=== PATIENT | female | born 1945 | race Caucasian/White ===

== ENCOUNTER 2017-08-26 09:47 | Observation (INO) ==
[2017-08-26] MEDS: Ringers Solution, Lactated 1,000 ML IVC SCH (10:22)
--- NOTE | 2017-08-26 10:37 | Anesthesia Evaluation PreOp ---
Date of Encounter: 08/26/17 Time of Encounter: 10:35 - Past History Planned Operation: ERCP Cardiac History: HTN Pulmonary History: Denies Any Significant HX Other Medical History: GERD (Mostly heartburn), Other (Hemochromatosis) Anesthesia History: No Prior Anesthetic Complications, Past Anesthesia Alcohol Use: none Drug use: none Medications and Allergies Omeprazole [PriLOSEC] 20 mg PO DAILY 07/20/17 [History] Cyanocobalamin (Vitamin B-12) [Vitamin B12] 1,000 mcg PO DAILY 08/26/17 [History ] Lisinopril [Zestril] 5 mg PO DAILY 08/26/17 [History] 3 Allergy/AdvReac Type Severity Reaction Status Date / Time codeine Allergy Difficulty Verified 08/26/17 10:13 Breathing hydrocodone [From Vicodin] Allergy Difficulty Verified 08/26/17 10:13 Breathing Hydromorphone [From Dilaudid] Allergy Difficulty Verified 08/26/17 10:13 Breathing morphine Allergy Difficulty Verified 08/26/17 10:13 Breathing Oxycodone [From Percocet] Allergy Rash Verified 08/26/17 10:13 tramadol Allergy Difficulty Verified 08/26/17 10:13 Breathing influenza virus vaccine, AdvReac FLU LIKE Verified 08/26/17 10:13 specific SYMPTOMS [Influenza Virus Vacc,Specific] - Meds/Allergy Pre-op Review Medications Reviewed: Yes Allergies Reviewed: Yes Beta Blockers on Current Med List: No Anesthesia Results - Labs Laboratory Tests 05/25/17 08/20/17 08/20/17 12:36 17:20 17:20 Hgb 12.2 D Hct 37.0 Plt Count 146 Sodium 143 Potassium 3.5 BUN 22 Creatinine 0.61 Glucose 114 H Hemoglobin A1c 4.8 Total Bilirubin 0.4 Direct Bilirubin 0.1 AST 16 ALT 7 Alkaline Phosphatase 100 Serum Total Protein 6.7 Albumin 3.6 Globulin 3.1 - Imaging Additional studies: Cardiac workup on 2014 for dizziness - NEGATIVE Anesthesia Exam O2 Sat Height 1.6 m Weight 85.275 kg O2 Sat by Pulse Oximetry 96 Vital Signs Temp Pulse Resp BP Pulse Ox 98.3 F 63 16 139/86 96 08/26/17 10:00 08/26/17 10:00 08/26/17 10:00 08/26/17 10:00 08/26/17 10:00 NPO (# of Hours): >8 - HEENT Mallampati: II Teeth: Normal, Missing (Few) - Cardiac Rhythm: Regular - Pulmonary Breath Sounds: bilateral Clear Anesthesia Assess/Plan ASA Score: 2 Modified Currie Scale for Level of Consciousness: Cooperative, oriented, and tranquil Anesthetic Plan: General Monitoring Plan: Standard Monitors Recovery Plan: PACU Anes Supervising Prov Stmt: Patient informed and consented. Risks, benefits, and alternatives discussed. Patient wishes to proceed.
[2017-08-26] MEDS ORDERED: Indomethacin 50 MG SUPP.RECT RC ONE (11:02)
[2017-08-26] MEDS ORDERED: Ondansetron 4 MG/2 ML VIAL IVP PRN (11:15)
[2017-08-26] MEDS ORDERED: *HR* EPINEPHrine 1 MG/10 ML SYRINGE INTRATRACH PRN (11:36)
[2017-08-26] MEDS ORDERED: *HR* EPINEPHrine 1 MG/10 ML SYRINGE ONE (12:12)
[2017-08-26] MEDS ORDERED: Ondansetron 4 MG/2 ML VIAL ONE (12:40)
[2017-08-26] MEDS ORDERED: Ketorolac 15 MG/ML VIAL IVP ONE (14:12)
[2017-08-26] MEDS ORDERED: *HR* Promethazine 25 MG/ML VIAL ONE (14:57)
[2017-08-26] MEDS ORDERED: *HR* Promethazine 25 MG/ML VIAL IVP PRN (14:59)
[2017-08-26] MEDS ORDERED: *HR* FentaNYL (PF) 100 MCG/2 ML VIAL ONE (15:09)
[2017-08-26] MEDS: *HR* FentaNYL (PF) 100 MCG/2 ML VIAL IVP PRN ×2 (15:10→21:36)
[2017-08-26] MEDS ORDERED: *HR* Succinylcholine 200 MG/10 ML VIAL IVP ONE (16:09)
[2017-08-26] MEDS ORDERED: Lidocaine -MPF 2% 5 ML VIAL INFILT ONE (16:09)
[2017-08-26] MEDS ORDERED: Ondansetron 4 MG/2 ML VIAL IVP ONE (16:09)
[2017-08-26] MEDS ORDERED: *HR* Propofol 200 MG/20 ML VIAL IVP ONE (16:09)
[2017-08-26] MEDS ORDERED: Naloxone 0.4 MG/ML INJ IVP PRN (16:37)
[2017-08-26] MEDS ORDERED: Isovue-370 500 ML INFUS..BTL IV ONE (16:42)
--- NOTE | 2017-08-26 16:48 | Internal Med History&Physical ---
Date of Encounter: 08/26/17 Time of Encounter: 16:47 Internal Medicine - H&P: HPI Chief complaint: abdominal pain Admitted From: Direct Admit Plans for Post Hospital Care: Home History of present illness: Ms. Hudson is a 71 year old female who has a background history of hypertension, hemachromatosis, GERD. Patient was referred by PCP to gastroenterology for ERCP. Patient underwent ERCP this morning but post ERCP patient was having excruciating pain. This was the reason demographic analyst requested a direct admission for pain control. Gastroenterology is on the board. Reason for admission: Pain control her postprocedure ERCP. Past Med Surg Social Fam HX - Past Medical History Medical history: GERD, hypertension Psychiatric history: no psych history - Past Surgical History Surgical History: cholecystectomy, herniorrhaphy, hip replacement, other - Social History Smoking Status: Never smoker Smokeless Tobacco Status: No Alcohol use: none Drug use: none - Family History Father Hx Family Cardiac Disorders: Yes Internal Medicine - H&P: Meds Omeprazole [PriLOSEC] 20 mg PO DAILY 07/20/17 [History] Cyanocobalamin (Vitamin B-12) [Vitamin B12] 1,000 mcg PO DAILY 08/26/17 [History ] Lisinopril [Zestril] 5 mg PO DAILY 08/26/17 [History] 3 Allergy/AdvReac Type Severity Reaction Status Date / Time codeine Allergy Difficulty Verified 08/26/17 10:13 Breathing hydrocodone [From Vicodin] Allergy Difficulty Verified 08/26/17 10:13 Breathing Hydromorphone [From Dilaudid] Allergy Difficulty Verified 08/26/17 10:13 Breathing morphine Allergy Difficulty Verified 08/26/17 10:13 Breathing Oxycodone [From Percocet] Allergy Rash Verified 08/26/17 10:13 tramadol Allergy Difficulty Verified 08/26/17 10:13 Breathing influenza virus vaccine, AdvReac FLU LIKE Verified 08/26/17 10:13 specific SYMPTOMS [Influenza Virus Vacc,Specific] All Systems PM: A 10-system review of systems was performed and is negative for pertinent findings except as documented above in the HPI. - Constitutional Constitutional: no chills, no fever(s), no night sweats - EENT Eyes: no change in vision, no discharge, no pain, no photophobia Ears: no ear discharge, no ear pain, no tinnitus Nose, mouth and throat: no dysphagia, no nasal discharge, no neck pain, no sore throat - Cardiovascular Cardiovascular ROS IM: no chest pain, no diaphoresis, no dyspnea, no lightheadedness, no palpitations, no syncope - Respiratory Respiratory: no cough, no dyspnea, no wheezing, no excessive phlegm production - Gastrointestinal Gastrointestinal: abdominal pain, no diarrhea, no hematemesis, no hematochezia, no melena, no nausea, no vomiting - Genitourinary Genitourinary: no change in urinary stream, no dysuria, no flank pain, no hematuria - Musculoskeletal Musculoskeletal ROS IM: no numbness, no tingling - Integumentary Integumentary IM: no rash, no unusual bruising - Neurological Neurological ROS: no confusion, no convulsions, no focal weakness, no numbness, no tingling, no tremor(s) - Hematologic/Lymphatic Hematologic/Lymphatic: no easy bruising - Constitutional Vitals: Temp Pulse Resp BP Pulse Ox 97.7 F 68 18 150/76 96 08/26/17 12:25 08/26/17 15:07 08/26/17 15:07 08/26/17 15:07 08/26/17 15:07 General appearance: Present: A&O X 3, pleasant, no acute distress, answers questions appropriately - Head Head exam: Present: atraumatic, normocephalic - Eye Eye exam: Present: PERRL, conjuntiva pink, sclera anicteric Pupils: Present: PERRL - Neck Neck exam general surgery: Present: supple, trachea midline. Absent: lymphadenopathy - Respiratory Respiratory exam: Present: CTAB. Absent: accessory muscle use, rales, rhonchi, wheezes - Cardiovascular Cardiovascular exam: Present: RRR, +S1, +S2. Absent: diastolic murmur, gallop, rubs, systolic murmur - GI/Abdominal GI/Abdominal exam: Present: normal bowel sounds, soft, no peritoneal signs. Absent: distended, tenderness - Extremities Exam Extremities exam: Present: warm, radial pulses palpable and symmetrical. Absent : calf tenderness, cyanotic, pedal edema - Neurological Exam Neurological exam: Present: CN II-XII intact, oriented X3, no focal deficits. Absent: pronater drift, facial droop, speech deficit - Skin Skin exam: Present: dry, intact Internal Med - H&P Results - Labs CBC & Chem 7: 08/26/17 17:25 - Impressions ITS Impressions Cath/Invasive Procedure 08/26/17 00:00 IMPRESSION: ERCP images demonstrating sweeping of the common bile duct and placement of a common bile duct stent. Please refer to the procedure report for further details. D/ / Soy Velazquez MD / Soy Velazquez MD Interpreting Provider: Soy Velazquez MD X-Ray 08/26/17 15:00 IMPRESSION: No obvious free air postprocedure. D/ / Bora Schmidt / Bora Schmidt Interpreting Provider: Bora Schmidt - Assessment and plan (1) Abdominal pain Current Visit: Yes Status: Acute Assessment and plan: 71/female Admitted with postprocedural pain control. patient underwent ERCP. Post-ERCP, patient was having excruciating pain. This is the reason patient came to hospital for intravenous pain medication for her pain control. Qualifiers: Abdominal location: unspecified location Qualified Code(s): R10.9 - Unspecified abdominal pain (2) Fatigue Current Visit: No Status: Acute Assessment and plan: Patient has progressive fatigue. This is likely postprocedure. We will continue to monitor. Qualifiers: Fatigue type: unspecified Qualified Code(s): R53.83 - Other fatigue (3) Hereditary hemochromatosis Current Visit: No Status: Chronic Assessment and plan: Patient is known to have a hereditary hemochromatosis. Asymptomatic now. Gastroenterology the board. (4) DVT prophylaxis Current Visit: No Status: Chronic Assessment and plan: SCD Medical decision making: This patient has a moderate to severe risk of worsening in spite of being on appropriate medication due to the underlying complex medical condition. - Time Spent With Patient Total time spent is greater than 50% in coordination of care (as documented) at patient's floor/unit and/or counseling patient:
[2017-08-26 17:58] LABS: Basophils % 0.5 %; Eosinophils % 0.3 %; Hematocrit 36.4 % (35.3-44.9); Hemoglobin 12.2 g/dL (11.5-15.4); Immature Granulocytes % 0.5 % (0-4); Lymphocytes % 15.2 %; Mean Corpuscular HGB Conc 33.5 g/dL (31.6-35.5); Mean Corpuscular Hemoglobin 31.4 pg (28.0-33.3); Mean Corpuscular Volume 93.6 fL (83.0-100.0); Mean Platelet Volume 10.5 fL (9.4-12.4); Monocytes # 0.5 K/mcL (0.0-1.3); Monocytes % 7.7 %; Neutrophils # 4.9 K/mcL (1.6-8.9); Platelet Count 137 K/mcL (140-400); Red Blood Count 3.89 M/mcL (3.82-4.97); Red Cell Distribution Width 13.1 % (11.5-14.5); Segmented Neutrophils % 75.8 %
[2017-08-26 18:20] LABS: Alanine Aminotransferase 10 Units/L (7-52); Albumin 3.4 g/dL (3.5-5.7); Albumin/Globulin Ratio 1.3 (1.1-2.2); Alkaline Phosphatase 99 Units/L (34-104); Aspartate Amino Transferase 23 Units/L (13-39); BUN/Creatinine Ratio 30 (6-26); Bilirubin,Total 0.5 mg/dL (0.3-1.0); Blood Urea Nitrogen 17 mg/dL (8-23); Calcium 8.9 mg/dL (8.6-10.3); Carbon Dioxide 26 mEq/L (23-29); Chloride 110 mEq/L (98-107); Globulin 2.7 g/dL (2.4-3.5); Glucose 108 mg/dL (70-105); Osmolality,Calculated 292 (280-300); Potassium 3.5 mEq/L (3.5-5.1); Sodium 140 mEq/L (136-145); Total Protein 6.1 g/dL (6.4-8.9); eGFR For African Americans > 60 (> 60); eGFR For Non-African Americans > 60 (> 60)
[2017-08-27] MEDS: *HR* FentaNYL (PF) 100 MCG/2 ML VIAL IVP PRN ×4 (00:24→13:42)
[2017-08-27] MEDS: Ringers Solution, Lactated 1,000 ML IVC SCH (02:12)
[2017-08-27 05:29] LABS: Basophils % 0.8 %; Eosinophils # 0.1 K/mcL (0.0-0.6); Eosinophils % 1.5 %; Hematocrit 33.4 % (35.3-44.9); Hemoglobin 11.3 g/dL (11.5-15.4); Immature Granulocytes % 0.4 % (0-4); Lymphocytes # 1.7 K/mcL (0.6-4.6); Lymphocytes % 32.1 %; Mean Corpuscular HGB Conc 33.8 g/dL (31.6-35.5); Mean Corpuscular Hemoglobin 31.7 pg (28.0-33.3); Mean Corpuscular Volume 93.6 fL (83.0-100.0); Mean Platelet Volume 10.4 fL (9.4-12.4); Monocytes # 0.6 K/mcL (0.0-1.3); Monocytes % 11.4 %; Neutrophils # 2.8 K/mcL (1.6-8.9); Platelet Count 129 K/mcL (140-400); Red Blood Count 3.57 M/mcL (3.82-4.97); Segmented Neutrophils % 53.8 %
[2017-08-27 05:49] LABS: Alanine Aminotransferase 10 Units/L (7-52); Albumin 2.9 g/dL (3.5-5.7); Albumin/Globulin Ratio 1.1 (1.1-2.2); Alkaline Phosphatase 76 Units/L (34-104); Aspartate Amino Transferase 19 Units/L (13-39); BUN/Creatinine Ratio 30 (6-26); Bilirubin,Total 0.6 mg/dL (0.3-1.0); Blood Urea Nitrogen 16 mg/dL (8-23); Calcium 8.4 mg/dL (8.6-10.3); Carbon Dioxide 24 mEq/L (23-29); Chloride 109 mEq/L (98-107); Globulin 2.6 g/dL (2.4-3.5); Glucose 82 mg/dL (70-105); Magnesium 1.9 mg/dL (1.6-2.6); Osmolality,Calculated 290 (280-300); Phosphorous 3.3 mg/dL (2.7-4.5); Potassium 3.4 mEq/L (3.5-5.1); Sodium 140 mEq/L (136-145); Total Protein 5.5 g/dL (6.4-8.9); eGFR For African Americans > 60 (> 60); eGFR For Non-African Americans > 60 (> 60)
[2017-08-27] MEDS ORDERED: Ringers Solution, Lactated 1,000 ML IVC SCH (08:26)
--- NOTE | 2017-08-27 08:55 | Internal Med Progress Note ---
<Hanna Bustamante - Last Filed: 08/27/17 08:51> Date of Encounter: 08/27/17 Time of Encounter: 08:45 - Assessment and plan (1) Abdominal pain Current Visit: Yes Status: Acute Assessment and plan: Abdominal pain postprocedural ERCP with biliary sphincterotomy and stent placed in common bile duct. GI admitted the patient for pain control. She reports that her pain has improved since yesterday and is more tolerable. Abdomen is soft, tender to right upper quadrant, bowel sounds present, nondistended -Tolerating the clear liquid diet -ketoralac PRN pain -GI following Qualifiers: Abdominal location: unspecified location Qualified Code(s): R10.9 - Unspecified abdominal pain (2) Hereditary hemochromatosis Current Visit: No Status: Chronic Assessment and plan: History of hereditary hemochromatosis. For which she sees Dr. Ashley at the oncology center controlled (3) Hypertension Current Visit: Yes Status: Acute Assessment and plan: History of hypertension controlled with lisinopril continue home medication Qualifiers: Qualified Code(s): I10 - Essential (primary) hypertension (4) DVT prophylaxis Current Visit: No Status: Chronic Assessment and plan: EPCD (5) GERD (gastroesophageal reflux disease) Current Visit: Yes Status: Acute Assessment and plan: History of Gerd controlled with omeprazole continue home medication Qualifiers: Esophagitis presence: esophagitis presence not specified Qualified Code(s) : K21.9 - Gastro-esophageal reflux disease without esophagitis - Time Spent With Patient Total time spent is greater than 50% in coordination of care (as documented) at patient's floor/unit and/or counseling patient: - Subjective Interval history: Upon examination she is sitting up in bed comfortably. She admits to tolerable abdominal pain. She denies fever, chills, nausea, vomiting. She is passed gas. She has no other complaints. - Constitutional Vitals: Temp Pulse Resp BP Pulse Ox 98.4 F 60 18 100/60 93 08/27/17 06:45 08/27/17 06:45 08/27/17 06:45 08/27/17 06:45 08/27/17 06:45 General appearance: Present: A&O X 3, pleasant, no acute distress, answers questions appropriately Exam: Gen.: Vitals noted. No acute distress. AAOx3 HEENT: oropharynx clear, Normocephalic, atraumatic Cardiac: RRR, no murmur, +S1/S2 Pulmonary: CTA bilaterally, no wheezes, rales or rhonchi, equal chest expansion Abdomen: soft, tender right upper quadrant, Bowel sounds noted, no guarding, nondistended MSK: no joint swelling noted Extremities: no BLE edema, nontender calf, no cyanosis or clubbing Neuro: A&Ox3, moves all extremities, no focal deficits Psych: Appropriate mood and behavior Internal Medicine: Result - Labs CBC & Chem 7: 08/27/17 04:55 08/27/17 04:55 Labs: Short CBC 08/26/17 08/27/17 Range/Units 17:25 04:55 WBC 6.4 5.3 (4.3-11.1) K/mcL Hgb 12.2 11.3 L (11.5-15.4) g/dL Hct 36.4 33.4 L (35.3-44.9) % Plt Count 137 L 129 L (140-400) K/mcL Neutrophils # 4.9 2.8 (1.6-8.9) K/mcL BMP 08/26/17 08/27/17 17:25 04:55 Sodium 140 140 Potassium 3.5 3.4 L Chloride 110 H 109 H Carbon Dioxide 26 24 BUN 17 16 Creatinine 0.56 L 0.54 L Glucose 108 H 82 Calcium 8.9 8.4 L Liver Function 08/26/17 08/27/17 Range/Units 17:25 04:55 Total Bilirubin 0.5 0.6 (0.3-1.0) mg/dL AST 23 19 (13-39) Units/L ALT 10 10 (7-52) Units/L Alkaline Phosphatase 99 76 (34-104) Units/L Albumin 3.4 L 2.9 L (3.5-5.7) g/dL - Impressions Impressions Cath/Invasive Procedure 08/26/17 00:00 IMPRESSION: ERCP images demonstrating sweeping of the common bile duct and placement of a common bile duct stent. Please refer to the procedure report for further details. D/ / Soy Velazquez MD / Soy Velazquez MD Interpreting Provider: Soy Velazquez MD X-Ray 08/26/17 15:00 IMPRESSION: No obvious free air postprocedure. D/ / Bora Schmidt / Bora Schmidt Interpreting Provider: Bora Schmidt Abdomen/Pelvis CT 08/26/17 16:42 IMPRESSION: 1. New stent in the common duct appears to be appropriately positioned in terminating in the duodenum. Decreased caliber of the intrahepatic ducts compared with the previous study. 2. Mild right upper quadrant stranding without pneumoperitoneum or free fluid. The stranding is nonspecific and may represent expected change status post ERCP with the differential including pancreatitis and peptic ulcer disease. D/ / Alvarado Gilman MD / Alvarado Gilman MD Interpreting Provider: Alvarado Gilman MD Consult Discharge Plan - Plan Additional Instructions: Take pain medication as needed follow-up with Dr. Cabrera in 3 to 4 weeks return to the hospital should you develop increase in worsened abdominal pain, fever, chills Referrals: Elen Britton DO [Primary Care Provider] - 09/06/17 10:30 am Ann-Marie Cabrera MD [Partnered Physician] - (Web request entered. Office will call with appointment.) Prescriptions: Ketorolac [Toradol] 10 mg PO Q4HR PRN #20 tablet PRN Reason: Pain <David Burgess - Last Filed: 08/27/17 16:03> Date of Encounter: 08/27/17 - Assessment and plan (1) DVT prophylaxis Current Visit: No Status: Chronic (2) Hereditary hemochromatosis Current Visit: No Status: Chronic (3) Abdominal pain Current Visit: Yes Status: Acute Qualifiers: Abdominal location: right upper quadrant Qualified Code(s): R10.11 - Right upper quadrant pain (4) Hypertension Current Visit: Yes Status: Acute Qualifiers: Qualified Code(s): I10 - Essential (primary) hypertension (5) GERD (gastroesophageal reflux disease) Current Visit: Yes Status: Acute Qualifiers: Esophagitis presence: esophagitis presence not specified Qualified Code(s) : K21.9 - Gastro-esophageal reflux disease without esophagitis - Time Spent With Patient Total time spent is greater than 50% in coordination of care (as documented) at patient's floor/unit and/or counseling patient: - Constitutional Vitals: Temp Pulse Resp BP Pulse Ox 98.5 F 58 18 117/71 93 08/27/17 15:12 08/27/17 15:12 08/27/17 15:12 08/27/17 15:12 08/27/17 15:12 Internal Medicine: Result - Labs CBC & Chem 7: 08/27/17 04:55 08/27/17 04:55 Labs: Short CBC 08/26/17 08/27/17 Range/Units 17:25 04:55 WBC 6.4 5.3 (4.3-11.1) K/mcL Hgb 12.2 11.3 L (11.5-15.4) g/dL Hct 36.4 33.4 L (35.3-44.9) % Plt Count 137 L 129 L (140-400) K/mcL Neutrophils # 4.9 2.8 (1.6-8.9) K/mcL BMP 08/26/17 08/27/17 17:25 04:55 Sodium 140 140 Potassium 3.5 3.4 L Chloride 110 H 109 H Carbon Dioxide 26 24 BUN 17 16 Creatinine 0.56 L 0.54 L Glucose 108 H 82 Calcium 8.9 8.4 L Liver Function 08/26/17 08/27/17 Range/Units 17:25 04:55 Total Bilirubin 0.5 0.6 (0.3-1.0) mg/dL AST 23 19 (13-39) Units/L ALT 10 10 (7-52) Units/L Alkaline Phosphatase 99 76 (34-104) Units/L Albumin 3.4 L 2.9 L (3.5-5.7) g/dL - Impressions Impressions Abdomen X-Ray 08/26/17 15:00 IMPRESSION: No obvious free air postprocedure. D/ / Bora Schmidt / oBra Schmidt Interpreting Provider: Bora Schmidt Abdomen/Pelvis CT 08/26/17 16:42 IMPRESSION: 1. New stent in the common duct appears to be appropriately positioned in terminating in the duodenum. Decreased caliber of the intrahepatic ducts compared with the previous study. 2. Mild right upper quadrant stranding without pneumoperitoneum or free fluid. The stranding is nonspecific and may represent expected change status post ERCP with the differential including pancreatitis and peptic ulcer disease. D/ / Alvarado Gilman MD / Alvarado Gilman MD Interpreting Provider: Alvarado Gilman MD - Attending Attestation Intractable abdominal pain after ERCP with sphincterectomy Improved Stable to be discharged home I examined this patient and my medical decision-making was reviewed with the Resident Physician. I agree with the documented findings, disposition and treatment plan as described except to the extent set forth below.
[2017-08-27] MEDS ORDERED: Cyanocobalamin (B-12) 1,000 MCG TABLET PO SCH (09:00)
--- NOTE | 2017-08-27 11:38 | Gastroenterology Consult Note ---
<Marcus Kirkpatrick - Last Filed: 08/27/17 11:34> Date of Encounter: 08/27/17 Time of Encounter: 10:30 - Assessment and plan (1) Abdominal pain Status: Acute Assessment and plan: S/p ERCP with biliary sphincterotomy, CBD dilated, sludge found in biliary tree , and temporary stent placed in CBD. Pt developed abdominal pain following procedure. Continue pain control. Pt is tolerating clear liquid diet, advance as tolerated. Qualifiers: Abdominal location: right upper quadrant Qualified Code(s): R10.11 - Right upper quadrant pain - Time Spent With Patient Total time spent is greater than 50% in coordination of care (as documented) at patient's floor/unit and/or counseling patient: GI History of Present Illness - Data of Consult Patient: known to practice within the last 3 years Consult date: 08/27/17 Requesting Physician: David Burgess - Consult Narrative Reason for consult: Post ERCP pain control History of present illness: Ms. Hudson is a 71 year old female with PMHx of GERD, hemochromatosis, HTN who had ERCP completed yesterday and began to expeience excruciating pain following the procedure. CT A/P 06/10/17 showed dilated CBD and distal CBD debris/stones. ERCP with biliary sphincterotomy, CBD dilated, sludge found in biliary tree, and temporary stent placed in CBD. Patient was admitted for pain control. Procedures: EGD 09/22/2013 Dr. Cabrera: Large hiatal hernia, stents removed. Esophageal manometry 09/21/2013 Dr. Humphrey: Hypotensive esophageal contractions on 10 wet swallows. ERCP 08/28/2013 Dr. Cabrera: Choledocholithiasis and biliary sludge was found, biliary and pancreatic duct stents were inserted. Large periampullary diverticulum. EUS 08/26/2013 Dr. Cabrera: Large periampullary diverticulum. Possible CBD sludge. Colonoscopy 07/10/2013 Dr. Ludwig: Nonbleeding internal hemorrhoids NSAIDs: None Anticoagulation: None Past Med Surg Social Fam HX - Past Medical History Medical history: GERD, hypertension Psychiatric history: no psych history - Past Surgical History Surgical History: cholecystectomy, herniorrhaphy, hip replacement, other - Social History Smoking Status: Never smoker Smokeless Tobacco Status: No Alcohol use: none Drug use: none - Family History Father Hx Family Cardiac Disorders: Yes - Gastrointestinal Gastrointestinal: Present: as per HPI - Constitutional Constitutional: as per HPI - EENT Eyes: as per HPI Ears: Present: as per HPI Nose, mouth and throat: Present: as per HPI - Cardiovascular Cardiovascular ROS: Present: as per HPI - Respiratory Respiratory IM: Present: as per HPI - Genitourinary Genitourinary: Absent: change in color, Urinary frequency - Neurological ROS Neurological GI: Present: as per HPI - Hematologic/Lymphatic Hematologic/Lymphatic pediatric: Present: as per HPI - Musculoskeletal Musculoskeletal ROS GI: Present: as per HPI - Integumentary Integumentary GI: Present: as per HPI - Psychiatric ROS Psychiatric GI: Present: as per HPI - Endocrine Endocrine IM: Present: as per HPI - Constitutional Vitals: Temp Pulse Resp BP Pulse Ox 98.0 F 56 17 111/68 93 08/27/17 11:00 08/27/17 11:00 08/27/17 11:00 08/27/17 11:00 08/27/17 11:00 General appearance: Present: cooperative, A&O X 3, no acute distress, answers questions appropriately - Head Head exam: Present: atraumatic, normocephalic - Eye Eye exam: Present: normal appearance, sclera anicteric - ENT ENT exam: Present: mucous membranes dry - Neck Neck exam general surgery: Present: normal inspection, trachea midline - Respiratory Respiratory exam: Present: CTAB. Absent: rales, rhonchi, wheezes - Cardiovascular Cardiovascular exam: Present: RRR, +S1, +S2 - GI/Abdominal GI/Abdominal exam: Present: soft, tenderness (mild RUQ and epigastric tenderness ), no peritoneal signs. Absent: distended, firm, guarding - Rectal Rectal exam: Present: deferred - Extremities Exam Extremities exam: Present: warm - Neurological Exam Neurological exam: Present: no focal deficits - Psychiatric Psychiatric exam: Present: normal affect, normal mood - Skin Skin exam: Present: dry, intact, normal color, warm Results - Labs CBC & Chem 7: 08/27/17 04:55 08/27/17 04:55 Labs: Last Result Calcium 8.4 mg/dL (8.6-10.3) L 08/27/17 04:55 Entire Visit Hgb 11.3 g/dL (11.5-15.4) L 08/27/17 04:55 Hct 33.4 % (35.3-44.9) L 08/27/17 04:55 Total Bilirubin 0.6 mg/dL (0.3-1.0) 08/27/17 04:55 AST 19 Units/L (13-39) 08/27/17 04:55 ALT 10 Units/L (7-52) 08/27/17 04:55 Amylase 60 Units/L (29-103) 08/26/17 17:25 Lipase 22 Units/L (11-82) 08/26/17 17:25 - Impressions Impressions Cath/Invasive Procedure 08/26/17 00:00 IMPRESSION: ERCP images demonstrating sweeping of the common bile duct and placement of a common bile duct stent. Please refer to the procedure report for further details. D/ / Soy Velazquez MD / Soy Velazquez MD Interpreting Provider: Soy Velazquez MD X-Ray 08/26/17 15:00 IMPRESSION: No obvious free air postprocedure. D/ / Bora Schmidt / Bora Schmidt Interpreting Provider: Bora Schmidt Abdomen/Pelvis CT 08/26/17 16:42 IMPRESSION: 1. New stent in the common duct appears to be appropriately positioned in terminating in the duodenum. Decreased caliber of the intrahepatic ducts compared with the previous study. 2. Mild right upper quadrant stranding without pneumoperitoneum or free fluid. The stranding is nonspecific and may represent expected change status post ERCP with the differential including pancreatitis and peptic ulcer disease. D/ / Alvarado Gilman MD / Alvarado Gilman MD Interpreting Provider: Alvarado Gilman MD Consult Discharge Plan - Plan Additional Instructions: Take pain medication as needed follow-up with Dr. Gul in 3 to 4 weeks return to the hospital should you develop increase in worsened abdominal pain, fever, chills Referrals: Elen Britton DO [Primary Care Provider] - 09/06/17 10:30 am Ann-Marie Cabrera MD [Partnered Physician] - (Web request entered. Office will call with appointment.) Prescriptions: Ketorolac [Toradol] 10 mg PO Q4HR PRN #20 tablet PRN Reason: Pain <Ann-Marie Cabrera - Last Filed: 08/27/17 23:00> Date of Encounter: 08/26/17 Time of Encounter: 17:00 - Time Spent With Patient Total time spent is greater than 50% in coordination of care (as documented) at patient's floor/unit and/or counseling patient: GI History of Present Illness - Data of Consult Requesting Physician: David Burgess - Consult Narrative History of present illness: Ms. Hudson is a 71 year old female - Constitutional Vitals: Temp Pulse Resp BP Pulse Ox 98.5 F 58 18 117/71 93 08/27/17 15:12 08/27/17 15:12 08/27/17 15:12 08/27/17 15:12 08/27/17 15:12 Results - Labs CBC & Chem 7: 08/27/17 04:55 08/27/17 04:55 Labs: Last Result Calcium 8.4 mg/dL (8.6-10.3) L 08/27/17 04:55 Entire Visit Hgb 11.3 g/dL (11.5-15.4) L 08/27/17 04:55 Hct 33.4 % (35.3-44.9) L 08/27/17 04:55 Total Bilirubin 0.6 mg/dL (0.3-1.0) 08/27/17 04:55 AST 19 Units/L (13-39) 08/27/17 04:55 ALT 10 Units/L (7-52) 08/27/17 04:55 Amylase 60 Units/L (29-103) 08/26/17 17:25 Lipase 22 Units/L (11-82) 08/26/17 17:25 - Impressions Impressions Abdomen X-Ray 08/26/17 15:00 IMPRESSION: No obvious free air postprocedure. D/ / Bora Schmidt / Bora Schmidt Interpreting Provider: Bora Schmidt - Attending Attestation I have personally performed a face to face evaluation on this patient. I have reviewed and agree with the care plan. History and Exam by me shows: Pt s/p ERCP and post ERCP had pain so admitted for observation. Pain better. labs/CT normal. Can be d/c home
--- NOTE | 2017-08-27 15:04 | Discharge Summary ---
<Hanna Bustamante - Last Filed: 08/27/17 15:02> Date of Encounter: 08/27/17 Time of Encounter: 15:02 - Discharge Diagnosis (1) Abdominal pain Priority: Primary Status: Acute Qualifiers: Abdominal location: right upper quadrant Qualified Code(s): R10.11 - Right upper quadrant pain (2) Hereditary hemochromatosis Priority: Secondary Status: Chronic (3) Hypertension Priority: Secondary Status: Acute Qualifiers: Qualified Code(s): I10 - Essential (primary) hypertension (4) DVT prophylaxis Priority: Secondary Status: Chronic (5) GERD (gastroesophageal reflux disease) Priority: Secondary Status: Acute Qualifiers: Esophagitis presence: esophagitis presence not specified Qualified Code(s) : K21.9 - Gastro-esophageal reflux disease without esophagitis Hospital course: Ms. Hudson is a 71 year old female with a past medical history of hypertension , hemochromatosis, Gerd who was admitted for pain control postprocedure ERCP. Gastroenterology continued to follow the patient during admission. She was afebrile, WBC within normal limits. She was given fentanyl, indomethacin for pain control. During her admission her abdominal pain continue to significantly improve since the procedure. She tolerated clear liquid diet well and then was transitioned to a regular diet for which she tolerated well. Abdominal exam was soft, nontender, nondistended, bowel sounds present. She reported occasional sharp pain that would resolve quickly. Families at bedside. Since pain was improved and controlled she was discharged with pain medication to use as needed. She is to follow up with Dr. Cabrera 3 to 4 weeks. She is alert and oriented times 3 full capacity stated clear understanding of the treatment plan. Discharge discussed with: patient, family - Time Spent with Patient Total time spent providing and/or coordinating discharge services: Greater than 30 minutes - Discharge Medications Prescriptions: Ketorolac [Toradol] 10 mg PO Q4HR PRN #20 tablet PRN Reason: Pain Home Medications: Omeprazole [PriLOSEC] 20 mg PO DAILY 07/20/17 [History] Cyanocobalamin (Vitamin B-12) [Vitamin B12] 1,000 mcg PO DAILY 08/26/17 [History ] Lisinopril [Zestril] 5 mg PO DAILY 08/26/17 [History] Ketorolac [Toradol] 10 mg PO Q4HR PRN #20 tablet 08/27/17 [Rx] Allergies/Adverse Reactions: 3 Allergy/AdvReac Type Severity Reaction Status Date / Time codeine Allergy Difficulty Verified 08/26/17 10:13 Breathing hydrocodone [From Vicodin] Allergy Difficulty Verified 08/26/17 10:13 Breathing Hydromorphone [From Dilaudid] Allergy Difficulty Verified 08/26/17 10:13 Breathing morphine Allergy Difficulty Verified 08/26/17 10:13 Breathing Oxycodone [From Percocet] Allergy Rash Verified 08/26/17 10:13 tramadol Allergy Difficulty Verified 08/26/17 10:13 Breathing influenza virus vaccine, AdvReac FLU LIKE Verified 08/26/17 10:13 specific SYMPTOMS [Influenza Virus Vacc,Specific] Date of admission: 08/26/17 16:08 Primary care physician: Elen Britton DO Consults: 08/26/17 16:43 Consult to Gastroenterology [CONS] Routine Consulting Provider: Gastroenterology Joelle Reason for Consult: Post ERCP pain control. Call Completed: Yes Discharging clinician: David Burgess Anticipated date of discharge: 08/27/17 - Constitutional Vitals: Temp Pulse Resp BP Pulse Ox 98.0 F 56 17 111/68 93 08/27/17 11:00 08/27/17 11:00 08/27/17 11:00 08/27/17 11:00 08/27/17 11:00 General appearance: Present: A&O X 3, pleasant, no acute distress, answers questions appropriately Exam: Gen.: Vitals noted. No acute distress. AAOx3 HEENT: oropharynx clear, Normocephalic, atraumatic Cardiac: RRR, no murmur, +S1/S2 Pulmonary: CTA bilaterally, no wheezes, rales or rhonchi, equal chest expansion Abdomen: soft, tender right upper quadrant, Bowel sounds noted, no guarding, nondistended MSK: no joint swelling noted Extremities: no BLE edema, nontender calf, no cyanosis or clubbing Neuro: A&Ox3, moves all extremities, no focal deficits Psych: Appropriate mood and behavior - Patient Status Disposition: Home, Self-Care Condition: Good Functional capacity at discharge: independent ambulation Overall status at discharge: patient is progressing back to baseline - Discharge Instructions Follow Up With: Elen Britton DO [Primary Care Provider] - 09/06/17 10:30 am Ann-Marie Cabrera MD [Partnered Physician] - (Web request entered. Office will call with appointment.) Additional Instructions: Take pain medication as needed follow-up with Dr. Cabrera in 3 to 4 weeks return to the hospital should you develop increase in worsened abdominal pain, fever, chills - Diet and Activity Activity: resume usual activities as tolerated Diet: advance to your usual diet <David Burgess - Last Filed: 08/27/17 16:04> Date of Encounter: 08/27/17 - Discharge Diagnosis (1) DVT prophylaxis Status: Chronic (2) Hereditary hemochromatosis Status: Chronic (3) Abdominal pain Status: Acute Qualifiers: Abdominal location: right upper quadrant Qualified Code(s): R10.11 - Right upper quadrant pain (4) Hypertension Status: Acute Qualifiers: Qualified Code(s): I10 - Essential (primary) hypertension (5) GERD (gastroesophageal reflux disease) Status: Acute Qualifiers: Esophagitis presence: esophagitis presence not specified Qualified Code(s) : K21.9 - Gastro-esophageal reflux disease without esophagitis Hospital course: Ms. Hudson is a 71 year old female - Time Spent with Patient Total time spent providing and/or coordinating discharge services: Date of admission: 08/26/17 16:08 Primary care physician: Elen Britton DO Consults: 08/26/17 16:43 Consult to Gastroenterology [CONS] Routine Consulting Provider: Gastroenterology Joelle Reason for Consult: Post ERCP pain control. Call Completed: Yes - Constitutional Vitals: Temp Pulse Resp BP Pulse Ox 98.5 F 58 18 117/71 93 08/27/17 15:12 08/27/17 15:12 08/27/17 15:12 08/27/17 15:12 08/27/17 15:12 - Attending Attestation Intractable abdominal pain after ERCP with sphincterectomy Improved Stable to be discharged home Time spent 40 minutes I examined this patient and my medical decision-making was reviewed with the Resident Physician. I agree with the documented findings, disposition and treatment plan as described except to the extent set forth below.
[2017-08-27 15:13] VITALS: BP 117/71
== END 2017-08-27 16:58 | disposition home or self-care (01) ==
LOC: 3ANU 09:47 → ENDPAV 09:47
PROVIDERS: ADMIT Internal Medicine; ATTEND Internal Medicine

== ENCOUNTER 2018-06-14 11:14 | Observation (INO) ==
--- NOTE | 2018-06-13 10:19 | History & Physical Report ---
Date of Encounter: 06/13/18 Time of Encounter: 10:20 24 Hour HP Update - Instructions Instructions: If the History and Physical is less than 30 days old and was completed prior to A.M. admission and or procedure and has NOT been updated on calendar day of procedure please complete this update prior to performing procedure. - Update Patient reports changes in Medical Condition: No Changes in examination, assessment, or condition: No Changes in Medication: Yes Preop tests/diagnostics Reviewed: Yes Review of Patient reveals the following changes:: Patient stopped Eliquis and was started on Coumadin for AC ~1 week ago. Follows at [facility], on 5 mg Coumadin daily. Last INR was 1.9. - Pre-Operative Checklist Is VTE Prophylaxis Indicated?: NO - Attending Attestation Please refer to full H&P dated 05/27/[address] Frederick Trevino. Direct admission for Rythmol 150 mg Q8H for symptomatic PAF--symptoms include significant fatigue/activity intolerance. Obtain baseline ECG, BMP, CMP. NSR upon exam. Patient will need inpatient monitoring for at least 5 doses, anticipate discharge to home on 06/15/18. Recently started on Coumadin for AC (Eliquis d/c'ed); ~1 week ago, INR followed by [facility]. Last INR 1.9; on 5 mg Coumadin daily. Will obtain INR now, pharmacy to dose Coumadin as inpt, goal INR 2-3 Recent CV testing: 12/2017: baseline NSR, frequent PVCs, occasional PACs, several short runs of PAT, one short episode of PAF with RVR Tilt table 11/2017: negative tilt table test for syncope. TTE 08/2017: LVEF 55%, mild asymmetric hypertrophy of the basal septum, mild LVDD, normal RV structure and function, mild MR, no PH Nuclear stress 01/2015: negative for ischemic or infarct, gated EF=67% Patient will be discussed and reviewed with Dr. Toribio, changes to be made accordingly.
[2018-06-13 11:13] LABS: Basophils # 0.1 K/mcL (0.0-0.2); Basophils % 1.3 %; Eosinophils # 0.2 K/mcL (0.0-0.6); Eosinophils % 3.1 %; Hematocrit 38.8 % (35.3-44.9); Hemoglobin 12.8 g/dL (11.5-15.4); Immature Granulocytes % 0.2 % (0-4); Lymphocytes # 1.7 K/mcL (0.6-4.6); Lymphocytes % 30.6 %; Mean Corpuscular Hemoglobin 31.6 pg (28.0-33.3); Mean Corpuscular Volume 95.8 fL (83.0-100.0); Mean Platelet Volume 10.9 fL (9.4-12.4); Monocytes # 0.6 K/mcL (0.0-1.3); Monocytes % 10.1 %; Platelet Count 136 K/mcL (140-400); Red Blood Count 4.05 M/mcL (3.82-4.97); Red Cell Distribution Width 12.8 % (11.5-14.5); Segmented Neutrophils % 54.7 %
[2018-06-13 11:32] LABS: Alanine Aminotransferase 7 Units/L (7-52); Albumin 3.7 g/dL (3.5-5.7); Albumin/Globulin Ratio 1.2 (1.1-2.2); Alkaline Phosphatase 82 Units/L (34-104); Aspartate Amino Transferase 15 Units/L (13-39); BUN/Creatinine Ratio 29 (6-26); Bilirubin,Total 0.4 mg/dL (0.3-1.0); Blood Urea Nitrogen 20 mg/dL (8-23); Calcium 9.6 mg/dL (8.6-10.3); Carbon Dioxide 26 mEq/L (23-29); Chloride 107 mEq/L (98-107); Glucose 89 mg/dL (70-105); Osmolality,Calculated 290 (280-300); Potassium 3.9 mEq/L (3.5-5.1); Sodium 139 mEq/L (136-145); Total Protein 6.7 g/dL (6.4-8.9); eGFR For Non-African Americans > 60 (> 60)
[2018-06-13 11:41] LABS: INR 1.8; Prothrombin Time 19.9 Seconds (9.4-12.1)
[2018-06-14 05:15] LABS: INR 2.3; Prothrombin Time 25.4 Seconds (9.4-12.1)
--- NOTE | 2018-06-14 08:04 | Electrophysiology ProgressNote ---
Date of Encounter: 06/14/18 Time of Encounter: 08:00 Assessment and Plan (1) Atrial fibrillation Current Visit: Yes Status: Chronic Per EP: Recent CV testing: 12/2017: baseline NSR, frequent PVCs, occasional PACs, several short runs of PAT, one short episode of PAF with RVR Tilt table 11/2017: negative tilt table test for syncope. TTE 08/2017: LVEF 55%, mild asymmetric hypertrophy of the basal septum, mild LVDD, normal RV structure and function, mild MR, no PH Nuclear stress 01/2015: negative for ischemic or infarct, gated EF=67% Direct admission for Rythmol 150 mg Q8H for symptomatic PAF--symptoms include significant fatigue/activity intolerance. Status post 3 doses with current ECG this morning showing sinus bradycardia in the 50s with QRS 107 ms. Nothing to eat after midnight for possible FIDELINA/DC cardio version if clinically warranted (has been SR); anticipate discharge home tomorrow. Recently started on Coumadin for AC ([facility] d/c'ed); ~1 week ago, INR followed by [facility]. Last INR 1.9; on 5 mg Coumadin daily. INR = 2.3, pharmacy to dose Coumadin as inpt, goal INR 2-3. Qualifiers: Atrial fibrillation type: paroxysmal Qualified Code(s): I48.0 - Paroxysmal atrial fibrillation Discussion w patient/family: The assessment and plan as outlined above was discussed with the patient and/or family members who expressed understanding and agreement. All questions were answered. Thank you for involving us in the care of your patient. Please call with any questions. Subjective Principal diagnosis: Afib Interval history: Denies any concerns or complaints overnight. Denies any chest pain, shortness of breath, palpitations. Objective Vital Signs, Last 4 Hours Temp Pulse Resp BP Pulse Ox 06/14/18 07:15 98.2 F 58 16 129/75 92 General: Conversant, No Apparent Distress HEENT: Atraumatic, Normocephaly, Mucus Membranes Moist Neck: No JVD, Normal carotid pulses Cardiac: Reg Rate and Rhythm, Normal S1 and S2, No Murmur Lungs: Normal Breath Sounds, No Wheeze, Rales, Rhonchi Neuro: Alert and responsive, No focal deficits noted Abdomen: Soft, Non-Tender Skin: No rashes noted on visualized skin Musculoskeletal: No Chest Wall Tenderness Extremities: No Clubbing, No Cyanosis, No Edema, Normal Pulses Results 06/13/18 10:36 06/13/18 10:36 Lab Results Laboratory Tests 06/14/18 04:50 INR 2.3 Active Medications Acetaminophen (Tylenol) 650 mg PO Q6HR PRN PRN Reason: Mild Pain/Fever Stop: 12/13/18 10:35 Cyanocobalamin (Vitamin B12) 1,000 mcg PO DAILY [facility] Stop: 12/14/18 09:01 Diltiazem HCl (Cardizem Cd) 120 mg PO DAILY [facility] Stop: 12/14/18 09:01 Naloxone HCl (Narcan) 0.4 mg IVP Q2MIN PRN PRN Reason: SEE COMMENTS Stop: 12/13/18 10:35 Omeprazole (Prilosec) 20 mg PO 0630 [facility]; Protocol Stop: 12/14/18 06:31 Last Admin: 06/14/18 06:27 Dose: 20 mg Propafenone HCl (Rhythmol) 150 mg PO Q8H [facility] Stop: 12/13/18 14:01 Last Admin: 06/14/18 06:27 Dose: 150 mg Warfarin Sodium (Coumadin Perpt) 1 each PO DAILY@1800 PRN PRN Reason: SEE COMMENTS Stop: 12/13/18 18:01 - EKG Interpretation EKG results cardiology: other (Average heart rate 57 the past 12 hours, sinus rhythm with no significant events) - VTE Reasons for not Prescribing Prophylaxis: Not indicated-Anticoagulated or INR therapeutic Consult Discharge Plan - Plan Referrals: Elen Britton DO [Primary Care Provider] -
[2018-06-14] MEDS: Cyanocobalamin (B-12) 1,000 MCG TABLET PO SCH (09:49)
[2018-06-14] MEDS: Diltiazem CD (24hr) 120 MG CAPSULE PO SCH (09:49)
[~2018-06-14 11:14] MED LIST: Acetaminophen 325 MG TABLET PO PRN; Naloxone 0.4 MG/ML INJ IVP PRN; Warfarin perPT PO PRN
[2018-06-14] MEDS ORDERED: *HR* Warfarin 3 MG TABLET PO ONE (18:00)
--- NOTE | 2018-06-14 18:26 | Electrocardiograph Report ---
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
--- NOTE | 2018-06-14 19:00 | Electrocardiograph Report ---
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
[2018-06-15 05:46] LABS: INR 1.7; Prothrombin Time 19.7 Seconds (9.4-12.1)
[2018-06-15 07:28] VITALS: BP 140/82
[2018-06-15] MEDS: Cyanocobalamin (B-12) 1,000 MCG TABLET PO SCH (09:20)
[2018-06-15] MEDS: Diltiazem CD (24hr) 120 MG CAPSULE PO SCH (09:20)
--- NOTE | 2018-06-15 09:47 | Discharge Summary ---
Orders not resulted at time of discharge: Pending orders 06/16/18 04:00 PT/INR [Prothrombin Time INR] [COAG] AM 0400 06/16/18 06:00 ECG 12 lead ECG [ECG] AM 0600 06/17/18 04:00 PT/INR [Prothrombin Time INR] [COAG] AM 0400 06/18/18 04:00 PT/INR [Prothrombin Time INR] [COAG] AM 0400 Date of Encounter: 06/15/18 Time of Encounter: 09:45 - Discharge Diagnosis (1) PAF (paroxysmal atrial fibrillation) Priority: Primary Status: Acute (2) Encounter for monitoring anti-arrhythmic therapy Priority: Primary Status: Acute - Hospital Course Hospital course: Ms. Hudson is a 72 year old female that presented as a direct admission 06/13/18 for Rythmol 150 mg Q8H for symptomatic PAF--symptoms include significant fatigue/activity intolerance. Status post 6 doses with current ECG this morning showing sinus bradycardia in the 50s with QRS 115 ms, stable. No PAF noted during stay. Recently started on Coumadin for AC ([facility] d/c'ed); ~1 week ago, INR followed by [facility]. INR 1.7; on 5 mg Coumadin daily. Goal INR 2-3. No bridging warranted since pt is maintaining SR. D/C home in stable condition. Will coordinate outpt follow-up in 2-3 weeks. - Time Spent with Patient Total time spent providing and/or coordinating discharge services: Less than 30 minutes - Discharge Medications Prescriptions: Propafenone [Rhythmol] 150 mg PO Q8H #90 tablet Home Medications: Omeprazole [PriLOSEC] 20 mg PO DAILY 07/20/17 [History] Cyanocobalamin (Vitamin B-12) [Vitamin B12] 1,000 mcg PO DAILY 08/26/17 [History] Acetaminophen [Tylenol] 500 mg PO BID PRN 12/14/17 [History] Diltiazem HCl [Cardizem LA] 120 mg PO DAILY 06/13/18 [History] Warfarin [Coumadin] 5 mg PO 1800 06/13/18 [History] Propafenone [Rhythmol] 150 mg PO Q8H #90 tablet 06/15/18 [Rx] Allergies/Adverse Reactions: Allergy/AdvReac Type Severity Reaction Status Date / Time codeine Allergy Difficulty Verified 06/13/18 21:27 Breathing hydrocodone [From Vicodin] Allergy Difficulty Verified 06/13/18 21:27 Breathing hydromorphone [From Dilaudid] Allergy Difficulty Verified 06/13/18 21:27 Breathing morphine Allergy Difficulty Verified 06/13/18 21:27 Breathing oxycodone [From Percocet] Allergy Rash Verified 06/13/18 21:27 tramadol Allergy Difficulty Verified 06/13/18 21:27 Breathing influenza virus vaccine, AdvReac FLU LIKE Verified 06/13/18 21:27 specific SYMPTOMS [Influenza Virus Vacc,Specific] Date of admission: 06/14/18 11:56 Primary care physician: Elen Britton DO Discharging clinician: Maxim Welch Anticipated date of discharge: 06/15/18 Physical Examination Vital Signs, Last 4 Hours Temp Pulse Resp BP Pulse Ox 06/15/18 07:23 98.6 F 55 16 140/82 90 Vital Signs Temp Pulse Resp BP Pulse Ox 06/15/18 07:23 98.6 F 55 16 140/82 90 06/15/18 04:00 98.4 F 54 13 147/83 91 06/15/18 00:00 98.4 F 64 13 139/76 90 06/14/18 20:00 98.4 F 72 13 150/75 95 06/14/18 16:14 98.6 F 63 16 145/80 93 Intake and Output 06/14/18 06/15/18 06/15/18 23:59 07:59 15:59 Intake Total 480 / 480 120 / 120 Output Total 1120 / 1120 900 / 900 Balance -640 / -640 -780 / -780 Intake: Oral 480 / 480 120 / 120 Output: Urine 900 / 900 Catheter 1120 / 1120 Other: Meal Dinner npo Percent of Meal Consumed 75% 0% Weight 84.5 kg Patient Weight 06/15/18 23:59 Weight 84.5 kg General: Conversant, No Apparent Distress HEENT: Atraumatic, Normocephaly, Mucus Membranes Moist Neck: No JVD, Normal carotid pulses Cardiac: Reg Rate and Rhythm, Normal S1 and S2, No Murmur Lungs: Normal Breath Sounds, No Wheeze, Rales, Rhonchi Neuro: Alert and responsive, No focal deficits noted Abdomen: Soft, Non-Tender Skin: No rashes noted on visualized skin Musculoskeletal: No Chest Wall Tenderness Extremities: No Clubbing, No Cyanosis, No Edema, Normal Pulses - Patient Status Disposition: Home, Self-Care Condition: Good Functional capacity at discharge: independent ambulation Overall status at discharge: patient is back to baseline - Discharge Instructions Follow Up With: Elen Britton DO [Primary Care Provider] - 06/22/18 11:00 am - Diet and Activity Activity: increase activity as tolerated Diet: advance to your usual diet - VTE Reasons for not Prescribing Prophylaxis: Not indicated-Anticoagulated or INR therapeutic
--- NOTE | 2018-06-15 15:48 | Electrocardiograph Report ---
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
== END 2018-06-15 11:59 | disposition home or self-care (01) ==
LOC: 2NENU → SAMDAY 11:14 → 2NENU 11:14
PROVIDERS: ADMIT Internal Medicine Clinical Cardiac Electrophysiology; ATTEND Internal Medicine Clinical Cardiac Electrophysiology

== ENCOUNTER 2018-08-20 18:57 | Observation (INO) ==
[2018-08-20] MEDS ORDERED: Isovue-370 500 ML BOTTLE IVP ONE ×2 (19:14→19:16)
--- NOTE | 2018-08-20 19:18 | Emergency Department Note ---
Disposition Clinical Impression: Cerebrovascular accident Qualifiers: CVA mechanism: unspecified Qualified Code(s): I63.9 - Cerebral infarction, unspecified Disposition: Admitted As Inpatient Condition: Undetermined Referrals: Elen Britton DO [Primary Care Provider] - Forms: ED Satisfaction Letter Time of Disposition: 20:17 Neuro HPI - General Chief Complaint: ED Neuro Symptoms/Deficit Stated Complaint: LUE/LLE pain Time Seen by Provider: 08/20/18 19:09 Source: patient Mode of arrival: wheelchair Limitations: no limitations Nursing Notes Reviewed: Yes Vital Signs Reviewed: Yes - History of Present Illness HPI Narrative: 72-year-old female with history of atrial fibrillation on warfarin, retention, arrives to the emergency department with left sided facial weakness, left-sided facial droop, left-sided facial numbness, left lower extremity numbness. The patient states that she lay down for a nap at 1730 and woke up with symptoms. Patient's last known well was 1730 today. Patient denies any other acute complaints. She has been taking her warfarin as prescribed. No recent traumatic injury. She is complaining of left-sided neck pain, pain in her left arm swells pain in her left lower extremity which is not unusual for her. The patient states she decided come to the emergency department secondary to the pain and the new paresthesias of the left lower extremity. Patient has an NIH of 3 upon arrival to the emergency department. She denies any other acute complaints. She is lucid and answering questions appropriately and is a very good historian. - Related Data Home Medications: Home Medications Medication Instructions Recorded Confirmed Omeprazole [PriLOSEC] 20 mg PO DAILY 07/20/17 08/20/18 Cyanocobalamin (Vitamin B-12) 1,000 mcg PO DAILY 08/26/17 08/20/18 [Vitamin B12] Acetaminophen [Tylenol] 500 mg PO BID PRN 12/14/17 08/20/18 Warfarin [Coumadin] 7.5 mg PO MOWEFR 06/13/18 08/20/18 Warfarin [Coumadin] 5 mg PO SUTUTHSA 08/20/18 08/20/18 Previous Rx's Medication Instructions Recorded Propafenone [Rhythmol] 150 mg PO Q8H #90 tablet 06/15/18 Allergies/Adverse Reactions: Allergies Allergy/AdvReac Type Severity Reaction Status Date / Time codeine Allergy Difficulty Verified 06/13/18 21:27 Breathing hydrocodone [From Vicodin] Allergy Difficulty Verified 06/13/18 21:27 Breathing hydromorphone [From Dilaudid] Allergy Difficulty Verified 06/13/18 21:27 Breathing morphine Allergy Difficulty Verified 06/13/18 21:27 Breathing oxycodone [From Percocet] Allergy Rash Verified 06/13/18 21:27 tramadol Allergy Difficulty Verified 06/13/18 21:27 Breathing influenza virus vaccine, AdvReac FLU LIKE Verified 06/13/18 21:27 specific SYMPTOMS [Influenza Virus Vacc,Specific] All systems ED: reviewed and negative except as stated. Constitutional: Denies: fever, chills, weakness ENT ED: Denies: dysphagia Cardiovascular: Denies: chest pain Respiratory: Denies: dyspnea Gastrointestinal: Denies: abdominal pain Genitourinary: Denies: urgency, dysuria Musculoskeletal: Denies: back pain Integumentary: Denies: rash Neurological: Reports: weakness, numbness, paresthesias. Denies: headache, confusion Past Medical History - Past Medical History Attestation: Yes The following information was validated with the patient. Source: patient, old records reviewed Medical history: Reports: atrial fibrillation, other Surgical history: Reports: cholecystectomy, herniorrhaphy, hip replacement, orthopedic, other, other Psychiatric history: Reports: no psych history CONTRACT ATTORNEY history: Reports: non-contributory - Social History Smoking Status: Never smoker Smokeless Tobacco Status: No Alcohol use: Reports: none Drug use: Reports: none Physical Exam - General Limitations: no limitations General appearance: alert, in no apparent distress - Head Head exam: atraumatic, normocephalic, normal inspection - Eye Eye exam: Present: normal appearance, PERRL, EOMI - ENT ENT exam: normal exam, normal oropharynx, mucous membranes moist - Neck Neck exam: Present: normal inspection, full ROM, trachea midline - Chest Chest inspection: Present: normal inspection, symmetric chest wall rise - Respiratory Respiratory exam: Present: normal lung sounds bilaterally - Cardiovascular Cardiovascular exam: Present: regular rate, normal rhythm, normal heart sounds - Abdominal Exam Abdominal exam: Present: soft, Non-Tender. Absent: tenderness, distention, guarding, rebound, rigidity - Extremities Exam Extremities exam: Present: normal inspection, full ROM, normal capillary refill. Absent: tenderness, pedal edema - Neurological Exam Neurological exam: Present: alert, oriented X3 - Skin Skin exam: Present: warm, dry, intact, normal color Course - Consultations Consultation #1: I spoke with on-call stroke neurologist, Dr. Argueta, at [facility]. Given the patient's INR greater than 1.7, the patient is not a TPA candidate. We had conversation and given the low NIH combined with the INR greater than 1.7, I will return the phone call back if the patient is a large vessel occlusion otherwise the patient will remain here at [facility] as she is not a TPA candidate at this time. Time: 19:43 Vital Signs Temperature 98.7 F 08/20/18 19:01 Pulse Rate 72 08/20/18 19:01 Respiratory Rate 18 08/20/18 19:01 Blood Pressure 169/91 08/20/18 19:01 O2 Sat by Pulse Oximetry 98 08/20/18 19:01 Temperature 98.7 F 08/20/18 19:01 Pulse Rate 62 08/20/18 19:55 Respiratory Rate 19 08/20/18 19:55 Blood Pressure 140/87 08/20/18 19:55 O2 Sat by Pulse Oximetry 97 08/20/18 19:55 Oxygen Delivery Oxygen Delivery Room Air Neuro Symptoms/Deficit - MDM Narrative Medical decision making narrative: Patient's workup in the emergency department demonstrates clinical findings of a CVA. CT of the head and neck and noncontrast was read no acute process. Stroke alert was canceled after the patient was found have an INR of 2. However the case was discussed with on-call stroke neurologist. They obviously recommended no TPA given the patient's warfarin and INR level. The patient will be admitted here at [facility]. She will be given a 325 mg aspirin. Patient aware and agrees to plan. No further questions or concerns noted. Accepted by Dr. Goldberg. - Lab Data Lab results reviewed: Yes I reviewed the patient's lab results. Result diagrams: 08/20/18 19:15 08/20/18 19:15 Lab Results 08/20/18 08/20/18 08/20/18 Range/Units 19:15 19:15 19:15 WBC 4.8 (4.3-11.1) K/mcL RBC 4.00 (3.82-4.97) M/mcL Hgb 12.5 (11.5-15.4) g/dL Hct 38.5 (35.3-44.9) % MCV 96.3 (83.0-100.0) fL MCH 31.3 (28.0-33.3) pg MCHC 32.5 (31.6-35.5) g/dL RDW 13.3 (11.5-14.5) % Plt Count 134 L (140-400) K/mcL MPV 10.8 (9.4-12.4) fL PT 22.5 H (9.4-12.1) Seconds INR 2.0 APTT 44.9 H (26.0-36.0) Seconds Sodium 138 (136-145) mEq/L Potassium 3.9 (3.5-5.1) mEq/L Chloride 108 H (98-107) mEq/L Carbon Dioxide 23 (23-29) mEq/L BUN 17 (8-23) mg/dL Creatinine 0.73 (0.60-1.20) mg/dL Est GFR ( Amer) > 60 (> 60) Est GFR (Non-Af Amer) > 60 (> 60) BUN/Creatinine Ratio 23 (6-26) Glucose 90 (70-105) mg/dL Calculated Osmolality 287 (280-300) Calcium 9.1 (8.6-10.3) mg/dL Troponin I < 0.03 (< 0.04) ng/mL Urine Color (Yellow) Urine Clarity (Clear) Urine pH (5.0-8.0) pH Units Ur Specific [employer] (1.010-1.025) Urine Protein (Neg-Trace) mg/dL Urine Glucose (UA) (Normal) mg/dL Urine Ketones (Negative) mg/dL Urine Blood (Negative) Urine Nitrite (Negative) Urine Bilirubin (Negative) Urine Urobilinogen (Normal) mg/dL Ur Leukocyte Esterase (Negative) Ur Culture Indicated? (NO) 08/20/18 Range/Units 19:51 WBC (4.3-11.1) K/mcL RBC (3.82-4.97) M/mcL Hgb (11.5-15.4) g/dL Hct (35.3-44.9) % MCV (83.0-100.0) fL MCH (28.0-33.3) pg MCHC (31.6-35.5) g/dL RDW (11.5-14.5) % Plt Count (140-400) K/mcL MPV (9.4-12.4) fL PT (9.4-12.1) Seconds INR APTT (26.0-36.0) Seconds Sodium (136-145) mEq/L Potassium (3.5-5.1) mEq/L Chloride (98-107) mEq/L Carbon Dioxide (23-29) mEq/L BUN (8-23) mg/dL Creatinine (0.60-1.20) mg/dL Est GFR ( Amer) (> 60) Est GFR (Non-Af Amer) (> 60) BUN/Creatinine Ratio (6-26) Glucose (70-105) mg/dL Calculated Osmolality (280-300) Calcium (8.6-10.3) mg/dL Troponin I (< 0.04) ng/mL Urine Color Yellow (Yellow) Urine Clarity Clear (Clear) Urine pH 7.0 (5.0-8.0) pH Units Ur Specific [employer] 1.009 L (1.010-1.025) Urine Protein Negative (Neg-Trace) mg/dL Urine Glucose (UA) Normal (Normal) mg/dL Urine Ketones Negative (Negative) mg/dL Urine Blood Negative (Negative) Urine Nitrite Negative (Negative) Urine Bilirubin Negative (Negative) Urine Urobilinogen Normal (Normal) mg/dL Ur Leukocyte Esterase Negative (Negative) Ur Culture Indicated? NO (NO) - Radiology Data Radiology results reviewed: Yes I reviewed the patient's radiology results. Head CTA 08/20/18 19:14 IMPRESSION: No flow limiting stenosis or branch occlusion detected within the head or neck. D/ / Ike Valentine MD / Ike Valentine MD Interpreting Provider: Ike Valentine MD Head CT 08/20/18 19:15 IMPRESSION: No acute intracranial abnormality. Critical results were called by Dr. Soy Velazquez MD to Segundo Arroyo on 08/20/2018 at 19:44. D/ / Soy Velazquez MD / Soy Velazquez MD Interpreting Provider: Soy Velazquez MD Neck CTA 08/20/18 19:16 IMPRESSION: No flow limiting stenosis or branch occlusion detected within the head or neck. D/ / Ike Valentine MD / Ike Valentine MD Interpreting Provider: Ike Valentine MD - EKG Data EKG attestation: Yes I reviewed and interpreted this EKG. EKG results narrative: Heart rate 69 beats for minute. Normal sinus rhythm. No ST elevation or ST depression noted. No acute changes noted. NIH Stroke Scale - Level of Consciousness LOC: Alert - LOC Questions LOC Questions: Answers both correctly - LOC Commands LOC Commands: Performs both correctly - Best Gaze Best Gaze: Normal - Visual Visual: No visual loss - Facial Palsy Facial Palsy: Minor asymmetry on smiling, flattened nasolabial fold - Motor Arms Motor Arm-Left: No drift for 10 seconds Motor Arm-Right: No drift for 10 seconds - Motor Legs Motor Leg-Left: No drift for 5 seconds Motor Leg-Right: No drift for 5 seconds - Limb Ataxia Limb Ataxia: Normal, No Ataxia - Sensory Sensory: Mild to moderate loss, "not as sharp" - Best Language Best Language: No aphasia - Dysarthria Dysarthria: Mild, slurs some words - Extinction and Inattention Extinction and Inattention: Normal - NIHSS Total Score NIHSS Total Score: 3 TPA Checklist - Source Information Source: Patient - Eligibilty for IV tPA 1. LKW equal to or less than 4.5 hours be before treatment: Yes 2. Clinical diagnosis of ischemic stroke causing deficit: Yes 3. Age 18 years or older: Yes - Contraindications 4. Evidence of intracranial hemorrhage on pretreatment CT: No 5. Presentation suggests subarachnoid hem, even if CT normal: No 6. CT shows multilobar infarction: No 7. Known neoplasm, arteriovenous malformation, or aneurysm: No 8. Significant head trauma (w/ LOC) or CVA in last 3 months: No 9. BP elevated (systolic > 185 or diastolic > 110): No 10. Abnormal Blood Glucose (<50 or >400mg/dl): No 11. Active internal bleeding [PM.TPA15]: No 12. Known bleeding risk (including; not limited to 13-15): No 13. Heparin/argatroban/bivalirudin w/in 48hrs & PTT > normal: No 14. Platelet count less than 100,000/MM3: No 15. Current or recent use of anticoagualants (see protocol): Yes - Warnings/Precautions Considerations 16. Prior ischemic stroke within last 3 months: No 17. Recent history of intracranial hemorrhage: No 18. : No 19. Current/recent use Effient (7 days) or Brilinta (5 days): No 20. Arterial puncture at non compressible site or LP >7days: No 21. Major surgery or serious trauma in last 14 days: No 22. GI or urinary tract hemorrhage in last 21 days: No 23. [place] involving left anterior myocardium in last 3 months: No 24. Suspected or known infective endocarditis/pericarditis: No - LKW: 3-4.5 hrs Add. Warnings/Precautions 21. oral anticoag other than warfarin regardles of last dose: No Patient/family understanding: The patient/family members have been counseled and understood the risk, benefit, and alternatives of treatment.
[2018-08-20 19:21] LABS: Hematocrit 38.5 % (35.3-44.9); Hemoglobin 12.5 g/dL (11.5-15.4); Mean Corpuscular HGB Conc 32.5 g/dL (31.6-35.5); Mean Corpuscular Hemoglobin 31.3 pg (28.0-33.3); Mean Corpuscular Volume 96.3 fL (83.0-100.0); Mean Platelet Volume 10.8 fL (9.4-12.4); Platelet Count 134 K/mcL (140-400); Red Cell Distribution Width 13.3 % (11.5-14.5)
[2018-08-20 19:28] LABS: Prothrombin Time 22.5 Seconds (9.4-12.1)
[2018-08-20 19:31] LABS: Activated Partial Thrombo Time 44.9 Seconds (26.0-36.0)
[2018-08-20 19:39] LABS: BUN/Creatinine Ratio 23 (6-26); Blood Urea Nitrogen 17 mg/dL (8-23); Calcium 9.1 mg/dL (8.6-10.3); Carbon Dioxide 23 mEq/L (23-29); Chloride 108 mEq/L (98-107); Glucose 90 mg/dL (70-105); Osmolality,Calculated 287 (280-300); Potassium 3.9 mEq/L (3.5-5.1); Sodium 138 mEq/L (136-145); eGFR For Non-African Americans > 60 (> 60)
[2018-08-20 19:41] LABS: Troponin I < 0.03 ng/mL (< 0.04)
[2018-08-20] MEDS ORDERED: Aspirin 325 MG TABLET PO ONE (19:58)
[2018-08-20 20:14] LABS: Bilirubin,Urine Negative (Negative); Blood,Urine Negative (Negative); Clarity,Urine Clear (Clear); Color,Urine Yellow (Yellow); Glucose,Urine (UA) Normal (Normal); Ketones,Urine Negative (Negative); Leukocyte Esterase,Urine Negative (Negative); Nitrite,Urine Negative (Negative); Protein,Urine Negative (Neg-Trace); Specific Gravity,Urine 1.009 (1.010-1.025); Urobilinogen,Urine Normal (Normal)
--- NOTE | 2018-08-20 20:42 | Emergency Department Note ---
Disposition Clinical Impression: Cerebrovascular accident Qualifiers: CVA mechanism: unspecified Qualified Code(s): I63.9 - Cerebral infarction, unspecified Disposition: Admitted As Inpatient Condition: Fair General Adult HPI - General Chief complaint: ED Neuro Symptoms/Deficit Stated complaint: LUE/LLE pain Time Seen by Provider: 08/20/18 19:09 Source: patient Mode of arrival: wheelchair Limitations: no limitations Nursing Notes Reviewed: Yes Vital Signs Reviewed: Yes - History of Present Illness Pain Scale: 5 - Related Data Home Medications Medication Instructions Recorded Confirmed Omeprazole [PriLOSEC] 20 mg PO DAILY 07/20/17 08/20/18 Cyanocobalamin (Vitamin B-12) 1,000 mcg PO DAILY 08/26/17 08/20/18 [Vitamin B12] Acetaminophen [Tylenol] 500 mg PO BID PRN 12/14/17 08/20/18 Warfarin [Coumadin] 7.5 mg PO MOWEFR 06/13/18 08/20/18 Warfarin [Coumadin] 5 mg PO SUTUTHSA 08/20/18 08/20/18 Previous Rx's Medication Instructions Recorded Propafenone [Rhythmol] 150 mg PO Q8H #90 tablet 06/15/18 Allergies Allergy/AdvReac Type Severity Reaction Status Date / Time codeine Allergy Difficulty Verified 06/13/18 21:27 Breathing hydrocodone [From Vicodin] Allergy Difficulty Verified 06/13/18 21:27 Breathing hydromorphone [From Dilaudid] Allergy Difficulty Verified 06/13/18 21:27 Breathing morphine Allergy Difficulty Verified 06/13/18 21:27 Breathing oxycodone [From Percocet] Allergy Rash Verified 06/13/18 21:27 tramadol Allergy Difficulty Verified 06/13/18 21:27 Breathing influenza virus vaccine, AdvReac FLU LIKE Verified 06/13/18 21:27 specific SYMPTOMS [Influenza Virus Vacc,Specific] Constitutional: Denies: fever, chills, weakness ENT ED: Denies: dysphagia Cardiovascular: Denies: chest pain Respiratory: Denies: dyspnea Gastrointestinal: Denies: abdominal pain Genitourinary: Denies: urgency, dysuria Musculoskeletal: Denies: back pain Integumentary: Denies: rash Neurological: Reports: weakness, numbness, paresthesias. Denies: headache, confusion Past Medical History - Past Medical History Medical history: Reports: atrial fibrillation, other Surgical history: Reports: cholecystectomy, herniorrhaphy, hip replacement, orthopedic, other, other Psychiatric history: Reports: no psych history REHAB/PRE VOCATIONAL COUNSELOR history: Reports: non-contributory - Social History Smoking Status: Never smoker Smokeless Tobacco Status: No Alcohol use: Reports: none Drug use: Reports: none Physical Exam - General Limitations: no limitations General appearance: alert, in no apparent distress Course Vital Signs Temperature 98.7 F 08/20/18 19:01 Pulse Rate 72 08/20/18 19:01 Respiratory Rate 18 08/20/18 19:01 Blood Pressure 169/91 08/20/18 19:01 O2 Sat by Pulse Oximetry 98 08/20/18 19:01 Temperature 98.7 F 08/20/18 19:01 Pulse Rate 62 08/20/18 19:55 Respiratory Rate 19 08/20/18 19:55 Blood Pressure 140/87 08/20/18 19:55 O2 Sat by Pulse Oximetry 97 08/20/18 19:55 Oxygen Delivery Oxygen Delivery Room Air Medical Decision Making - Medical Records Medical records reviewed: Yes I reviewed the patient's medical records. - Lab Data Lab results reviewed: Yes I reviewed the patient's lab results. Result diagrams: 08/20/18 19:15 08/20/18 19:15 Lab Results 08/20/18 08/20/18 08/20/18 Range/Units 19:15 19:15 19:15 WBC 4.8 (4.3-11.1) K/mcL RBC 4.00 (3.82-4.97) M/mcL Hgb 12.5 (11.5-15.4) g/dL Hct 38.5 (35.3-44.9) % MCV 96.3 (83.0-100.0) fL MCH 31.3 (28.0-33.3) pg MCHC 32.5 (31.6-35.5) g/dL RDW 13.3 (11.5-14.5) % Plt Count 134 L (140-400) K/mcL MPV 10.8 (9.4-12.4) fL PT 22.5 H (9.4-12.1) Seconds INR 2.0 APTT 44.9 H (26.0-36.0) Seconds Sodium 138 (136-145) mEq/L Potassium 3.9 (3.5-5.1) mEq/L Chloride 108 H (98-107) mEq/L Carbon Dioxide 23 (23-29) mEq/L BUN 17 (8-23) mg/dL Creatinine 0.73 (0.60-1.20) mg/dL Est GFR ( Amer) > 60 (> 60) Est GFR (Non-Af Amer) > 60 (> 60) BUN/Creatinine Ratio 23 (6-26) Glucose 90 (70-105) mg/dL Calculated Osmolality 287 (280-300) Calcium 9.1 (8.6-10.3) mg/dL Troponin I < 0.03 (< 0.04) ng/mL Urine Color (Yellow) Urine Clarity (Clear) Urine pH (5.0-8.0) pH Units Ur Specific [employer] (1.010-1.025) Urine Protein (Neg-Trace) mg/dL Urine Glucose (UA) (Normal) mg/dL Urine Ketones (Negative) mg/dL Urine Blood (Negative) Urine Nitrite (Negative) Urine Bilirubin (Negative) Urine Urobilinogen (Normal) mg/dL Ur Leukocyte Esterase (Negative) Ur Culture Indicated? (NO) 08/20/18 Range/Units 19:51 WBC (4.3-11.1) K/mcL RBC (3.82-4.97) M/mcL Hgb (11.5-15.4) g/dL Hct (35.3-44.9) % MCV (83.0-100.0) fL MCH (28.0-33.3) pg MCHC (31.6-35.5) g/dL RDW (11.5-14.5) % Plt Count (140-400) K/mcL MPV (9.4-12.4) fL PT (9.4-12.1) Seconds INR APTT (26.0-36.0) Seconds Sodium (136-145) mEq/L Potassium (3.5-5.1) mEq/L Chloride (98-107) mEq/L Carbon Dioxide (23-29) mEq/L BUN (8-23) mg/dL Creatinine (0.60-1.20) mg/dL Est GFR ( Amer) (> 60) Est GFR (Non-Af Amer) (> 60) BUN/Creatinine Ratio (6-26) Glucose (70-105) mg/dL Calculated Osmolality (280-300) Calcium (8.6-10.3) mg/dL Troponin I (< 0.04) ng/mL Urine Color Yellow (Yellow) Urine Clarity Clear (Clear) Urine pH 7.0 (5.0-8.0) pH Units Ur Specific [place] 1.009 L (1.010-1.025) Urine Protein Negative (Neg-Trace) mg/dL Urine Glucose (UA) Normal (Normal) mg/dL Urine Ketones Negative (Negative) mg/dL Urine Blood Negative (Negative) Urine Nitrite Negative (Negative) Urine Bilirubin Negative (Negative) Urine Urobilinogen Normal (Normal) mg/dL Ur Leukocyte Esterase Negative (Negative) Ur Culture Indicated? NO (NO) - Radiology Data Radiology results reviewed: Yes I reviewed the patient's radiology results. Head CTA 08/20/18 19:14 IMPRESSION: No flow limiting stenosis or branch occlusion detected within the head or neck. D/ / Ike Valentine MD / Ike Valentine MD Interpreting Provider: Ike Valentine MD Head CT 08/20/18 19:15 IMPRESSION: No acute intracranial abnormality. Critical results were called by Dr. Soy Velazquez MD to Segundo Arroyo on 08/20/2018 at 19:44. D/ / Soy Velazquez MD / Soy Velazquez MD Interpreting Provider: Soy Velazquez MD Neck CTA 08/20/18 19:16 IMPRESSION: No flow limiting stenosis or branch occlusion detected within the head or neck. D/ / Ike Valentine MD / Ike Valentine MD Interpreting Provider: Ike Valentine MD - EKG Data EKG #1 EKG attestation: Yes I reviewed and interpreted this EKG. EKG results narrative: EKG shows normal sinus rhythm with ventricular rate of 69. Minimal ST depression in V5 and V6. No arrhythmia or ectopy. No significant change from prior EKG dated 06/14/2018. Critical Care Time Critical Care Time: Yes Total Critical Care Time: 35 Attestation: Critical care performed: Time is exclusive of separately billable procedures. Time includes: direct patient care, patient reassessment, coordination of patient care, interpretation of data (laboratory data, radiology data, and respiratory data), review of patient's medical records, medical consultation and documentation of patient care. Procedures included in critical care time: Procedures excluded from critical care time: Attestation Statement - Attestation Attestation: I, Adan Russo MD, personally evaluated this patient and discussed their management with the resident physician. I reviewed the resident's note and agree with the documented findings, medical decision making, and plan of care. 72-year-old female presents to the emergency department with a complaint of some neuro symptoms which started earlier this afternoon. Patient initially said it started around 5:30 but then later she told me it was about 4:30. She then states about 2 PM she just suddenly felt Adan weak all over and sleepy and trouble staying awake. She took a nap and then woke up later. She has chronic weakness in her left leg. Around 4:30 she noticed pain in her left arm from the shoulder down to the wrist. No numbness or weakness in the arm. She also noticed increased numbness and tingling in the left leg. Some numbness in the left side of the face with mild slurred speech. Left facial droop. On examination patient is a well-developed well-nourished well-appearing elderly female in no acute distress. She is alert and oriented 3. There is no cyanosis or diaphoresis. At time of my exam I do not appreciate any obvious facial droop or slurred speech. Lead Pressman strength is equal bilaterally. There is slight weakness in the left leg which patient states is chronic. She complains of decreased sensation in the left leg. Breath sounds are clear and equal bilaterally. Heart regular rate and rhythm. Abdomen soft and nontender with normal bowel sounds. Labs reviewed. EKG shows a normal sinus rhythm with no ectopy or arrhythmia. CT of the head without contrast was negative. CTA of the head and neck negative. A stroke alert was called initially. Patient is on Coumadin and her INR is 2.0. Dr. Arroyo discussed the case with the stroke neurologist from [facility] and patient is not a candidate for TPA due to her INR. Stroke alert was canceled. Patient will be kept here for further evaluation and management. The hospitalist, Dr. Goldberg, was consulted and accepted admission of the patient.
[2018-08-20] MEDS ORDERED: Naloxone 0.4 MG/ML INJ IVP PRN (23:05)
[2018-08-20] MEDS ORDERED: 0.9 % Sodium Chloride w KCl 20 MEQ/1,000 ML MLS IVC SCH (23:15)
--- NOTE | 2018-08-21 00:22 | Internal Med History&Physical ---
Date of Encounter: 08/20/18 Time of Encounter: 20:50 Internal Medicine - H&P: HPI Chief complaint: left sided weakness Admitted From: Emergency Dept Plans for Post Hospital Care: Home History of present illness: Ms. Hudson is a 72 year old female [facility] of possible [facility]. She woke up from a nap this evening and noted that she had left-sided weakness and paresthesias. She came to the ER where she underwent a stroke alert with [facility] neurology. Patient was not a candidate for T PA and subsequently admitted to [facility] for ongoing workup and care. Upon my assessment of the patient, she and her confirmed the above history. Along with left-sided weakness and paresthesias, she complains of significant pain in her cervical spine and lumbar spine. She has had prior surgery in her spine for bulging disc and this appears to be similar nature. However, she did report she had some facial droop and tingling in her left side of her face earlier. This has since resolved. She has no focal deficits now other than some weakness in her left arm and leg. She has no prior stroke. She has history of paroxysmal atrial fibrillation and remains on Rythmol and Warfarin for her rhythm control. Presently, patient still has some weakness in her left arm and leg but it is mu ch improved. She also has some paresthesias on that side. Her biggest complaint, however, is the pain in her neck and her left hip. She had prior left hip replacement. She denies any fall or injury. Past Med Surg Social Fam HX - Past Medical History Attestation: Yes The following information was validated with the patient. Source: patient, old records reviewed, obtained from family Medical history: atrial fibrillation, GERD, other Additional medical history: Coumadin, Pancreatitis Psychiatric history: no psych history - Past Surgical History Surgical History: cholecystectomy, herniorrhaphy, hip replacement, orthopedic, other, other Additional surgical history: egd, eus, ercp - Social History Smoking Status: Never smoker Smokeless Tobacco Status: No Alcohol use: none Drug use: none Current living situation: Home, With Family Activity Level: Independent ambulation Recent Out of Country Travel Within the Last 8 Weeks: No - Family History Father Hx Family Cardiac Disorders: Yes Mother Living Status: Hx Family Cardiac Disorders: No Hx Family Cancer: Yes Internal Medicine - H&P: Meds Omeprazole [PriLOSEC] 20 mg PO DAILY 07/20/17 [History] Cyanocobalamin (Vitamin B-12) [Vitamin B12] 1,000 mcg PO DAILY 08/26/17 [History] Acetaminophen [Tylenol] 500 mg PO BID PRN 12/14/17 [History] Warfarin [Coumadin] 7.5 mg PO MOWEFR 06/13/18 [History] Propafenone [Rhythmol] 150 mg PO Q8H #90 tablet 06/15/18 [Rx] Warfarin [Coumadin] 5 mg PO SUTUTHSA 08/20/18 [History] Allergy/AdvReac Type Severity Reaction Status Date / Time codeine Allergy Difficulty Verified 06/13/18 21:27 Breathing hydrocodone [From Vicodin] Allergy Difficulty Verified 06/13/18 21:27 Breathing hydromorphone [From Dilaudid] Allergy Difficulty Verified 06/13/18 21:27 Breathing morphine Allergy Difficulty Verified 06/13/18 21:27 Breathing oxycodone [From Percocet] Allergy Rash Verified 06/13/18 21:27 tramadol Allergy Difficulty Verified 06/13/18 21:27 Breathing influenza virus vaccine, AdvReac FLU LIKE Verified 06/13/18 21:27 specific SYMPTOMS [Influenza Virus Vacc,Specific] - Constitutional Constitutional: no chills, no fever(s), no night sweats - EENT Eyes: no blurry vision, no change in vision Ears: no ear pain, no tinnitus Nose, mouth and throat: no nasal congestion, no nasal discharge, no sore throat - Cardiovascular Cardiovascular ROS IM: no chest pain, no dyspnea, no dyspnea on exertion, no lightheadedness, no orthopnea, no palpitations, no paroxysmal nocturnal dyspnea, no syncope - Respiratory Respiratory: no cough, no hemoptysis, no chest congestion, no change in phlegm color, no pain with cough - Gastrointestinal Gastrointestinal: no abdominal pain, no diarrhea, no hematemesis, no hematochezia, no melena, no vomiting - Genitourinary Genitourinary: no dysuria, no flank pain, no hematuria - Musculoskeletal Musculoskeletal ROS IM: arthralgias, back pain, neck pain, tingling - Integumentary Integumentary IM: no rash, no jaundice - Neurological Neurological ROS: focal weakness (left arm and leg), paresthesias, no disequilibrium, no dizziness, no frequent falls, no headache(s), no vertigo - Psychiatric Psychiatric: no anxiety, no depression - Endocrine Endocrine IM: no cold intolerance, no heat intolerance, no polydipsia, no polyuria - Hematologic/Lymphatic Hematologic/Lymphatic: easy bruising - Allergic/Immunologic Allergic/Immunologic: no GI upset with certain foods - Constitutional Vitals: Temp Pulse Resp BP Pulse Ox 97.8 F 67 15 133/73 94 08/21/18 00:08/21/18 00:08/21/18 00:09 08/21/18 00:08/21/18 00:09 General appearance: Present: cooperative, A&O X 3, no acute distress, answers questions appropriately Exam: see below - Head Head exam: Present: atraumatic, normal inspection - Eye Eye exam: Present: EOMI, PERRL. Absent: scleral icterus Pupils: Present: normal accommodation - ENT ENT exam: Present: mucous membranes dry, normal exam, normal oropharynx - Neck Neck exam general surgery: Present: full ROM, supple, trachea midline. Absent: tenderness, nuchal rigidity, thyromegaly - Respiratory Respiratory exam: Present: CTAB. Absent: chest wall tenderness, rales, rhonchi, wheezes - Cardiovascular Cardiovascular exam: Present: RRR, +S1, +S2. Absent: diastolic murmur, tachycardia - GI/Abdominal GI/Abdominal exam: Present: normal bowel sounds, soft. Absent: guarding, hepatomegaly, mass, rebound, splenomegaly, tenderness - Extremities Exam Extremities exam: Present: full ROM, normal capillary refill, warm, radial pulses palpable and symmetrical. Absent: calf tenderness, joint swelling, pedal edema, tenderness - Back Exam Back exam: Present: tenderness (along cervical and lumbar spine). Absent: CVA tenderness (L), CVA tenderness (R) - Neurological Exam Neurological exam: Present: alert, CN II-XII intact, motor sensory deficit (3- 4/5 motor strnegth in LUE and LLE; parasthesias in LLE), oriented X3. Absent: facial droop, speech deficit - Psychiatric Psychiatric exam: Present: normal affect, normal mood - Skin Skin exam: Present: dry, intact, warm Internal Med - H&P Results - Labs CBC & Chem 7: 08/20/18 19:15 08/20/18 19:15 Labs: Short CBC 08/20/18 Range/Units 19:15 WBC 4.8 (4.3-11.1) K/mcL Hgb 12.5 (11.5-15.4) g/dL Hct 38.5 (35.3-44.9) % Plt Count 134 L (140-400) K/mcL BMP 08/20/18 19:15 Sodium 138 Potassium 3.9 Chloride 108 H Carbon Dioxide 23 BUN 17 Creatinine 0.73 Glucose 90 Calcium 9.1 Cardiac Enzymes 08/20/18 Range/Units 19:15 Troponin I < 0.03 (< 0.04) ng/mL Urine 08/20/18 Range/Units 19:51 Urine Color Yellow (Yellow) Urine Clarity Clear (Clear) Urine pH 7.0 (5.0-8.0) pH Units Ur Specific [place] 1.009 L (1.010-1.025) Urine Protein Negative (Neg-Trace) mg/dL Urine Glucose (UA) Normal (Normal) mg/dL - EKG Data -: EKG Interpreted by Myself EKG shows normal: sinus rhythm - EKG Data Prior EKG available for review: yes When compared to previous EKG: there is no significant change EKG comments: 08/21/18 00:46 NSR; no acute ST-T changes - Impressions ITS Impressions Head CTA 08/20/18 19:14 IMPRESSION: No flow limiting stenosis or branch occlusion detected within the head or neck. D/ / Ike Valentine MD / Ike Valentine MD Interpreting Provider: Ike Valentine MD Head CT 08/20/18 19:15 IMPRESSION: No acute intracranial abnormality. Critical results were called by Dr. Soy Velazquez MD to Segundo Arroyo on 08/20/2018 at 19:44. D/ / Soy Velazquez MD / Soy Velazquez MD Interpreting Provider: Soy Velazquez MD Neck CTA 08/20/18 19:16 IMPRESSION: No flow limiting stenosis or branch occlusion detected within the head or neck. D/ / Ike Valentine MD / Ike Valentine MD Interpreting Provider: Ike Valentine MD - Diagnostic Studies CT scan - head Status: image reviewed by me (negative) - Assessment and Plan (1) Cerebrovascular accident Current Visit: Yes Status: Acute Assessment and plan: 1. Will proceed with stroke work-up. 2. CTA head and neck negative -- done in ER. 3. Will order MRI brain, ECH), and spine MRI to rule out bulging discs. 4. Will monitor on telemetry and assess neurologic status per protocol. Qualifiers: CVA mechanism: unspecified Qualified Code(s): I63.9 - Cerebral infarction, unspecified (2) Neck pain Current Visit: Yes Status: Acute Assessment and plan: 1. Concern by history and exam that symptoms may be at least partially related to bulging discs. 2. MRI spine as above. (3) PAF (paroxysmal atrial fibrillation) Current Visit: Yes Status: Chronic Assessment and plan: 1. Monitor on telemetry. 2. Continue Rhythmol. 3. Coumadin dosing per pharmacy. (4) DVT prophylaxis Current Visit: Yes Status: Acute Assessment and plan: 1. On Coumadin. 2. INR therapeutic.
[2018-08-21] MEDS: Acetaminophen 325 MG TABLET PO PRN ×2 (05:55→19:33)
[2018-08-21 09:34] LABS: Basophils # 0.1 K/mcL (0.0-0.2); Basophils % 1.2 %; Eosinophils # 0.1 K/mcL (0.0-0.6); Eosinophils % 3.2 %; Hematocrit 37.7 % (35.3-44.9); Immature Granulocytes % 0.2 % (0-4); Lymphocytes # 1.6 K/mcL (0.6-4.6); Lymphocytes % 35.9 %; Mean Corpuscular HGB Conc 34.5 g/dL (31.6-35.5); Mean Corpuscular Volume 92.9 fL (83.0-100.0); Mean Platelet Volume 11.4 fL (9.4-12.4); Monocytes # 0.5 K/mcL (0.0-1.3); Monocytes % 12.5 %; Platelet Count 138 K/mcL (140-400); Red Blood Count 4.06 M/mcL (3.82-4.97); Red Cell Distribution Width 13.4 % (11.5-14.5)
[2018-08-21 09:40] LABS: Prothrombin Time 22.8 Seconds (9.4-12.1)
[2018-08-21] MEDS: Cyanocobalamin (B-12) 1,000 MCG TABLET PO SCH (09:40)
[2018-08-21] MEDS: Aspirin Enteric Coated 81 MG Tablet PO SCH (09:40)
[2018-08-21 09:58] LABS: Alanine Aminotransferase 8 Units/L (7-52); Albumin 3.6 g/dL (3.5-5.7); Albumin/Globulin Ratio 1.2 (1.1-2.2); Alkaline Phosphatase 77 Units/L (34-104); Aspartate Amino Transferase 16 Units/L (13-39); BUN/Creatinine Ratio 23 (6-26); Bilirubin,Total 0.6 mg/dL (0.3-1.0); Blood Urea Nitrogen 16 mg/dL (8-23); Carbon Dioxide 24 mEq/L (23-29); Chloride 107 mEq/L (98-107); Globulin 2.9 g/dL (2.4-3.5); Glucose 97 mg/dL (70-105); Magnesium 2.2 mg/dL (1.6-2.6); Osmolality,Calculated 291 (280-300); Potassium 3.9 mEq/L (3.5-5.1); Sodium 140 mEq/L (136-145); Total Protein 6.5 g/dL (6.4-8.9); eGFR For Non-African Americans > 60 (> 60)
--- NOTE | 2018-08-21 10:44 | Internal Med Progress Note ---
Hospitalist Progress Note - Encounter Date of Encounter: 08/21/18 Time of Encounter: 09:45 - Subjective Interval History: H&P noted. Patient with history of atrial fibrillation on Coumadin was admitted for L sided weakness and slurring of speech. Slurring of speech resolved but mild left-sided weakness persist this morning. Also reports intermittent left sided neck and thigh pain. No fever/chills or bowel/bladder dysfunction. - Exam Vitals: Temp Pulse Resp BP Pulse Ox 97.4 F L 66 16 145/85 95 08/21/18 08:07 08/21/18 03:58 08/21/18 03:58 08/21/18 08:19 08/21/18 08:19 Exam: General: Alert and oriented, not in acute distress. HEENT:EOMI, pupils equal, round and reactive. Cardiovascular:Normal S1 & S2, No JVD. Pulse regular. Lungs: clear to auscultation, no wheezes/rales Abdomen:Soft, non-tender, no rigidity. Neurological: CN II-XII intact, L UE and LE power 4-/5, R UE/LE power 5/5. No cerebellar signs, pronator drift -ve, Babinski downgoing bilaterally - Assessment and Plan (1) Cerebrovascular accident Current Visit: Yes Status: Acute Assessment and Plan: CT head, CTA head and neck negative MRI brain echocardiogram continue coumadin for afib, INR therapeutic (2) Neck pain Current Visit: Yes Status: Acute Assessment and Plan: Concern by history and exam that symptoms may be at least partially related to bulging discs. for MRI spine as above. (3) PAF (paroxysmal atrial fibrillation) Current Visit: Yes Status: Chronic Assessment and Plan: currently in NSR, Continue Rhythmol and coumadin. Dosing per pharmacy. (4) DVT prophylaxis Current Visit: Yes Status: Acute Assessment and Plan: On Coumadin. INR therapeutic. - Time Spent with Patient Total time spent is greater than 50% in coordination of care (as documented) at patient's floor/unit and/or counseling patient: 25 - 35 minutes Plan of Care Discussed with: patient Internal Medicine: Result - Labs CBC & Chem 7: 08/21/18 08:40 08/21/18 08:40 Labs: Short CBC 08/20/18 08/21/18 Range/Units 19:15 08:40 WBC 4.8 4.3 (4.3-11.1) K/mcL Hgb 12.5 13.0 (11.5-15.4) g/dL Hct 38.5 37.7 (35.3-44.9) % Plt Count 134 L 138 L (140-400) K/mcL Neutrophils # 2.0 (1.6-8.9) K/mcL BMP 08/20/18 08/21/18 19:15 08:40 Sodium 138 140 Potassium 3.9 3.9 Chloride 108 H 107 Carbon Dioxide 23 24 BUN 17 16 Creatinine 0.73 0.71 Glucose 90 97 Calcium 9.1 9.0 Cardiac Enzymes 08/20/18 Range/Units 19:15 Troponin I < 0.03 (< 0.04) ng/mL Liver Function 08/21/18 Range/Units 08:40 Total Bilirubin 0.6 (0.3-1.0) mg/dL AST 16 (13-39) Units/L ALT 8 (7-52) Units/L Alkaline Phosphatase 77 (34-104) Units/L Albumin 3.6 (3.5-5.7) g/dL Urine 08/20/18 Range/Units 19:51 Urine Color Yellow (Yellow) Urine Clarity Clear (Clear) Urine pH 7.0 (5.0-8.0) pH Units Ur Specific [place] 1.009 L (1.010-1.025) Urine Protein Negative (Neg-Trace) mg/dL Urine Glucose (UA) Normal (Normal) mg/dL - ABG Interpretation ABG results: PT/INR, D-dimer PT 22.8 Seconds (9.4-12.1) H 08/21/18 08:40 - Impressions Impressions Head CTA 08/20/18 19:14 IMPRESSION: No flow limiting stenosis or branch occlusion detected within the head or neck. D/ / Ike Valentine MD / Ike Valentine MD Interpreting Provider: Ike Valentine MD Head CT 08/20/18 19:15 IMPRESSION: No acute intracranial abnormality. Critical results were called by Dr. Soy Velazquez MD to Segundo Arroyo on 08/20/2018 at 19:44. D/ / Soy Velazquez MD / Soy Velazquez MD Interpreting Provider: Soy Velazquez MD Neck CTA 08/20/18 19:16 IMPRESSION: No flow limiting stenosis or branch occlusion detected within the head or neck. D/ / Ike Valentine MD / Ike Valentine MD Interpreting Provider: Ike Valentine MD Consult Discharge Plan - Plan Referrals: Elen Britton DO [Primary Care Provider] - (1) Cerebrovascular accident Qualifiers: CVA mechanism: unspecified Qualified Code(s): I63.9 - Cerebral infarction, unspecified
[2018-08-21] MEDS ORDERED: Warfarin perPT PO PRN (18:00)
[2018-08-21] MEDS ORDERED: *HR* Warfarin 5 MG TABLET PO SCH (18:00)
[2018-08-22 06:36] LABS: Hematocrit 38.5 % (35.3-44.9); Hemoglobin 12.7 g/dL (11.5-15.4); Mean Corpuscular Hemoglobin 31.5 pg (28.0-33.3); Mean Corpuscular Volume 95.5 fL (83.0-100.0); Mean Platelet Volume 11.1 fL (9.4-12.4); Platelet Count 135 K/mcL (140-400); Red Blood Count 4.03 M/mcL (3.82-4.97); Red Cell Distribution Width 13.1 % (11.5-14.5)
[2018-08-22 06:44] LABS: INR 2.2; Prothrombin Time 24.3 Seconds (9.4-12.1)
[2018-08-22 06:59] LABS: BUN/Creatinine Ratio 32 (6-26); Blood Urea Nitrogen 24 mg/dL (8-23); Calcium 9.2 mg/dL (8.6-10.3); Carbon Dioxide 25 mEq/L (23-29); Chloride 106 mEq/L (98-107); Glucose 92 mg/dL (70-105); Osmolality,Calculated 292 (280-300); Potassium 3.8 mEq/L (3.5-5.1); Sodium 139 mEq/L (136-145); eGFR For Non-African Americans > 60 (> 60)
[2018-08-22] MEDS: Cyanocobalamin (B-12) 1,000 MCG TABLET PO SCH (08:00)
[2018-08-22] MEDS: Aspirin Enteric Coated 81 MG Tablet PO SCH (08:01)
--- NOTE | 2018-08-22 09:51 | Discharge Summary ---
- NOTES TO OUTPATIENT PROVIDER Notes to Outpatient Provider: Outpatient follow-up with Neurology to determine Coumadin vs. NOAC. Orders not resulted at time of discharge: Pending orders 08/20/18 23:05 MR lumbar spine wo con [MR] Routine MR thoracic spine wo con [MR] Routine 08/21/18 06:00 ECG 12 lead ECG [ECG] AM 0600 08/21/18 08:40 Hgb A1C AM 0400 08/23/18 04:00 Prothrombin Time INR [COAG] DAILY 08/24/18 04:00 Prothrombin Time INR [COAG] DAILY 08/25/18 04:00 Prothrombin Time INR [COAG] DAILY 08/26/18 04:00 Prothrombin Time INR [COAG] DAILY 08/27/18 04:00 Prothrombin Time INR [COAG] DAILY Date of Encounter: 08/22/18 Time of Encounter: 07:45 - Discharge Diagnosis (1) Neck pain Priority: Secondary Status: Acute (2) PAF (paroxysmal atrial fibrillation) Priority: Secondary Status: Chronic (3) DVT prophylaxis Priority: Secondary Status: Acute (4) TIA (transient ischemic attack) Priority: Primary Status: Acute Hospital course: Ms. Hudson is a 72 year old female history of atrial fibrillation on Coumadin was admitted for L sided weakness and slurring of speech. Deemed not a TPA candidate per stroke alert and admitted for further management. Workup was largely unrevealing and MRI was -ve for acute infarct. ?CVA; ASA, statin added and to follow up with Neurology to determine whether Coumadin will need to be switched to NOAC given the episode of TIA. Discharge discussed with: patient, nurse - Time Spent with Patient Total time spent providing and/or coordinating discharge services: 28 mins - Discharge Medications Prescriptions: New RX: Aspirin Enteric Coated [Aspirin EC] 81 mg PO DAILY #30 tablet. Atorvastatin [Lipitor] 40 mg PO HS #30 tablet Continue RX: Omeprazole [PriLOSEC] 20 mg PO DAILY RX: Cyanocobalamin (Vitamin B-12) [Vitamin B12] 1,000 mcg PO DAILY RX: Acetaminophen [Tylenol] 500 mg PO BID PRN PRN Reason: Pain RX: Propafenone [Rhythmol] 150 mg PO Q8H #90 tablet RX: Warfarin [Coumadin] 5 mg PO SUTUTHSA No Action RX: Warfarin [Coumadin] 7.5 mg PO MOWEFR Home Medications: RX: Omeprazole [PriLOSEC] 20 mg PO DAILY 07/20/17 [History] RX: Cyanocobalamin (Vitamin B-12) [Vitamin B12] 1,000 mcg PO DAILY 08/26/17 [History] RX: Acetaminophen [Tylenol] 500 mg PO BID PRN 12/14/17 [History] RX: Warfarin [Coumadin] 7.5 mg PO MOWEFR 06/13/18 [History] RX: Propafenone [Rhythmol] 150 mg PO Q8H #90 tablet 06/15/18 [Rx] RX: Warfarin [Coumadin] 5 mg PO SUTUTHSA 08/20/18 [History] Atorvastatin [Lipitor] 40 mg PO HS #30 tablet 08/22/18 [Rx] RX: Aspirin Enteric Coated [Aspirin EC] 81 mg PO DAILY #30 tablet. 08/22/18 [Rx] Allergies/Adverse Reactions: Allergy/AdvReac Type Severity Reaction Status Date / Time codeine Allergy Difficulty Verified 06/13/18 21:27 Breathing hydrocodone [From Vicodin] Allergy Difficulty Verified 06/13/18 21:27 Breathing hydromorphone [From Dilaudid] Allergy Difficulty Verified 06/13/18 21:27 Breathing morphine Allergy Difficulty Verified 06/13/18 21:27 Breathing oxycodone [From Percocet] Allergy Rash Verified 06/13/18 21:27 tramadol Allergy Difficulty Verified 06/13/18 21:27 Breathing influenza virus vaccine, AdvReac FLU LIKE Verified 06/13/18 21:27 specific SYMPTOMS [Influenza Virus Vacc,Specific] Date of admission: 08/20/18 20:26 Primary care physician: Elen Britton DO Consults: 08/20/18 22:48 Consult to Nutrition [CONS] Routine Comment: Consulting Provider: NUTRITION Reason for Dietary Consult: MST Score 08/21/18 07:56 Consult to Occupational Therapy [CONS] Routine Comment: Evaluate, develop and implement POC Reason for Consult: CVA vs. TIA Does patient have active BEDREST order?: No Is patient medically & hemodynamically stable?: Yes Consult to Physical Therapy [CONS] Routine Comment: Evaluate, develop and implement POC Reason for Consult: CVA vs. TIA Does patient have active BEDREST order?: No Is patient medically & hemodynamically stable?: Yes - Constitutional Vitals: Temp Pulse Resp BP Pulse Ox 97.5 F L 68 16 147/98 91 08/22/18 08:14 08/22/18 08:14 08/22/18 08:14 08/22/18 08:14 08/22/18 08:12 General appearance: Present: cooperative, A&O X 3, no acute distress, answers questions appropriately Exam: General: Alert and oriented, not in acute distress. HEENT:EOMI, pupils equal, round and reactive. Cardiovascular:Normal S1 & S2, No JVD. Pulse regular. Lungs: clear to auscultation, no wheezes/rales Abdomen:Soft, non-tender, no rigidity. Neurological: CN II-XII intact, L UE and LE power 4-/5, R UE/LE power 5/5. No cerebellar signs, pronator drift -ve, Babinski downgoing bilaterally - Patient Status Disposition: Home, Self-Care Condition: Fair Functional capacity at discharge: independent ambulation Overall status at discharge: patient is progressing back to baseline - Discharge Instructions Instructions: Atrial Fibrillation (DC), Transient Ischemic Attack (DC) Follow Up With: Elen Britton DO [Primary Care Provider] - Donavon Yanez MD [Partnered Physician] - Additional Instructions: ASA, statin added COntinue COumadin, follow up in anticoagulation clinic Follow up with Neurology as outpatient - Diet and Activity Activity: resume usual activities as tolerated Diet: regular diet
[2018-08-22 10:14] LABS: Estimated Average Glucose 111 mg/dl; Hemoglobin A1C 5.5 %
[2018-08-22 11:32] VITALS: BP 134/79
--- NOTE | 2018-08-22 16:18 | Electrocardiograph Report ---
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
[2018-08-22] MEDS ORDERED: *HR* Warfarin 7.5 MG TABLET PO SCH (18:00)
--- NOTE | 2018-08-23 16:14 | Electrocardiograph Report ---
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
== END 2018-08-22 15:18 | disposition home or self-care (01) ==
LOC: EMEROOARM 18:57 → 2NENU 18:57 → SUATTDRO 20:26 → 2NENU 21:24
PROVIDERS: ADMIT Pediatrics; ATTEND Internal Medicine

== ENCOUNTER 2018-11-03 03:27 | Inpatient (IN) ==
[2018-11-03] MEDS ORDERED: 0.9 % Sodium Chloride 1,000 ML IVC ONE ×2 (03:44→04:56)
[2018-11-03 04:27] LABS: Basophils % 0.4 %; Eosinophils # 0.1 K/mcL (0.0-0.6); Eosinophils % 0.6 %; Hematocrit 28.4 % (35.3-44.9); Hemoglobin 9.3 g/dL (11.5-15.4); Immature Granulocytes % 0.4 % (0-4); Lymphocytes # 1.4 K/mcL (0.6-4.6); Lymphocytes % 15.1 %; Mean Corpuscular HGB Conc 32.7 g/dL (31.6-35.5); Mean Corpuscular Hemoglobin 33.2 pg (28.0-33.3); Mean Corpuscular Volume 101.4 fL (83.0-100.0); Mean Platelet Volume 10.7 fL (9.4-12.4); Monocytes # 0.8 K/mcL (0.0-1.3); Monocytes % 8.9 %; Neutrophils # 7.1 K/mcL (1.6-8.9); Platelet Count 145 K/mcL (140-400); Red Cell Distribution Width 13.9 % (11.5-14.5); Segmented Neutrophils % 74.6 %; White Blood Count 9.5 K/mcL (4.3-11.1)
[2018-11-03 04:40] LABS: INR 1.2; Prothrombin Time 13.8 Seconds (9.4-12.1)
[2018-11-03 04:43] LABS: Activated Partial Thrombo Time 39.4 Seconds (26.0-36.0)
[2018-11-03 04:46] LABS: BUN/Creatinine Ratio 33 (6-26); Blood Urea Nitrogen 28 mg/dL (8-23); Calcium 9.1 mg/dL (8.6-10.3); Carbon Dioxide 26 mEq/L (23-29); Chloride 107 mEq/L (98-107); Glucose 122 mg/dL (70-105); Osmolality,Calculated 301 (280-300); Potassium 3.9 mEq/L (3.5-5.1); Sodium 142 mEq/L (136-145); eGFR For African Americans > 60 (> 60); eGFR For Non-African Americans > 60 (> 60)
[2018-11-03] MEDS ORDERED: Isovue-370 500 ML BOTTLE IVP ONE (05:10)
[2018-11-03] MEDS ORDERED: Ondansetron 4 MG/2 ML VIAL IVP ONE (05:10)
--- NOTE | 2018-11-03 05:39 | Emergency Department Note ---
Disposition Clinical Impression: Postoperative abdominal pain, Acute blood loss anemia Intra-abdominal hematoma Qualifiers: Encounter type: initial encounter Qualified Code(s): S36.92XA - Contusion of unspecified intra-abdominal organ, initial encounter Hypotension Qualifiers: Hypotension type: unspecified hypotension type Qualified Code(s): I95.9 - Hypotension, unspecified Syncope Qualifiers: Syncope type: unspecified Qualified Code(s): R55 - Syncope and collapse Disposition: Admitted As Inpatient Condition: Serious Referrals: Elen Britton DO [Primary Care Provider] - Forms: ED Satisfaction Letter Time of Disposition: 06:42 Weakness HPI - General Chief complaint: ED Weakness Stated complaint: weakness Time Seen by Provider: 11/03/18 03:34 Source: patient, family (), EMS Mode of arrival: EMS Limitations: no limitations Nursing Notes Reviewed: Yes Vital Signs Reviewed: Yes - History of Present Illness HPI Narrative: 73-year-old female history of atrial fibrillation on Coumadin presents to the emergency department via EMS with reports of weakness and syncope. Less than 48 hours ago patient had outpatient hernia surgery performed here at [facility] by Dr. Palumbo and was discharged Wednesday. States earlier tonight she has been having increased pain. Due to her allergies she has only been taking Tylenol ibuprofen. States late tonight around 0 100 felt like she needed to go to the bathroom but due to the pain was unable to. Her attempted to help her up when she stood up she reportedly passed out. States she felt very lightheaded due to the pain is unable to stand and slumped down to the ground. No report head injury. Her states she was quite confusing was out of it for a few seconds to minutes. No seizure like activity was noted. Due to the recent surgery she is currently being bridged with Lovenox injections. She denies any G.I. bleed symptoms. Denies any urinary symptoms. Denies any recent illness. She reports increase in gas and denies any recent bowel movement since the surgery. Pt Subjective Complaint: generalized weakness/fatigue Pain Scale: 4 - Related Data Home Medications Medication Instructions Recorded Confirmed Omeprazole [PriLOSEC] 20 mg PO DAILY 07/20/17 11/03/18 Cyanocobalamin (Vitamin B-12) 1,000 mcg PO DAILY 08/26/17 11/03/18 [Vitamin B12] Acetaminophen [Tylenol] 500 mg PO BID PRN 12/14/17 11/03/18 Warfarin [Coumadin] 7.5 mg PO TH 06/13/18 11/03/18 Warfarin [Coumadin] 5 mg PO SUMOTUWEFRSA 08/20/18 11/03/18 Enoxaparin [Lovenox] 80 mg SQ AD 11/01/18 11/03/18 Ergocalciferol (VITAMIN D2) 2,000 unit PO DAILY 11/01/18 11/03/18 [Vitamin D2] Aspirin [Lo-Dose Aspirin EC] 81 mg PO DAILY 11/03/18 11/03/18 Previous Rx's Medication Instructions Recorded Propafenone [Rhythmol] 150 mg PO Q8H #90 tablet 06/15/18 Atorvastatin [Lipitor] 40 mg PO HS #30 tablet 08/22/18 Allergies Allergy/AdvReac Type Severity Reaction Status Date / Time codeine Allergy Difficulty Verified 11/01/18 06:59 Breathing hydrocodone [From Vicodin] Allergy Difficulty Verified 11/01/18 06:59 Breathing hydromorphone [From Dilaudid] Allergy Difficulty Verified 11/01/18 06:59 Breathing morphine Allergy Difficulty Verified 11/01/18 06:59 Breathing oxycodone [From Percocet] Allergy Rash Verified 11/01/18 06:59 tramadol Allergy Difficulty Verified 11/01/18 06:59 Breathing influenza virus vaccine, AdvReac FLU LIKE Verified 11/01/18 06:59 specific SYMPTOMS [Influenza Virus Vacc,Specific] All systems ED: reviewed and negative except as stated. Review of Systems: As Per HPI Constitutional: Reports: weakness. Denies: fever, chills Cardiovascular: Denies: chest pain, palpitations, dyspnea on exertion Respiratory: Denies: dyspnea Gastrointestinal: Reports: abdominal pain. Denies: nausea, vomiting, diarrhea, hematemesis, melena, hematochezia Genitourinary: Denies: dysuria, hematuria Musculoskeletal: Denies: back pain Integumentary: Denies: rash, abrasion Neurological: Reports: weakness. Denies: headache, confusion Psychiatric: Denies: anxiety Past Medical History - Past Medical History Attestation: Yes The following information was validated with the patient. 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 Absent: nystagmus - ENT ENT exam: normal exam, normal oropharynx, mucous membranes moist - Neck Neck exam: Present: normal inspection, full ROM, trachea midline - Chest Chest inspection: Present: normal inspection, symmetric chest wall rise - Respiratory Respiratory exam: Present: normal lung sounds bilaterally. Absent: respiratory distress, wheezes - Cardiovascular Cardiovascular exam: Present: regular rate, normal rhythm, normal heart sounds - Expanded Cardiovascular Exam Peripheral pulses: 2+: radial (R), radial (L) - Abdominal Exam Abdominal exam: Present: soft, tenderness, guarding (Voluntary), normal bowel sounds, scar (Multiple surgical incisional wounds otherwise clean dry without any surrounding erythema or drainage). Absent: distention, rebound, rigidity, hernia Abdominal tenderness: Present: diffuse - Extremities Exam Extremities exam: Present: normal inspection, full ROM. Absent: tenderness, pedal edema - Back Exam Back exam: Present: full ROM, CVA tenderness (L), other (no bruising). Absent: tenderness - Neurological Exam Neurological exam: Present: alert, oriented X3, CN II-XII intact - Expanded Neurological Exam Patient oriented to: Present: person, place, time Cranial nerves: EOM function (II, III, IV, ): Normal, facial sensation (V): Normal, facial palsy (VII): Normal, gag reflex (IX): Normal, spinal accessory function (XI): Normal, tongue deviation (XII): Normal Motor strength - LUE: 5/5 Motor strength - RUE: 5/5 Motor strength - LLE: 5/5 Motor strength - RLE: 5/5 Upper motor neuron exam: naeem neglect: Absent bilaterally, pronator drift: Absent bilaterally Sensory exam upper extremity: light touch: Normal Sensory exam lower extremity: light touch: Normal Coma Scale Eye Opening: Spontaneous Coma Scale Motor Response: Obeys Commands Coma Scale Verbal Response: Oriented Coma Scale Total: 15 - Psychiatric Psychiatric exam: Present: normal affect - Skin Skin exam: Present: warm, dry, intact, normal color. Absent: rash, cyanosis, diaphoresis Course Course Narrative: Patient presents with possible syncopal episode secondary to pain. Recent ambulatory surgery. It is noted that her blood pressure is and systolic 80s and 90s. She has no history of hypertension and does not take any antihypertensive medications. Since her surgery she has had decrease in appetite and has a drinking will. Will check some labs including the EKG chest x-ray to evaluate for any G.I. bleed complications or any source for her syncopal episode. Disposition pending workup. - Reevaluation(s) Reevaluation #1: Review for lab shows a drop in her hemoglobin from 11.9 to 9.3. Her blood pressures continue to be soft systolic 80s. The rest her labs are unremarkable. Her INR is 1.2 and she is currently on Lovenox to bridge. CT scan of her abdomen was performed with IV contrast given her diffuse discomfort which does show a large hematoma with possible communicating hematoma. We will talk to her surgeon for further recommendations and likely admission. Impression is sync ope, postoperative pain and intra-abdominal hematoma - Consultations Consultation #1: Spoke to the on-call surgeon Dr. Palumbo was also the surgeon who performed her and will hernia. We discussed her presentation and current symptoms as well CT's finding. Will meet the patient to his service without any additional orders. Will obtain a type and screen at this time she does have a significant drop in her hemoglobin. She is also on Warfarin and Lovenox. Time: 06:38 Vital Signs Temperature 98.6 F 11/03/18 03:31 Pulse Rate 73 11/03/18 03:31 Respiratory Rate 18 11/03/18 03:31 Blood Pressure 0/0 11/03/18 03:31 O2 Sat by Pulse Oximetry 90 11/03/18 03:31 Temperature 98.6 F 11/03/18 03:38 Pulse Rate 70 11/03/18 06:12 Respiratory Rate 18 11/03/18 06:12 Blood Pressure 86/72 11/03/18 06:12 O2 Sat by Pulse Oximetry 100 11/03/18 06:12 Oxygen Delivery Oxygen Delivery Nasal Cannula Weakness - MDM Narrative Medical decision making narrative: Patient was discussed with my attending physician who agrees with ED management and final disposition. They independently evaluated the patient. Please refer to their attestation to this encounter for additional information. This note was generated by [employer] voice recognition software and as a result grammatical or spelling errors may occur using this program. - Medical Records Medical records reviewed: Yes I reviewed the patient's medical records. - Lab Data Lab results reviewed: Yes I reviewed the patient's lab results. Result diagrams: 11/03/18 00:41 11/03/18 00:41 Lab Results 11/03/18 11/03/18 11/03/18 Range/Units 00:41 00:41 00:41 WBC 9.5 (4.3-11.1) K/mcL RBC 2.80 L (3.82-4.97) M/mcL Hgb 9.3 L (11.5-15.4) g/dL Hct 28.4 L (35.3-44.9) % MCV 101.4 H (83.0-100.0) fL MCH 33.2 (28.0-33.3) pg MCHC 32.7 (31.6-35.5) g/dL RDW 13.9 (11.5-14.5) % Plt Count 145 (140-400) K/mcL MPV 10.7 (9.4-12.4) fL Immature Gran % 0.4 (0-4) % Seg Neutrophils % 74.6 % Lymphocytes % 15.1 % Monocytes % 8.9 % Eosinophils % 0.6 % Basophils % 0.4 % Neutrophils # 7.1 (1.6-8.9) K/mcL Lymphocytes # 1.4 (0.6-4.6) K/mcL Monocytes # 0.8 (0.0-1.3) K/mcL Eosinophils # 0.1 (0.0-0.6) K/mcL Basophils # 0.0 (0.0-0.2) K/mcL PT 13.8 H (9.4-12.1) Seconds INR 1.2 APTT 39.4 H (26.0-36.0) Seconds Sodium 142 (136-145) mEq/L Potassium 3.9 (3.5-5.1) mEq/L Chloride 107 (98-107) mEq/L Carbon Dioxide 26 (23-29) mEq/L BUN 28 H (8-23) mg/dL Creatinine 0.84 (0.60-1.20) mg/dL Est GFR ( Amer) > 60 (> 60) Est GFR (Non-Af Amer) > 60 (> 60) BUN/Creatinine Ratio 33 H (6-26) Glucose 122 H (70-105) mg/dL POC Glucose (70-99) mg/dL Calculated Osmolality 301 H (280-300) Calcium 9.1 (8.6-10.3) mg/dL 11/03/18 Range/Units 03:40 WBC (4.3-11.1) K/mcL RBC (3.82-4.97) M/mcL Hgb (11.5-15.4) g/dL Hct (35.3-44.9) % MCV (83.0-100.0) fL MCH (28.0-33.3) pg MCHC (31.6-35.5) g/dL RDW (11.5-14.5) % Plt Count (140-400) K/mcL MPV (9.4-12.4) fL Immature Gran % (0-4) % Seg Neutrophils % % Lymphocytes % % Monocytes % % Eosinophils % % Basophils % % Neutrophils # (1.6-8.9) K/mcL Lymphocytes # (0.6-4.6) K/mcL Monocytes # (0.0-1.3) K/mcL Eosinophils # (0.0-0.6) K/mcL Basophils # (0.0-0.2) K/mcL PT (9.4-12.1) Seconds INR APTT (26.0-36.0) Seconds Sodium (136-145) mEq/L Potassium (3.5-5.1) mEq/L Chloride (98-107) mEq/L Carbon Dioxide (23-29) mEq/L BUN (8-23) mg/dL Creatinine (0.60-1.20) mg/dL Est GFR ( Amer) (> 60) Est GFR (Non-Af Amer) (> 60) BUN/Creatinine Ratio (6-26) Glucose (70-105) mg/dL POC Glucose 129 H (70-99) mg/dL Calculated Osmolality (280-300) Calcium (8.6-10.3) mg/dL - Radiology Data Radiology results reviewed: Yes I reviewed the patient's radiology results. Chest X-Ray 11/03/18 03:44 IMPRESSION: No acute cardiopulmonary process. D/ / Ambreen Edouard MD / Ambreen Edouard MD Interpreting Provider: Ambreen Edouard MD Abdomen/Pelvis CT 11/03/18 05:10 IMPRESSION: 1. Postoperative changes in the anterior abdominal. No abscess formation but 2 subcutaneous hematomas are noted in the upper abdomen in the fat. There is still some herniated fat in the super umbilical area. 2. Large intra-abdominal hematoma involving predominantly the left flank but extending into the pelvis in the midline. There is surrounding fluid and pelvic fluid with hemorrhagic content. 3. Mass in the left groin, Hounsfield numbers suggesting a seroma rather than a hematoma. 4. Ventral subcutaneous upper abdominal hematomas. 5. Other findings as above. D/ / Ambreen Edouard MD / Ambreen Edouard MD Interpreting Provider: Ambreen Edouard MD - EKG Data EKG attestation: Yes I reviewed and interpreted this EKG. EKG results narrative: EKG performed 0340 normal sinus rhythm 64 beats per minute, normal axis, good R wave progression, no ST elevation or depression, no doubt with, no Brugada pattern, LVH. Intervals appear within normal limits. No old EKG available for comparison at this time. No acute ischemic changes.
[2018-11-03] MEDS ORDERED: Ibuprofen 600 MG TABLET PO PRN (06:39)
--- NOTE | 2018-11-03 06:42 | Emergency Department Note ---
Disposition Clinical Impression: Postoperative abdominal pain, Acute blood loss anemia Intra-abdominal hematoma Qualifiers: Encounter type: initial encounter Qualified Code(s): S36.92XA - Contusion of unspecified intra-abdominal organ, initial encounter Hypotension Qualifiers: Hypotension type: unspecified hypotension type Qualified Code(s): I95.9 - Hypotension, unspecified Syncope Qualifiers: Syncope type: unspecified Qualified Code(s): R55 - Syncope and collapse Disposition: Admitted As Inpatient Condition: Serious Referrals: Elen Britton DO [Primary Care Provider] - Forms: ED Satisfaction Letter Time of Disposition: 06:42 General Adult HPI - General Chief complaint: ED Weakness Stated complaint: weakness Time Seen by Provider: 11/03/18 03:34 Source: patient, family (), EMS Mode of arrival: EMS Limitations: no limitations Nursing Notes Reviewed: Yes Vital Signs Reviewed: Yes - History of Present Illness Pain Scale: 4 - Related Data Home Medications Medication Instructions Recorded Confirmed Omeprazole [PriLOSEC] 20 mg PO DAILY 07/20/17 11/03/18 Cyanocobalamin (Vitamin B-12) 1,000 mcg PO DAILY 08/26/17 11/03/18 [Vitamin B12] Acetaminophen [Tylenol] 500 mg PO BID PRN 12/14/17 11/03/18 Warfarin [Coumadin] 7.5 mg PO TH 06/13/18 11/03/18 Warfarin [Coumadin] 5 mg PO SUMOTUWEFRSA 08/20/18 11/03/18 Enoxaparin [Lovenox] 80 mg SQ AD 11/01/18 11/03/18 Ergocalciferol (VITAMIN D2) 2,000 unit PO DAILY 11/01/18 11/03/18 [Vitamin D2] Aspirin [Lo-Dose Aspirin EC] 81 mg PO DAILY 11/03/18 11/03/18 Previous Rx's Medication Instructions Recorded Propafenone [Rhythmol] 150 mg PO Q8H #90 tablet 06/15/18 Atorvastatin [Lipitor] 40 mg PO HS #30 tablet 08/22/18 Allergies Allergy/AdvReac Type Severity Reaction Status Date / Time codeine Allergy Difficulty Verified 11/01/18 06:59 Breathing hydrocodone [From Vicodin] Allergy Difficulty Verified 11/01/18 06:59 Breathing hydromorphone [From Dilaudid] Allergy Difficulty Verified 11/01/18 06:59 Breathing morphine Allergy Difficulty Verified 11/01/18 06:59 Breathing oxycodone [From Percocet] Allergy Rash Verified 11/01/18 06:59 tramadol Allergy Difficulty Verified 11/01/18 06:59 Breathing influenza virus vaccine, AdvReac FLU LIKE Verified 11/01/18 06:59 specific SYMPTOMS [Influenza Virus Vacc,Specific] Constitutional: Reports: weakness. Denies: fever, chills Cardiovascular: Denies: chest pain, palpitations, dyspnea on exertion Respiratory: Denies: dyspnea Gastrointestinal: Reports: abdominal pain. Denies: nausea, vomiting, diarrhea, hematemesis, melena, hematochezia Genitourinary: Denies: dysuria, hematuria Musculoskeletal: Denies: back pain Integumentary: Denies: rash, abrasion Neurological: Reports: weakness. 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 PRACTICAL history: Reports: non-contributory - Social History Smoking Status: Never smoker Smokeless Tobacco Status: No Alcohol use: Reports: none Drug use: Reports: none Physical Exam - General Limitations: no limitations General appearance: alert, in no apparent distress Course Vital Signs Temperature 98.6 F 11/03/18 03:31 Pulse Rate 73 11/03/18 03:31 Respiratory Rate 18 11/03/18 03:31 Blood Pressure 0/0 11/03/18 03:31 O2 Sat by Pulse Oximetry 90 11/03/18 03:31 Temperature 98.6 F 11/03/18 03:38 Pulse Rate 70 11/03/18 06:12 Respiratory Rate 18 11/03/18 06:12 Blood Pressure 86/72 11/03/18 06:12 O2 Sat by Pulse Oximetry 100 11/03/18 06:12 Oxygen Delivery Oxygen Delivery Nasal Cannula Medical Decision Making - Medical Records Medical records reviewed: Yes I reviewed the patient's medical records. - Lab Data Lab results reviewed: Yes I reviewed the patient's lab results. Result diagrams: 11/03/18 00:41 11/03/18 00:41 Lab Results 11/03/18 11/03/18 11/03/18 Range/Units 00:41 00:41 00:41 WBC 9.5 (4.3-11.1) K/mcL RBC 2.80 L (3.82-4.97) M/mcL Hgb 9.3 L (11.5-15.4) g/dL Hct 28.4 L (35.3-44.9) % MCV 101.4 H (83.0-100.0) fL MCH 33.2 (28.0-33.3) pg MCHC 32.7 (31.6-35.5) g/dL RDW 13.9 (11.5-14.5) % Plt Count 145 (140-400) K/mcL MPV 10.7 (9.4-12.4) fL Immature Gran % 0.4 (0-4) % Seg Neutrophils % 74.6 % Lymphocytes % 15.1 % Monocytes % 8.9 % Eosinophils % 0.6 % Basophils % 0.4 % Neutrophils # 7.1 (1.6-8.9) K/mcL Lymphocytes # 1.4 (0.6-4.6) K/mcL Monocytes # 0.8 (0.0-1.3) K/mcL Eosinophils # 0.1 (0.0-0.6) K/mcL Basophils # 0.0 (0.0-0.2) K/mcL PT 13.8 H (9.4-12.1) Seconds INR 1.2 APTT 39.4 H (26.0-36.0) Seconds Sodium 142 (136-145) mEq/L Potassium 3.9 (3.5-5.1) mEq/L Chloride 107 (98-107) mEq/L Carbon Dioxide 26 (23-29) mEq/L BUN 28 H (8-23) mg/dL Creatinine 0.84 (0.60-1.20) mg/dL Est GFR ( Amer) > 60 (> 60) Est GFR (Non-Af Amer) > 60 (> 60) BUN/Creatinine Ratio 33 H (6-26) Glucose 122 H (70-105) mg/dL POC Glucose (70-99) mg/dL Calculated Osmolality 301 H (280-300) Calcium 9.1 (8.6-10.3) mg/dL 06/20/19 Range/Units 03:40 WBC (4.3-11.1) K/mcL RBC (3.82-4.97) M/mcL Hgb (11.5-15.4) g/dL Hct (35.3-44.9) % MCV (83.0-100.0) fL MCH (28.0-33.3) pg MCHC (31.6-35.5) g/dL RDW (11.5-14.5) % Plt Count (140-400) K/mcL MPV (9.4-12.4) fL Immature Gran % (0-4) % Seg Neutrophils % % Lymphocytes % % Monocytes % % Eosinophils % % Basophils % % Neutrophils # (1.6-8.9) K/mcL Lymphocytes # (0.6-4.6) K/mcL Monocytes # (0.0-1.3) K/mcL Eosinophils # (0.0-0.6) K/mcL Basophils # (0.0-0.2) K/mcL PT (9.4-12.1) Seconds INR APTT (26.0-36.0) Seconds Sodium (136-145) mEq/L Potassium (3.5-5.1) mEq/L Chloride (98-107) mEq/L Carbon Dioxide (23-29) mEq/L BUN (8-23) mg/dL Creatinine (0.60-1.20) mg/dL Est GFR ( Amer) (> 60) Est GFR (Non-Af Amer) (> 60) BUN/Creatinine Ratio (6-26) Glucose (70-105) mg/dL POC Glucose 129 H (70-99) mg/dL Calculated Osmolality (280-300) Calcium (8.6-10.3) mg/dL - Radiology Data Radiology results reviewed: Yes I reviewed the patient's radiology results. Chest X-Ray 11/03/18 03:44 IMPRESSION: No acute cardiopulmonary process. D/ / Ambreen Edouard MD / Ambreen Edouard MD Interpreting Provider: Ambreen Edouard MD Abdomen/Pelvis CT 11/03/18 05:10 IMPRESSION: 1. Postoperative changes in the anterior abdominal. No abscess formation but 2 subcutaneous hematomas are noted in the upper abdomen in the fat. There is still some herniated fat in the super umbilical area. 2. Large intra-abdominal hematoma involving predominantly the left flank but extending into the pelvis in the midline. There is surrounding fluid and pelvic fluid with hemorrhagic content. 3. Mass in the left groin, Hounsfield numbers suggesting a seroma rather than a hematoma. 4. Ventral subcutaneous upper abdominal hematomas. 5. Other findings as above. D/ / Ambreen Edouard MD / Ambreen Edouard MD Interpreting Provider: Amberen Edouard MD - EKG Data EKG #1 EKG attestation: Yes I reviewed and interpreted this EKG. EKG results narrative: EKG shows a normal sinus rhythm with ventricular rate of 64. No significant ST segment elevation or depression. No arrhythmia or ectopy. Critical Care Time Critical Care Time: Yes Total Critical Care Time: 35 Attestation: Critical care performed: Time is exclusive of separately billable procedures. Time includes: direct patient care, patient reassessment, coordination of patient care, interpretation of data (laboratory data, radiology data, and respiratory data), review of patient's medical records, medical consultation and documentation of patient care. Procedures included in critical care time: Procedures excluded from critical care time: Attestation Statement - Attestation Attestation: IAdan MD, personally evaluated this patient and discussed their management with the resident physician. I reviewed the resident's note and agree with the documented findings, medical decision making, and plan of care. I reviewed the residents documentation and agree with the residents assessment and plan of care. I have personally had face to face time with the patient. I personally supervised and was present for the storey/critical portions of the following procedures completed by the resident: EKG interpretation. 73-year-old female who is about 36 hours postop from a left inguinal hernia repair presents to the emergency department with a complaint of increased pain in the left lower abdomen since about 6 PM last evening. She got up during the night tonight and they headed and dizzy and had a brief syncopal episode. She denies any chest pain. She just complains of feeling weak and dizzy with pain and nausea. On examination patient is a well-developed well-nourished well-appearing elderly female in no acute distress. She is alert and oriented 3. There is no cyanosis or diaphoresis. Breath sounds are clear and equal bilaterally. Heart regular rate and rhythm. Abdomen is soft with present bowel sounds. There is marked left lower quadrant tenderness with moderate diffuse abdominal tenderness. Labs reviewed. 2.6 drop in her hemoglobin from 11.[address] shows multiple large intra-abdominal hematomas as well as subcutaneous hematomas. A seroma in the left groin. Free fluid in the pelvis. The surgeon system administration manager, Dr. Palumbo, was consulted and accepted admission of the patient to his service.
[2018-11-03] MEDS ORDERED: traMADol 50 MG TABLET PO STA (07:42)
[2018-11-03] MEDS ORDERED: *HR* FentaNYL (PF) 100 MCG/2 ML VIAL IVP ONE (09:27)
[2018-11-03] MEDS ORDERED: Ondansetron 4 MG/2 ML VIAL IVP PRN (09:27)
[2018-11-03] MEDS ORDERED: *HR* Promethazine 25 MG/ML VIAL IVP PRN (09:27)
[2018-11-03] MEDS ORDERED: Pantoprazole 40 MG VIAL IVP SCH (09:30)
--- NOTE | 2018-11-03 09:33 | General Surg History&Physical ---
<Leticia Davalos - Last Filed: 11/03/18 11:11> Date of Encounter: 11/03/18 Time of Encounter: 09:33 Assessment and Plan (1) Postoperative hematoma Current Visit: Yes Status: Acute The assessment and plan as outlined above was discussed with the patient and/or family members who expressed understanding and agreement. All questions were answered. CT is with abdominal postoperative hematoma. We will transfuse the patient and plan for hematoma evacuation in the next 24 to 48 hours. NPO supportive care and discomfort management incentive spirometry IV fluids EP CDs bed rest repeat am labs ellis cath and ua at time of insertion Qualifiers: Surgical complication system/body Area: digestive system Procedure type: non-digestive system Qualified Code(s): K91.871 - Postprocedural hematoma of a digestive system organ or structure following other procedure (2) Abdominal pain Current Visit: No Status: Acute The assessment and plan as outlined above was discussed with the patient and/or family members who expressed understanding and agreement. All questions were answered. see above Qualifiers: Abdominal location: right upper quadrant Qualified Code(s): R10.11 - Right upper quadrant pain (3) Syncope Current Visit: Yes Status: Acute The assessment and plan as outlined above was discussed with the patient and/or family members who expressed understanding and agreement. All questions were answered. continue to closely monitor bed rest telemetry Qualifiers: Syncope type: unspecified Qualified Code(s): R55 - Syncope and collapse (4) Acute blood loss anemia Current Visit: Yes Status: Acute The assessment and plan as outlined above was discussed with the patient and/or family members who expressed understanding and agreement. All questions were answered. transfuse 2 units PRBCs see above (5) Atrial fibrillation Current Visit: No Status: Chronic The assessment and plan as outlined above was discussed with the patient and/or family members who expressed understanding and agreement. All questions were answered. telemetry prn IV metorprolol for rate control cannot initiate hep gtt given current findings of blood loss anemia and hematoma continue to closely monitor Qualifiers: Atrial fibrillation type: paroxysmal Qualified Code(s): I48.0 - Paroxysmal atrial fibrillation (6) Coagulopathy Current Visit: Yes Status: Acute The assessment and plan as outlined above was discussed with the patient and/or family members who expressed understanding and agreement. All questions were answered. hold anticoagulation see above History of Present Illness Chief complaint: abdominal pain HPI: Ms. Hudson is a 73 year old female who is status post robotic left inguinal hernia repair with 10 x 15 cm mesh on 11/01/[address] Palumbo. She presented to the emergency department on 11/03/2018 via EMS for complaints of weakness and syncope. She states that she began having increased pain and weakness earlier that night. She felt like the discomfort was a 10 out of 10, she felt as though she needed to use the bathroom but was unable to do so secondary to pain. Her attempted to help her up when she stood she passed out. She states she feels very lightheaded but she and her reports that she did not hit her head. She is taking Coumadin added baseline but secondary to her recent surgery she was also getting Lovenox bridging injections. She denies any black, bloody, or tarry stool. She denies hematemesis. She denies any burning with urination or bloody urination. She denies fevers, chills, or drainage from her surgery site. Clinical course thus far as included a CT of the abdomen and pelvis with IV contrast which noted no abscess formation but to subcutaneous hematomas were noted in the upper abdomen. There was a large intra-abdominal hematoma involving predominantly the left flank but also extended into the pelvis and midline. There was surrounding fluid in pelvic fluid with hemorrhagic content. Mass in the left groin suggesting a seroma. Her hemoglobin was 9.3 for which she is being transfused 2 units of packed red blood cells. Anticoagulation is held at this time. She will be admitted to the surgical service for appropriate resuscitation and plans for hematoma evacuation. Past Med Surg Social Fam HX - Past Medical History Source: patient Medical history: atrial fibrillation, GERD, hypertension, other Additional medical history: anemia, Pancreatitis Psychiatric history: no psych history - Past Surgical History Surgical History: cholecystectomy, herniorrhaphy, hip replacement, orthopedic, other, other Additional surgical history: egd, eus, ercp, back sx - Social History Smoking Status: Never smoker Smokeless Tobacco Status: No Alcohol use: none Drug use: none Occupational status: retired Current living situation: Home - Independent Activity Level: Independent ambulation Recent Out of Country Travel Within the Last 8 Weeks: No Exposure or Possible Exposure to Illness During Travel: No - Family History Father Hx Family Cardiac Disorders: Yes Mother Living Status: Hx Family Cardiac Disorders: No Hx Family Cancer: Yes Medications and Allergies Omeprazole [PriLOSEC] 20 mg PO DAILY 07/20/17 [History] Cyanocobalamin (Vitamin B-12) [Vitamin B12] 1,000 mcg PO DAILY 08/26/17 [History] Acetaminophen [Tylenol] 500 mg PO BID PRN 12/14/17 [History] Warfarin [Coumadin] 7.5 mg PO TH 06/13/18 [History] Propafenone [Rhythmol] 150 mg PO Q8H #90 tablet 06/15/18 [Rx] Warfarin [Coumadin] 5 mg PO SUMOTUWEFRSA 08/20/18 [History] Atorvastatin [Lipitor] 40 mg PO HS #30 tablet 08/22/18 [Rx] Enoxaparin [Lovenox] 80 mg SQ AD 11/01/18 [History] Ergocalciferol (VITAMIN D2) [Vitamin D2] 2,000 unit PO DAILY 11/01/18 [History] Aspirin [Lo-Dose Aspirin EC] 81 mg PO DAILY 11/03/18 [History] Allergy/AdvReac Type Severity Reaction Status Date / Time codeine Allergy Difficulty Verified 11/01/18 06:59 Breathing hydrocodone [From Vicodin] Allergy Difficulty Verified 11/01/18 06:59 Breathing hydromorphone [From Dilaudid] Allergy Difficulty Verified 11/01/18 06:59 Breathing morphine Allergy Difficulty Verified 11/01/18 06:59 Breathing oxycodone [From Percocet] Allergy Rash Verified 11/01/18 06:59 tramadol Allergy Difficulty Verified 11/01/18 06:59 Breathing influenza virus vaccine, AdvReac FLU LIKE Verified 11/01/18 06:59 specific SYMPTOMS [Influenza Virus Vacc,Specific] Review of Systems All systems PM: reviewed and no additional remarkable complaints except as stated All systems PM: The remainder of the systems were reviewed and are negative General Surgery Exam Initial Vital Signs Temp Pulse Resp BP Pulse Ox 98.6 F 73 18 0/0 90 11/03/18 03:31 11/03/18 03:31 11/03/18 03:31 11/03/18 03:31 11/03/18 03:31 - General physical appearance moderate distress, severe pain - ENT atraumatic, normocephalic - Respiratory other (Decreased respiratory effort) - Cardiovascular Cardiovascular exam: Present: irregular rhythm - Abdomen Abdomen general surgery: Present: distended, tender, guarding. Absent: bowel sounds present - Incision Incision: Present: clean and dry, intact - Integumentary Integumentary general surgery: Present: warm and dry - Neurologic Present: normal coordination, normal sensation - Musculoskeletal Present: normal posture - Psychiatric Psychiatric general surgery: Present: A&Ox3 Results - Labs 11/03/18 00:41 11/03/18 00:41 Abnormal lab results RBC 2.80 M/mcL (3.82-4.97) L 11/03/18 00:41 Hgb 9.3 g/dL (11.5-15.4) L 11/03/18 00:41 Hct 28.4 % (35.3-44.9) L 11/03/18 00:41 MCV 101.4 fL (83.0-100.0) H 11/03/18 00:41 PT 13.8 Seconds (9.4-12.1) H 11/03/18 00:41 APTT 39.4 Seconds (26.0-36.0) H 11/03/18 00:41 BUN 28 mg/dL (8-23) H 11/03/18 00:41 33 (6-26) H 11/03/18 00:41 Glucose 122 mg/dL (70-105) H 11/03/18 00:41 POC Glucose 129 mg/dL (70-99) H 11/03/18 03:40 301 (280-300) H 11/03/18 00:41 Crossmatch See Detail 11/03/18 08:18 Diabetes panel 11/03/18 Range/Units 00:41 Sodium 142 (136-145) mEq/L Potassium 3.9 (3.5-5.1) mEq/L Chloride 107 (98-107) mEq/L Carbon Dioxide 26 (23-29) mEq/L BUN 28 H (8-23) mg/dL Creatinine 0.84 (0.60-1.20) mg/dL Glucose 122 H (70-105) mg/dL Calcium 9.1 (8.6-10.3) mg/dL Calcium panel 11/03/18 Range/Units 00:41 Calcium 9.1 (8.6-10.3) mg/dL Pituitary panel 11/03/18 Range/Units 00:41 Sodium 142 (136-145) mEq/L Potassium 3.9 (3.5-5.1) mEq/L Chloride 107 (98-107) mEq/L Carbon Dioxide 26 (23-29) mEq/L BUN 28 H (8-23) mg/dL Creatinine 0.84 (0.60-1.20) mg/dL Glucose 122 H (70-105) mg/dL Calcium 9.1 (8.6-10.3) mg/dL Adrenal panel 11/03/18 Range/Units 00:41 Sodium 142 (136-145) mEq/L Potassium 3.9 (3.5-5.1) mEq/L Chloride 107 (98-107) mEq/L Carbon Dioxide 26 (23-29) mEq/L BUN 28 H (8-23) mg/dL Creatinine 0.84 (0.60-1.20) mg/dL Glucose 122 H (70-105) mg/dL Calcium 9.1 (8.6-10.3) mg/dL All other labs normal. - Imaging CT scan - abdomen: report reviewed, image reviewed CT scan - pelvis: report reviewed, image reviewed <Dany Palumbo - Last Filed: 11/03/18 17:14> Date of Encounter: 11/03/18 Assessment and Plan (1) Abdominal pain Current Visit: No Status: Acute The assessment and plan as outlined above was discussed with the patient and/or family members who expressed understanding and agreement. All questions were answered. Qualifiers: Abdominal location: right upper quadrant Qualified Code(s): R10.11 - Right upper quadrant pain (2) Atrial fibrillation Current Visit: No Status: Chronic The assessment and plan as outlined above was discussed with the patient and/or family members who expressed understanding and agreement. All questions were answered. Qualifiers: Atrial fibrillation type: paroxysmal Qualified Code(s): I48.0 - Paroxysmal atrial fibrillation (3) Syncope Current Visit: Yes Status: Acute The assessment and plan as outlined above was discussed with the patient and/or family members who expressed understanding and agreement. All questions were answered. Qualifiers: Syncope type: unspecified Qualified Code(s): R55 - Syncope and collapse (4) Postoperative hematoma Current Visit: Yes Status: Acute The assessment and plan as outlined above was discussed with the patient and/or family members who expressed understanding and agreement. All questions were answered. Qualifiers: Surgical complication system/body Area: digestive system Procedure type: non-digestive system Qualified Code(s): K91.871 - Postprocedural hematoma of a digestive system organ or structure following other procedure (5) Acute blood loss anemia Current Visit: Yes Status: Acute The assessment and plan as outlined above was discussed with the patient and/or family members who expressed understanding and agreement. All questions were answered. (6) Coagulopathy Current Visit: Yes Status: Acute The assessment and plan as outlined above was discussed with the patient and/or family members who expressed understanding and agreement. All questions were an swered. History of Present Illness HPI: Ms. Hudson is a 73 year old female Review of Systems All systems PM: The remainder of the systems were reviewed and are negative General Surgery Exam Initial Vital Signs Temp Pulse Resp BP Pulse Ox 98.6 F 73 18 0/0 90 11/03/18 03:31 11/03/18 03:31 11/03/18 03:31 11/03/18 03:31 11/03/18 03:31 Results - Labs 11/03/18 00:41 11/03/18 00:41 Abnormal lab results RBC 2.80 M/mcL (3.82-4.97) L 11/03/18 00:41 Hgb 9.3 g/dL (11.5-15.4) L 11/03/18 00:41 Hct 28.4 % (35.3-44.9) L 11/03/18 00:41 MCV 101.4 fL (83.0-100.0) H 11/03/18 00:41 PT 13.8 Seconds (9.4-12.1) H 11/03/18 00:41 APTT 39.4 Seconds (26.0-36.0) H 11/03/18 00:41 BUN 28 mg/dL (8-23) H 11/03/18 00:41 33 (6-26) H 11/03/18 00:41 Glucose 122 mg/dL (70-105) H 11/03/18 00:41 POC Glucose 129 mg/dL (70-99) H 11/03/18 03:40 301 (280-300) H 11/03/18 00:41 Ur Specific Ferguson > 1.030 (1.010-1.025) H 11/03/18 10:59 Trace mg/dL (Negative) H 11/03/18 10:59 Small (Negative) H 11/03/18 10:59 Crossmatch See Detail 11/03/18 08:18 Diabetes panel 11/03/18 Range/Units 00:41 Sodium 142 (136-145) mEq/L Potassium 3.9 (3.5-5.1) mEq/L Chloride 107 (98-107) mEq/L Carbon Dioxide 26 (23-29) mEq/L BUN 28 H (8-23) mg/dL Creatinine 0.84 (0.60-1.20) mg/dL Glucose 122 H (70-105) mg/dL Calcium 9.1 (8.6-10.3) mg/dL Calcium panel 11/03/18 Range/Units 00:41 Calcium 9.1 (8.6-10.3) mg/dL Pituitary panel 11/03/18 Range/Units 00:41 Sodium 142 (136-145) mEq/L Potassium 3.9 (3.5-5.1) mEq/L Chloride 107 (98-107) mEq/L Carbon Dioxide 26 (23-29) mEq/L BUN 28 H (8-23) mg/dL Creatinine 0.84 (0.60-1.20) mg/dL Glucose 122 H (70-105) mg/dL Calcium 9.1 (8.6-10.3) mg/dL Adrenal panel 11/03/18 Range/Units 00:41 Sodium 142 (136-145) mEq/L Potassium 3.9 (3.5-5.1) mEq/L Chloride 107 (98-107) mEq/L Carbon Dioxide 26 (23-29) mEq/L BUN 28 H (8-23) mg/dL Creatinine 0.84 (0.60-1.20) mg/dL Glucose 122 H (70-105) mg/dL Calcium 9.1 (8.6-10.3) mg/dL All other labs normal. - Attending Attestation I have personally performed a face to face evaluation on this patient. I have reviewed and agree with the care plan. History and Exam by me shows: I personally reviewed the above assessment and evaluation and agree with the above plan. Patient has postoperative hematoma in the left abdominal region into the groin. Her INR level is normal but I am concerned that she had some delayed oozing effect related to her previous history of anticoagulation in addition to her recent surgery. Because of her abdominal pain and her multiple allergies to narcotic pain medication she is in significant discomfort. We will plan on performing a laparoscopic evaluation and evacuation of hematoma to help relieve the pressure and discomfort caused by the hematoma. Discussed with the patient and and they agree with the above plan.
[2018-11-03] MEDS ORDERED: 0.9 % Sodium Chloride 500 ML ONE (09:47)
[2018-11-03] MEDS: Acetaminophen IV 1,000 MG/100 ML INFUS..BTL IVPB SCH ×2 (09:55→18:12)
[2018-11-03 11:13] LABS: Bilirubin,Urine Small (Negative); Blood,Urine Negative (Negative); Clarity,Urine Clear (Clear); Color,Urine Yellow (Yellow); Glucose,Urine (UA) Normal (Normal); Ketones,Urine Trace mg/dL (Negative); Leukocyte Esterase,Urine Negative (Negative); Nitrite,Urine Negative (Negative); PH,Urine 5.5 pH Units (5.0-8.0); Protein,Urine Trace mg/dL (Neg-Trace); Specific Gravity,Urine > 1.030 (1.010-1.025); Urobilinogen,Urine Normal (Normal)
[2018-11-03] MEDS ORDERED: *HR* FentaNYL (PF) 100 MCG/2 ML VIAL IVP PRN ×2 (11:22→15:57)
[2018-11-03] MEDS ORDERED: Acetaminophen IV 1,000 MG/100 ML INFUS..BTL IVPB SCH (12:00)
[2018-11-03] MEDS ORDERED: Furosemide 20 MG/2 ML VIAL IVP ONE (13:26)
[2018-11-03] MEDS ORDERED: CeFAZolin Syr 2,000MG/20 ML 2,000 MG/20 ML SYRINGE IVPB ONE (15:57)
[2018-11-03] MEDS ORDERED: 0.9 % Sodium Chloride 1,000 ML IVC SCH (16:00)
--- NOTE | 2018-11-03 16:01 | Electrocardiograph Report ---
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
--- NOTE | 2018-11-03 16:35 | Anesthesia Evaluation PreOp ---
Date of Encounter: 11/03/18 Time of Encounter: 16:45 - Past History Planned Operation: Laparoscopic Evacuation of Hematoma Cardiac History: HTN, Arrhythmia (H/O A-Fib--on coumadin) Pulmonary History: Denies Any Significant HX REGISTERED RADIOLOGIC TECHNOLOGIST History: TIA Other Medical History: Diabetes Type II, GERD Anesthesia History: No Prior Anesthetic Complications, Past Anesthesia Alcohol Use: none Drug use: none Medications and Allergies Omeprazole [PriLOSEC] 20 mg PO DAILY 07/20/17 [History] Cyanocobalamin (Vitamin B-12) [Vitamin B12] 1,000 mcg PO DAILY 08/26/17 [History] Acetaminophen [Tylenol] 500 mg PO BID PRN 12/14/17 [History] Warfarin [Coumadin] 7.5 mg PO TH 06/13/18 [History] Propafenone [Rhythmol] 150 mg PO Q8H #90 tablet 06/15/18 [Rx] Warfarin [Coumadin] 5 mg PO SUMOTUWEFRSA 08/20/18 [History] Atorvastatin [Lipitor] 40 mg PO HS #30 tablet 08/22/18 [Rx] Enoxaparin [Lovenox] 80 mg SQ AD 11/01/18 [History] Ergocalciferol (VITAMIN D2) [Vitamin D2] 2,000 unit PO DAILY 11/01/18 [History] Aspirin [Lo-Dose Aspirin EC] 81 mg PO DAILY 11/03/18 [History] Allergy/AdvReac Type Severity Reaction Status Date / Time codeine Allergy Difficulty Verified 11/01/18 06:59 Breathing hydrocodone [From Vicodin] Allergy Difficulty Verified 11/01/18 06:59 Breathing hydromorphone [From Dilaudid] Allergy Difficulty Verified 11/01/18 06:59 Breathing morphine Allergy Difficulty Verified 11/01/18 06:59 Breathing oxycodone [From Percocet] Allergy Rash Verified 11/01/18 06:59 tramadol Allergy Difficulty Verified 11/01/18 06:59 Breathing influenza virus vaccine, AdvReac FLU LIKE Verified 11/01/18 06:59 specific SYMPTOMS [Influenza Virus Vacc,Specific] - Meds/Allergy Pre-op Review Medications Reviewed: Yes Allergies Reviewed: Yes Beta Blockers on Current Med List: No Anesthesia Results - Labs 11/03/18 00:41 11/03/18 00:41 - Imaging EKG: report reviewed (11/03/2018 Sinus rhythm) Additional studies: 08/21/2018 Echo Impressions: No evidence of PFO with agitated saline contrast. Left Ventricular Wall Motion: Rest Echo Findings All wall segments showed normal motion. Findings: Study Quality * Technically adequate exam. ECG Findings * Normal sinus rhythm. Left Ventricle * LVEF 60%. * Asymmetric basal septal hypertrophy. Right Ventricle * Normal right ventricular structure and function. Aorta * Normally sized aortic root. Pericardium * There is no pericardial effusion present. Interatrial Septum * No evidence of PFO with agitated saline contrast. 02/03/2015 Stress Impression: Pharmacologic stress ECG is negative for ischemia at level of heart rate achieved. Occasional PVCs noted during recovery. Gated EF = 67%. This study was negative for ischemia or infarct. Anesthesia Exam Vital Signs/O2 Sat/Glucose, Most Recent Temp Pulse Resp BP Pulse Ox 98.6 F 96 18 107/74 97 11/03/18 15:29 11/03/18 15:29 11/03/18 15:29 11/03/18 15:29 11/03/18 15:29 Blood Glucose* 129 Height: 5'8''/1.73m Weight: 206 lbs/93.8 kg NPO (# of Hours): 8 Pain Scale: 0 Pain Scale Used: Numeric (1 - 10) - HEENT Pupil (Motor): EOMI Mallampati: II Teeth: Normal Oral Opening: Greater than 3 - REGISTERED RADIOLOGIC TECHNOLOGIST LOC: Oriented REGISTERED RADIOLOGIC TECHNOLOGIST Motor: Normal RUE, Normal LUE, Normal RLE, Normal LLE, Normal Face REGISTERED RADIOLOGIC TECHNOLOGIST Sensory: Normal: RUE, LUE, RLE, LLE, Face - Cardiac Rhythm: Regular Murmur: None - Pulmonary Breath Sounds: bilateral Clear Respiratory Effort: Symmetrical Anesthesia Assess/Plan ASA Score: 3 Level of consciousness: Cooperative, Oriented, Tranquil Anesthetic Plan: General Monitoring Plan: Standard Monitors Recovery Plan: PACU
[2018-11-03] MEDS ORDERED: Neostigmine Methylsulfate 3 MG/3 ML SYRINGE ONE (16:58)
[2018-11-03] MEDS ORDERED: Lidocaine -MPF 4% 5 ML AMPUL ONE (16:58)
[2018-11-03] MEDS ORDERED: *HR* Rocuronium Bromide 50 MG/5 ML VIAL ONE (16:58)
[2018-11-03] MEDS ORDERED: *HR* FentaNYL (PF) 100 MCG/2 ML VIAL ONE (16:58)
[2018-11-03] MEDS ORDERED: Ondansetron 4 MG/2 ML VIAL ONE (16:58)
[2018-11-03] MEDS ORDERED: *HR* Propofol 200 MG/20 ML VIAL IVP ONE (16:58)
[2018-11-03] MEDS ORDERED: Dexamethasone 4 MG/ML VIAL ONE (16:58)
[2018-11-03] MEDS ORDERED: Lidocaine -MPF 2% 2 ML VIAL ONE (16:58)
[2018-11-03] MEDS ORDERED: Bupivacaine/EPI 1:200k 0.5%PF 30 ML VIAL ONE (17:00)
[2018-11-03] MEDS ORDERED: *HR* Succinylcholine 200 MG/10 ML VIAL IVP ONE (17:27)
[2018-11-03] MEDS ORDERED: Water for inj. (sterile) 10 ML ONE (17:41)
[2018-11-03] MEDS ORDERED: EPHEDrine 50 MG/ML VIAL ONE (17:50)
--- NOTE | 2018-11-03 18:44 | Operative Note ---
Date of procedure: 11/03/18 Pre-op diagnosis: Intra-abdominal hematoma, s/p Robot LIH repair with mesh Post-op diagnosis: same Procedure: 1. Diagnostic laparoscopy. 2. Laparoscopic evacuation of intra-abdominal hematoma. Anesthesia: MARYCARMEN Surgeon: Dany Palumbo Was there an special education teaching assistant present: Yes Lining Feller Blindstitch: Odilia Barry Estimated blood loss (cc): 20 Specimen: None: Evacutated hematoma 1600ml Condition: stable Disposition: PACU Procedure in Detail: Date of surgery: 11/03/18 After properly identifying the patient, the patient was brought to the operating room and placed in the supine position. After proper IV sedation was achieved followed by general endotracheal intubation, the patient's abdomen was prepped and draped in normal sterile fashion. A timeout was performed noting the patient's name and type of procedure to be performed. A 15 blade scalpel was used to make an incision in the patient's supraumbilical and right lateral previous port sites. Karyna clamps were then used to dissect through the subcutaneous tissue down to the rectus fascia along the supraumbilical incision. An 11 blade scalpel was used to make an incision in the previous suture which allow for entry into the abdomen. A 12 mm port was placed to this incision and the abdomen was insufflated. An 8 mm port was placed through the right lateral ports under direct camera visualization. This was later upsized to a 12 mm port. A laparoscopic camera was placed to the right lateral port which demonstrated some mild omental adhesions the abdominal wall which were taken down with non-traumatic grasper. This allowed for visualization inferiorly and along the left side of what appeared to be a hematoma beneath the layer of the peritoneum. The suture approximating the peritoneum on the left side was visualized and cut with left scopic scissors. A 12 mm cannula was attached to the ConMed which allow for suctioning of the fluid/hematoma beneath the level of the peritoneum. During the suctioning it was noted that essentially the majority of the fluid was actually liquid blood or old blood and not clot. I would approximate that over approximately 80% of the material suctioned was liquid and not clot-like material, she was never able to form a clot due to her previous warfarin administration even though she still held her warfarin 3 days prior to the procedure. The right lateral sidewall was also depressed during suctioning to allow for complete evacuation of this material. A total of approximately 1600 mL of blood was evacuated from the space. This region was also irrigated with normal saline solution and then again with normal saline solution containing Ancef. The pelvic region down towards the inguinal region with the mesh was visualized and observed to be in correct position was inspected. There is no obvious source of active bleeding. The entire area was stained dark secondary to the hematoma/blood placement. The decision was made to place a 19-Danish Lorne drain within the pelvic region. This was introduced by first placing a 5 mm port in the right lower quadrant and an extruding a 19-Danish Lorne drain through the 8 mm port site which was grasped with a [place] grasper through the 5 mm port which was then pulled through the skin. This was sutured in place with a 2-0 nylon suture. The tip of the catheter was placed into the pelvis and the peritoneum was almost completely reapproximated using absorbable tack rotary rig engine operator and a 5 mm Protek. All ports were then removed from the abdomen after the abdomen was desufflated. The rectus fascia for the umbilical incision was reapproximated with a [id number] 0 Vicryl suture. The subcutaneous tissue was reapproximated with 3-0 Vicryl suture and the epidermal and dermal layers for the remaining incisions were closed with 4-0 Monocryl sutures. Needle, sponge, and instrument counts were correct 2 and the incisions were covered with Dermabond. The patient was aroused from IV sedation, extubated in the operating room without complication, and transported to the recovery room stable condition.
[2018-11-03] MEDS: Ondansetron 4 MG/2 ML VIAL IVP PRN (20:27)
[2018-11-03] MEDS ORDERED: 0.9 % Sodium Chloride 250 ML ONE (21:13)
[2018-11-04] MEDS: 0.9 % Sodium Chloride 1,000 ML IVC SCH ×3 (00:07→22:11)
[2018-11-04] MEDS: Acetaminophen IV 1,000 MG/100 ML INFUS..BTL IVPB SCH ×5 (00:12→23:49)
[2018-11-04] MEDS: ceFAZolin 1,000 MG in Water for inj. (sterile) 10 ML IVP SCH ×3 (00:12→16:19)
--- NOTE | 2018-11-04 02:16 | Anesthesia Evaluation Post Op ---
Date of Encounter: 11/04/18 Time of Encounter: 19:27 - Discharge PostOp Status: Transfer Patient to floor (Patient's vital signs have been reviewed. Patient is stable postoperatively and has adequately recovered from anesthesia. Patient is determined to have stable airway patency and respiratory function including respiratory rate and oxygen saturation. Patient has a stable heart rate, blood pressure and adequate hydration. Patients mental status is acceptable. Patients temperature is appropriate. Pain and nausea are adequately controlled.)
[2018-11-04] MEDS: *HR* FentaNYL (PF) 100 MCG/2 ML VIAL IVP PRN ×4 (03:30→21:04)
[2018-11-04] MEDS: Ondansetron 4 MG/2 ML VIAL IVP PRN ×2 (03:30→13:18)
[2018-11-04 05:53] LABS: Basophils % 0.1 %; Hematocrit 27.5 % (35.3-44.9); Hemoglobin 9.1 g/dL (11.5-15.4); INR 1.4; Immature Granulocytes % 0.5 % (0-4); Lymphocytes # 1.7 K/mcL (0.6-4.6); Mean Corpuscular HGB Conc 33.1 g/dL (31.6-35.5); Mean Corpuscular Hemoglobin 30.2 pg (28.0-33.3); Mean Platelet Volume 11.2 fL (9.4-12.4); Monocytes # 1.1 K/mcL (0.0-1.3); Monocytes % 5.9 %; Neutrophils # 16.1 K/mcL (1.6-8.9); Nucleated Red Blood Cells 0.2 /100 WBC (0); Platelet Count 140 K/mcL (140-400); Prothrombin Time 16.1 Seconds (9.4-12.1); Red Blood Count 3.01 M/mcL (3.82-4.97); Red Cell Distribution Width 19.5 % (11.5-14.5); Segmented Neutrophils % 84.5 %
[2018-11-04 05:55] LABS: Mean Corpuscular Volume 91.4 fL (83.0-100.0)
[2018-11-04 05:56] LABS: Calcium 7.9 mg/dL (8.6-10.3); Potassium 4.1 mEq/L (3.5-5.1)
[2018-11-04] MEDS ORDERED: 0.9 % Sodium Chloride 500 ML ONE (08:07)
[2018-11-04] MEDS: Pantoprazole 40 MG VIAL IVP SCH (08:23)
--- NOTE | 2018-11-04 14:49 | General Surgery Progress Note ---
<Leticia Davalos - Last Filed: 11/04/18 14:50> Date of Encounter: 11/04/18 Time of Encounter: 14:49 - Assessment and Plan (1) Postoperative hematoma Current Visit: Yes Status: Acute Date of procedure: 11/03/18 Pre-op diagnosis: Intra-abdominal hematoma, s/p Robot LIH repair with mesh Post-op diagnosis: same Procedure: 1. Diagnostic laparoscopy. 2. Laparoscopic evacuation of intra-abdominal hematoma. Anesthesia: GETA Surgeon: Dany Palumbo PDO #1 as above. Pt is recovering as expected. Noted approximately 1.6 L evacuated hematoma. Creatinine is slightly elevated at 1.55. She is receiving IV fluids and has a Gaitan catheter for accurate intake and output. Will continue to monitor. Plan: Continue supportive care and discomfort management while awaiting full return of bowel function Continue G.I. and DVT prophylaxis Incentive spirometry 10 times every hour while awake Out of bed to chair TID, do not offer meal trays while in the bed Activity as tolerated Apply ice 20 minutes on 20 minutes off as needed repeat a.m. labs strict intake and output Qualifiers: Surgical complication system/body Area: digestive system Procedure type: non-digestive system Qualified Code(s): K91.871 - Postprocedural hematoma of a digestive system organ or structure following other procedure (2) Abdominal pain Current Visit: Yes Status: Acute see above Qualifiers: Abdominal location: right upper quadrant Qualified Code(s): R10.11 - Right upper quadrant pain (3) Syncope Current Visit: Yes Status: Acute see above. OOB to chair with assist only Qualifiers: Syncope type: unspecified Qualified Code(s): R55 - Syncope and collapse (4) Acute blood loss anemia Current Visit: Yes Status: Acute (5) Coagulopathy Current Visit: Yes Status: Acute (6) Atrial fibrillation Current Visit: No Status: Chronic AC on hold 2/2 acute bleed. Resume AC when safe to do so. Consideration for hep gtt when stable (possibly 11/05/18) Qualifiers: Atrial fibrillation type: paroxysmal Qualified Code(s): I48.0 - Paroxysmal atrial fibrillation Subjective Patient reports: still having pain, pain is less, tolerating liquids well, voiding w/o difficulty, no flatus, no bowel movement, afebrile Objective Vital Signs - Last 8 Hours Temp Pulse Resp BP Pulse Ox 11/04/18 11:03 97.9 F 103 18 115/74 96 11/04/18 11:02 98.8 F 101 15 111/73 95 11/04/18 08:28 98.2 F 82 18 110/64 93 11/04/18 08:13 98.8 F 93 18 116/76 94 11/04/18 06:52 98.8 F 111 16 106/69 97 Intake and Output 11/03/18 11/04/18 11/04/18 23:59 07:59 15:59 Intake Total 740 / 3975 210 / 1046 836 / 1046 Output Total 400 / 400 310 / 310 Balance 340 / 3575 -100 / 736 836 / 736 Intake: IV Fluids 210 / 320 110 / 320 Ancef 1,000 MG In Water for inj . (sterile) 10 ML @ 200 mls/hr IVP Q8HR [facility] Rx#:[id number] Ofirmev 1,000 mg/100 ml 1,000 200 / 300 100 / 300 mg In 100 ml @ 400 mls/hr IVPB Q6HR [facility] Rx#:[id number] Oral 0 / 0 100 / 100 Blood Product 740 / 1875 626 / 626 Plasma Unit [id number] 626 / 626 Rbcs Leuko Poor As-1 Unit 390 / 780 [id number] Rbcs Leuko Poor As-1 Unit 350 / 350 [id number] Output: Estimated Blood Loss Catheter 150 / 150 200 / 200 Wound Drainage 230 / 230 110 / 110 Right Medial Abdomen 200 / 200 110 / 110 Other: Meal Breakfast Percent of Meal Consumed 10% Stool Size Moderate Moderate Stool Consistency liquid liquid soft soft formed Stool Color Brown # Bowel Movements 1 Weight 89.2 kg Blood Glucose* 161 Patient Weight 11/04/18 23:59 Weight 89.2 kg - General physical appearance no distress - ENT atraumatic, normocephalic - Neck Neck exam: trachea midline - Respiratory normal expansion, normal respiratory effort, clear to auscultation - Cardiovascular Cardiovascular exam: Present: RRR - Abdomen Abdomen: Present: bowel sounds present, soft, tender (expected) - Incision Incision: Present: clean and dry, intact - Integumentary no rash - Musculoskeletal normal posture - Psychiatric oriented to time, oriented to person, oriented to place - Labs 11/04/18 04:44 11/04/18 04:44 Diabetes panel 11/04/18 Range/Units 04:44 Sodium 136 (136-145) mEq/L Potassium 4.1 (3.5-5.1) mEq/L Chloride 110 H (98-107) mEq/L Carbon Dioxide 20 L (23-29) mEq/L BUN 39 H (8-23) mg/dL Creatinine 1.55 H (0.60-1.20) mg/dL Glucose 184 H (70-105) mg/dL Calcium 7.9 L (8.6-10.3) mg/dL Calcium panel 11/04/18 Range/Units 04:44 Calcium 7.9 L (8.6-10.3) mg/dL Pituitary panel 11/04/18 Range/Units 04:44 Sodium 136 (136-145) mEq/L Potassium 4.1 (3.5-5.1) mEq/L Chloride 110 H (98-107) mEq/L Carbon Dioxide 20 L (23-29) mEq/L BUN 39 H (8-23) mg/dL Creatinine 1.55 H (0.60-1.20) mg/dL Glucose 184 H (70-105) mg/dL Calcium 7.9 L (8.6-10.3) mg/dL Adrenal panel 11/04/18 Range/Units 04:44 Sodium 136 (136-145) mEq/L Potassium 4.1 (3.5-5.1) mEq/L Chloride 110 H (98-107) mEq/L Carbon Dioxide 20 L (23-29) mEq/L BUN 39 H (8-23) mg/dL Creatinine 1.55 H (0.60-1.20) mg/dL Glucose 184 H (70-105) mg/dL Calcium 7.9 L (8.6-10.3) mg/dL Consult Discharge Plan - Plan Instructions: Laparoscopic Herniorrhaphy (DC) Additional Instructions: Continue your previously recommended discharge instructions. May take the medications as previously prescribed. Follow-up in the office as directed. Referrals: Leticia Davalos CNP [Advanced Practice Nurse] - 11/18/18 11:00 am Elen Britton DO [Primary Care Provider] - 11/14/18 10:30 am (Appointment will be with Madisyn Ashley due to physician not having openings. ) <Dany Palumbo M - Last Filed: 11/07/18 08:38> Date of Encounter: 11/04/18 - Assessment and Plan (1) Abdominal pain Current Visit: Yes Status: Acute Qualifiers: Abdominal location: right upper quadrant Qualified Code(s): R10.11 - Right upper quadrant pain (2) Atrial fibrillation Current Visit: No Status: Chronic Qualifiers: Atrial fibrillation type: paroxysmal Qualified Code(s): I48.0 - Paroxysmal atrial fibrillation (3) Syncope Current Visit: Yes Status: Acute Qualifiers: Syncope type: unspecified Qualified Code(s): R55 - Syncope and collapse (4) Postoperative hematoma Current Visit: Yes Status: Acute Qualifiers: Surgical complication system/body Area: digestive system Procedure type: non-digestive system Qualified Code(s): K91.871 - Postprocedural hematoma of a digestive system organ or structure following other procedure (5) Acute blood loss anemia Current Visit: Yes Status: Acute (6) Coagulopathy Current Visit: Yes Status: Acute Objective Vital Signs - Last 8 Hours Temp Pulse Resp BP Pulse Ox 11/07/18 06:36 99.8 F H 77 14 105/69 90 11/07/18 04:20 99.3 F 64 16 112/66 90 Intake and Output 11/06/18 11/07/18 11/07/18 23:59 07:59 15:59 Output Total 1979 40 / 40 Balance -1979 -40 / -40 Output: Catheter 1949 2450 Wound Drainage 30 / 145 40 / 40 Right Medial Abdomen 30 / 145 40 / 40 Other: Weight 93 kg Patient Weight 11/07/18 23:59 Weight 93 kg - Labs 11/07/18 04:04 11/07/18 04:04 Diabetes panel 11/07/18 Range/Units 04:04 Sodium 139 (136-145) mEq/L Potassium 3.6 (3.5-5.1) mEq/L Chloride 107 (98-107) mEq/L Carbon Dioxide 26 (23-29) mEq/L BUN 18 (8-23) mg/dL Creatinine 0.58 L (0.60-1.20) mg/dL Glucose 118 H (70-105) mg/dL Calcium 8.2 L (8.6-10.3) mg/dL Calcium panel 11/07/18 Range/Units 04:04 Calcium 8.2 L (8.6-10.3) mg/dL Phosphorus 1.8 L (2.7-4.5) mg/dL Pituitary panel 11/07/18 Range/Units 04:04 Sodium 139 (136-145) mEq/L Potassium 3.6 (3.5-5.1) mEq/L Chloride 107 (98-107) mEq/L Carbon Dioxide 26 (23-29) mEq/L BUN 18 (8-23) mg/dL Creatinine 0.58 L (0.60-1.20) mg/dL Glucose 118 H (70-105) mg/dL Calcium 8.2 L (8.6-10.3) mg/dL Adrenal panel 11/07/18 Range/Units 04:04 Sodium 139 (136-145) mEq/L Potassium 3.6 (3.5-5.1) mEq/L Chloride 107 (98-107) mEq/L Carbon Dioxide 26 (23-29) mEq/L BUN 18 (8-23) mg/dL Creatinine 0.58 L (0.60-1.20) mg/dL Glucose 118 H (70-105) mg/dL Calcium 8.2 L (8.6-10.3) mg/dL - Attending Attestation I have personally performed a face to face evaluation on this patient. I have reviewed and agree with the care plan. History and Exam by me shows: I reviewed the above assessment and evaluation with an is practitioner and agree with the above plan.
[2018-11-05 02:20] LABS: Basophils % 0.1 %; Eosinophils % 0.1 %; Hematocrit 18.9 % (35.3-44.9); Immature Granulocytes % 1.2 % (0-4); Lymphocytes # 2.2 K/mcL (0.6-4.6); Lymphocytes % 14.6 %; Mean Corpuscular HGB Conc 33.3 g/dL (31.6-35.5); Mean Corpuscular Hemoglobin 30.3 pg (28.0-33.3); Mean Corpuscular Volume 90.9 fL (83.0-100.0); Mean Platelet Volume 10.8 fL (9.4-12.4); Monocytes # 1.2 K/mcL (0.0-1.3); Monocytes % 7.9 %; Neutrophils # 11.4 K/mcL (1.6-8.9); Nucleated Red Blood Cells 0.4 /100 WBC (0); Platelet Count 115 K/mcL (140-400); Red Blood Count 2.08 M/mcL (3.82-4.97); Red Cell Distribution Width 18.9 % (11.5-14.5); Segmented Neutrophils % 76.1 %; White Blood Count 14.9 K/mcL (4.3-11.1)
[2018-11-05 02:22] LABS: Hemoglobin 6.3 g/dL (11.5-15.4)
[2018-11-05 02:36] LABS: INR 1.5; Prothrombin Time 17.2 Seconds (9.4-12.1)
[2018-11-05 02:39] LABS: Calcium 7.6 mg/dL (8.6-10.3); Potassium 3.8 mEq/L (3.5-5.1)
[2018-11-05] MEDS ORDERED: Ringers Solution, Lactated 500 ML IVC ONE (04:41)
[2018-11-05] MEDS: Acetaminophen IV 1,000 MG/100 ML INFUS..BTL IVPB SCH ×4 (05:42→23:31)
[2018-11-05] MEDS: Pantoprazole 40 MG VIAL IVP SCH (08:31)
[2018-11-05] MEDS: *HR* FentaNYL (PF) 100 MCG/2 ML VIAL IVP PRN ×3 (08:34→20:55)
--- NOTE | 2018-11-05 09:41 | General Surgery Progress Note ---
Date of Encounter: 11/05/18 Time of Encounter: 07:55 - Assessment and Plan (1) S/P hernia repair Current Visit: Yes Status: Acute patient with abdominal pain, better than prior to second surgery prn pain control gi/ dvt prophylaxis OOB to chair (2) Acute blood loss anemia Current Visit: Yes Status: Acute transfuse 2 units prbc today monitor Hb (3) Hypertension Current Visit: No Status: Chronic holding home medications d/t BP, low end normal monitor expect to increase after blood transfusion Qualifiers: Hypertension type: essential hypertension Qualified Code(s): I10 - Essential (primary) hypertension (4) GERD (gastroesophageal reflux disease) Current Visit: No Status: Chronic Qualifiers: Esophagitis presence: esophagitis presence not specified Qualified Code(s): K21.9 - Gastro-esophageal reflux disease without esophagitis (5) Atrial fibrillation Current Visit: No Status: Chronic holding coumadin Qualifiers: Atrial fibrillation type: paroxysmal Qualified Code(s): I48.0 - Paroxysmal atrial fibrillation (6) Intra-abdominal hematoma Current Visit: Yes Status: Acute bloody drainage, thin, not clotting will give vitamin K and FFP Qualifiers: Encounter type: initial encounter Qualified Code(s): S36.92XA - Contusion of unspecified intra-abdominal organ, initial encounter (7) Coagulopathy Current Visit: Yes Status: Acute patient Hb dropped again overnight, her MARTHA drain is putting out thin blood, not clotting will give vitamin K and FFP, inr 1.5 Subjective Patient reports: no new complaints, still having pain (c/o epigastric pain), tolerating liquids well, voiding w/o difficulty (ellis), flatus, no bowel movement, afebrile Objective Vital Signs - Last 8 Hours Temp Pulse Resp BP Pulse Ox 11/05/18 07:08 98.4 F 83 14 108/62 92 11/05/18 03:42 98.6 F 88 16 102/57 91 Intake and Output 11/04/18 11/05/18 11/05/18 23:59 07:59 15:59 Intake Total 110 / 2156 100 / 100 Output Total 500 / 810 50 / 50 Balance -390 / 1346 50 / 50 Intake: IV Fluids 110 / 1430 100 / 100 Ancef 1,000 MG In Water for inj . (sterile) 10 ML @ 200 mls/hr IVP Q8HR [facility] Rx#:[id number] Ofirmev 1,000 mg/100 ml 1,000 100 / 400 100 / 100 mg In 100 ml @ 400 mls/hr IVPB Q6HR [facility] Rx#:[id number] Output: Catheter 300 / 500 25 / 25 Gastric Drainage 100 / 100 Wound Drainage 100 / 210 25 / 25 Right Medial Abdomen 100 / 210 25 / 25 Other: Stool Size Large Stool Color Brown Weight 89.5 kg Patient Weight 11/05/18 23:59 Weight 89.5 kg - General physical appearance well developed, well nourished, no distress, moderate pain - Eyes normal ocular movement - ENT normal mucosa - Neck Neck exam: trachea midline - Respiratory normal expansion, normal respiratory effort - Cardiovascular Cardiovascular exam: Present: RRR - Abdomen Abdomen: Present: soft, tender. Absent: rebound, rigid Additional Comments: elie drain - bloody - Incision Incision: Present: clean and dry, intact - Integumentary no rash - Neurologic CN 2-12 grossly intact - Musculoskeletal normal posture - Psychiatric oriented to time, oriented to person, oriented to place, speech is normal, mem ory intact - Labs 11/05/18 01:46 11/05/18 01:46 Diabetes panel 11/05/18 Range/Units 01:46 Sodium 138 (136-145) mEq/L Potassium 3.8 (3.5-5.1) mEq/L Chloride 109 H (98-107) mEq/L Carbon Dioxide 23 (23-29) mEq/L BUN 41 H (8-23) mg/dL Creatinine 1.17 (0.60-1.20) mg/dL Glucose 126 H (70-105) mg/dL Calcium 7.6 L (8.6-10.3) mg/dL Calcium panel 11/05/18 Range/Units 01:46 Calcium 7.6 L (8.6-10.3) mg/dL Pituitary panel 11/05/18 Range/Units 01:46 Sodium 138 (136-145) mEq/L Potassium 3.8 (3.5-5.1) mEq/L Chloride 109 H (98-107) mEq/L Carbon Dioxide 23 (23-29) mEq/L BUN 41 H (8-23) mg/dL Creatinine 1.17 (0.60-1.20) mg/dL Glucose 126 H (70-105) mg/dL Calcium 7.6 L (8.6-10.3) mg/dL Adrenal panel 11/05/18 Range/Units 01:46 Sodium 138 (136-145) mEq/L Potassium 3.8 (3.5-5.1) mEq/L Chloride 109 H (98-107) mEq/L Carbon Dioxide 23 (23-29) mEq/L BUN 41 H (8-23) mg/dL Creatinine 1.17 (0.60-1.20) mg/dL Glucose 126 H (70-105) mg/dL Calcium 7.6 L (8.6-10.3) mg/dL Consult Discharge Plan - Plan Instructions: Laparoscopic Herniorrhaphy (DC) Additional Instructions: Continue your previously recommended discharge instructions. May take the medications as previously prescribed. Follow-up in the office as directed. Referrals: Leticia Davalos CNP [Advanced Practice Nurse] - 11/18/18 11:00 am Elen Britton DO [Primary Care Provider] - 11/14/18 10:30 am (Appointment will be with Madisyn Ramirez due to physician not having openings. )
[2018-11-05] MEDS ORDERED: 0.9 % Sodium Chloride 500 ML ONE (10:29)
[2018-11-05] MEDS ORDERED: 0.9 % Sodium Chloride 250 ML ONE ×2 (13:54→16:05)
[2018-11-05] MEDS ORDERED: *HR* FentaNYL PATCH 25 MCG PATCH TD SCH (14:45)
[2018-11-05 18:38] LABS: Hematocrit 23.4 % (35.3-44.9); Hemoglobin 7.7 g/dL (11.5-15.4)
[2018-11-05] MEDS: 0.9 % Sodium Chloride 1,000 ML IVC SCH (19:28)
[2018-11-06 00:57] LABS: Basophils % 0.4 %; Eosinophils # 0.2 K/mcL (0.0-0.6); Eosinophils % 1.5 %; Hematocrit 21.7 % (35.3-44.9); Hemoglobin 7.1 g/dL (11.5-15.4); Lymphocytes # 2.3 K/mcL (0.6-4.6); Lymphocytes % 21.9 %; Mean Corpuscular HGB Conc 32.7 g/dL (31.6-35.5); Mean Corpuscular Hemoglobin 30.2 pg (28.0-33.3); Mean Corpuscular Volume 92.3 fL (83.0-100.0); Mean Platelet Volume 10.2 fL (9.4-12.4); Monocytes # 0.9 K/mcL (0.0-1.3); Monocytes % 8.4 %; Nucleated Red Blood Cells 1.3 /100 WBC (0); Platelet Count 101 K/mcL (140-400); Red Blood Count 2.35 M/mcL (3.82-4.97); Red Cell Distribution Width 17.9 % (11.5-14.5); Segmented Neutrophils % 66.8 %; White Blood Count 10.5 K/mcL (4.3-11.1)
[2018-11-06 01:13] LABS: BUN/Creatinine Ratio 38 (6-26); Blood Urea Nitrogen 27 mg/dL (8-23); Calcium 7.8 mg/dL (8.6-10.3); Carbon Dioxide 24 mEq/L (23-29); Chloride 112 mEq/L (98-107); Glucose 106 mg/dL (70-105); Osmolality,Calculated 292 (280-300); Potassium 3.9 mEq/L (3.5-5.1); Sodium 138 mEq/L (136-145); eGFR For African Americans > 60 (> 60); eGFR For Non-African Americans > 60 (> 60)
[2018-11-06 01:22] LABS: INR 1.1; Prothrombin Time 12.2 Seconds (9.4-12.1)
[2018-11-06] MEDS: *HR* FentaNYL (PF) 100 MCG/2 ML VIAL IVP PRN ×3 (05:30→20:10)
[2018-11-06] MEDS: 0.9 % Sodium Chloride 1,000 ML IVC SCH ×3 (05:31→14:24)
[2018-11-06] MEDS: Acetaminophen IV 1,000 MG/100 ML INFUS..BTL IVPB SCH ×2 (05:31→11:57)
[2018-11-06] MEDS: Ondansetron 4 MG/2 ML VIAL IVP PRN ×2 (07:59→14:15)
[2018-11-06] MEDS: Pantoprazole 40 MG VIAL IVP SCH (08:01)
--- NOTE | 2018-11-06 10:00 | General Surgery Progress Note ---
Date of Encounter: 11/06/18 Time of Encounter: 09:57 - Assessment and Plan (1) S/P hernia repair Current Visit: Yes Status: Acute patient with abdominal pain, better controlled with fentanyl patch prn pain control gi/ dvt prophylaxis OOB to chair for all meals is cumalitive 9 L positive, will give lasix 20 mg iv bid today, continue ellis for lasix saline lock iv Cr wnl (2) Acute blood loss anemia Current Visit: Yes Status: Acute no signs bleeding, decreased Hb likely dilutional as well monitor Hb (3) Hypertension Current Visit: No Status: Chronic holding home medications d/t BP, low end normal monitor expect to increase after blood transfusion Qualifiers: Hypertension type: essential hypertension Qualified Code(s): I10 - Essential (primary) hypertension (4) GERD (gastroesophageal reflux disease) Current Visit: No Status: Chronic PPI Qualifiers: Esophagitis presence: esophagitis presence not specified Qualified Code(s): K21.9 - Gastro-esophageal reflux disease without esophagitis (5) Atrial fibrillation Current Visit: No Status: Chronic holding coumadin Qualifiers: Atrial fibrillation type: paroxysmal Qualified Code(s): I48.0 - Paroxysmal atrial fibrillation (6) Intra-abdominal hematoma Current Visit: Yes Status: Acute bloody drainage, inr decreased to 1.1 decreased elie drain output Qualifiers: Encounter type: initial encounter Qualified Code(s): S36.92XA - Contusion of unspecified intra-abdominal organ, initial encounter (7) Hypotension Current Visit: Yes Status: Acute patient is volume overloaded lasix today check echo Qualifiers: Hypotension type: unspecified hypotension type Qualified Code(s): I95.9 - Hypotension, unspecified Subjective Patient reports: feels better, still having pain, pain is less, tolerating a regular diet, voiding w/o difficulty (ellis), flatus, no bowel movement, afebrile Objective Vital Signs - Last 8 Hours Temp Pulse Resp BP Pulse Ox 11/06/18 06:38 98.2 F 70 14 98/60 92 11/06/18 02:27 98.8 F 83 15 96/59 91 Intake and Output 11/05/18 11/06/18 11/06/18 23:59 07:59 15:59 Intake Total 1350 / 3959 1100 / 1340 240 / 1340 Output Total 540 / 540 Balance 1350 / 3909 560 / 800 240 / 800 Intake: IV Fluids 300 / 1451 1100 / 1100 0.9 % Sodium Chloride 1,000 ML 1000 / 1000 @ 100 mls/hr IVC .Q10H [facility] Rx#: [id number] Ofirmev 1,000 mg/100 ml 1,000 300 / 400 100 / 100 mg In 100 ml @ 400 mls/hr IVPB Q6HR [facility] Rx#:[id number] Oral 240 / 480 240 / 240 Blood Product 810 / 8 Plasma Unit [id number] 500 / 500 Rbcs Leuko Poor As-1 Unit 310 / 620 [id number] Output: Catheter 500 / 500 Wound Drainage 40 / 40 Right Medial Abdomen 40 / 40 Other: Meal Lunch Breakfast Percent of Meal Consumed 50% 25% Weight 92.3 kg Patient Weight 11/06/18 23:59 Weight 92.3 kg - General physical appearance well developed, well nourished, no distress, moderate pain, other (overall looks like she feels better today) - Eyes PERRL, normal ocular movement - ENT normal mucosa, normocephalic - Neck Neck exam: trachea midline - Respiratory normal expansion, clear to auscultation - Cardiovascular Cardiovascular exam: Present: RRR - Abdomen Abdomen: Present: bowel sounds present, soft, tender (appropriate post op tenderness) - Integumentary no rash, no growths, other (ecchymosis of anterior abdominal wall) - Neurologic CN 2-12 grossly intact - Musculoskeletal normal posture - Psychiatric oriented to time, oriented to person, oriented to place, speech is normal, memory intact - Labs 11/06/18 00:19 11/06/18 00:19 Diabetes panel 11/06/18 Range/Units 00:19 Sodium 138 (136-145) mEq/L Potassium 3.9 (3.5-5.1) mEq/L Chloride 112 H (98-107) mEq/L Carbon Dioxide 24 (23-29) mEq/L BUN 27 H (8-23) mg/dL Creatinine 0.72 (0.60-1.20) mg/dL Glucose 106 H (70-105) mg/dL Calcium 7.8 L (8.6-10.3) mg/dL Calcium panel 11/06/18 Range/Units 00:19 Calcium 7.8 L (8.6-10.3) mg/dL Pituitary panel 11/06/18 Range/Units 00:19 Sodium 138 (136-145) mEq/L Potassium 3.9 (3.5-5.1) mEq/L Chloride 112 H (98-107) mEq/L Carbon Dioxide 24 (23-29) mEq/L BUN 27 H (8-23) mg/dL Creatinine 0.72 (0.60-1.20) mg/dL Glucose 106 H (70-105) mg/dL Calcium 7.8 L (8.6-10.3) mg/dL Adrenal panel 11/06/18 Range/Units 00:19 Sodium 138 (136-145) mEq/L Potassium 3.9 (3.5-5.1) mEq/L Chloride 112 H (98-107) mEq/L Carbon Dioxide 24 (23-29) mEq/L BUN 27 H (8-23) mg/dL Creatinine 0.72 (0.60-1.20) mg/dL Glucose 106 H (70-105) mg/dL Calcium 7.8 L (8.6-10.3) mg/dL Consult Discharge Plan - Plan Instructions: Laparoscopic Herniorrhaphy (DC) Additional Instructions: Continue your previously recommended discharge instructions. May take the medications as previously prescribed. Follow-up in the office as directed. Referrals: Leticia Davalos CNP [Advanced Practice Nurse] - 11/18/18 11:00 am Elen Britton DO [Primary Care Provider] - 11/14/18 10:30 am (Appointment will be with Madisyn Ramirez due to physician not having openings. )
[2018-11-06 17:48] LABS: Hematocrit 24.1 % (35.3-44.9); Hemoglobin 7.8 g/dL (11.5-15.4)
[2018-11-06] MEDS ORDERED: Furosemide 20 MG/2 ML VIAL IVP SCH (21:00)
[2018-11-07] MEDS: *HR* FentaNYL (PF) 100 MCG/2 ML VIAL IVP PRN ×3 (00:35→08:11)
[2018-11-07 05:09] LABS: Basophils % 0.1 %; Eosinophils # 0.2 K/mcL (0.0-0.6); Eosinophils % 1.8 %; Hematocrit 24.5 % (35.3-44.9); Hemoglobin 7.8 g/dL (11.5-15.4); Immature Granulocytes % 0.6 % (0-4); Lymphocytes # 1.4 K/mcL (0.6-4.6); Lymphocytes % 14.8 %; Mean Corpuscular HGB Conc 31.8 g/dL (31.6-35.5); Mean Corpuscular Hemoglobin 30.2 pg (28.0-33.3); Mean Platelet Volume 10.4 fL (9.4-12.4); Monocytes # 0.9 K/mcL (0.0-1.3); Neutrophils # 6.7 K/mcL (1.6-8.9); Nucleated Red Blood Cells 0.8 /100 WBC (0); Platelet Count 115 K/mcL (140-400); Red Blood Count 2.58 M/mcL (3.82-4.97); Red Cell Distribution Width 18.5 % (11.5-14.5); Segmented Neutrophils % 72.7 %; White Blood Count 9.2 K/mcL (4.3-11.1)
[2018-11-07 05:29] LABS: BUN/Creatinine Ratio 31 (6-26); Blood Urea Nitrogen 18 mg/dL (8-23); Calcium 8.2 mg/dL (8.6-10.3); Carbon Dioxide 26 mEq/L (23-29); Chloride 107 mEq/L (98-107); Glucose 118 mg/dL (70-105); Magnesium 1.9 mg/dL (1.6-2.6); Osmolality,Calculated 291 (280-300); Phosphorous 1.8 mg/dL (2.7-4.5); Potassium 3.6 mEq/L (3.5-5.1); Sodium 139 mEq/L (136-145); eGFR For African Americans > 60 (> 60); eGFR For Non-African Americans > 60 (> 60)
[2018-11-07] MEDS ORDERED: Furosemide 20 MG/2 ML VIAL IVP SCH (06:00)
[2018-11-07] MEDS: Ondansetron 4 MG/2 ML VIAL IVP PRN (10:27)
[2018-11-07] MEDS ORDERED: Acetaminophen IV 1,000 MG/100 ML INFUS..BTL IVPB ONE (11:34)
--- NOTE | 2018-11-07 12:41 | General Surgery Progress Note ---
<Leticia Davalos - Last Filed: 11/07/18 12:39> Date of Encounter: 11/07/18 Time of Encounter: 10:00 - Assessment and Plan (1) Postoperative hematoma Current Visit: Yes Status: Acute Date of procedure: 11/03/18 Pre-op diagnosis: Intra-abdominal hematoma, s/p Robot LIH repair with mesh Post-op diagnosis: same Procedure: 1. Diagnostic laparoscopy. 2. Laparoscopic evacuation of intra-abdominal hematoma. Anesthesia: GETA Surgeon: Dany Palumbo PDO #4 as above. Noted approximately 1.6 L evacuated hematoma. Creatinine has normalized. She is s/p transfusion 5 u PRBCs and 2 units FFP. Noted 7L+ fluid balance. Ellis remains for diuresis. She is slightly hypotensive. Will d/c fentanyl patch accordingly. Plan: Continue supportive care and discomfort management Continue G.I. and DVT prophylaxis Incentive spirometry 10 times every hour while awake Out of bed to chair TID, do not offer meal trays while in the bed Activity as tolerated w/ assistance Apply ice 20 minutes on 20 minutes off as needed repeat a.m. labs strict intake and output PT/OT/SW for mobilization and d/c planning. Pt reports HHC at baseline. She will at minimum need nursing adding for MARTHA care. Qualifiers: Surgical complication system/body Area: digestive system Procedure type: non-digestive system Qualified Code(s): K91.871 - Postprocedural hematoma of a digestive system organ or structure following other procedure (2) Abdominal pain Current Visit: Yes Status: Acute see above; in addition added one scheduled dose of Ofirmev. Difficulty in pain control given her allergy history and current hypotension with Fentanyl patch. Will continue to closely monitor. Consideration for IV fentanyl for sever pain only. Qualifiers: Abdominal location: right upper quadrant Qualified Code(s): R10.11 - Right upper quadrant pain (3) Acute blood loss anemia Current Visit: Yes Status: Acute Hgb is stabilized. See above for transfusion history. Will continue to closely monitor. (4) Coagulopathy Current Visit: Yes Status: Acute At this time risk of bleeding outweighs the benefit of Anticoagulation. Will resume only 81 mg ASA at this time (5) Atrial fibrillation Current Visit: No Status: Chronic AC on hold 2/2 acute bleed. Resume AC when safe to do so. At this time risk of bleeding outweighs the benefit of Anticoagulation. Will resume only 81 mg ASA at this time Qualifiers: Atrial fibrillation type: paroxysmal Qualified Code(s): I48.0 - Paroxysmal atrial fibrillation (8) Syncope Current Visit: Yes Status: Acute see above. OOB to chair with assist only Qualifiers: Syncope type: unspecified Qualified Code(s): R55 - Syncope and collapse Subjective Patient reports: feels better, still having pain, pain is less, voiding w/o di fficulty (per ellis), flatus, bowel movement, afebrile Narrative: Reports feeling dizzy when she sits up and feeling nauseate at this time. She has breakfast in front of her but reports decreased appetite. Objective Vital Signs - Last 8 Hours Temp Pulse Resp BP Pulse Ox 11/07/18 10:34 99 F 76 14 94/57 94 11/07/18 06:36 99.8 F H 77 14 105/69 90 Intake and Output 11/06/18 11/07/18 11/07/18 23:59 07:59 15:59 Output Total 1979 40 / 1050 1010 / 1050 Balance -1979 -40 / -1050 -1010 / -1050 Output: Catheter 1950 / 2450 950 / 950 Wound Drainage 30 / 145 40 / 100 60 / 100 Right Medial Abdomen 30 / 145 40 / 100 60 / 100 Other: Weight 93 kg Patient Weight 11/07/18 23:59 Weight 93 kg - General physical appearance no distress - ENT atraumatic, normocephalic - Neck Neck exam: trachea midline - Respiratory other (decreased, clear breath sounds) - Cardiovascular Cardiovascular exam: Present: RRR, murmurs - Abdomen Abdomen: Present: bowel sounds present, soft, tender (expected), wound (MARTHA site is unremarkable. There is SS drainage in the bulb) Hernia: none - Incision Incision: Present: clean and dry, intact - Integumentary no rash - Neurologic normal sensation - Musculoskeletal normal posture - Psychiatric oriented to time, oriented to person, oriented to place, speech is normal - Labs 11/07/18 04:04 11/07/18 04:04 Diabetes panel 11/07/18 Range/Units 04:04 Sodium 139 (136-145) mEq/L Potassium 3.6 (3.5-5.1) mEq/L Chloride 107 (98-107) mEq/L Carbon Dioxide 26 (23-29) mEq/L BUN 18 (8-23) mg/dL Creatinine 0.58 L (0.60-1.20) mg/dL Glucose 118 H (70-105) mg/dL Calcium 8.2 L (8.6-10.3) mg/dL Calcium panel 11/07/18 Range/Units 04:04 Calcium 8.2 L (8.6-10.3) mg/dL Phosphorus 1.8 L (2.7-4.5) mg/dL Pituitary panel 11/07/18 Range/Units 04:04 Sodium 139 (136-145) mEq/L Potassium 3.6 (3.5-5.1) mEq/L Chloride 107 (98-107) mEq/L Carbon Dioxide 26 (23-29) mEq/L BUN 18 (8-23) mg/dL Creatinine 0.58 L (0.60-1.20) mg/dL Glucose 118 H (70-105) mg/dL Calcium 8.2 L (8.6-10.3) mg/dL Adrenal panel 11/07/18 Range/Units 04:04 Sodium 139 (136-145) mEq/L Potassium 3.6 (3.5-5.1) mEq/L Chloride 107 (98-107) mEq/L Carbon Dioxide 26 (23-29) mEq/L BUN 18 (8-23) mg/dL Creatinine 0.58 L (0.60-1.20) mg/dL Glucose 118 H (70-105) mg/dL Calcium 8.2 L (8.6-10.3) mg/dL Consult Discharge Plan - Plan Instructions: Laparoscopic Herniorrhaphy (DC) Additional Instructions: Continue your previously recommended discharge instructions. May take the medications as previously prescribed. Follow-up in the office as directed. Home Health has been set up through [place]. They will contact you with a date and time to complete admission. If you need to contact them please call #[phone] or #[phone]. Referrals: Leticia Davalos CNP [Advanced Practice Nurse] - 11/18/18 11:00 am Elen Britton DO [Primary Care Provider] - 11/14/18 10:30 am (Appointment will be with Madisyn Ashley due to physician not having openings. ) <LinwoodKenyDany M - Last Filed: 11/08/18 10:46> Date of Encounter: 11/07/18 - Assessment and Plan (1) Abdominal pain Current Visit: Yes Status: Acute Qualifiers: Abdominal location: right upper quadrant Qualified Code(s): R10.11 - Right upper quadrant pain (2) Atrial fibrillation Current Visit: No Status: Chronic Qualifiers: Atrial fibrillation type: paroxysmal Qualified Code(s): I48.0 - Paroxysmal atrial fibrillation (3) Syncope Current Visit: Yes Status: Resolved Qualifiers: Syncope type: unspecified Qualified Code(s): R55 - Syncope and collapse (4) Postoperative hematoma Current Visit: Yes Status: Acute Qualifiers: Surgical complication system/body Area: digestive system Procedure type: non-digestive system Qualified Code(s): K91.871 - Postprocedural hematoma of a digestive system organ or structure following other procedure (5) Acute blood loss anemia Current Visit: Yes Status: Acute (6) Coagulopathy Current Visit: Yes Status: Acute Objective Vital Signs - Last 8 Hours Temp Pulse Resp BP Pulse Ox 11/08/18 07:47 99.1 F 65 17 96/57 92 11/08/18 04:04 98.7 F 74 16 95/58 93 Intake and Output 11/07/18 11/08/18 11/08/18 23:59 07:59 15:59 Intake Total 350 / 710 Output Total 45 / 1130 500 / 540 40 / 540 Balance 305 / -420 -500 / -540 -40 / -540 Intake: Oral 350 / 350 Output: Urine 450 / 450 Stool 50 / 50 Wound Drainage 45 / 180 40 / 40 Right Medial Abdomen 45 / 180 40 / 40 Other: Weight 93.6 kg Patient Weight 11/08/18 23:59 Weight 93.6 kg - Labs 11/08/18 03:09 11/08/18 03:09 Diabetes panel 11/08/18 Range/Units 03:09 Sodium 139 (136-145) mEq/L Potassium 3.8 (3.5-5.1) mEq/L Chloride 106 (98-107) mEq/L Carbon Dioxide 29 (23-29) mEq/L BUN 19 (8-23) mg/dL Creatinine 0.61 (0.60-1.20) mg/dL Glucose 106 H (70-105) mg/dL Calcium 8.2 L (8.6-10.3) mg/dL Calcium panel 11/08/18 Range/Units 03:09 Calcium 8.2 L (8.6-10.3) mg/dL Pituitary panel 11/08/18 Range/Units 03:09 Sodium 139 (136-145) mEq/L Potassium 3.8 (3.5-5.1) mEq/L Chloride 106 (98-107) mEq/L Carbon Dioxide 29 (23-29) mEq/L BUN 19 (8-23) mg/dL Creatinine 0.61 (0.60-1.20) mg/dL Glucose 106 H (70-105) mg/dL Calcium 8.2 L (8.6-10.3) mg/dL Adrenal panel 11/08/18 Range/Units 03:09 Sodium 139 (136-145) mEq/L Potassium 3.8 (3.5-5.1) mEq/L Chloride 106 (98-107) mEq/L Carbon Dioxide 29 (23-29) mEq/L BUN 19 (8-23) mg/dL Creatinine 0.61 (0.60-1.20) mg/dL Glucose 106 H (70-105) mg/dL Calcium 8.2 L (8.6-10.3) mg/dL - Attending Attestation I have personally performed a face to face evaluation on this patient. I have reviewed and agree with the care plan. History and Exam by me shows: I reviewed the above assessment and evaluation and agree with the above plan.
[2018-11-07] MEDS ORDERED: *HR* FentaNYL (PF) 100 MCG/2 ML VIAL IVP PRN (16:10)
[2018-11-07] MEDS: Aspirin Enteric Coated 81 MG Tablet PO SCH (20:51)
[2018-11-07] MEDS: Ibuprofen 600 MG TABLET PO PRN (20:51)
[2018-11-08 03:52] LABS: Basophils % 0.1 %; Eosinophils # 0.2 K/mcL (0.0-0.6); Eosinophils % 2.9 %; Hematocrit 23.2 % (35.3-44.9); Hemoglobin 7.5 g/dL (11.5-15.4); Lymphocytes # 1.4 K/mcL (0.6-4.6); Lymphocytes % 18.5 %; Mean Corpuscular HGB Conc 32.3 g/dL (31.6-35.5); Mean Corpuscular Volume 95.9 fL (83.0-100.0); Mean Platelet Volume 10.3 fL (9.4-12.4); Monocytes # 0.9 K/mcL (0.0-1.3); Monocytes % 12.1 %; Neutrophils # 4.8 K/mcL (1.6-8.9); Nucleated Red Blood Cells 0.5 /100 WBC (0); Platelet Count 117 K/mcL (140-400); Red Blood Count 2.42 M/mcL (3.82-4.97); Red Cell Distribution Width 18.2 % (11.5-14.5); Segmented Neutrophils % 65.4 %; White Blood Count 7.3 K/mcL (4.3-11.1)
[2018-11-08 04:01] LABS: BUN/Creatinine Ratio 31 (6-26); Blood Urea Nitrogen 19 mg/dL (8-23); Calcium 8.2 mg/dL (8.6-10.3); Carbon Dioxide 29 mEq/L (23-29); Chloride 106 mEq/L (98-107); Glucose 106 mg/dL (70-105); Osmolality,Calculated 291 (280-300); Potassium 3.8 mEq/L (3.5-5.1); Sodium 139 mEq/L (136-145); eGFR For African Americans > 60 (> 60); eGFR For Non-African Americans > 60 (> 60)
[2018-11-08] MEDS ORDERED: Docusate Oral Soln 100 MG/10 ML UDC PO SCH (09:00)
[2018-11-08] MEDS ORDERED: Ondansetron 4 MG/2 ML VIAL IVP STA (09:18)
[2018-11-08] MEDS ORDERED: Furosemide 40 MG/4 ML VIAL IVP ONE (09:19)
--- NOTE | 2018-11-08 09:41 | General Surgery Progress Note ---
<Leticia Davalos - Last Filed: 11/08/18 09:39> Date of Encounter: 11/08/18 Time of Encounter: 09:15 - Assessment and Plan (1) Postoperative hematoma Current Visit: Yes Status: Acute Date of procedure: 11/03/18 Pre-op diagnosis: Intra-abdominal hematoma, s/p Robot LIH repair with mesh Post-op diagnosis: same Procedure: 1. Diagnostic laparoscopy. 2. Laparoscopic evacuation of intra-abdominal hematoma. Anesthesia: GETA Surgeon: Dany Palumbo PDO #5 as above. Noted approximately 1.6 L evacuated hematoma. Creatinine has normalized. She is s/p transfusion 5 u PRBCs and 2 units FFP. 11/07/2018: Noted 7L+ fluid balance. Ellis remains for diuresis. She is slightly hypotensive. Will d/c fentanyl patch accordingly. 11/08/2018: Remains 7L+ fluid balance per EMR, yet weight per EMR is baseline (noted significant variable weights in EMR per bed scale). We have asked the bedside RN to obtain a standing scale weight, now, prior to furosemide administration. PT/OT has evaluated the patient and recommend ECF/rehab. Pt is advised and agreeable. Plan: Continue supportive care and discomfort management Continue G.I. and DVT prophylaxis Incentive spirometry 10 times every hour while awake Out of bed to chair TID, do not offer meal trays while in the bed Activity as tolerated w/ assistance Apply ice 20 minutes on 20 minutes off as needed repeat a.m. labs strict intake and output; will d/c ellis this afternoon D/c planning in the next 24-48 hours pending clinical course and placement Qualifiers: Surgical complication system/body Area: digestive system Procedure type: non-digestive system Qualified Code(s): K91.871 - Postprocedural hematoma of a digestive system organ or structure following other procedure (2) Abdominal pain Current Visit: Yes Status: Acute Difficulty in pain control given her allergy history and current hypotension with Fentanyl patch. She has po acetaminophen and ibuprofen available. Lidocaine patch is placed. she states pain is tolerable at this time. Will continue to closely monitor. Qualifiers: Abdominal location: right upper quadrant Qualified Code(s): R10.11 - Right upper quadrant pain (3) Acute blood loss anemia Current Visit: Yes Status: Acute Hgb is stabilized. See above for transfusion history. Will continue to closely monitor. (4) Coagulopathy Current Visit: Yes Status: Acute At this time risk of bleeding outweighs the benefit of Anticoagulation. Co ntinue only 81 mg ASA at this time (5) Atrial fibrillation Current Visit: No Status: Chronic AC on hold 2/2 acute bleed. Resume AC when safe to do so. At this time risk of bleeding outweighs the benefit of Anticoagulation. 81 mg ASA at this time. Continue tele. Continue home meds. Echo stable Will check ionized calcium, replete as indicated to prevent arrhythmias Qualifiers: Atrial fibrillation type: paroxysmal Qualified Code(s): I48.0 - Paroxysmal atrial fibrillation (6) Dizziness Current Visit: Yes Status: Acute Add meclizine 25 mg po x1. If this is effective, will add Q8H prn (7) Hypotension Current Visit: Yes Status: Acute appears orthostatic symptomatic with dizziness/lightheadedness with activity. Will trial one dose of midodrine. If effective, can add prn parameters Qualifiers: Hypotension type: unspecified hypotension type Qualified Code(s): I95.9 - H ypotension, unspecified (8) Syncope Current Visit: Yes Status: Resolved see above. OOB to chair with assist only. Qualifiers: Syncope type: unspecified Qualified Code(s): R55 - Syncope and collapse Subjective Patient reports: pain is less, tolerating liquids well, voiding w/o difficulty (per ellis), flatus, no bowel movement, nausea, fever (low grade) Narrative: Reports nausea, dizziness with sitting and standing (reports vertigo at baseline, but feels worse). States pain is controlled. PT/OT has worked with pt today. Objective Vital Signs - Last 8 Hours Temp Pulse Resp BP Pulse Ox 11/08/18 07:47 99.1 F 65 17 96/57 92 11/08/18 04:04 98.7 F 74 16 95/58 93 Intake and Output 11/07/18 11/08/18 11/08/18 23:59 07:59 15:59 Intake Total 350 / 710 Output Total 45 / 1130 500 / 540 40 / 540 Balance 305 / -420 -500 / -540 -40 / -540 Intake: Oral 350 / 350 Output: Urine 450 / 450 Stool 50 / 50 Wound Drainage 45 / 180 40 / 40 Right Medial Abdomen 45 / 180 40 / 40 Other: Weight 93.6 kg Patient Weight 11/08/18 23:59 Weight 93.6 kg - General physical appearance no distress, other (sitting upright in the chair) - ENT normal mucosa, normocephalic - Neck Neck exam: trachea midline - Respiratory other (course crackles in RLL) - Cardiovascular Cardiovascular exam: Present: RRR, murmurs - Abdomen Abdomen: Present: bowel sounds present, soft, tender (expected postoperative), wound (MARTHA is w/SS drainage. ) Hernia: none - Incision Incision: Present: clean and dry, intact - Integumentary no rash - Neurologic normal sensation, other (dizziness with activity) - Musculoskeletal normal posture - Psychiatric oriented to time, oriented to person, oriented to place, speech is normal, memory intact - Labs 11/08/18 03:09 11/08/18 03:09 Diabetes panel 11/08/18 Range/Units 03:09 Sodium 139 (136-145) mEq/L Potassium 3.8 (3.5-5.1) mEq/L Chloride 106 (98-107) mEq/L Carbon Dioxide 29 (23-29) mEq/L BUN 19 (8-23) mg/dL Creatinine 0.61 (0.60-1.20) mg/dL Glucose 106 H (70-105) mg/dL Calcium 8.2 L (8.6-10.3) mg/dL Calcium panel 11/08/18 Range/Units 03:09 Calcium 8.2 L (8.6-10.3) mg/dL Pituitary panel 11/08/18 Range/Units 03:09 Sodium 139 (136-145) mEq/L Potassium 3.8 (3.5-5.1) mEq/L Chloride 106 (98-107) mEq/L Carbon Dioxide 29 (23-29) mEq/L BUN 19 (8-23) mg/dL Creatinine 0.61 (0.60-1.20) mg/dL Glucose 106 H (70-105) mg/dL Calcium 8.2 L (8.6-10.3) mg/dL Adrenal panel 11/08/18 Range/Units 03:09 Sodium 139 (136-145) mEq/L Potassium 3.8 (3.5-5.1) mEq/L Chloride 106 (98-107) mEq/L Carbon Dioxide 29 (23-29) mEq/L BUN 19 (8-23) mg/dL Creatinine 0.61 (0.60-1.20) mg/dL Glucose 106 H (70-105) mg/dL Calcium 8.2 L (8.6-10.3) mg/dL Consult Discharge Plan - Plan Instructions: Laparoscopic Herniorrhaphy (DC) Additional Instructions: Continue your previously recommended discharge instructions. May take the medications as previously prescribed. No lifting, pulling, or pushing, greater than 15 pounds [facility] according to your lab values and will also adjust the midodrine if needed. Return to the office as directed. Daily MARTHA Drain Care: 1. Remove dressings. Shower with antibacterial soap. 2. Do not let the MARTHA drain dangle from your body. Use the safety pin to secure to your clothing. Secure the MARTHA to a lanyard or other type of long necklace when you shower. 3. Replace drain gauze and taped to secure. 4. Record the output from your MARTHA bulb (at least once daily) on the form provided and bring this with you to your follow-up appointment. 5. Keep the MARTHA drain to suction (squeeze the bulb and replace the cap while sque ezing). 6. Strip the lines twice daily (hold onto the line as close to the body as you can, then with the other hand push the contents of the line into the MARTHA bulb). Referrals: Leticia Davalos CNP [Advanced Practice Nurse] - 11/18/18 11:00 am Elen Britton DO [Primary Care Provider] - 11/14/18 10:30 am (Appointment will be with Madisyn Ramirez due to physician not having openings. ) <Dany Palumbo - Last Filed: 11/09/18 06:36> Date of Encounter: 11/08/18 - Assessment and Plan (1) Abdominal pain Current Visit: Yes Status: Acute Qualifiers: Abdominal location: right upper quadrant Qualified Code(s): R10.11 - Right upper quadrant pain (2) Atrial fibrillation Current Visit: No Status: Chronic Qualifiers: Atrial fibrillation type: paroxysmal Qualified Code(s): I48.0 - Paroxysmal atrial fibrillation (3) Syncope Current Visit: Yes Status: Resolved Qualifiers: Syncope type: unspecified Qualified Code(s): R55 - Syncope and collapse (4) Postoperative hematoma Current Visit: Yes Status: Acute Qualifiers: Surgical complication system/body Area: digestive system Procedure type: non-digestive system Qualified Code(s): K91.871 - Postprocedural hematoma of a digestive system organ or structure following other procedure (5) Acute blood loss anemia Current Visit: Yes Status: Acute (6) Coagulopathy Current Visit: Yes Status: Acute Objective Vital Signs - Last 8 Hours Temp Pulse Resp BP Pulse Ox 11/09/18 02:44 98.2 F 71 16 97/60 92 11/08/18 23:30 98.9 F 72 16 94/57 92 Intake and Output 11/08/18 11/08/18 11/09/18 15:59 23:59 07:59 Output Total 1979 340 / 2820 180 / 180 Balance -1979 -340 / -2820 -180 / -180 Output: Urine 300 / 750 150 / 150 Catheter 1900 / 1900 Wound Drainage 80 / 120 40 / 120 30 / 30 Right Medial Abdomen 80 / 120 40 / 120 30 / 30 Other: Weight 89.925 kg - Labs 11/09/18 01:39 11/09/18 01:39 Diabetes panel 11/09/18 Range/Units 01:39 Sodium 137 (136-145) mEq/L Potassium 3.1 L (3.5-5.1) mEq/L Chloride 103 (98-107) mEq/L Carbon Dioxide 29 (23-29) mEq/L BUN 21 (8-23) mg/dL Creatinine 0.61 (0.60-1.20) mg/dL Glucose 100 (70-105) mg/dL Calcium 8.4 L (8.6-10.3) mg/dL Calcium panel 11/09/18 Range/Units 01:39 Calcium 8.4 L (8.6-10.3) mg/dL Pituitary panel 11/09/18 Range/Units 01:39 Sodium 137 (136-145) mEq/L Potassium 3.1 L (3.5-5.1) mEq/L Chloride 103 (98-107) mEq/L Carbon Dioxide 29 (23-29) mEq/L BUN 21 (8-23) mg/dL Creatinine 0.61 (0.60-1.20) mg/dL Glucose 100 (70-105) mg/dL Calcium 8.4 L (8.6-10.3) mg/dL Adrenal panel 11/09/18 Range/Units 01:39 Sodium 137 (136-145) mEq/L Potassium 3.1 L (3.5-5.1) mEq/L Chloride 103 (98-107) mEq/L Carbon Dioxide 29 (23-29) mEq/L BUN 21 (8-23) mg/dL Creatinine 0.61 (0.60-1.20) mg/dL Glucose 100 (70-105) mg/dL Calcium 8.4 L (8.6-10.3) mg/dL - Attending Attestation I have personally performed a face to face evaluation on this patient. I have reviewed and agree with the care plan. History and Exam by me shows: I reviewed the above assessment and evaluation with an is practitioner and agree with the above plan.
[2018-11-08 10:25] LABS: VBG Ionized Calcium 1.29 mmol/L (1.15-1.35)
[2018-11-08] MEDS: Ibuprofen 600 MG TABLET PO PRN (13:18)
[2018-11-08] MEDS: Ondansetron 4 MG/2 ML VIAL IVP PRN (13:23)
--- NOTE | 2018-11-08 14:06 | Physician Discharge Referral ---
ExtendedCare Referral Info Transfer To: [facility] Provider in Charge: Dr. Dany Palumbo Provider in Charge after Transfer: Other (director of accreditation) Institutional Level of Care: Skilled - Diagnosis (1) Postoperative hematoma Priority: Primary Status: Acute (2) Abdominal pain Priority: Primary Status: Acute (3) Acute blood loss anemia Priority: Primary Status: Acute (4) Coagulopathy Priority: Secondary Status: Acute (5) Atrial fibrillation Priority: Secondary Status: Chronic (6) Dizziness Priority: Secondary Status: Acute (7) Hypotension Priority: Secondary Status: Acute (8) Syncope Priority: Secondary Status: Resolved Prognosis: Fair Aware of Diagnosis: Patient Aware of Prognosis: Patient - Transfer Medications Home Medications: Omeprazole [PriLOSEC] 20 mg PO DAILY 07/20/17 [History] Cyanocobalamin (Vitamin B-12) [Vitamin B12] 1,000 mcg PO DAILY 08/26/17 [History] Acetaminophen [Tylenol] 1,000 mg PO Q6H PRN 12/14/17 [History] Propafenone [Rhythmol] 150 mg PO Q8H #90 tablet 06/15/18 [Rx] Atorvastatin [Lipitor] 40 mg PO HS #30 tablet 08/22/18 [Rx] Ergocalciferol (VITAMIN D2) [Vitamin D2] 2,000 unit PO HS 11/01/18 [History] Aspirin [Lo-Dose Aspirin EC] 81 mg PO HS 11/03/18 [History] Docusate [Colace] 100 mg PO BID udc 11/08/18 [Rx] Ferrous Sulfate 325 mg PO BIDWM tablet 11/08/18 [Rx] Ibuprofen [Motrin] 600 mg PO Q8HR PRN tablet 11/08/18 [Rx] Lidocaine Patch [Lidoderm 5% patch] 1 each TP DAILY adh..patch 11/08/18 [Rx] Meclizine [Antivert] 25 mg PO TID PRN tablet 11/08/18 [Rx] Midodrine [ProAmatine] 5 mg PO 0800,1200,1700 tablet 11/08/18 [Rx] Warfarin [Coumadin] 5 mg PO SUMOTUWEFRSA #0 11/08/18 [Rx] Allergies/Adverse Reactions: Allergy/AdvReac Type Severity Reaction Status Date / Time codeine Allergy Difficulty Verified 11/01/18 06:59 Breathing hydrocodone [From Vicodin] Allergy Difficulty Verified 11/01/18 06:59 Breathing hydromorphone [From Dilaudid] Allergy Difficulty Verified 11/01/18 06:59 Breathing morphine Allergy Difficulty Verified 18 06:59 Breathing oxycodone [From Percocet] Allergy Rash Verified 11/01/18 06:59 tramadol Allergy Difficulty Verified 18 06:59 Breathing influenza virus vaccine, AdvReac FLU LIKE Verified 11/01/18 06:59 specific SYMPTOMS [Influenza Virus Vacc,Specific] - Respiratory Orders Smoking Cessation: Smoking cessation has been advised. For more information, call the [place] SeeToo Quit Line at 3-807-SOFW-NOW. - Ancillary Orders May use pressure relief devices daily prn, May consult with Dentist, Fund Development Manager, Reliability Specialist PRN - Advance Directives Living Will: No Power of Fabrication And Assembly Supervisor for Health Care: No Code Status: Full Code - Mobility Orders Ambulate - Rehabiliation Orders Rehab Potential: Good Rehab Orders: Evaluation for Physical Therapy, Evaluation for Occupational Therapy Other: Continue your previously recommended discharge instructions. May take the medications as previously prescribed. No lifting, pulling, or pushing, greater than 15 pounds for [address] [facility] according to your lab values and will also adjust the midodrine if needed. Return to the office as directed. Daily MARTHA Drain Care: 1. Remove dressings. Shower with antibacterial soap. 2. Do not let the MARTHA drain dangle from your body. Use the safety pin to secure to your clothing. Secure the MARTHA to a lanyard or other type of long necklace when you shower. 3. Replace drain gauze and taped to secure. 4. Record the output from your MARTHA bulb (at least once daily) on the form provided and bring this with you to your follow-up appointment. 5. Keep the MARTHA drain to suction (squeeze the bulb and replace the cap while squeezing). 6. Strip the lines twice daily (hold onto the line as close to the body as you can, then with the other hand push the contents of the line into the MARTHA bulb). - Treatments Skin tear care topically daily PRN per policy, Fleet enema rectally every other day PRN cleansing purposes - Diet Orders Cardiac CERTIFICATION: I certify that the transfer of the above named patient to an Extended Care Facility is necessary for the continuing treatment of the diagnosis listed. The above information is true and accurate reflection of patient's current condition. Confidential - Redisclosure prohibited without a patient's written consent.
--- NOTE | 2018-11-08 14:08 | Discharge Summary ---
<Leticia Davalos - Last Filed: 11/10/18 16:01> Orders not resulted at time of discharge: Pending orders 11/08/18 13:59 INR/PT [Prothrombin Time INR] [COAG] Stat Date of Encounter: 11/10/18 - Discharge Diagnosis (1) Postoperative hematoma Priority: Primary Status: Acute Qualifiers: Surgical complication system/body Area: digestive system Procedure type: non-digestive system Qualified Code(s): K91.871 - Postprocedural hematoma of a digestive system organ or structure following other procedure (2) Abdominal pain Priority: Primary Status: Acute Qualifiers: Abdominal location: right upper quadrant Qualified Code(s): R10.11 - Right upper quadrant pain (3) Acute blood loss anemia Priority: Primary Status: Acute (4) Coagulopathy Priority: Primary Status: Acute (5) Atrial fibrillation Priority: Secondary Status: Chronic Qualifiers: Atrial fibrillation type: paroxysmal Qualified Code(s): I48.0 - Paroxysmal atrial fibrillation (6) Dizziness Priority: Secondary Status: Acute (7) Hypotension Priority: Secondary Status: Acute Qualifiers: Hypotension type: unspecified hypotension type Qualified Code(s): I95.9 - Hypotension, unspecified General Surgery Exam Initial Vital Signs Temp Pulse Resp BP Pulse Ox 98.6 F 73 18 0/0 90 11/03/18 03:31 11/03/18 03:31 11/03/18 03:31 11/03/18 03:31 11/03/18 03:31 - Hospital Course Hospital course: Ms. Hudson is a 73 year old female who was admitted on 11/03/2018 for complaints of abdominal pain. She was found to have a hematoma (per CT) and anemia. She was transfused 2U PRBCs and taken to the OR the same day where she underwent laproscopic evacuation of hematoma (1.6L liquid). She was supported throughout her admission and received 5u PRBCs total and FFP. Her warfarin was restarted on the day before dc (w/o bridging d/t bleeding risk). PT/OT evaluated her while inpatient and recommended swing bed. [facility] agree[facility] - Time Spent with Patient Total time spent providing and/or coordinating discharge services: Less than 30 minutes - Discharge Medications Prescriptions: New Ferrous Sulfate 325 mg PO BIDWM tablet Midodrine [ProAmatine] 5 mg PO 0800,1200,1700 tablet Ibuprofen [Motrin] 600 mg PO Q8HR PRN tablet PRN Reason: Moderate Pain Docusate [Colace] 100 mg PO BID udc Meclizine [Antivert] 25 mg PO TID PRN tablet PRN Reason: Dizziness Lidocaine Patch [Lidoderm 5% patch] 1 each TP DAILY adh..patch Continued Omeprazole [PriLOSEC] 20 mg PO DAILY Cyanocobalamin (Vitamin B-12) [Vitamin B12] 1,000 mcg PO DAILY Acetaminophen [Tylenol] 1,000 mg PO Q6H PRN PRN Reason: Pain Propafenone [Rhythmol] 150 mg PO Q8H #90 tablet Atorvastatin [Lipitor] 40 mg PO HS #30 tablet Ergocalciferol (VITAMIN D2) [Vitamin D2] 2,000 unit PO HS Aspirin [Lo-Dose Aspirin EC] 81 mg PO HS Warfarin [Coumadin] 5 mg PO SUMOTUWEFRSA #0 Discontinued Warfarin [Coumadin] 7.5 mg PO TH Enoxaparin [Lovenox] 80 mg SQ BID Home Medications: Omeprazole [PriLOSEC] 20 mg PO DAILY 07/20/17 [History] Cyanocobalamin (Vitamin B-12) [Vitamin B12] 1,000 mcg PO DAILY 08/26/17 [His tory] Acetaminophen [Tylenol] 1,000 mg PO Q6H PRN 12/14/17 [History] Propafenone [Rhythmol] 150 mg PO Q8H #90 tablet 06/15/18 [Rx] Atorvastatin [Lipitor] 40 mg PO HS #30 tablet 08/22/18 [Rx] Ergocalciferol (VITAMIN D2) [Vitamin D2] 2,000 unit PO HS 11/01/18 [History] Aspirin [Lo-Dose Aspirin EC] 81 mg PO HS 11/03/18 [History] Docusate [Colace] 100 mg PO BID udc 11/08/18 [Rx] Ferrous Sulfate 325 mg PO BIDWM tablet 11/08/18 [Rx] Ibuprofen [Motrin] 600 mg PO Q8HR PRN tablet 11/08/18 [Rx] Lidocaine Patch [Lidoderm 5% patch] 1 each TP DAILY adh..patch 11/08/18 [Rx] Meclizine [Antivert] 25 mg PO TID PRN tablet 11/08/18 [Rx] Midodrine [ProAmatine] 5 mg PO 0800,1200,1700 tablet 11/08/18 [Rx] Warfarin [Coumadin] 5 mg PO SUMOTUWEFRSA #0 11/08/18 [Rx] Allergies/Adverse Reactions: Allergy/AdvReac Type Severity Reaction Status Date / Time codeine Allergy Difficulty Verified 11/01/18 06:59 Breathing hydrocodone [From Vicodin] Allergy Difficulty Verified 11/01/18 06:59 Breathing hydromorphone [From Dilaudid] Allergy Difficulty Verified 11/01/18 06:59 Breathing morphine Allergy Difficulty Verified 11/01/18 06:59 Breathing oxycodone [From Percocet] Allergy Rash Verified 11/01/18 06:59 tramadol Allergy Difficulty Verified 11/01/18 06:59 Breathing influenza virus vaccine, AdvReac FLU LIKE Verified 11/01/18 06:59 specific SYMPTOMS [Influenza Virus Vacc,Specific] Date of admission: 11/03/18 07:59 Primary care physician: Elen Britton DO Consults: 11/07/18 10:24 Consult to Occupational Therapy [CONS] Stat Comment: Evaluate, develop and implement POC Reason for Consult: Mobilization and d/c planning Does patient have active BEDREST order?: No Is patient medically & hemodynamically stable?: Yes Patient assessed for mobility or mobilized this visit?: No Consult to Physical Therapy [CONS] Stat Comment: Evaluate, develop and implement POC Reason for Consult: Mobilization and discharge planning. Patient reports feeling dizzy when sitting upright Does patient have active BEDREST order?: No Is patient medically & hemodynamically stable?: Yes Patient assessed for mobility or mobilized this visit?: No Consult to Production Crew Supervisor [CONS] Stat Reason for SW Consult: d/c planning. At minimum [facility] nursing for MARTHA drain. Discharging clinician: Dany Palumbo Labs on day of discharge: Labs from last 24 hours 11/08/18 11/08/18 11/08/18 10:08 03:09 03:09 WBC 7.3 RBC 2.42 L Hgb 7.5 L Hct 23.2 L MCV 95.9 MCH 31.0 MCHC 32.3 RDW 18.2 H Plt Count 117 L MPV 10.3 Immature Gran % 1.0 Seg Neutrophils % 65.4 Lymphocytes % 18.5 Monocytes % 12.1 Eosinophils % 2.9 Basophils % 0.1 Neutrophils # 4.8 Lymphocytes # 1.4 Monocytes # 0.9 Eosinophils # 0.2 Basophils # 0.0 Nucleated RBCs/100 WBC 0.5 H Sodium 139 Potassium 3.8 Chloride 106 Carbon Dioxide 29 BUN 19 Creatinine 0.61 Est GFR ( Amer) > 60 Est GFR (Non-Af Amer) > 60 BUN/Creatinine Ratio 31 H Glucose 106 H Calculated Osmolality 291 Calcium 8.2 L Venous Ioniz Calcium 1.29 - Impressions ITS Impressions Chest X-Ray 11/03/18 03:44 IMPRESSION: No acute cardiopulmonary process. D/ / Ambreen Edouard MD / Ambreen Edouard MD Interpreting Provider: Ambreen Edouard MD Abdomen/Pelvis CT 11/03/18 05:10 IMPRESSION: 1. Postoperative changes in the anterior abdominal. No abscess formation but 2 subcutaneous hematomas are noted in the upper abdomen in the fat. There is still some herniated fat in the super umbilical area. 2. Large intra-abdominal hematoma involving predominantly the left flank but extending into the pelvis in the midline. There is surrounding fluid and pelvic fluid with hemorrhagic content. 3. Mass in the left groin, Hounsfield numbers suggesting a seroma rather than a hematoma. 4. Ventral subcutaneous upper abdominal hematomas. 5. Other findings as above. D/ / Ambreen Edouard MD / Ambreen Edouard MD Interpreting Provider: Ambreen Edouard MD Echocardiogram 11/07/18 10:01 Impressions: Sinus rhythm with PVCs. LVEF 60%. Asymmetric basal septal hypertrophy. Normal right ventricular structure and function. Moderate mitral regurgitation. Mild-moderate tricuspid regurgitation. Mild pulmonary hypertension. Left Ventricular Wall Motion: Rest Echo Findings All wall segments showed normal motion. Findings: Study Quality * Technically adequate exam. ECG Findings * Sinus rhythm with PVCs. Left Ventricle * LVEF 60%. * Asymmetric basal septal hypertrophy. No LVOTO. * Indeterminate diastolic function. Right Ventricle * Normal right ventricular structure and function. Left Atrium * Moderately dilated left atrium. Right Atrium * Normal right atrial size. Aortic Valve * No aortic regurgitation. * Aortic valve not well visualized. * No aortic stenosis. Mitral Valve * Moderate mitral regurgitation. * Normal mitral valve structure. * No mitral stenosis. Tricuspid Valve * Normal tricuspid valve structure. * Mild-moderate tricuspid regurgitation. Pulmonic Valve * Pulmonic valve is not well visualized. * No pulmonic stenosis. * No pulmonic regurgitation. Pulmonary Artery * Pulmonary artery not well visualized. Aorta * Normally sized aortic root. Pericardium * There is no pericardial effusion present. Interatrial Septum * Interatrial septum not well evaluated. IVC * The IVC is not well evaluated. - Patient Status Disposition: Transfer Inpatient Rehab Fac Condition: Good Functional capacity at discharge: uses cane/walker Overall status at discharge: patient is not back to baseline - Discharge Instructions Instructions: Laparoscopic Herniorrhaphy (DC) Follow Up With: Leticia Davalos CNP [Advanced Practice Nurse] - 11/18/18 11:00 am Elen Britton DO [Primary Care Provider] - 11/14/18 10:30 am (Appointment will be with Madisyn Ramirez due to physician not having openings. ) Additional Instructions: Continue your previously recommended discharge instructions. May take the medications as previously prescribed. No lifting, pulling, or pushing, greater than 15 pounds for 4 weeks [facility] will increase your coumadin therapy according to your lab values and will also adjust the midodrine if needed. Return to the office as directed. Daily MARTHA Drain Care: 1. Remove dressings. Shower with antibacterial soap. 2. Do not let the MARTHA drain dangle from your body. Use the safety pin to secure to your clothing. Secure the MARTHA to a lanyard or other type of long necklace when you shower. 3. Replace drain gauze and taped to secure. 4. Record the output from your MARTHA bulb (at least once daily) on the form provided and bring this with you to your follow-up appointment. 5. Keep the MARTHA drain to suction (squeeze the bulb and replace the cap while squeezing). 6. Strip the lines twice daily (hold onto the line as close to the body as you can, then with the other hand push the contents of the line into the MARTHA bulb). - Diet and Activity Activity: as per physical therapy, increase activity as tolerated Diet: other (cardiac) <Dany Palumbo - Last Filed: 11/10/18 17:51> Date of Encounter: 11/09/18 Time of Encounter: 15:58 - Discharge Diagnosis (1) Abdominal pain Status: Acute Qualifiers: Abdominal location: right upper quadrant Qualified Code(s): R10.11 - Right upper quadrant pain (2) Atrial fibrillation Status: Chronic Qualifiers: Atrial fibrillation type: paroxysmal Qualified Code(s): I48.0 - Paroxysmal atrial fibrillation (3) Postoperative hematoma Status: Acute Qualifiers: Surgical complication system/body Area: digestive system Procedure type: non-digestive system Qualified Code(s): K91.871 - Postprocedural hematoma of a digestive system organ or structure following other procedure (4) Coagulopathy Status: Acute General Surgery Exam Initial Vital Signs Temp Pulse Resp BP Pulse Ox 98.6 F 73 18 0/0 90 11/03/18 03:31 11/03/18 03:31 11/03/18 03:31 11/03/18 03:31 11/03/18 03:31 - Hospital Course Hospital course: Ms. Hudson is a 73 year old female Time spent discussing smoking cessation with patient: 3 to 10 minutes - Time Spent with Patient Total time spent providing and/or coordinating discharge services: Less than 30 minutes Date of admission: 11/03/18 07:59 Primary care physician: Elen Britton DO Consults: 11/07/18 10:24 Consult to Occupational Therapy [CONS] Stat Comment: Evaluate, develop and implement POC Reason for Consult: Mobilization and d/c planning Does patient have active BEDREST order?: No Is patient medically & hemodynamically stable?: Yes Patient assessed for mobility or mobilized this visit?: No Consult to Physical Therapy [CONS] Stat Comment: Evaluate, develop and implement POC Reason for Consult: Mobilization and discharge planning. Patient reports feeling dizzy when sitting upright Does patient have active BEDREST order?: No Is patient medically & hemodynamically stable?: Yes Patient assessed for mobility or mobilized this visit?: No Consult to Production Crew Supervisor [CONS] Stat Reason for SW Consult: d/c planning. At minimum [facility] nursing for MARTHA drain. Anticipated date of discharge: 11/09/18 - Impressions ITS Impressions Chest X-Ray 11/03/18 03:44 IMPRESSION: No acute cardiopulmonary process. D/ / Ambreen Edouard MD / Ambreen Edouard MD Interpreting Provider: Ambreen Edouard MD Abdomen/Pelvis CT 11/03/18 05:10 IMPRESSION: 1. Postoperative changes in the anterior abdominal. No abscess formation but 2 subcutaneous hematomas are noted in the upper abdomen in the fat. There is still some herniated fat in the super umbilical area. 2. Large intra-abdominal hematoma involving predominantly the left flank but extending into the pelvis in the midline. There is surrounding fluid and pelvic fluid with hemorrhagic content. 3. Mass in the left groin, Hounsfield numbers suggesting a seroma rather than a hematoma. 4. Ventral subcutaneous upper abdominal hematomas. 5. Other findings as above. D/ / Ambreen Edouard MD / Ambreen Edouard MD Interpreting Provider: Ambreen Edouard MD Echocardiogram 11/07/18 10:01 Impressions: Sinus rhythm with PVCs. LVEF 60%. Asymmetric basal septal hypertrophy. Normal right ventricular structure and function. Moderate mitral regurgitation. Mild-moderate tricuspid regurgitation. Mild pulmonary hypertension. Left Ventricular Wall Motion: Rest Echo Findings All wall segments showed normal motion. Findings: Study Quality * Technically adequate exam. ECG Findings * Sinus rhythm with PVCs. Left Ventricle * LVEF 60%. * Asymmetric basal septal hypertrophy. No LVOTO. * Indeterminate diastolic function. Right Ventricle * Normal right ventricular structure and function. Left Atrium * Moderately dilated left atrium. Right Atrium * Normal right atrial size. Aortic Valve * No aortic regurgitation. * Aortic valve not well visualized. * No aortic stenosis. Mitral Valve * Moderate mitral regurgitation. * Normal mitral valve structure. * No mitral stenosis. Tricuspid Valve * Normal tricuspid valve structure. * Mild-moderate tricuspid regurgitation. Pulmonic Valve * Pulmonic valve is not well visualized. * No pulmonic stenosis. * No pulmonic regurgitation. Pulmonary Artery * Pulmonary artery not well visualized. Aorta * Normally sized aortic root. Pericardium * There is no pericardial effusion present. Interatrial Septum * Interatrial septum not well evaluated. IVC * The IVC is not well evaluated. - Patient Status Functional capacity at discharge: uses cane/walker Overall status at discharge: patient is not back to baseline - Diet and Activity Activity: as per physical therapy, increase activity as tolerated Diet: other - Attending Attestation I have personally performed a face to face evaluation on this patient. I have reviewed and agree with the care plan. History and Exam by me shows: I reviewed the above assessment and evaluation and agree with the above plan.
[2018-11-08 14:44] LABS: INR 1.1; Prothrombin Time 12.1 Seconds (9.4-12.1)
[2018-11-08] MEDS: Acetaminophen 325 MG TABLET PO PRN (16:58)
[2018-11-08] MEDS ORDERED: *HR* Warfarin 5 MG TABLET PO ONE (18:00)
[2018-11-08] MEDS: Aspirin Enteric Coated 81 MG Tablet PO SCH (20:27)
[2018-11-08] MEDS: Docusate Oral Soln 100 MG/10 ML UDC PO SCH (20:28)
[2018-11-09 02:50] LABS: Basophils % 0.3 %; Eosinophils # 0.3 K/mcL (0.0-0.6); Eosinophils % 3.2 %; Hematocrit 24.6 % (35.3-44.9); Hemoglobin 7.7 g/dL (11.5-15.4); Immature Granulocytes % 1.1 % (0-4); Lymphocytes # 1.2 K/mcL (0.6-4.6); Lymphocytes % 15.3 %; Mean Corpuscular HGB Conc 31.3 g/dL (31.6-35.5); Mean Corpuscular Hemoglobin 30.4 pg (28.0-33.3); Mean Corpuscular Volume 97.2 fL (83.0-100.0); Mean Platelet Volume 10.7 fL (9.4-12.4); Monocytes % 12.3 %; Neutrophils # 5.3 K/mcL (1.6-8.9); Nucleated Red Blood Cells 0.3 /100 WBC (0); Platelet Count 134 K/mcL (140-400); Red Blood Count 2.53 M/mcL (3.82-4.97); Red Cell Distribution Width 18.6 % (11.5-14.5); Segmented Neutrophils % 67.8 %; White Blood Count 7.9 K/mcL (4.3-11.1)
[2018-11-09 02:54] LABS: INR 1.1; Prothrombin Time 12.5 Seconds (9.4-12.1)
[2018-11-09 03:06] LABS: BUN/Creatinine Ratio 34 (6-26); Blood Urea Nitrogen 21 mg/dL (8-23); Calcium 8.4 mg/dL (8.6-10.3); Carbon Dioxide 29 mEq/L (23-29); Chloride 103 mEq/L (98-107); Glucose 100 mg/dL (70-105); Osmolality,Calculated 287 (280-300); Potassium 3.1 mEq/L (3.5-5.1); Sodium 137 mEq/L (136-145); eGFR For African Americans > 60 (> 60); eGFR For Non-African Americans > 60 (> 60)
[2018-11-09] MEDS: Acetaminophen 325 MG TABLET PO PRN (06:49)
--- NOTE | 2018-11-09 07:33 | General Surgery Progress Note ---
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 This is still the old fluid that was within the abdominal space the never clotted. Continue to monitor. Qualifiers: Surgical complication system/body Area: digestive system Procedure type: non-digestive system Qualified Code(s): K91.871 - Postprocedural hematoma of a digestive system organ or structure following other procedure (4) Coagulopathy Status: Acute Patient was restarted on her Coumadin yesterday. Patient is concerned about taking Coumadin and due to her episode of bleeding requiring cessation of the Coumadin for the past several days. The patient the option of holding her Coumadin and following up with her salesperson men[employer] furnishings prior to resumption. She leaned towards going ahead and stopping her Coumadin so we have instructed her to hold on taking any additional Coumadin. She will be on heparin subcutaneous while at her swing bed facility. Subjective Patient reports: other (She states that she feels better today. Still has some abdominal discomfort. No nausea or vomiting but still with low appetite.) Objective Vital Signs - Last 8 Hours Temp Pulse Resp BP Pulse Ox 11/09/18 06:43 98.6 F 85 18 97/57 91 11/09/18 02:44 98.2 F 71 16 97/60 92 Intake and Output 11/08/18 11/08/18 11/09/18 15:59 23:59 07:59 Output Total 19790 340 / 2820 180 / 180 Balance -1979 / 0 -340 / -2820 -180 / -180 Output: Urine 300 / 750 150 / 150 Catheter 1900 / 1900 Wound Drainage 80 / 120 40 / 120 30 / 30 Right Medial Abdomen 80 / 120 40 / 120 30 / 30 Other: Weight 89.925 kg - General physical appearance well nourished, no distress - Abdomen Abdomen: Present: soft, tender (Mild lower abdominal tenderness to palpation. MARTHA drain with serosanguineous fluid within the bulb) - Labs 11/09/18 01:39 11/09/18 01:39 Diabetes panel 11/09/18 Range/Units 01:39 Sodium 137 (136-145) mEq/L Potassium 3.1 L (3.5-5.1) mEq/L Chloride 103 (98-107) mEq/L Carbon Dioxide 29 (23-29) mEq/L BUN 21 (8-23) mg/dL Creatinine 0.61 (0.60-1.20) mg/dL Glucose 100 (70-105) mg/dL Calcium 8.4 L (8.6-10.3) mg/dL Calcium panel 11/09/18 Range/Units 01:39 Calcium 8.4 L (8.6-10.3) mg/dL Pituitary panel 11/09/18 Range/Units 01:39 Sodium 137 (136-145) mEq/L Potassium 3.1 L (3.5-5.1) mEq/L Chloride 103 (98-107) mEq/L Carbon Dioxide 29 (23-29) mEq/L BUN 21 (8-23) mg/dL Creatinine 0.61 (0.60-1.20) mg/dL Glucose 100 (70-105) mg/dL Calcium 8.4 L (8.6-10.3) mg/dL Adrenal panel 11/09/18 Range/Units 01:39 Sodium 137 (136-145) mEq/L Potassium 3.1 L (3.5-5.1) mEq/L Chloride 103 (98-107) mEq/L Carbon Dioxide 29 (23-29) mEq/L BUN 21 (8-23) mg/dL Creatinine 0.61 (0.60-1.20) mg/dL Glucose 100 (70-105) mg/dL Calcium 8.4 L (8.6-10.3) mg/dL Consult Discharge Plan - Plan Instructions: Laparoscopic Herniorrhaphy (DC) Additional Instructions: Continue your previously recommended discharge instructions. May take the medications as previously prescribed. No lifting, pulling, or pushing, greater than 15 pounds for 4 weeks [facility] will increase your coumadin therapy according to your lab values and will also adjust the midodrine if needed. Return to the office as directed. Daily MARTHA Drain Care: 1. Remove dressings. Shower with antibacterial soap. 2. Do not let the MARTHA drain dangle from your body. Use the safety pin to secure to your clothing. Secure the MARTHA to a lanyard or other type of long necklace when you shower. 3. Replace drain gauze and taped to secure. 4. Record the output from your MARTHA bulb (at least once daily) on the form provided and bring this with you to your follow-up appointment. 5. Keep the MARTHA drain to suction (squeeze the bulb and replace the cap while squeezing). 6. Strip the lines twice daily (hold onto the line as close to the body as you can, then with the other hand push the contents of the line into the MARTHA bulb). Referrals: Leticia Davalos CNP [Advanced Practice Nurse] - 11/18/18 11:00 am Elen Britton DO [Primary Care Provider] - 11/14/18 10:30 am (Appointment will be with Madisyn Ramirez due to physician not having openings. )
[2018-11-09] MEDS: Docusate Oral Soln 100 MG/10 ML UDC PO SCH ×2 (08:24→08:25)
[2018-11-09] MEDS: Ondansetron 4 MG/2 ML VIAL IVP PRN (08:24)
[2018-11-09 10:59] VITALS: BP 100/63
[2018-11-09] MEDS: Ibuprofen 600 MG TABLET PO PRN (11:03)
== END 2018-11-09 11:02 | DRG 908 ==
LOC: 3BNU 03:27 → EMEROOARM 03:27 → 3BNU 07:49
PROVIDERS: ADMIT Surgery; ATTEND Surgery

== ENCOUNTER 2018-12-21 12:13 | Inpatient (IN) ==
[2018-12-21] MEDS ORDERED: Ondansetron 4 MG/2 ML VIAL IVP ONE (12:56)
--- NOTE | 2018-12-21 13:16 | Emergency Department Note ---
Disposition Clinical Impression: Small bowel obstruction, Kidney stone UTI (urinary tract infection) Qualifiers: Urinary tract infection type: site unspecified Hematuria presence: with hematuria Qualified Code(s): N39.0 - Urinary tract infection, site not specified; R31.9 - Hematuria, unspecified Disposition: Home Health Service Condition: Fair Referrals: Elen Britton DO [Primary Care Provider] - Forms: ED Satisfaction Letter, Work/School Release Time of Disposition: 15:29 General Adult HPI - General Chief complaint: ED Abdominal Pain Stated complaint: abdominal pain Time Seen by Provider: 12/21/18 12:26 Source: patient, EMS Mode of arrival: EMS Limitations: no limitations Nursing Notes Reviewed: Yes Vital Signs Reviewed: Yes - History of Present Illness HPI Narrative: Patient is a 73-year-old female that presents emergency Department with epigastric abdominal pain. Patient states this began at approximately 10:30 this morning. Patient states that she had gotten up and had made herself some breakfast and was unable to finish and developed epigastric abdominal pain. Patient states that the pain has been significantly bothering her since it started. Patient states that she has not been vomiting or having diarrhea. Patient has any fevers. Patient has any chest pain or shortness of breath. Patient states that she has had a previous episode of pancreatitis. Patient states that her gallbladder has been removed. Patient states that she has a previous history of gastritis secondary to ibuprofen use. Pain Scale: 10 - Related Data Home Medications Medication Instructions Recorded Confirmed Omeprazole [PriLOSEC] 20 mg PO DAILY 07/20/17 11/09/18 Cyanocobalamin (Vitamin B-12) 1,000 mcg PO DAILY 08/26/17 11/09/18 [Vitamin B12] Acetaminophen [Tylenol] 1,000 mg PO Q6H PRN 12/14/17 11/09/18 Ergocalciferol (VITAMIN D2) 2,000 unit PO HS 11/01/18 11/09/18 [Vitamin D2] Aspirin [Lo-Dose Aspirin EC] 81 mg PO HS 11/03/18 11/09/18 Previous Rx's Medication Instructions Recorded Propafenone [Rhythmol] 150 mg PO Q8H #90 tablet 06/15/18 Atorvastatin [Lipitor] 40 mg PO HS #30 tablet 08/22/18 Docusate [Colace] 100 mg PO BID udc 11/08/18 Ferrous Sulfate 325 mg PO BIDWM tablet 11/08/18 Ibuprofen [Motrin] 600 mg PO Q8HR PRN tablet 11/08/18 Lidocaine Patch [Lidoderm 5% patch] 1 each TP DAILY adh..patch 11/08/18 Meclizine [Antivert] 25 mg PO TID PRN tablet 11/08/18 Midodrine [ProAmatine] 5 mg PO 0800,1200,1700 tablet 11/08/18 Calcium Carbonate [Tums] 1,000 mg PO Q4HR PRN tab.chew 11/21/18 Lactobacillus [Culturelle] 1 each PO BID cap.sprink 11/21/18 Lipase/Protease/Amylase [Creflaco Dr 2 each PO TID 14 Days #84 11/21/18 6,000 Units Capsule] capsule. Metoclopramide [Reglan] 10 mg PO Q6HR PRN #20 tablet 11/21/18 Midodrine [ProAmatine] 5 mg PO 0800,1200,1700 7 Days #21 11/21/18 tablet Potassium Chloride 20 meq PO DAILY 5 Days #5 11/21/18 tab.er.prt Simethicone [Gas-X] 80 mg PO TID tab.chew 11/21/18 Allergies Allergy/AdvReac Type Severity Reaction Status Date / Time codeine Allergy Difficulty Verified 11/01/18 06:59 Breathing hydrocodone [From Vicodin] Allergy Difficulty Verified 11/01/18 06:59 Breathing hydromorphone [From Dilaudid] Allergy Difficulty Verified 11/01/18 06:59 Breathing morphine Allergy Difficulty Verified 11/01/18 06:59 Breathing oxycodone [From Percocet] Allergy Rash Verified 11/01/18 06:59 tramadol Allergy Difficulty Verified 11/01/18 06:59 Breathing influenza virus vaccine, AdvReac FLU LIKE Verified 11/01/18 06:59 specific SYMPTOMS [Influenza Virus Vacc,Specific] [id number]-Lyb Reductase AdvReac Loss of Verified 11/20/18 18:27 Inhibitor Appetite All systems ED: reviewed and negative except as stated. Constitutional: Denies: fever Cardiovascular: Denies: chest pain Respiratory: Denies: dyspnea Gastrointestinal: Reports: abdominal pain. Denies: nausea, vomiting, diarrhea Neurological: Denies: weakness, numbness, paresthesias Past Medical History - Past Medical History Medical history: Reports: atrial fibrillation, GERD, hyperlipidemia, hypertension, TIA, other Surgical history: Reports: cholecystectomy, herniorrhaphy, hip replacement, orthopedic, other, other Psychiatric history: Reports: no psych history MANAGER DEVELOPMENT history: Reports: non-contributory - Social History Smoking Status: Never smoker Smokeless Tobacco Status: No Alcohol use: Reports: none Drug use: Reports: none Physical Exam - General Limitations: no limitations General appearance: alert, in no apparent distress - Head Head exam: atraumatic, normocephalic - Eye Eye exam: Present: normal appearance, EOMI - Neck Neck exam: Present: normal inspection, full ROM, trachea midline - Respiratory Respiratory exam: Present: normal lung sounds bilaterally. Absent: respiratory distress, wheezes - Cardiovascular Cardiovascular exam: Present: regular rate, normal rhythm, normal heart sounds, +S1, +S2 - Abdominal Exam Abdominal exam: Present: soft, tenderness, normal bowel sounds Abdominal tenderness: Present: epigastrium, moderate - Neurological Exam Neurological exam: Present: alert, oriented X3 - Psychiatric Psychiatric exam: Present: normal affect, normal mood - Skin Skin exam: Present: warm, dry, intact Course Vital Signs Temperature 99.1 F 12/21/18 12:25 Pulse Rate 69 12/21/18 12:25 Respiratory Rate 16 12/21/18 12:25 Blood Pressure 147/83 12/21/18 12:25 O2 Sat by Pulse Oximetry 95 12/21/18 12:25 Temperature 99.1 F 12/21/18 12:25 Pulse Rate 69 12/21/18 12:25 Respiratory Rate 16 12/21/18 12:25 Blood Pressure 147/83 12/21/18 12:25 O2 Sat by Pulse Oximetry 95 12/21/18 12:25 Oxygen Delivery Oxygen Delivery Room Air Medical Decision Making - [facility] Narrative Medical decision making narrative: Due to the patient since emergency Department with reports of abdominal pain we will obtain basic laboratory testing and CT scan of the abdomen and pelvis. The CT scan of the abdomen and pelvis shows a possible low-grade small bowel obstruction. Surgery has been notified in consult. CT scan also shows a 3 mm obstructing ureteral stone and evidence of a urinary tract infection. Patient given a gram of Rocephin. Urology has been contacted and consult and. Patient be admitted to the medical service. Patient has been given multiple doses of analgesics here in the emergency department. She declined any desire for antibiotics. Patient be admitted to the hospital this time for further evaluation and management. NG tube was not placed to the patient not having any symptoms of vomiting. - Medical Records Medical records reviewed: Yes I reviewed the patient's medical records. - Lab Data Lab results reviewed: Yes I reviewed the patient's lab results. Result diagrams: 12/21/18 13:12 12/21/18 13:12 Lab Results 12/21/18 12/21/18 12/21/18 Range/Units 13:12 13:12 13:12 WBC 8.1 (4.3-11.1) K/mcL RBC 3.77 L (3.82-4.97) M/mcL Hgb 11.5 (11.5-15.4) g/dL Hct 36.2 (35.3-44.9) % MCV 96.0 (83.0-100.0) fL MCH 30.5 (28.0-33.3) pg MCHC 31.8 (31.6-35.5) g/dL RDW 16.4 H (11.5-14.5) % Plt Count 242 (140-400) K/mcL MPV 9.7 (9.4-12.4) fL Immature Gran % 0.4 (0-4) % Seg Neutrophils % 77.8 % Lymphocytes % 11.6 % Monocytes % 8.4 % Eosinophils % 1.4 % Basophils % 0.4 % Neutrophils # 6.3 (1.6-8.9) K/mcL Lymphocytes # 0.9 (0.6-4.6) K/mcL Monocytes # 0.7 (0.0-1.3) K/mcL Eosinophils # 0.1 (0.0-0.6) K/mcL Basophils # 0.0 (0.0-0.2) K/mcL Sodium 141 (136-145) mEq/L Potassium 3.5 (3.5-5.1) mEq/L Chloride 105 (98-107) mEq/L Carbon Dioxide 30 H (23-29) mEq/L BUN 13 (8-23) mg/dL Creatinine 0.62 (0.60-1.20) mg/dL Est GFR ( Amer) > 60 (> 60) Est GFR (Non-Af Amer) > 60 (> 60) BUN/Creatinine Ratio 21 (6-26) Glucose 126 H (70-105) mg/dL Calculated Osmolality 294 (280-300) Calcium 9.7 (8.6-10.3) mg/dL Total Bilirubin 0.3 (0.3-1.0) mg/dL Direct Bilirubin 0.1 (0.0-0.2) mg/dL Indirect Bilirubin 0.2 (0.0-1.2) mg/dL AST 9 L (13-39) Units/L ALT 5 L (7-52) Units/L Alkaline Phosphatase 89 (34-104) Units/L Troponin I < 0.03 (< 0.04) ng/mL Serum Total Protein 6.0 L (6.4-8.9) g/dL Albumin 3.1 L (3.5-5.7) g/dL Globulin 2.9 (2.4-3.5) g/dL Albumin/Globulin Ratio 1.1 (1.1-2.2) Lipase 47 (11-82) Units/L Urine Color (Yellow) Urine Clarity (Clear) Urine pH (5.0-8.0) pH Units Ur Specific [place] (1.010-1.025) Urine Protein (Neg-Trace) mg/dL Urine Glucose (UA) (Normal) mg/dL Urine Ketones (Negative) mg/dL Urine Blood (Negative) Urine Nitrite (Negative) Urine Bilirubin (Negative) Urine Urobilinogen (Normal) mg/dL Ur Leukocyte Esterase (Negative) Urine Microscopic RBC (0-3) per hpf Urine Microscopic WBC (0-3) per hpf Ur Squamous Epith Cells (None-Few) per lpf Urine Bacteria (None-Few) per hpf Hyaline Casts (None-Few) per lpf Ur Culture Indicated? (NO) 12/21/18 Range/Units 13:25 WBC (4.3-11.1) K/mcL RBC (3.82-4.97) M/mcL Hgb (11.5-15.4) g/dL Hct (35.3-44.9) % MCV (83.0-100.0) fL MCH (28.0-33.3) pg MCHC (31.6-35.5) g/dL RDW (11.5-14.5) % Plt Count (140-400) K/mcL MPV (9.4-12.4) fL Immature Gran % (0-4) % Seg Neutrophils % % Lymphocytes % % Monocytes % % Eosinophils % % Basophils % % Neutrophils # (1.6-8.9) K/mcL Lymphocytes # (0.6-4.6) K/mcL Monocytes # (0.0-1.3) K/mcL Eosinophils # (0.0-0.6) K/mcL Basophils # (0.0-0.2) K/mcL Sodium (136-145) mEq/L Potassium (3.5-5.1) mEq/L Chloride (98-107) mEq/L Carbon Dioxide (23-29) mEq/L BUN (8-23) mg/dL Creatinine (0.60-1.20) mg/dL Est GFR ( Amer) (> 60) Est GFR (Non-Af Amer) (> 60) BUN/Creatinine Ratio (6-26) Glucose (70-105) mg/dL Calculated Osmolality (280-300) Calcium (8.6-10.3) mg/dL Total Bilirubin (0.3-1.0) mg/dL Direct Bilirubin (0.0-0.2) mg/dL Indirect Bilirubin (0.0-1.2) mg/dL AST (13-39) Units/L ALT (7-52) Units/L Alkaline Phosphatase (34-104) Units/L Troponin I (< 0.04) ng/mL Serum Total Protein (6.4-8.9) g/dL Albumin (3.5-5.7) g/dL Globulin (2.4-3.5) g/dL Albumin/Globulin Ratio (1.1-2.2) Lipase (11-82) Units/L Urine Color Yellow (Yellow) Urine Clarity Turbid A (Clear) Urine pH 7.5 (5.0-8.0) pH Units Ur Specific [place] 1.015 (1.010-1.025) Urine Protein 30 H (Neg-Trace) mg/dL Urine Glucose (UA) Normal (Normal) mg/dL Urine Ketones Negative (Negative) mg/dL Urine Blood Small H (Negative) Urine Nitrite Positive A (Negative) Urine Bilirubin Negative (Negative) Urine Urobilinogen Normal (Normal) mg/dL Ur Leukocyte Esterase Large H (Negative) Urine Microscopic RBC 30-50 H (0-3) per hpf Urine Microscopic WBC TNTC H (0-3) per hpf Ur Squamous Epith Cells Many H (None-Few) per lpf Urine Bacteria Many H (None-Few) per hpf Hyaline Casts None Seen (None-Few) per lpf Ur Culture Indicated? YES A (NO) - Radiology Data Radiology results reviewed: Yes I reviewed the patient's radiology results. - EKG Data EKG #1 EKG attestation: Yes I reviewed and interpreted this EKG. EKG results narrative: EKG showed a sinus rhythm at a rate of 68 bpm, DE interval 194, QRS duration 106, QTc of 398. There is no evidence of STEMI on EKG. This is compared to previous EKG on 11/03/18. Attestation Statement - Attestation Attestation: I, Linwood Bella DO, examined this patient [id number] and my medical decision-making was reviewed with (Dr. Kevin Rodrigez Resident Physician. I agree with the documented findings, disposition and treatment plan as described except to the extent set forth below. I personally supervised and was present for the storey/critical portions of the procedures completed by the resident documented below. Please see my progress notes for details.
[2018-12-21 13:31] LABS: Basophils % 0.4 %; Eosinophils # 0.1 K/mcL (0.0-0.6); Eosinophils % 1.4 %; Hematocrit 36.2 % (35.3-44.9); Hemoglobin 11.5 g/dL (11.5-15.4); Immature Granulocytes % 0.4 % (0-4); Lymphocytes # 0.9 K/mcL (0.6-4.6); Lymphocytes % 11.6 %; Mean Corpuscular HGB Conc 31.8 g/dL (31.6-35.5); Mean Corpuscular Hemoglobin 30.5 pg (28.0-33.3); Mean Platelet Volume 9.7 fL (9.4-12.4); Monocytes # 0.7 K/mcL (0.0-1.3); Monocytes % 8.4 %; Neutrophils # 6.3 K/mcL (1.6-8.9); Platelet Count 242 K/mcL (140-400); Red Blood Count 3.77 M/mcL (3.82-4.97); Red Cell Distribution Width 16.4 % (11.5-14.5); Segmented Neutrophils % 77.8 %; White Blood Count 8.1 K/mcL (4.3-11.1)
[2018-12-21 13:44] LABS: Bilirubin,Urine Negative (Negative); Blood,Urine Small (Negative); Clarity,Urine Turbid (Clear); Color,Urine Yellow (Yellow); Glucose,Urine (UA) Normal (Normal); Ketones,Urine Negative (Negative); Leukocyte Esterase,Urine Large (Negative); Nitrite,Urine Positive (Negative); PH,Urine 7.5 pH Units (5.0-8.0); Protein,Urine 30 mg/dL (Neg-Trace); Specific Gravity,Urine 1.015 (1.010-1.025); Urobilinogen,Urine Normal (Normal)
[2018-12-21 13:46] LABS: Alanine Aminotransferase 5 Units/L (7-52); Albumin 3.1 g/dL (3.5-5.7); Albumin/Globulin Ratio 1.1 (1.1-2.2); Alkaline Phosphatase 89 Units/L (34-104); Aspartate Amino Transferase 9 Units/L (13-39); BUN/Creatinine Ratio 21 (6-26); Bilirubin,Direct 0.1 mg/dL (0.0-0.2); Bilirubin,Indirect 0.2 mg/dL (0.0-1.2); Bilirubin,Total 0.3 mg/dL (0.3-1.0); Blood Urea Nitrogen 13 mg/dL (8-23); Calcium 9.7 mg/dL (8.6-10.3); Carbon Dioxide 30 mEq/L (23-29); Chloride 105 mEq/L (98-107); Globulin 2.9 g/dL (2.4-3.5); Glucose 126 mg/dL (70-105); Lipase 47 Units/L (11-82); Osmolality,Calculated 294 (280-300); Potassium 3.5 mEq/L (3.5-5.1); Sodium 141 mEq/L (136-145); eGFR For African Americans > 60 (> 60); eGFR For Non-African Americans > 60 (> 60)
[2018-12-21 13:46] LABS: Bacteria,Urine Many per hpf (None-Few); Hyaline Casts,Urine None Seen per lpf (None-Few); RBC,Urine 30-50 per hpf (0-3); Squamous Epithelial Cell,Urine Many per lpf (None-Few); WBC,Urine TNTC per hpf (0-3)
[2018-12-21] MEDS ORDERED: Acetaminophen 325 MG TABLET PO ONE (13:48)
[2018-12-21] MEDS ORDERED: cefTRIAXone 1,000 MG in Water for inj. (sterile) 10 ML IVP ONE (14:17)
[2018-12-21] MEDS: *HR* FentaNYL (PF) 100 MCG/2 ML VIAL IVP ONE (14:25)
--- NOTE | 2018-12-21 14:55 | Emergency Department Note ---
Disposition Clinical Impression: Small bowel obstruction, Kidney stone, UTI (urinary tract infection) Disposition: Admitted As Inpatient Condition: Fair Referrals: Elen Britton DO [Primary Care Provider] - Forms: ED Satisfaction Letter, Work/School Release Time of Disposition: 15:40 General Adult HPI - General Chief complaint: ED Abdominal Pain Stated complaint: abdominal pain Time Seen by Provider: 12/21/18 12:26 Source: patient, EMS Mode of arrival: EMS Limitations: no limitations - History of Present Illness Pain Scale: 10 - Related Data Home Medications Medication Instructions Recorded Confirmed Omeprazole [PriLOSEC] 20 mg PO DAILY 07/20/17 11/09/18 Cyanocobalamin (Vitamin B-12) 1,000 mcg PO DAILY 08/26/17 11/09/18 [Vitamin B12] Acetaminophen [Tylenol] 1,000 mg PO Q6H PRN 12/14/17 11/09/18 Ergocalciferol (VITAMIN D2) 2,000 unit PO HS 11/01/18 11/09/18 [Vitamin D2] Aspirin [Lo-Dose Aspirin EC] 81 mg PO HS 11/03/18 11/09/18 Simethicone [Gas-X] 80 mg PO TID PRN 12/21/18 12/21/18 Previous Rx's Medication Instructions Recorded Propafenone [Rhythmol] 150 mg PO Q8H #90 tablet 06/15/18 Atorvastatin [Lipitor] 40 mg PO HS #30 tablet 08/22/18 Docusate [Colace] 100 mg PO BID udc 11/08/18 Ferrous Sulfate 325 mg PO BIDWM tablet 11/08/18 Ibuprofen [Motrin] 600 mg PO Q8HR PRN tablet 11/08/18 Lidocaine Patch [Lidoderm 5% patch] 1 each TP DAILY adh..patch 11/08/18 Meclizine [Antivert] 25 mg PO TID PRN tablet 11/08/18 Midodrine [ProAmatine] 5 mg PO 0800,1200,1700 tablet 11/08/18 Calcium Carbonate [Tums] 1,000 mg PO Q4HR PRN tab.chew 11/21/18 Lactobacillus [Culturelle] 1 each PO BID cap.sprink 11/21/18 Lipase/Protease/Amylase [Creon Dr 2 each PO TID 14 Days #84 11/21/18 6,000 Units Capsule] capsule. Metoclopramide [Reglan] 10 mg PO Q6HR PRN #20 tablet 11/21/18 Midodrine [ProAmatine] 5 mg PO 0800,1200,1700 7 Days #21 11/21/18 tablet Potassium Chloride 20 meq PO DAILY 5 Days #5 11/21/18 tab.er.prt Allergies Allergy/AdvReac Type Severity Reaction Status Date / Time codeine Allergy Difficulty Verified 11/01/18 06:59 Breathing hydrocodone [From Vicodin] Allergy Difficulty Verified 11/01/18 06:59 Breathing hydromorphone [From Dilaudid] Allergy Difficulty Verified 11/01/18 06:59 Breathing morphine Allergy Difficulty Verified 11/01/18 06:59 Breathing oxycodone [From Percocet] Allergy Rash Verified 11/01/18 06:59 tramadol Allergy Difficulty Verified 11/01/18 06:59 Breathing influenza virus vaccine, AdvReac FLU LIKE Verified 11/01/18 06:59 specific SYMPTOMS [Influenza Virus Vacc,Specific] [id number] Reductase AdvReac Loss of Verified 11/20/18 18:27 Inhibitor Appetite Constitutional: Denies: fever Cardiovascular: Denies: chest pain Respiratory: Denies: dyspnea Gastrointestinal: Reports: abdominal pain. Denies: nausea, vomiting, diarrhea Neurological: Denies: weakness, numbness, paresthesias Past Medical History - Past Medical History Medical history: Reports: atrial fibrillation, GERD, hyperlipidemia, hypertensi on, TIA, other Surgical history: Reports: cholecystectomy, herniorrhaphy, hip replacement, orthopedic, other, other Psychiatric history: Reports: no psych history HOSPITAL MONITOR history: Reports: non-contributory - Social History Smoking Status: Never smoker Smokeless Tobacco Status: No Alcohol use: Reports: none Drug use: Reports: none Physical Exam - General Limitations: no limitations General appearance: alert, in no apparent distress Course Vital Signs Temperature 99.1 F 12/21/18 12:25 Pulse Rate 69 12/21/18 12:25 Respiratory Rate 16 12/21/18 12:25 Blood Pressure 147/83 12/21/18 12:25 O2 Sat by Pulse Oximetry 95 12/21/18 12:25 Temperature 99.1 F 12/21/18 12:25 Pulse Rate 64 12/21/18 15:33 Respiratory Rate 16 12/21/18 15:33 Blood Pressure 168/93 12/21/18 15:33 O2 Sat by Pulse Oximetry 99 12/21/18 15:33 Oxygen Delivery Oxygen Delivery Room Air Medical Decision Making - Lab Data Result diagrams: 12/21/18 13:12 12/21/18 13:12 Lab Results 12/21/18 12/21/18 12/21/18 Range/Units 13:12 13:12 13:12 WBC 8.1 (4.3-11.1) K/mcL RBC 3.77 L (3.82-4.97) M/mcL Hgb 11.5 (11.5-15.4) g/dL Hct 36.2 (35.3-44.9) % MCV 96.0 (83.0-100.0) fL MCH 30.5 (28.0-33.3) pg MCHC 31.8 (31.6-35.5) g/dL RDW 16.4 H (11.5-14.5) % Plt Count 242 (140-400) K/mcL MPV 9.7 (9.4-12.4) fL Immature Gran % 0.4 (0-4) % Seg Neutrophils % 77.8 % Lymphocytes % 11.6 % Monocytes % 8.4 % Eosinophils % 1.4 % Basophils % 0.4 % Neutrophils # 6.3 (1.6-8.9) K/mcL Lymphocytes # 0.9 (0.6-4.6) K/mcL Monocytes # 0.7 (0.0-1.3) K/mcL Eosinophils # 0.1 (0.0-0.6) K/mcL Basophils # 0.0 (0.0-0.2) K/mcL Sodium 141 (136-145) mEq/L Potassium 3.5 (3.5-5.1) mEq/L Chloride 105 (98-107) mEq/L Carbon Dioxide 30 H (23-29) mEq/L BUN 13 (8-23) mg/dL Creatinine 0.62 (0.60-1.20) mg/dL Est GFR ( Amer) > 60 (> 60) Est GFR (Non-Af Amer) > 60 (> 60) BUN/Creatinine Ratio 21 (6-26) Glucose 126 H (70-105) mg/dL Calculated Osmolality 294 (280-300) Calcium 9.7 (8.6-10.3) mg/dL Total Bilirubin 0.3 (0.3-1.0) mg/dL Direct Bilirubin 0.1 (0.0-0.2) mg/dL Indirect Bilirubin 0.2 (0.0-1.2) mg/dL AST 9 L (13-39) Units/L ALT 5 L (7-52) Units/L Alkaline Phosphatase 89 (34-104) Units/L Troponin I < 0.03 (< 0.04) ng/mL Serum Total Protein 6.0 L (6.4-8.9) g/dL Albumin 3.1 L (3.5-5.7) g/dL Globulin 2.9 (2.4-3.5) g/dL Albumin/Globulin Ratio 1.1 (1.1-2.2) Lipase 47 (11-82) Units/L Urine Color (Yellow) Urine Clarity (Clear) Urine pH (5.0-8.0) pH Units Ur Specific [place] (1.010-1.025) Urine Protein (Neg-Trace) mg/dL Urine Glucose (UA) (Normal) mg/dL Urine Ketones (Negative) mg/dL Urine Blood (Negative) Urine Nitrite (Negative) Urine Bilirubin (Negative) Urine Urobilinogen (Normal) mg/dL Ur Leukocyte Esterase (Negative) Urine Microscopic RBC (0-3) per hpf Urine Microscopic WBC (0-3) per hpf Ur Squamous Epith Cells (None-Few) per lpf Urine Bacteria (None-Few) per hpf Hyaline Casts (None-Few) per lpf Ur Culture Indicated? (NO) 12/21/18 Range/Units 13:25 WBC (4.3-11.1) K/mcL RBC (3.82-4.97) M/mcL Hgb (11.5-15.4) g/dL Hct (35.3-44.9) % MCV (83.0-100.0) fL MCH (28.0-33.3) pg MCHC (31.6-35.5) g/dL RDW (11.5-14.5) % Plt Count (140-400) K/mcL MPV (9.4-12.4) fL Immature Gran % (0-4) % Seg Neutrophils % % Lymphocytes % % Monocytes % % Eosinophils % % Basophils % % Neutrophils # (1.6-8.9) K/mcL Lymphocytes # (0.6-4.6) K/mcL Monocytes # (0.0-1.3) K/mcL Eosinophils # (0.0-0.6) K/mcL Basophils # (0.0-0.2) K/mcL Sodium (136-145) mEq/L Potassium (3.5-5.1) mEq/L Chloride (98-107) mEq/L Carbon Dioxide (23-29) mEq/L BUN (8-23) mg/dL Creatinine (0.60-1.20) mg/dL Est GFR ( Amer) (> 60) Est GFR (Non-Af Amer) (> 60) BUN/Creatinine Ratio (6-26) Glucose (70-105) mg/dL Calculated Osmolality (280-300) Calcium (8.6-10.3) mg/dL Total Bilirubin (0.3-1.0) mg/dL Direct Bilirubin (0.0-0.2) mg/dL Indirect Bilirubin (0.0-1.2) mg/dL AST (13-39) Units/L ALT (7-52) Units/L Alkaline Phosphatase (34-104) Units/L Troponin I (< 0.04) ng/mL Serum Total Protein (6.4-8.9) g/dL Albumin (3.5-5.7) g/dL Globulin (2.4-3.5) g/dL Albumin/Globulin Ratio (1.1-2.2) Lipase (11-82) Units/L Urine Color Yellow (Yellow) Urine Clarity Turbid A (Clear) Urine pH 7.5 (5.0-8.0) pH Units Ur Specific [place] 1.015 (1.010-1.025) Urine Protein 30 H (Neg-Trace) mg/dL Urine Glucose (UA) Normal (Normal) mg/dL Urine Ketones Negative (Negative) mg/dL Urine Blood Small H (Negative) Urine Nitrite Positive A (Negative) Urine Bilirubin Negative (Negative) Urine Urobilinogen Normal (Normal) mg/dL Ur Leukocyte Esterase Large H (Negative) Urine Microscopic RBC 30-50 H (0-3) per hpf Urine Microscopic WBC TNTC H (0-3) per hpf Ur Squamous Epith Cells Many H (None-Few) per lpf Urine Bacteria Many H (None-Few) per hpf Hyaline Casts None Seen (None-Few) per lpf Ur Culture Indicated? YES A (NO) Attestation Statement - Attestation Attestation: I, Linwood Bella DO, examined this patient [id number] and my medical decision-making was reviewed with (Dr. Kevin Rodrigez, Resident Physician. I agree with the documented findings, disposition and treatment plan as described except to the extent set forth below. I personally supervised and was present for the storey/critical portions of the procedures completed by the resident documented below. Please see my progress notes for details. 73-year-old female presents emergency room by EMS for complaint of abdominal pain and discomfort. Patient denies any recent fevers or chills. She has not had any nausea vomiting or diarrhea. She is been able to eat and drink without any issues at home. Patient is otherwise stable. Patient denies any falls trauma or injury. Patient did have a surgery earlier 2 months ago secondary to a hernia. Since a hernia repair she is a multiple issues including an intra- abdominal hemorrhage that required repeat surgery at that time. Patient is otherwise stable this point. She denies any falls trauma or injury. She was advised by her primary care provider to follow-up with her surgeon after a repeat CT scan was completed several weeks ago. The surgical evaluation was unremarkable that time they sent the patient home. Vital signs reviewed and are stable. Patient is sitting upright in the bed. She is otherwise resting comfortably. She is in no specific distress. Lungs are clear. Heart is regular. Abdomen is soft. She does have tenderness noted in the epigastrium and left lower quadrant. She has no pulsatile masses or lesions. Extremities are normal. Bowel sounds are diminished. Patient denies any neurologic deficits or symptoms at this point. No other acute symptoms. Patient was able to eat yesterday and did have a bowel movement. Vital signs are reviewed. EKG will be collected and reviewed by myself and the documented in the resident physician's note. No other acute issues noted this time. See detailed documentation the physical exam, medical intervention, medical decision-making disposition the resident physician's note. No critical care applied the patient's treatment course at this time. 1415 Patient is found to have a right distal ureteral stone with urinary tract infection. 1 g Rocephin has been ordered this time along with blood cultures and lactic acid which were both negative. Patient also has what appears to be an incarcerated hernia in the posterior retro-peritoneal area at the kidney in the left side. This appears to cause a small bowel obstruction. With this was a known issue from previous CT scan is undifferentiated this time. The on-call urologist as well as the surgical provider have been contacted and both of them recommended admission to the hospitals will see the patient in consult. Pain is better controlled this point. Otherwise the patient has 2 issues that appear to be confounding the presentation this time. Patient has no acute signs of pancreatitis or other cardiac or pulmonary related issues causing the symptoms here today. Patient will be monitored here in the emergency department until the admission process is completed. Patient is otherwise stable. Hospitalist has been paged at this time. 1532 Patient was discussed with the hospitalist Dr. Brice. Detailed review the presentation symptoms surgical evaluation as well as urology consultation were discussed. No other recommendations or concerns are noted this time. Patient is being admitted at this time for what appears to be urinary tract infection was obstructed renal stone along with small bowel obstruction secondary to a retroperitoneal hematoma the left kidney margin. Patient otherwise clinical stable and her vital signs labs otherwise been unremarkable. No other immediate intervention has been required. Patient will be monitored here in the emergency department until the admission process is completed.
[2018-12-21] MEDS ORDERED: *HR* FentaNYL (PF) 100 MCG/2 ML VIAL IVP ONE (15:26)
[2018-12-21] MEDS ORDERED: Ketorolac 15 MG/ML VIAL IVP PRN (17:45)
[2018-12-21] MEDS ORDERED: Naloxone 0.4 MG/ML INJ IVP PRN (17:50)
[2018-12-21] MEDS: *HR* FentaNYL (PF) 100 MCG/2 ML VIAL IVP PRN ×2 (17:52→23:39)
[2018-12-21 18:21] LABS: INR 3.2; Prothrombin Time 36.5 Seconds (9.4-12.1)
--- NOTE | 2018-12-21 18:21 | Internal Med History&Physical ---
Date of Encounter: 12/21/18 Time of Encounter: 18:14 Internal Medicine - H&P: HPI Chief complaint: abdominal pain Admitted From: Home Plans for Post Hospital Care: Home History of present illness: Ms. Hudson is a 73 year old female with a past medical history of atrial fibrillation on warfarin, GERD, HLD, HTN, pancreatitis, left inguinal hernia repair on 11/01 status post hematoma formation requiring laparoscopic evacuation and blood transfusion who presented with epigastric abdominal pain starting at around 10:30 this morning. Pain has been constant, sharp with no particular inciting event. Patient denies any nausea or vomiting. It does not radiate. She tried some Tums to help with the pain, but there was no improvement. Denies any constipation, diarrhea, bloody or tarry stools. Last bowel movement was yesterday, and is still passing gas. Denies any dysuria or polyuria. She endorses subjective chills, no fevers. In October, patient had a left inguinal hernia repair. However it was complicated with the formation of a large hematoma that required laparoscopic evacuation. She also needed 5 units of blood transfusion at that time. Patient was then transferred to a rehabilitation facility and was recently discharged home. In the emergency department, patient's vitals were: Temp 99.1, HR 69, RR 16, BP 167/90, 99% RA. Patient had an unremarkable CBC and BMP. CT abdomen and pelvis showed a low-grade small bowel obstruction in the posterior perirenal space on the left, 3 mm distal right ureteral stone with moderate obstruction, left nephrolithiasis. Patient was given 1 g ceftriaxone and fentanyl for pain control. Patient also had a UTI. Troponins and lipase were negative. Patient was then admitted to the floor with surgical and neurology consults placed. Past Med Surg Social Fam HX - Past Medical History Attestation: Yes The following information was validated with the patient. Source: patient Medical history: atrial fibrillation, GERD, hyperlipidemia, hypertension, TIA, other Additional medical history: anemia, Pancreatitis Psychiatric history: no psych history - Past Surgical History Surgical History: cholecystectomy, herniorrhaphy, hip replacement, orthopedic, other, other Additional surgical history: egd, eus, ercp, back sx - Social History Smoking Status: Never smoker Smokeless Tobacco Status: No Alcohol use: none Drug use: none - Family History Father Hx Family Cardiac Disorders: Yes Mother Living Status: Hx Family Cardiac Disorders: No Hx Family Cancer: Yes Internal Medicine - H&P: Meds Omeprazole [PriLOSEC] 20 mg PO BID 07/20/17 [History] Cyanocobalamin (Vitamin B-12) [Vitamin B12] 1,000 mcg PO QMWF 08/26/17 [History] Acetaminophen [Tylenol] 1,000 mg PO Q6H PRN 12/14/17 [History] Propafenone [Rhythmol] 150 mg PO Q8H #90 tablet 06/15/18 [Rx] Atorvastatin [Lipitor] 40 mg PO HS #30 tablet 08/22/18 [Rx] Ergocalciferol (VITAMIN D2) [Vitamin D2] 2,000 unit PO HS 11/01/18 [History] Aspirin [Lo-Dose Aspirin EC] 81 mg PO HS 11/03/18 [History] Ferrous Sulfate 325 mg PO BIDWM tablet 11/08/18 [Rx] Calcium Carbonate [Tums] 1,000 mg PO Q4HR PRN tab.chew 11/21/18 [Rx] Simethicone [Gas-X] 80 mg PO TID PRN 12/21/18 [History] Warfarin [Coumadin] 5 mg PO DAILY 12/21/18 [History] Allergy/AdvReac Type Severity Reaction Status Date / Time codeine Allergy Difficulty Verified 11/01/18 06:59 Breathing hydrocodone [From Vicodin] Allergy Difficulty Verified 11/01/18 06:59 Breathing hydromorphone [From Dilaudid] Allergy Difficulty Verified 11/01/18 06:59 Breathing morphine Allergy Difficulty Verified 11/01/18 06:59 Breathing oxycodone [From Percocet] Allergy Rash Verified 11/01/18 06:59 tramadol Allergy Difficulty Verified 11/01/18 06:59 Breathing influenza virus vaccine, AdvReac FLU LIKE Verified 11/01/18 06:59 specific SYMPTOMS [Influenza Virus Vacc,Specific] Gwmvlkh-Ybu-Lhy Reductase AdvReac Loss of Verified 11/20/18 18:27 Inhibitor Appetite All Systems PM: A 10-system review of systems was performed and is negative for pertinent findings except as documented above in the HPI. - Constitutional Constitutional: chills, no fatigue, no fever(s), no lethargy - EENT Eyes: no blurry vision, no change in vision, no dry eye, no loss of vision Ears: no decreased hearing, no ear discharge, no ear pain Nose, mouth and throat: no dysphagia, no nasal discharge, no neck pain, no sore throat - Cardiovascular Cardiovascular ROS IM: no chest pain, no diaphoresis, no dyspnea, no lightheadedness, no palpitations, no syncope - Respiratory Respiratory: no cough, no dyspnea, no wheezing, no excessive phlegm production - Gastrointestinal Gastrointestinal: abdominal pain, no change in bowel habits, no change in stool character, no coffee ground emesis, no constipation, no cramping, no diarrhea, no excessive flatus, no hematemesis, no hematochezia, no loose stools, no melena, no nausea, no vomiting - Genitourinary Genitourinary: no change in urinary stream, no dysuria, no flank pain, no hematuria - Musculoskeletal Musculoskeletal ROS IM: no numbness, no tingling - Integumentary Integumentary IM: no rash, no unusual bruising - Neurological Neurological ROS: no confusion, no convulsions, no focal weakness, no numbness, no tingling, no tremor(s) - Psychiatric Psychiatric: no anhedonia, no anxiety, no behavioral changes, no depression, no irritability - Endocrine Endocrine IM: no cold intolerance, no excessive sweating, no fatigue - Hematologic/Lymphatic Hematologic/Lymphatic: no easy bleeding, no easy bruising, no lymphadenopathy - Constitutional Vitals: Temp Pulse Resp BP Pulse Ox 99.1 F 64 16 168/93 99 12/21/18 12:25 12/21/18 15:33 12/21/18 15:33 12/21/18 15:33 12/21/18 15:33 Exam: GEN: Uncomfortable-appearing, NAD, conversant. HEAD: Normocephalic, atraumatic. EYES: PERRL, EOMI, anicteric. ENT: MMM. oropharynx without erythema or drainage. NECK: Supple. No LAD. No stiffness or restricted ROM. No tracheal deviation. HEART: Regular rate and regular rhythm, normal S1/S2, no m/r/g. LUNGS: CTAB, good air exchange bilaterally. No wheezing, rubs, or rhonchi. ABDO: Soft, tender epigastric area, nondistended with active bowel sounds. No rebound, guarding, rigidity. : No suprapubic tenderness or CVA tenderness. BACK: No obvious stepoffs or deformities. EXT: Without cyanosis, clubbing or edema. SKIN: Warm and dry without any rash. NEURO: Grossly nonfocal. Alert and oriented, moving all 4 extremities. CN not formally tested but appear grossly intact. PSYCH: Normal affect, no depressed or anxious mood. Internal Med - H&P Results - Labs CBC & Chem 7: 12/21/18 13:12 12/21/18 13:12 Labs: Short CBC 12/21/18 Range/Units 13:12 WBC 8.1 (4.3-11.1) K/mcL Hgb 11.5 (11.5-15.4) g/dL Hct 36.2 (35.3-44.9) % Plt Count 242 (140-400) K/mcL Neutrophils # 6.3 (1.6-8.9) K/mcL BMP 12/21/18 13:12 Sodium 141 Potassium 3.5 Chloride 105 Carbon Dioxide 30 H BUN 13 Creatinine 0.62 Glucose 126 H Calcium 9.7 Cardiac Enzymes 12/21/18 Range/Units 13:12 Troponin I < 0.03 (< 0.04) ng/mL Liver Function 12/21/18 Range/Units 13:12 Total Bilirubin 0.3 (0.3-1.0) mg/dL Direct Bilirubin 0.1 (0.0-0.2) mg/dL AST 9 L (13-39) Units/L ALT 5 L (7-52) Units/L Alkaline Phosphatase 89 (34-104) Units/L Albumin 3.1 L (3.5-5.7) g/dL Urine 12/21/18 Range/Units 13:25 Urine Color Yellow (Yellow) Urine Clarity Turbid A (Clear) Urine pH 7.5 (5.0-8.0) pH Units Ur Specific [place] 1.015 (1.010-1.025) Urine Protein 30 H (Neg-Trace) mg/dL Urine Glucose (UA) Normal (Normal) mg/dL - Impressions ITS Impressions Abdomen/Pelvis CT 12/21/18 12:57 IMPRESSION: 1. There is a persistent fluid collection in the posterior pararenal retroperitoneal space on the left. Since the prior study, there has been herniation of a loop of small bowel into the posterior pararenal space, resulting in what appears to be low grade small bowel obstruction 2. 3 mm distal right ureteral stone with moderate obstructive uropathy 3. Left nephrolithiasis D/ / Max Frost MD / Max Frost MD Interpreting Provider: Max Frost MD - Assessment and Plan (1) Small bowel obstruction Current Visit: Yes Status: Acute Assessment and plan: Patient presented with epigastric abdominal pain with recent history of left inguinal hernia repair on 11/01. Patient was found to have a low-grade small bowel obstruction on CT AP, potentially due to adhesions. Currently denies any nausea or vomiting, is passing flatus. - Follow up surgery consult - Follow up urology consult - Fentanyl 50 mcg IV [id number], toradol 15 mg IV [id number] - Holding warfarin if need for surgical intervention - Ceftriaxone 1g given in ED, will continue - Currently NPO - Maintenance fluids normal saline at 125ml/hr (2) UTI (urinary tract infection) Current Visit: Yes Status: Acute Assessment and plan: Patient was noted to have a UTI with positive nitrites, leukocyte esterase, bacteria on UA. Currently asymptomatic, however we will treat in the setting of nephrolithiasis. - Continue ceftriaxone 1g IV daily starting 12/21 - Urine cultures pending, hx of E. coli/Klebsiella UTI Qualifiers: Urinary tract infection type: site unspecified Hematuria presence: with hematuria Qualified Code(s): N39.0 - Urinary tract infection, site not specified; R31.9 - Hematuria, unspecified (3) Kidney stone Current Visit: Yes Status: Acute Assessment and plan: CT abdomen and pelvis on 12/21 showed left sided nephrolithiasis and small obstructing stone in right ureter. - Surgery consulted - Urology consulted - Toradol, fentanyl for pain control - Maintenance fluids of normal saline at rate of 125ml/hr (4) GERD (gastroesophageal reflux disease) Current Visit: No Status: Chronic Assessment and plan: Chronic issue. Will continue home omeprazole 20 mg PO BID Qualifiers: Esophagitis presence: esophagitis presence not specified Qualified Code(s): K21.9 - Gastro-esophageal reflux disease without esophagitis (5) Hypertension Current Visit: No Status: Chronic Assessment and plan: Chronic issue. Will continue home medications. Qualifiers: Hypertension type: essential hypertension Qualified Code(s): I10 - Essential (primary) hypertension (6) Atrial fibrillation Current Visit: No Status: Chronic Assessment and plan: Asymptomatic with normal HR. Not currently on any rate-controlling meds. Currently on warfarin for atrial fibrillation. - Continue home propafenone 150 mg PO q8H - Hold warfarin for possible surgery - Trend PT/INR daily Qualifiers: Atrial fibrillation type: paroxysmal Qualified Code(s): I48.0 - Paroxysmal atrial fibrillation (7) DVT prophylaxis Current Visit: Yes Status: Acute Assessment and plan: Currently on warfarin for atrial fibrillation. - Hold warfarin for possible surgery - Trend PT/INR daily - Time Spent With Patient Total time spent is greater than 50% in coordination of care (as documented) at patient's floor/unit and/or counseling patient: less than 15 minutes
[2018-12-21] MEDS: 0.9 % Sodium Chloride 1,000 ML IVC SCH (18:23)
--- NOTE | 2018-12-21 18:32 | Electrocardiograph Report ---
[facility] Test Date: 2018-12-21 Pat Name: Rebekah Hudson Department: [id number] Room: 3A24 Gender: F [employer] Supervisor: : [id number] Requested By: Kevin Rodrigez Order Number: [id number] Reading MD: Gagandeep Wooten Measurements Intervals [place] Rate: 68 P: 75 MT: 194 QRS: 41 QRSD: 106 T: 45 QT: 374 QTc: 398 Interpretive Statements Sinus rhythm Electronically Signed On 12-21-2018 18:30:12 EDT by Gagandeep Wooten
[2018-12-21] MEDS ORDERED: Simethicone 80 MG TAB.CHEW PO PRN (18:37)
--- NOTE | 2018-12-21 19:17 | AcuteCare Surgery Consult Note ---
Date of Encounter: 12/21/18 Time of Encounter: 19:15 Assessment and Plan (1) Abdominal pain Current Visit: Yes Status: Acute 73F admitted with abdominal pain with findings of nephrolithiasis and concern for sbo; patient clinically is not obstructed as she is having stool and flatus; sips of clears is okay if able to tolerate IVF call urology concerning nephrolithiasis pain control per primary serial exams; likely small bowel follow through on 12/22 to confirm presence of SBO no acute surgery at present Qualifiers: Abdominal location: generalized Qualified Code(s): R10.84 - Generalized abdominal pain History of Present Illness Consult date: 12/21/18 Reason for consult: abdominal pain History of present illness: 73F PMH significant for a-fib (on coumadin), GERD, HLD, HTN, pancreatitis s/p open cholecystectomy and s/p left inguinal hernia repair on 11/01 status post hematoma formation requiring laparoscopic evacuation and blood transfusion. She presents today with sudden onset of epigastric and left sided abdominal pain at about 1030a. The pain is sharp, constant, with no identifiable precipitating event nor alleviating factors. No associated nausea, vomiting, fevers, chills. Her last bowel movement was one day prior to admission, last episode of flatus was the day of admission. A CT scan was obtained in the ER, which was reviewed and interpreted by me, which demonstrated left sided nephrolithiasis as well as a concern for small bowel obstruction. Acute care surgery was consulted for management recommendations. Past Med Surg Social Fam HX - Past Medical History Medical history: atrial fibrillation, GERD, hyperlipidemia, hypertension, TIA, other Additional medical history: anemia, Pancreatitis Psychiatric history: no psych history - Past Surgical History Surgical History: cholecystectomy, herniorrhaphy, hip replacement, orthopedic, other, other Additional surgical history: egd, eus, ercp, back sx - Social History Smoking Status: Never smoker Smokeless Tobacco Status: No Alcohol use: none Drug use: none - Family History Father Hx Family Cardiac Disorders: Yes Mother Living Status: Hx Family Cardiac Disorders: No Hx Family Cancer: Yes Medications and Allergies Omeprazole [PriLOSEC] 20 mg PO BID 07/20/17 [History] Cyanocobalamin (Vitamin B-12) [Vitamin B12] 1,000 mcg PO QMWF 08/26/17 [History] Acetaminophen [Tylenol] 1,000 mg PO Q6H PRN 12/14/17 [History] Propafenone [Rhythmol] 150 mg PO Q8H #90 tablet 06/15/18 [Rx] Atorvastatin [Lipitor] 40 mg PO HS #30 tablet 08/22/18 [Rx] Ergocalciferol (VITAMIN D2) [Vitamin D2] 2,000 unit PO HS 11/01/18 [History] Aspirin [Lo-Dose Aspirin EC] 81 mg PO HS 11/03/18 [History] Ferrous Sulfate 325 mg PO BIDWM tablet 11/08/18 [Rx] Calcium Carbonate [Tums] 1,000 mg PO Q4HR PRN tab.chew 11/21/18 [Rx] Simethicone [Gas-X] 80 mg PO TID PRN 12/21/18 [History] Warfarin [Coumadin] 5 mg PO DAILY 12/21/18 [History] Allergy/AdvReac Type Severity Reaction Status Date / Time codeine Allergy Difficulty Verified 11/01/18 06:59 Breathing hydrocodone [From Vicodin] Allergy Difficulty Verified 11/01/18 06:59 Breathing hydromorphone [From Dilaudid] Allergy Difficulty Verified 11/01/18 06:59 Breathing morphine Allergy Difficulty Verified 11/01/18 06:59 Breathing oxycodone [From Percocet] Allergy Rash Verified 11/01/18 06:59 tramadol Allergy Difficulty Verified 11/01/18 06:59 Breathing influenza virus vaccine, AdvReac FLU LIKE Verified 11/01/18 06:59 specific SYMPTOMS [Influenza Virus Vacc,Specific] Ibinnjd-Ncr-Ieo Reductase AdvReac Loss of Verified 11/20/18 18:27 Inhibitor Appetite Review of Systems All systems PM: 12 point ROS negative besides HPI findings General Surgery Exam Initial Vital Signs Temp Pulse Resp BP Pulse Ox 99.1 F 69 16 147/83 95 12/21/18 12:25 12/21/18 12:25 12/21/18 12:25 12/21/18 12:25 12/21/18 12:25 - General physical appearance no distress - Eyes PERRL, normal ocular movement - Respiratory normal expansion, normal respiratory effort - Cardiovascular Cardiovascular exam: Present: RRR - Abdomen Abdomen general surgery: Present: soft, tender (non peritoneal) Abdominal Tenderness: Present: epigastic, RLQ, LLQ, suprapubic, diffusely - Integumentary Integumentary general surgery: Present: warm and dry, no abnormal pigmentation - Neurologic Present: CN 2-12 grossly intact - Musculoskeletal Present: normal posture - Psychiatric Psychiatric general surgery: Present: A&Ox3 Exam Initial Vital Signs Temp Pulse Resp BP Pulse Ox 99.1 F 69 16 147/83 95 12/21/18 12:25 12/21/18 12:25 12/21/18 12:25 12/21/18 12:25 12/21/18 12:25 Results - Labs 12/21/18 13:12 12/21/18 13:12 Abnormal lab results RBC 3.77 M/mcL (3.82-4.97) L 12/21/18 13:12 RDW 16.4 % (11.5-14.5) H 12/21/18 13:12 PT 36.5 Seconds (9.4-12.1) H 12/21/18 13:12 Carbon Dioxide 30 mEq/L (23-29) H 12/21/18 13:12 Glucose 126 mg/dL (70-105) H 12/21/18 13:12 AST 9 Units/L (13-39) L 12/21/18 13:12 ALT 5 Units/L (7-52) L 12/21/18 13:12 Serum Total Protein 6.0 g/dL (6.4-8.9) L 12/21/18 13:12 Albumin 3.1 g/dL (3.5-5.7) L 12/21/18 13:12 Urine Clarity Turbid (Clear) A 12/21/18 13:25 Urine Protein 30 mg/dL (Neg-Trace) H 12/21/18 13:25 Urine Blood Small (Negative) H 12/21/18 13:25 Urine Nitrite Positive (Negative) A 12/21/18 13:25 Ur Leukocyte Esterase Large (Negative) H 12/21/18 13:25 Urine Microscopic RBC 30-50 per hpf (0-3) H 12/21/18 13:25 Urine Microscopic WBC TNTC per hpf (0-3) H 12/21/18 13:25 Ur Squamous Epith Cells Many per lpf (None-Few) H 12/21/18 13:25 Urine Bacteria Many per hpf (None-Few) H 12/21/18 13:25 Ur Culture Indicated? YES (NO) A 12/21/18 13:25 Diabetes panel 12/21/18 Range/Units 13:12 Sodium 141 (136-145) mEq/L Potassium 3.5 (3.5-5.1) mEq/L Chloride 105 (98-107) mEq/L Carbon Dioxide 30 H (23-29) mEq/L BUN 13 (8-23) mg/dL Creatinine 0.62 (0.60-1.20) mg/dL Glucose 126 H (70-105) mg/dL Calcium 9.7 (8.6-10.3) mg/dL AST 9 L (13-39) Units/L ALT 5 L (7-52) Units/L Alkaline Phosphatase 89 (34-104) Units/L Albumin 3.1 L (3.5-5.7) g/dL Calcium panel 12/21/18 Range/Units 13:12 Calcium 9.7 (8.6-10.3) mg/dL Albumin 3.1 L (3.5-5.7) g/dL Pituitary panel 12/21/18 Range/Units 13:12 Sodium 141 (136-145) mEq/L Potassium 3.5 (3.5-5.1) mEq/L Chloride 105 (98-107) mEq/L Carbon Dioxide 30 H (23-29) mEq/L BUN 13 (8-23) mg/dL Creatinine 0.62 (0.60-1.20) mg/dL Glucose 126 H (70-105) mg/dL Calcium 9.7 (8.6-10.3) mg/dL Adrenal panel 12/21/18 Range/Units 13:12 Sodium 141 (136-145) mEq/L Potassium 3.5 (3.5-5.1) mEq/L Chloride 105 (98-107) mEq/L Carbon Dioxide 30 H (23-29) mEq/L BUN 13 (8-23) mg/dL Creatinine 0.62 (0.60-1.20) mg/dL Glucose 126 H (70-105) mg/dL Calcium 9.7 (8.6-10.3) mg/dL Total Bilirubin 0.3 (0.3-1.0) mg/dL AST 9 L (13-39) Units/L ALT 5 L (7-52) Units/L Alkaline Phosphatase 89 (34-104) Units/L Albumin 3.1 L (3.5-5.7) g/dL All other labs normal. - Imaging CT scan - abdomen: report reviewed, image reviewed CT scan - pelvis: report reviewed, image reviewed Consult Discharge Plan - Plan Referrals: Elen Britton DO [Primary Care Provider] -
[2018-12-21] MEDS ORDERED: Aspirin Enteric Coated 81 MG Tablet PO SCH (21:00)
[2018-12-21] MEDS ORDERED: Ketorolac 15 MG/ML VIAL IM ONE (21:11)
[2018-12-21] MEDS ORDERED: Ketorolac 30 MG/ML VIAL IM PRN (21:11)
[2018-12-21] MEDS: Cholecalciferol (D-3) 1,000 UNIT (25MCG) TABLET PO SCH (21:30)
[2018-12-21] MEDS ORDERED: Ketorolac 15 MG/ML VIAL IVP ONE (21:42)
[2018-12-21] MEDS: Ondansetron 4 MG/2 ML VIAL IVP PRN (23:40)
[2018-12-22] MEDS: Ketorolac 30 MG/ML VIAL IVP PRN ×2 (02:17→11:35)
[2018-12-22] MEDS ORDERED: *HR* Promethazine 25 MG/ML VIAL IVP PRN (03:09)
[2018-12-22 04:10] LABS: Basophils % 0.2 %; Eosinophils % 0.4 %; Hematocrit 37.4 % (35.3-44.9); Hemoglobin 12.1 g/dL (11.5-15.4); Immature Granulocytes % 0.4 % (0-4); Lymphocytes # 1.5 K/mcL (0.6-4.6); Lymphocytes % 12.7 %; Mean Corpuscular HGB Conc 32.4 g/dL (31.6-35.5); Mean Corpuscular Hemoglobin 30.6 pg (28.0-33.3); Mean Corpuscular Volume 94.7 fL (83.0-100.0); Mean Platelet Volume 9.7 fL (9.4-12.4); Monocytes # 0.8 K/mcL (0.0-1.3); Monocytes % 6.6 %; Neutrophils # 9.1 K/mcL (1.6-8.9); Platelet Count 269 K/mcL (140-400); Red Blood Count 3.95 M/mcL (3.82-4.97); Red Cell Distribution Width 16.2 % (11.5-14.5); Segmented Neutrophils % 79.7 %; White Blood Count 11.4 K/mcL (4.3-11.1)
[2018-12-22] MEDS: 0.9 % Sodium Chloride 1,000 ML IVC SCH (04:11)
[2018-12-22] MEDS: Chloraseptic Spray 177 ML BOTTLE MM PRN ×3 (04:11→15:07)
[2018-12-22 04:17] LABS: INR 2.2; Prothrombin Time 24.7 Seconds (9.4-12.1)
[2018-12-22] MEDS: *HR* FentaNYL (PF) 100 MCG/2 ML VIAL IVP PRN ×2 (04:22→07:56)
[2018-12-22 04:27] LABS: BUN/Creatinine Ratio 19 (6-26); Blood Urea Nitrogen 13 mg/dL (8-23); Carbon Dioxide 24 mEq/L (23-29); Chloride 108 mEq/L (98-107); Glucose 123 mg/dL (70-105); Potassium 3.8 mEq/L (3.5-5.1); Sodium 140 mEq/L (136-145); eGFR For African Americans > 60 (> 60); eGFR For Non-African Americans > 60 (> 60)
[2018-12-22 04:28] LABS: Alanine Aminotransferase 5 Units/L (7-52); Albumin 3.2 g/dL (3.5-5.7); Alkaline Phosphatase 100 Units/L (34-104); Aspartate Amino Transferase 10 Units/L (13-39); Bilirubin,Total 0.5 mg/dL (0.3-1.0); Calcium 9.6 mg/dL (8.6-10.3); Globulin 3.3 g/dL (2.4-3.5); Osmolality,Calculated 291 (280-300); Total Protein 6.5 g/dL (6.4-8.9)
[2018-12-22] MEDS ORDERED: cefTRIAXone 1,000 MG in Water for inj. (sterile) 10 ML IVP SCH (09:00)
[2018-12-22] MEDS: Ondansetron 4 MG/2 ML VIAL IVP PRN (10:29)
[2018-12-22] MEDS ORDERED: *HR* Promethazine 25 MG/ML VIAL IVP STA (11:12)
[2018-12-22] MEDS ORDERED: Ondansetron 4 MG/2 ML VIAL IVP STA (11:15)
--- NOTE | 2018-12-22 11:57 | Internal Med Progress Note ---
Hospitalist Progress Note - Encounter Date of Encounter: 12/22/18 Time of Encounter: 13:10 - Subjective Interval History: Patient seen and examined today while lying in bed. Overnight there were no acute events. Patient states she is currently having intermittent abdominal pain 5/10 when it is the least and states it is 10 out of 10 pain at the worst. He states it is a cramping pain located in left lower quadrant. In left upper quadrant. Patient denies hematuria, dysuria, any bowel movements since last night. Patient admits to nausea and vomiting, and states she has seen some dark blood in it. Patient states current pain medication does help with her intermittent abdominal pain. - Exam Vitals: Temp Pulse Resp BP Pulse Ox 98.3 F 93 16 169/91 93 12/22/18 10:42 12/22/18 10:42 12/22/18 10:42 12/22/18 10:42 12/22/18 10:42 Exam: GEN: mildly sleepy, NAD, conversant. HEAD: Normocephalic, atraumatic. NECK: Supple. mild anterior cervical tenderness, no thyromegaly, No tracheal deviation. HEART: Regular rate and regular rhythm, normal S1/S2, no m/r/g. LUNGS: CTAB, good air exchange bilaterally. No wheezing, rubs, or rhonchi. ABDO: Soft, tender epigastric area, nondistended with active bowel sounds. No rebound, guarding, rigidity. : No suprapubic tenderness or CVA tenderness. EXT: Without cyanosis, clubbing or edema. SKIN: Warm and dry without any rash. NEURO: Grossly nonfocal. Alert and oriented, moving all 4 extremities. CN not formally tested but appear grossly intact. PSYCH: Normal affect, no depressed or anxious mood. - Assessment and Plan (1) Small bowel obstruction Current Visit: Yes Status: Acute Assessment and Plan: Patient presented to the ED with abdominal pain and recent history of left inguinal hernia repair on October 2017. On CT was found to have low-grade small bowel obstruction. Currently endorses nausea and intermittent emesis, but she remains afebrile. Follow-up surgery recommendations: - Keep nothing by mouth - Continue IV fluids - Continue NG with low intermittent wall suction. - per surgery notes will undergo surgery for SBO. - We will change PPI to IV. (2) Kidney stone Current Visit: Yes Status: Acute Assessment and Plan: Patient presented to the ED with abdominal pain and back pain. On CT she was found to have a 3 mm ureteral stone with hydronephrosis. Urology was consulted: - Dr. Brar will reevaluate patient later today to further discus lithotripsy. - Toradol 30 mg IM every 6 when necessary for pain Fentanyl 50 MCG IV every 3 when necessary for pain - Acetaminophen 1 g by mouth every 6 when necessary for pain (3) UTI (urinary tract infection) Current Visit: Yes Status: Acute Assessment and Plan: Patient was noted to have a UTI with positive nitrites, leukocyte esterase, bacteria on UA. Currently asymptomatic, however we will treat in the setting of nephrolithiasis. - Continue ceftriaxone 1g IV daily starting 12/21 - Urine cultures pending, hx of E. coli/Klebsiella UTI (4) GERD (gastroesophageal reflux disease) Current Visit: Yes Status: Chronic Assessment and Plan: We will continue omeprazole 20 mg IV twice a day (5) Hypertension Current Visit: No Status: Chronic Assessment and Plan: We will continue home antihypertensive medications (6) Atrial fibrillation Current Visit: Yes Status: Acute Assessment and Plan: Asymptomatic with normal HR. Not currently on any rate-controlling meds. Currently on warfarin for atrial fibrillation. - Hold warfarin will have surgery today. - Trend PT/INR daily DVT Prophylaxis: SCD on calves. b/l - Time Spent with Patient Total time spent is greater than 50% in coordination of care (as documented) at patient's floor/unit and/or counseling patient: Internal Medicine: Result - Labs CBC & Chem 7: 12/22/18 03:45 12/22/18 03:45 Labs: Short CBC 12/21/18 12/22/18 Range/Units 13:12 03:45 WBC 8.1 11.4 H (4.3-11.1) K/mcL Hgb 11.5 12.1 (11.5-15.4) g/dL Hct 36.2 37.4 (35.3-44.9) % Plt Count 242 269 (140-400) K/mcL Neutrophils # 6.3 9.1 H (1.6-8.9) K/mcL BMP 12/21/18 12/22/18 13:12 03:45 Sodium 141 140 Potassium 3.5 3.8 Chloride 105 108 H Carbon Dioxide 30 H 24 BUN 13 13 Creatinine 0.62 0.67 Glucose 126 H 123 H Calcium 9.7 9.6 Cardiac Enzymes 12/21/18 Range/Units 13:12 Troponin I < 0.03 (< 0.04) ng/mL Liver Function 12/21/18 12/22/18 Range/Units 13:12 03:45 Total Bilirubin 0.3 0.5 (0.3-1.0) mg/dL Direct Bilirubin 0.1 (0.0-0.2) mg/dL AST 9 L 10 L (13-39) Units/L ALT 5 L 5 L (7-52) Units/L Alkaline Phosphatase 89 100 (34-104) Units/L Albumin 3.1 L 3.2 L (3.5-5.7) g/dL Urine 12/21/18 Range/Units 13:25 Urine Color Yellow (Yellow) Urine Clarity Turbid A (Clear) Urine pH 7.5 (5.0-8.0) pH Units Ur Specific [place] 1.015 (1.010-1.025) Urine Protein 30 H (Neg-Trace) mg/dL Urine Glucose (UA) Normal (Normal) mg/dL - ABG Interpretation ABG results: PT/INR, D-dimer PT 24.7 Seconds (9.4-12.1) H 12/22/18 03:45 - Impressions Impressions Abdomen/Pelvis CT 12/21/18 12:57 IMPRESSION: 1. There is a persistent fluid collection in the posterior pararenal retroperitoneal space on the left. Since the prior study, there has been herniation of a loop of small bowel into the posterior pararenal space, resulting in what appears to be low grade small bowel obstruction 2. 3 mm distal right ureteral stone with moderate obstructive uropathy 3. Left nephrolithiasis D/ / Max Frost MD / Max Frost MD Interpreting Provider: Max Frost MD X-Ray 12/22/18 03:39 IMPRESSION: Slight proximal positioning of the NG tube. Consider advancing 5-8 cm. D/ / Aftab Christy / Aftab Christy Interpreting Provider: Aftab Christy X-Ray 12/22/18 07:30 IMPRESSION: The nasogastric tube has been advanced and is now within the distal stomach. D/ / Stephane Brown MD / Stephane Brown MD Interpreting Provider: Stephane Brown MD Consult Discharge Plan - Plan Referrals: Elen Britton, DO [Primary Care Provider] - __ (3) UTI (urinary tract infection) Qualifiers: Urinary tract infection type: site unspecified Hematuria presence: with hematuria Qualified Code(s): N39.0 - Urinary tract infection, site not specified; R31.9 - Hematuria, unspecified (4) GERD (gastroesophageal reflux disease) Qualifiers: Esophagitis presence: esophagitis presence not specified Qualified Code(s): K21.9 - Gastro-esophageal reflux disease without esophagitis (5) Hypertension Qualifiers: Hypertension type: essential hypertension Qualified Code(s): I10 - Essential (primary) hypertension
--- NOTE | 2018-12-22 13:53 | Urology - Consult Note ---
<Akiko Miller N - Last Filed: 12/22/18 13:54> Date of Encounter: 12/22/18 Time of Encounter: 13:50 - Assessment and Plan (1) Ureteral stone with hydronephrosis Current Visit: Yes Status: Acute Assessment and plan: Patient is a 79-year-old female who presents with a 3 mm right ureteral stone with hydronephrosis. We discussed surgical risks and benefits, and patient verbalized understanding. Patient signed consent, and she is prepared to undergo a right ureteroscopic stone extraction with holmium laser lithotripsy, basket retrieval and right ureteral stent placement. If patient should need a general surgery procedure, it would be preferable to coordinate stone extraction with general surgery. Dr. Brar will be in to reevaluate patient later this evening. (2) UTI (urinary tract infection) Current Visit: Yes Status: Acute Assessment and plan: Patient is a 73-year-old female who presents with a urinary tract infection. Pulmonary culture is positive for gram-negative rods, and urine culture from November 2018 is positive for Escherichia coli. Vital signs are stable and afebrile. Patient is receiving IV Rocephin. Qualifiers: Urinary tract infection type: site unspecified Hematuria presence: with hematuria Qualified Code(s): N39.0 - Urinary tract infection, site not specified; R31.9 - Hematuria, unspecified Urology CN:HPI Consult date: 12/22/18 Reason for consult Urology: Hydronephrosis (right UVJ stone) Requesting physician: Kevin Rodrigez History of present illness: Patient is a 73-year-old female who presents with a 3 mm right distal ureteral stone and hydronephrosis. Patient presented to the emergency department with a three-day history of left upper quadrant abdominal pain and mid back pain. Patient underwent a CT of the abdomen and pelvis revealing a 3-4 mm right UVJ stone with moderate hydronephrosis and possible small bowel obstruction. Patient has previously undergone ureteroscopy for ureteral stones, and she is established with Dr. Rodrigez. Patient denies any known family history of renal stones. Currently, patient is lying in bed in no apparent distress. NG tube is in place and is draining a large amount of gastric contents. Patient reports continued nausea and vomiting, but she denies any fever, chills, flank pain, dysuria or gross hematuria. Past Med Surg Social Fam HX - Past Medical History Medical history: atrial fibrillation, GERD, hyperlipidemia, hypertension, TIA, other Additional medical history: anemia, Pancreatitis Psychiatric history: no psych history - Past Surgical History Surgical History: cholecystectomy, herniorrhaphy, hip replacement, orthopedic, other, other Additional surgical history: egd, eus, ercp, back sx - Social History Smoking Status: Never smoker Smokeless Tobacco Status: No Alcohol use: none Drug use: none - Family History Father Hx Family Cardiac Disorders: Yes Mother Living Status: Hx Family Cardiac Disorders: No Hx Family Cancer: Yes Medications and Allergies Omeprazole [PriLOSEC] 20 mg PO BID 07/20/17 [History] Cyanocobalamin (Vitamin B-12) [Vitamin B12] 1,000 mcg PO QMWF 08/26/17 [History] Acetaminophen [Tylenol] 1,000 mg PO Q6H PRN 12/14/17 [History] Propafenone [Rhythmol] 150 mg PO Q8H #90 tablet 06/15/18 [Rx] Atorvastatin [Lipitor] 40 mg PO HS #30 tablet 08/22/18 [Rx] Ergocalciferol (VITAMIN D2) [Vitamin D2] 2,000 unit PO HS 11/01/18 [History] Aspirin [Lo-Dose Aspirin EC] 81 mg PO HS 11/03/18 [History] Ferrous Sulfate 325 mg PO BIDWM tablet 11/08/18 [Rx] Calcium Carbonate [Tums] 1,000 mg PO Q4HR PRN tab.chew 11/21/18 [Rx] Simethicone [Gas-X] 80 mg PO TID PRN 12/21/18 [History] Warfarin [Coumadin] 5 mg PO SUMOWETHSA 12/21/18 [History] Warfarin [Coumadin] 2.5 mg PO TUFR 12/22/18 [History] 3 Allergy/AdvReac Type Severity Reaction Status Date / Time codeine Allergy Difficulty Verified 11/01/18 06:59 Breathing hydrocodone [From Vicodin] Allergy Difficulty Verified 11/01/18 06:59 Breathing hydromorphone [From Dilaudid] Allergy Difficulty Verified 11/01/18 06:59 Breathing morphine Allergy Difficulty Verified 11/01/18 06:59 Breathing oxycodone [From Percocet] Allergy Rash Verified 11/01/18 06:59 tramadol Allergy Difficulty Verified 11/01/18 06:59 Breathing influenza virus vaccine, AdvReac FLU LIKE Verified 11/01/18 06:59 specific SYMPTOMS [Influenza Virus Vacc,Specific] Mktyevy-Ccu-Usv Reductase AdvReac Loss of Verified 11/20/18 18:27 Inhibitor Appetite Review of Systems - Constitutional fatigue, no chills, no fever(s) - EENT Nose, mouth and throat: no dizziness, no headache(s) - Cardiovascular no chest pain, no diaphoresis, no dyspnea - Respiratory no cough, no dyspnea - Gastrointestinal abdominal pain, nausea, vomiting - Genitourinary Genitourinary: no dysuria, no flank pain, no hematuria, no urinary frequency, no urinary hesitancy, no urinary incontinence, no urinary urgency - Musculoskeletal back pain, no muscle weakness - Integumentary no erythema, no rash - Neurological no confusion, no syncope - Psychiatric no anxiety, no confusion - Hematologic/Lymphatic no easy bleeding, no easy bruising - Allergic/Immunologic no throat swelling, no wheezing Exam Initial Vital Signs Temp Pulse Resp BP Pulse Ox 99.1 F 69 16 147/83 95 12/21/18 12:25 12/21/18 12:25 12/21/18 12:25 12/21/18 12:25 12/21/18 12:25 - General physical appearance Present: no distress, moderate pain - Eyes Present: PERRL, normal ocular movement - ENT Present: normal nares, no hearing loss, no congestion - Neck Present: no masses, trachea midline, no lymphadenopathy - Respiratory Present: normal respiratory effort - Cardiovascular Cardiovascular exam IM: RRR - Abdomen Abdomen: Present: soft, tender (LUQ; epigastric ). Absent: distended - Genitourinary Present: other (no cvat) - Integumentary Present: no rash, no abnormal pigmentation - Neurologic Present: normal coordination - Musculoskeletal Present: other (normal posture ) Urology Results - Labs 12/22/18 03:45 12/22/18 03:45 Abnormal lab results WBC 11.4 K/mcL (4.3-11.1) H 12/22/18 03:45 RBC 3.77 M/mcL (3.82-4.97) L 12/21/18 13:12 RDW 16.2 % (11.5-14.5) H 12/22/18 03:45 Neutrophils # 9.1 K/mcL (1.6-8.9) H 12/22/18 03:45 PT 24.7 Seconds (9.4-12.1) H 12/22/18 03:45 Chloride 108 mEq/L (98-107) H 12/22/18 03:45 Carbon Dioxide 30 mEq/L (23-29) H 12/21/18 13:12 Glucose 123 mg/dL (70-105) H 12/22/18 03:45 POC Glucose 109 mg/dL (70-99) H 12/22/18 12:10 AST 10 Units/L (13-39) L 12/22/18 03:45 ALT 5 Units/L (7-52) L 12/22/18 03:45 Serum Total Protein 6.0 g/dL (6.4-8.9) L 12/21/18 13:12 Albumin 3.2 g/dL (3.5-5.7) L 12/22/18 03:45 Albumin/Globulin Ratio 1.0 (1.1-2.2) L 12/22/18 03:45 Urine Clarity Turbid (Clear) A 12/21/18 13:25 Urine Protein 30 mg/dL (Neg-Trace) H 12/21/18 13:25 Urine Blood Small (Negative) H 12/21/18 13:25 Urine Nitrite Positive (Negative) A 12/21/18 13:25 Ur Leukocyte Esterase Large (Negative) H 12/21/18 13:25 Urine Microscopic RBC 30-50 per hpf (0-3) H 12/21/18 13:25 Urine Microscopic WBC TNTC per hpf (0-3) H 12/21/18 13:25 Ur Squamous Epith Cells Many per lpf (None-Few) H 12/21/18 13:25 Urine Bacteria Many per hpf (None-Few) H 12/21/18 13:25 Ur Culture Indicated? YES (NO) A 12/21/18 13:25 Diabetes panel 12/22/18 Range/Units 03:45 Sodium 140 (136-145) mEq/L Potassium 3.8 (3.5-5.1) mEq/L Chloride 108 H (98-107) mEq/L Carbon Dioxide 24 (23-29) mEq/L BUN 13 (8-23) mg/dL Creatinine 0.67 (0.60-1.20) mg/dL Glucose 123 H (70-105) mg/dL Calcium 9.6 (8.6-10.3) mg/dL AST 10 L (13-39) Units/L ALT 5 L (7-52) Units/L Alkaline Phosphatase 100 (34-104) Units/L Albumin 3.2 L (3.5-5.7) g/dL Calcium panel 12/22/18 Range/Units 03:45 Calcium 9.6 (8.6-10.3) mg/dL Albumin 3.2 L (3.5-5.7) g/dL Pituitary panel 12/22/18 Range/Units 03:45 Sodium 140 (136-145) mEq/L Potassium 3.8 (3.5-5.1) mEq/L Chloride 108 H (98-107) mEq/L Carbon Dioxide 24 (23-29) mEq/L BUN 13 (8-23) mg/dL Creatinine 0.67 (0.60-1.20) mg/dL Glucose 123 H (70-105) mg/dL Calcium 9.6 (8.6-10.3) mg/dL Adrenal panel 12/22/18 Range/Units 03:45 Sodium 140 (136-145) mEq/L Potassium 3.8 (3.5-5.1) mEq/L Chloride 108 H (98-107) mEq/L Carbon Dioxide 24 (23-29) mEq/L BUN 13 (8-23) mg/dL Creatinine 0.67 (0.60-1.20) mg/dL Glucose 123 H (70-105) mg/dL Calcium 9.6 (8.6-10.3) mg/dL Total Bilirubin 0.5 (0.3-1.0) mg/dL AST 10 L (13-39) Units/L ALT 5 L (7-52) Units/L Alkaline Phosphatase 100 (34-104) Units/L Albumin 3.2 L (3.5-5.7) g/dL All other labs normal. - Imaging CT scan - abdomen: report reviewed, image reviewed CT scan - pelvis: report reviewed, image reviewed Consult Discharge Plan - Plan Referrals: Elen Britton DO [Primary Care Provider] - <Timbo Brar - Last Filed: 12/22/18 15:40> Date of Encounter: 12/22/18 Urology CN:DEDE History of present illness: Patient was seen and examined and apparently. I agree with the plan as written by Akiko Miller. At this time the patient has a right distal ureteral stone and nitrite positive urinalysis. Patient was initially scheduled for stone extraction tomorrow but because of change in small bowel follow-through patient will be taken to the operating room urgently for exploration. Due to this I will place a right ureteral stent. Exam Initial Vital Signs Temp Pulse Resp BP Pulse Ox 99.1 F 69 16 147/83 95 12/21/18 12:25 12/21/18 12:25 12/21/18 12:25 12/21/18 12:25 12/21/18 12:25 Urology Results - Labs 12/22/18 03:45 12/22/18 03:45 Abnormal lab results WBC 11.4 K/mcL (4.3-11.1) H 12/22/18 03:45 RBC 3.77 M/mcL (3.82-4.97) L 12/21/18 13:12 RDW 16.2 % (11.5-14.5) H 12/22/18 03:45 Neutrophils # 9.1 K/mcL (1.6-8.9) H 12/22/18 03:45 PT 24.1 Seconds (9.4-12.1) H 12/22/18 14:42 Chloride 108 mEq/L (98-107) H 12/22/18 03:45 Carbon Dioxide 30 mEq/L (23-29) H 12/21/18 13:12 Glucose 123 mg/dL (70-105) H 12/22/18 03:45 POC Glucose 109 mg/dL (70-99) H 12/22/18 12:10 AST 10 Units/L (13-39) L 12/22/18 03:45 ALT 5 Units/L (7-52) L 12/22/18 03:45 Serum Total Protein 6.0 g/dL (6.4-8.9) L 12/21/18 13:12 Albumin 3.2 g/dL (3.5-5.7) L 12/22/18 03:45 Albumin/Globulin Ratio 1.0 (1.1-2.2) L 12/22/18 03:45 Urine Clarity Turbid (Clear) A 12/21/18 13:25 Urine Protein 30 mg/dL (Neg-Trace) H 12/21/18 13:25 Urine Blood Small (Negative) H 12/21/18 13:25 Urine Nitrite Positive (Negative) A 12/21/18 13:25 Ur Leukocyte Esterase Large (Negative) H 12/21/18 13:25 Urine Microscopic RBC 30-50 per hpf (0-3) H 12/21/18 13:25 Urine Microscopic WBC TNTC per hpf (0-3) H 12/21/18 13:25 Ur Squamous Epith Cells Many per lpf (None-Few) H 12/21/18 13:25 Urine Bacteria Many per hpf (None-Few) H 12/21/18 13:25 Ur Culture Indicated? YES (NO) A 12/21/18 13:25 Diabetes panel 12/22/18 Range/Units 03:45 Sodium 140 (136-145) mEq/L Potassium 3.8 (3.5-5.1) mEq/L Chloride 108 H (98-107) mEq/L Carbon Dioxide 24 (23-29) mEq/L BUN 13 (8-23) mg/dL Creatinine 0.67 (0.60-1.20) mg/dL Glucose 123 H (70-105) mg/dL Calcium 9.6 (8.6-10.3) mg/dL AST 10 L (13-39) Units/L ALT 5 L (7-52) Units/L Alkaline Phosphatase 100 (34-104) Units/L Albumin 3.2 L (3.5-5.7) g/dL Calcium panel 12/22/18 Range/Units 03:45 Calcium 9.6 (8.6-10.3) mg/dL Albumin 3.2 L (3.5-5.7) g/dL Pituitary panel 12/22/18 Range/Units 03:45 Sodium 140 (136-145) mEq/L Potassium 3.8 (3.5-5.1) mEq/L Chloride 108 H (98-107) mEq/L Carbon Dioxide 24 (23-29) mEq/L BUN 13 (8-23) mg/dL Creatinine 0.67 (0.60-1.20) mg/dL Glucose 123 H (70-105) mg/dL Calcium 9.6 (8.6-10.3) mg/dL Adrenal panel 12/22/18 Range/Units 03:45 Sodium 140 (136-145) mEq/L Potassium 3.8 (3.5-5.1) mEq/L Chloride 108 H (98-107) mEq/L Carbon Dioxide 24 (23-29) mEq/L BUN 13 (8-23) mg/dL Creatinine 0.67 (0.60-1.20) mg/dL Glucose 123 H (70-105) mg/dL Calcium 9.6 (8.6-10.3) mg/dL Total Bilirubin 0.5 (0.3-1.0) mg/dL AST 10 L (13-39) Units/L ALT 5 L (7-52) Units/L Alkaline Phosphatase 100 (34-104) Units/L Albumin 3.2 L (3.5-5.7) g/dL All other labs normal.
[2018-12-22] MEDS ORDERED: Pantoprazole 40 MG VIAL IVP SCH (14:55)
[2018-12-22 15:05] LABS: INR 2.1; Prothrombin Time 24.1 Seconds (9.4-12.1)
--- NOTE | 2018-12-22 15:12 | AcuteCareSurgery Progress Note ---
<Leticia Davalos - Last Filed: 12/22/18 15:09> Date of Encounter: 12/22/18 Time of Encounter: 15:09 (Evaluated multiple times throughout day) - Assessment and Plan (1) Small bowel obstruction Current Visit: Yes Status: Acute SBFT is noted with obstruction. Pt is recommended to undergo surgical intervention. Patients, risks, and benefits are expressly reviewed at the bedside by Dr. Humphrey, and the patient is agreeable to proceed. A signed consent is placed on the hard chart. If her INR remains elevated we will give her FFP. Urology has also been notified in an effort to coordinate surgical procedures. NPO IV fluids continue to closely monitor continue NG to low intermittent wall suction Subjective Patient reports: still having pain, no flatus, no bowel movement, nausea, vomiting, afebrile Objective Vital Signs - Last 8 Hours Temp Pulse Resp BP Pulse Ox 12/22/18 10:42 98.3 F 93 16 169/91 93 Intake and Output 12/21/18 12/22/18 12/22/18 23:59 07:59 15:59 Intake Total 0 / 10 1000 / 1010 10 / 1010 Output Total 100 / 2200 2100 / 2200 Balance 0 / 10 900 / -1190 -2090 / -1190 Intake: IV Fluids 1000 / 1010 10 / 1010 0.9 % Sodium Chloride 1,000 ML 1000 / 1000 @ 125 mls/hr IVC .Q8H [facility] Rx#: [id number] Rocephin 1,000 MG In Water for 10 / 10 inj. (sterile) 10 ML @ 600 mls/ hr IVP DAILY [facility] Rx#:[id number] Oral 0 / 0 0 / 0 0 / 0 Output: Urine 100 / 200 100 / 200 Emesis 400 / 400 Gastric Tube Lavage Amount 0 / 0 Right Nare 0 / 0 Gastric Drainage 1600 / 1600 Other: Meal NPO Percent of Meal Consumed 0% # Voids 1 Blood Glucose* 108 104 109 - General physical appearance moderate distress (vomiting after SBFT, pain to abdomen, tearful) - ENT atraumatic, normocephalic - Neck Neck exam: trachea midline - Respiratory other (dcreased respiratory effort) - Cardiovascular Cardiovascular exam: Present: RRR - Abdomen Abdomen: Present: bowel sounds present, soft, tender (tinkling) Abdominal Tenderness: epigastic, RUQ, LUQ - Integumentary no rash - Musculoskeletal normal posture - Psychiatric oriented to time, oriented to person, oriented to place, speech is normal, memory intact - Labs 12/22/18 03:45 12/22/18 03:45 Diabetes panel 12/22/18 Range/Units 03:45 Sodium 140 (136-145) mEq/L Potassium 3.8 (3.5-5.1) mEq/L Chloride 108 H (98-107) mEq/L Carbon Dioxide 24 (23-29) mEq/L BUN 13 (8-23) mg/dL Creatinine 0.67 (0.60-1.20) mg/dL Glucose 123 H (70-105) mg/dL Calcium 9.6 (8.6-10.3) mg/dL AST 10 L (13-39) Units/L ALT 5 L (7-52) Units/L Alkaline Phosphatase 100 (34-104) Units/L Albumin 3.2 L (3.5-5.7) g/dL Calcium panel 12/22/18 Range/Units 03:45 Calcium 9.6 (8.6-10.3) mg/dL Albumin 3.2 L (3.5-5.7) g/dL Pituitary panel 12/22/18 Range/Units 03:45 Sodium 140 (136-145) mEq/L Potassium 3.8 (3.5-5.1) mEq/L Chloride 108 H (98-107) mEq/L Carbon Dioxide 24 (23-29) mEq/L BUN 13 (8-23) mg/dL Creatinine 0.67 (0.60-1.20) mg/dL Glucose 123 H (70-105) mg/dL Calcium 9.6 (8.6-10.3) mg/dL Adrenal panel 12/22/18 Range/Units 03:45 Sodium 140 (136-145) mEq/L Potassium 3.8 (3.5-5.1) mEq/L Chloride 108 H (98-107) mEq/L Carbon Dioxide 24 (23-29) mEq/L BUN 13 (8-23) mg/dL Creatinine 0.67 (0.60-1.20) mg/dL Glucose 123 H (70-105) mg/dL Calcium 9.6 (8.6-10.3) mg/dL Total Bilirubin 0.5 (0.3-1.0) mg/dL AST 10 L (13-39) Units/L ALT 5 L (7-52) Units/L Alkaline Phosphatase 100 (34-104) Units/L Albumin 3.2 L (3.5-5.7) g/dL Consult Discharge Plan - Plan Referrals: Elen Britton DO [Primary Care Provider] - <KamScottyn Gera - Last Filed: 12/22/18 16:45> Date of Encounter: 12/22/18 Objective Vital Signs - Last 8 Hours Temp Pulse Resp BP Pulse Ox 12/22/18 15:10 98.3 F 76 15 146/82 94 12/22/18 10:42 98.3 F 93 16 169/91 93 Intake and Output 12/22/18 12/22/18 12/22/18 07:59 15:59 23:59 Intake Total 1000 / 1010 10 / 1010 Output Total 100 / 2600 2500 / 2600 Balance 900 / -1590 -2490 / -1590 Intake: IV Fluids 1000 / 1010 10 / 1010 0.9 % Sodium Chloride 1,000 ML 1000 / 1000 @ 125 mls/hr IVC .Q8H [facility] Rx#: [id number] Rocephin 1,000 MG In Water for inj. (sterile) 10 ML @ 600 mls/ hr IVP DAILY [facility] Rx#:[id number] Oral 0 / 0 0 / 0 Output: Urine 100 / 200 100 / 200 Emesis 400 / 400 Gastric Tube Lavage Amount 0 / 0 Right Nare 0 / 0 Gastric Drainage 1999 Other: Meal NPO Percent of Meal Consumed 0% Blood Glucose* 104 109 - Labs 12/22/18 03:45 12/22/18 03:45 Diabetes panel 12/22/18 Range/Units 03:45 Sodium 140 (136-145) mEq/L Potassium 3.8 (3.5-5.1) mEq/L Chloride 108 H (98-107) mEq/L Carbon Dioxide 24 (23-29) mEq/L BUN 13 (8-23) mg/dL Creatinine 0.67 (0.60-1.20) mg/dL Glucose 123 H (70-105) mg/dL Calcium 9.6 (8.6-10.3) mg/dL AST 10 L (13-39) Units/L ALT 5 L (7-52) Units/L Alkaline Phosphatase 100 (34-104) Units/L Albumin 3.2 L (3.5-5.7) g/dL Calcium panel 12/22/18 Range/Units 03:45 Calcium 9.6 (8.6-10.3) mg/dL Albumin 3.2 L (3.5-5.7) g/dL Pituitary panel 12/22/18 Range/Units 03:45 Sodium 140 (136-145) mEq/L Potassium 3.8 (3.5-5.1) mEq/L Chloride 108 H (98-107) mEq/L Carbon Dioxide 24 (23-29) mEq/L BUN 13 (8-23) mg/dL Creatinine 0.67 (0.60-1.20) mg/dL Glucose 123 H (70-105) mg/dL Calcium 9.6 (8.6-10.3) mg/dL Adrenal panel 12/22/18 Range/Units 03:45 Sodium 140 (136-145) mEq/L Potassium 3.8 (3.5-5.1) mEq/L Chloride 108 H (98-107) mEq/L Carbon Dioxide 24 (23-29) mEq/L BUN 13 (8-23) mg/dL Creatinine 0.67 (0.60-1.20) mg/dL Glucose 123 H (70-105) mg/dL Calcium 9.6 (8.6-10.3) mg/dL Total Bilirubin 0.5 (0.3-1.0) mg/dL AST 10 L (13-39) Units/L ALT 5 L (7-52) Units/L Alkaline Phosphatase 100 (34-104) Units/L Albumin 3.2 L (3.5-5.7) g/dL - Attending Attestation I have personally performed a face to face evaluation on this patient. I have reviewed and agree with the care plan. History and Exam by me shows: The patient was seen and evaluated on morning rounds and then again in the afternoon. The patient is discussed with Dr. Palumbo. The small bowel follow-through demonstrates bowel obstruction. I shared the results with the patient and we discussed the risks and benefits of surgery. We will plan exploratory laparotomy and whenever procedure is necessary to relieve the bowel obstruction including lysis of adhesions and/or bowel resection. She unders tands this and wishes to proceed. Bradley Humphrey MD FACS
[2018-12-22] MEDS ORDERED: 0.9 % Sodium Chloride 1,000 ML IVC SCH (15:15)
[2018-12-22] MEDS ORDERED: 0.9 % Sodium Chloride 250 ML ONE (17:06)
[2018-12-22] MEDS ORDERED: CefOXitin 1,000 MG VIAL ONE (17:21)
--- NOTE | 2018-12-22 17:27 | Anesthesia Evaluation PreOp ---
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 ENERGY ANALYST History: TIA Other Medical History: Diabetes Type II, GERD Anesthesia History: No Prior Anesthetic Complications, Past Anesthesia Alcohol Use: none Drug use: none Medications and Allergies Omeprazole [PriLOSEC] 20 mg PO BID 07/20/17 [History] Cyanocobalamin (Vitamin B-12) [Vitamin B12] 1,000 mcg PO QMWF 08/26/17 [History] Acetaminophen [Tylenol] 1,000 mg PO Q6H PRN 12/14/17 [History] Propafenone [Rhythmol] 150 mg PO Q8H #90 tablet 06/15/18 [Rx] Atorvastatin [Lipitor] 40 mg PO HS #30 tablet 08/22/18 [Rx] Ergocalciferol (VITAMIN D2) [Vitamin D2] 2,000 unit PO HS 11/01/18 [History] Aspirin [Lo-Dose Aspirin EC] 81 mg PO HS 11/03/18 [History] Ferrous Sulfate 325 mg PO BIDWM tablet 11/08/18 [Rx] Calcium Carbonate [Tums] 1,000 mg PO Q4HR PRN tab.chew 11/21/18 [Rx] Simethicone [Gas-X] 80 mg PO TID PRN 12/21/18 [History] Warfarin [Coumadin] 5 mg PO SUMOWETHSA 12/21/18 [History] Warfarin [Coumadin] 2.5 mg PO TUFR 12/22/18 [History] Allergy/AdvReac Type Severity Reaction Status Date / Time codeine Allergy Difficulty Verified 11/01/18 06:59 Breathing hydrocodone [From Vicodin] Allergy Difficulty Verified 11/01/18 06:59 Breathing hydromorphone [From Dilaudid] Allergy Difficulty Verified 11/01/18 06:59 Breathing morphine Allergy Difficulty Verified 11/01/18 06:59 Breathing oxycodone [From Percocet] Allergy Rash Verified 11/01/18 06:59 tramadol Allergy Difficulty Verified 11/01/18 06:59 Breathing influenza virus vaccine, AdvReac FLU LIKE Verified 11/01/18 06:59 specific SYMPTOMS [Influenza Virus Vacc,Specific] [id number] Reductase AdvReac Loss of Verified 11/20/18 18:27 Inhibitor Appetite - Meds/Allergy Pre-op Review Medications Reviewed: Yes Allergies Reviewed: Yes Beta Blockers on Current Med List: No Anesthesia Results - Labs 12/22/18 03:45 12/22/18 03:45 - Imaging EKG: report reviewed (12/21/2018 Sinus rhythm 11/03/2018 Sinus rhythm) Additional studies: 11/07/2018 Echo Impressions: Sinus rhythm with PVCs. LVEF 60%. Asymmetric basal septal hypertrophy. Normal right ventricular structure and function. Moderate mitral regurgitation. Mild-moderate tricuspid regurgitation. Mild pulmonary hypertension. 08/21/2018 Echo Impressions: No evidence of PFO with agitated saline contrast. Left Ventricular Wall Motion: Rest Echo Findings All wall segments showed normal motion. Findings: Study Quality * Technically adequate exam. ECG Findings * Normal sinus rhythm. Left Ventricle * LVEF 60%. * Asymmetric basal septal hypertrophy. Right Ventricle * Normal right ventricular structure and function. Aorta * Normally sized aortic root. Pericardium * There is no pericardial effusion present. Interatrial Septum * No evidence of PFO with agitated saline contrast. 02/03/2015 Stress Impression: Pharmacologic stress ECG is negative for ischemia at level of heart rate achieved. Occasional PVCs noted during recovery. Gated EF = 67%. This study was negative for ischemia or infarct. Anesthesia Exam Vital Signs/O2 Sat/Glucose, Most Recent Temp Pulse Resp BP Pulse Ox 98.6 F 80 14 145/80 92 12/22/18 17:15 12/22/18 17:15 12/22/18 17:15 12/22/18 17:15 12/22/18 17:15 Blood Glucose* 109 Height: 5'7''/1.7m Weight: 171 lbs/78 kg NPO (# of Hours): 8 Pain Scale: 6 Pain Scale Used: Numeric (1 - 10) - HEENT Pupil (Motor): EOMI Mallampati: II Teeth: Normal Oral Opening: Greater than 3 - SENIOR ENERGY ANALYST LOC: Oriented SENIOR ENERGY ANALYST Motor: Normal RUE, Normal LUE, Normal RLE, Normal LLE, Normal Face SENIOR ENERGY ANALYST Sensory: Normal: RUE, LUE, RLE, LLE, Face - Cardiac Rhythm: Regular Murmur: None - Pulmonary Breath Sounds: bilateral Clear Respiratory Effort: Symmetrical Anesthesia Assess/Plan ASA Score: 3 Level of consciousness: Cooperative, Oriented, Tranquil Anesthetic Plan: General Monitoring Plan: Standard Monitors Recovery Plan: PACU
[2018-12-22] MEDS ORDERED: *HR* Rocuronium Bromide 50 MG/5 ML VIAL ONE (18:44)
[2018-12-22] MEDS ORDERED: Ondansetron 4 MG/2 ML VIAL ONE (18:44)
[2018-12-22] MEDS ORDERED: Lidocaine -MPF 2% 2 ML VIAL ONE (18:44)
[2018-12-22] MEDS ORDERED: Dexamethasone 4 MG/ML VIAL ONE (18:44)
[2018-12-22] MEDS ORDERED: *HR* Propofol 200 MG/20 ML VIAL IVP ONE (18:44)
[2018-12-22] MEDS ORDERED: *HR* FentaNYL (PF) 100 MCG/2 ML VIAL ONE ×2 (18:44→19:35)
[2018-12-22] MEDS ORDERED: *HR* PHENYLEPHRINE 1,000 MCG/10 ML SYRINGE IVP ONE (19:18)
--- NOTE | 2018-12-22 19:56 | Operative Note ---
Date of procedure: 12/22/18 Pre-op diagnosis: right distal ureteral stone Post-op diagnosis: same Procedure: Cystoscopy and left 6 x 26 cm ureteral stent placement Anesthesia: GETA Surgeon: Timbo Brar Was there an assistant media planner present: No Estimated blood loss (cc): 0 Specimen: none Condition: stable Disposition: PACU Procedure in Detail: Patient was prepped and draped in normal sterile fashion. Timeout procedure performed. I then inserted the cystoscope into the patient's bladder. I then cannulated the right ureteral orifice using a Glidewire. I then placed a 6 x 26 cm stent with good curl seen in the right kidney and in the bladder. A catheter was then placed in the patient's bladder. The remainder of the operative dictation will be performed by the primary surgery team.
--- NOTE | 2018-12-22 20:27 | Operative Note ---
Date of procedure: 12/22/18 Pre-op diagnosis: Small bowel obstruction Post-op diagnosis: other (Internal hernia) Procedure: #1 exploratory laparotomy with reduction of internal hernia. #2 unroofing and debridement of hematoma cavity Anesthesia: MARYCARMEN Surgeon: Bradley Humphrey Was there an assistant professor of psychology present: Yes Linen Room Houseperson: Odilia Barry Estimated blood loss (cc): 25 Specimen: None Condition: stable Disposition: PACU Procedure in Detail: After informed consent the patient is taking major operating suite placed in supine position given adequate general endotracheal anesthesia. The abdomen is prepped and draped in sterile fashion utilizing ChloraPrep and standard draping techniques. Timeout was taken and the patient was identified. I made a vertical midline incision and entered the abdomen. There were very few adhesions in the abdomen. The dilated proximal small bowel was identified. The flaccid distal small bowel was identified. These 2 were followed to a point of obstruction in the left mid anterior abdominal wall. I reduced about 20-25 cm of small bowel back into the abdomen. There was a 2 cm opening into a large cavity deep to the peritoneum. Treatment options included closure of the opening with suture material with drainage of the hematoma cavity with the drain, or, unroofing the cavity and allowing this to drain into the abdomen. I decided to unroofed the cavity. Using electrocautery I made a 10 cm incision in the peritoneum and the hematoma cavity proximally toward the spleen. This gave a wide opening. There was no bleeding. I debrided residual hematoma from the cavity. I packed the cavity with omentum. I carefully inspected the bowel that was reduced previously. It was pink and demonstrated peristalsis. I did not feel that bowel resection was indicated. The abdomen was irrigated with copious amounts of antibiotic containing solution. It is noted that none of the mesh was exposed. The mesh was completely covered by peritoneum. After examining the patient intraoperatively I feel that a hematoma dissected between the peritoneum and the muscular layer THE left side of the abdomen and that portion of the peritoneal closure had opened into this cavity and this is what was encountered as the 2 cm opening causing the internal hernia. Debridement and unroofing should completely take care of this problem. Total blood loss 25 mL. Midline was closed with looped 0 PDS. The skin was closed with interrupted Vicryl and skin clips.
[2018-12-22] MEDS: *HR* FentaNYL (PF) 100 MCG/2 ML VIAL IVP ONE (21:01)
[2018-12-22] MEDS ORDERED: *HR* Labetalol 20 MG/4 ML SYRINGE IVP ONE (21:13)
[2018-12-22] MEDS ORDERED: *HR* Labetalol 20 MG/4 ML SYRINGE IVP PRN (21:14)
[2018-12-22] MEDS ORDERED: Ringers Solution, Lactated 1,000 ML ONE (21:17)
[2018-12-22] MEDS: Cholecalciferol (D-3) 1,000 UNIT (25MCG) TABLET PO SCH (22:02)
[2018-12-22] MEDS ORDERED: Chloraseptic Spray 177 ML BOTTLE MM PRN (22:05)
[2018-12-23] MEDS: *HR* HYDROmorphone (PF) 1 MG/ML SYRINGE IVP PRN ×4 (00:08→20:44)
[2018-12-23] MEDS: 0.9 % Sodium Chloride 1,000 ML IVC SCH ×2 (00:09→10:38)
[2018-12-23] MEDS: Pantoprazole 40 MG VIAL IVP SCH (05:14)
[2018-12-23 06:59] LABS: Hematocrit 29.1 % (35.3-44.9); Mean Corpuscular Hemoglobin 31.1 pg (28.0-33.3); Mean Corpuscular Volume 100.7 fL (83.0-100.0); Red Blood Count 2.89 M/mcL (3.82-4.97)
[2018-12-23 07:00] LABS: Basophils % 0.2 %; Immature Granulocytes % 0.5 % (0-4); Lymphocytes # 0.8 K/mcL (0.6-4.6); Lymphocytes % 6.3 %; Mean Corpuscular HGB Conc 30.9 g/dL (31.6-35.5); Mean Platelet Volume 10.2 fL (9.4-12.4); Monocytes # 0.7 K/mcL (0.0-1.3); Monocytes % 5.5 %; Neutrophils # 11.4 K/mcL (1.6-8.9); Platelet Count 241 K/mcL (140-400); Red Cell Distribution Width 16.5 % (11.5-14.5); Segmented Neutrophils % 87.5 %
[2018-12-23 07:18] LABS: BUN/Creatinine Ratio 21 (6-26); Blood Urea Nitrogen 13 mg/dL (8-23); Calcium 8.1 mg/dL (8.6-10.3); Carbon Dioxide 23 mEq/L (23-29); Chloride 111 mEq/L (98-107); Glucose 113 mg/dL (70-105); Osmolality,Calculated 297 (280-300); Potassium 3.6 mEq/L (3.5-5.1); Sodium 143 mEq/L (136-145); eGFR For African Americans > 60 (> 60); eGFR For Non-African Americans > 60 (> 60)
--- NOTE | 2018-12-23 07:57 | Urology Progress Note ---
Date of Encounter: 12/23/18 Time of Encounter: 07:54 - Assessment and Plan (1) Ureteral stone with hydronephrosis Current Visit: Yes Status: Acute Assessment and plan: Patient is status post cystoscopy and right ureteral stent placement. Patient will keep her stent in place. Okay to remove catheter per primary team. Patient is scheduled for follow-up on January 12 at 945. Please call with any concerns or questions. Progress Note Narrative: Patient is postoperative day 1 status post right ureteral stent placement and exploratory laparotomy by general surgery. Patient feeling well this morning. Good urine output overnight Objective Initial Vital Signs Temp Pulse Resp BP Pulse Ox 99.1 F 69 16 147/83 95 12/21/18 12:25 12/21/18 12:25 12/21/18 12:25 12/21/18 12:25 12/21/18 12:25 - General physical appearance Present: well developed, well nourished - Abdomen Present: soft - Genitourinary Urine Appearance: Present: Clear - Integumentary Present: no rash, no abnormal pigmentation - Labs 12/23/18 05:31 12/23/18 05:31 Diabetes panel 12/23/18 Range/Units 05:31 Sodium 143 (136-145) mEq/L Potassium 3.6 (3.5-5.1) mEq/L Chloride 111 H (98-107) mEq/L Carbon Dioxide 23 (23-29) mEq/L BUN 13 (8-23) mg/dL Creatinine 0.62 (0.60-1.20) mg/dL Glucose 113 H (70-105) mg/dL Calcium 8.1 L (8.6-10.3) mg/dL Calcium panel 12/23/18 Range/Units 05:31 Calcium 8.1 L (8.6-10.3) mg/dL Pituitary panel 12/23/18 Range/Units 05:31 Sodium 143 (136-145) mEq/L Potassium 3.6 (3.5-5.1) mEq/L Chloride 111 H (98-107) mEq/L Carbon Dioxide 23 (23-29) mEq/L BUN 13 (8-23) mg/dL Creatinine 0.62 (0.60-1.20) mg/dL Glucose 113 H (70-105) mg/dL Calcium 8.1 L (8.6-10.3) mg/dL Adrenal panel 12/23/18 Range/Units 05:31 Sodium 143 (136-145) mEq/L Potassium 3.6 (3.5-5.1) mEq/L Chloride 111 H (98-107) mEq/L Carbon Dioxide 23 (23-29) mEq/L BUN 13 (8-23) mg/dL Creatinine 0.62 (0.60-1.20) mg/dL Glucose 113 H (70-105) mg/dL Calcium 8.1 L (8.6-10.3) mg/dL Consult Discharge Plan - Plan Referrals: Timbo Brar MD [Partnered Physician] - Elen Britton DO [Primary Care Provider] -
[2018-12-23] MEDS ORDERED: Cyanocobalamin (B-12) 1,000 MCG TABLET PO SCH (09:00)
--- NOTE | 2018-12-23 09:58 | Internal Med Progress Note ---
Hospitalist Progress Note - Encounter Date of Encounter: 12/23/18 Time of Encounter: 09:58 - Subjective Interval History: Patient was seen and examined at bedside. No acute events overnight. Patient was resting comfortably in bed after exploratory laparotomy and ureteral stent placement yesterday. She endorses abdominal pain, however she is tolerating the pain. Denies any chest pain, shortness of breath, nausea, vomiting, fevers, chills. Patient has not yet had a bowel movement, has not passed gas yet. NG tube is draining green/brown fluid. - Exam Vitals: Temp Pulse Resp BP Pulse Ox 98.0 F 86 14 96/63 95 12/23/18 07:52 12/23/18 07:52 12/23/18 07:52 12/23/18 07:52 12/23/18 07:52 Exam: GEN: Well-appearing, NAD, conversant. HEAD: Normocephalic, atraumatic. ENT: Moist mucous membranes, draining dark green fluid from the NG tube. NECK: Supple. mild anterior cervical tenderness, no thyromegaly, No tracheal deviation. HEART: Regular rate and regular rhythm, normal S1/S2, no m/r/g. LUNGS: CTAB, good air exchange bilaterally. No wheezing, rubs, or rhonchi. ABDO: Soft, tender epigastric area, nondistended with active bowel sounds. No rebound, guarding, rigidity. Intact abdominal surgical site with bandage overlying, hemostatic, no bleeding or drainage. : No suprapubic tenderness or CVA tenderness. EXT: Without cyanosis, clubbing or edema. Full peripheral pulses. SKIN: Warm and dry without any rash. NEURO: Grossly nonfocal. Alert and oriented, moving all 4 extremities. CN not formally tested but appear grossly intact. PSYCH: Normal affect, no depressed or anxious mood. - Assessment and Plan (1) Small bowel obstruction Current Visit: Yes Status: Acute Assessment and Plan: Patient presented to the ED with abdominal pain and recent history of left inguinal hernia repair on October 2017. On CT was found to have low-grade small bowel obstruction. Currently endorses nausea and intermittent emesis, but she remains afebrile. On 12/22 had exploratory laparotomy to reduce internal hernia and debridement of hematoma cavity. - Surgical recommendations: - Patient is POD #1 - Advance diet to ice chips, await return of bowel function - Continue IV fluids - Removed NG tube - Continue protonix at 40mg IV daily (2) UTI (urinary tract infection) Current Visit: Yes Status: Acute Assessment and Plan: Patient was noted to have a UTI with positive nitrites, leukocyte esterase, bacteria on UA. Currently asymptomatic, however we will treat in the setting of nephrolithiasis. - Continue ceftriaxone 1g IV daily starting 12/21, will stop on 12/25 - Urine cultures positive for Escherichia coli, hx of E. coli/Klebsiella UTI (3) Kidney stone Current Visit: Yes Status: Acute Assessment and Plan: Patient presented to the ED with abdominal pain and back pain. On CT she was found to have a 3 mm ureteral stone with hydronephrosis. On 12/22, patient underwent cystoscopy with left ureteral stent placement. Good UOP overnight. POD #1. - Urology recs to remove catheter, - Toradol 30 mg IM every 6 when necessary for pain - Fentanyl 50 MCG IV every 3 when necessary for pain - Acetaminophen 1 g by mouth every 6 when necessary for pain (4) GERD (gastroesophageal reflux disease) Current Visit: Yes Status: Chronic Assessment and Plan: - Continue protonix at 40mg IV daily (5) Hypertension Current Visit: No Status: Chronic Assessment and Plan: We will continue home antihypertensive medications (6) Atrial fibrillation Current Visit: No Status: Chronic Assessment and Plan: Assessment and Plan: Asymptomatic with normal HR. Not currently on any rate-controlling meds. Currently on warfarin for atrial fibrillation. - Hold warfarin for now, pending surgery recs - Trend PT/INR daily (7) DVT prophylaxis Current Visit: Yes Status: Acute Assessment and Plan: Continue SCDs - Time Spent with Patient Total time spent is greater than 50% in coordination of care (as documented) at patient's floor/unit and/or counseling patient: less than 15 minutes Plan of Care Discussed with: patient Internal Medicine: Result - Labs CBC & Chem 7: 12/23/18 05:31 12/23/18 05:31 Labs: Short CBC 12/23/18 Range/Units 05:31 WBC 13.0 H (4.3-11.1) K/mcL Hgb 9.0 L D (11.5-15.4) g/dL Hct 29.1 L (35.3-44.9) % Plt Count 241 (140-400) K/mcL Neutrophils # 11.4 H (1.6-8.9) K/mcL BMP 12/23/18 05:31 Sodium 143 Potassium 3.6 Chloride 111 H Carbon Dioxide 23 BUN 13 Creatinine 0.62 Glucose 113 H Calcium 8.1 L - ABG Interpretation ABG results: PT/INR, D-dimer PT 24.1 Seconds (9.4-12.1) H 12/22/18 14:42 - Impressions Impressions Small Bowel X-Ray 12/22/18 07:36 IMPRESSION: Slow transit of contrast through the small bowel likely related to an area of functional obstruction in a small bowel loop in the left abdomen. In this region there is likely infection surrounding the small bowel causing secondary ileitis. Due to contrast absorption there is renal excretion. A nephrogram is noted on the right with hydronephrosis related to a distal right ureteric obstruction. D/ / 12/22/2018 14:24:21 Ayla Curtis MD / andres Interpreting Provider: Ayla Curtis MD Fluoroscopy 12/22/18 19:17 IMPRESSION: Intraprocedural fluoroscopic spot images as above. See separate procedure report for more information. D/ / Jack Massey MD / Jack Massey MD Interpreting Provider: Jack Massey MD X-Ray 12/22/18 19:17 IMPRESSION: Intraprocedural fluoroscopic spot images as above. See separate procedure report for more information. D/ / Jack Massey MD / Jack Massey MD Interpreting Provider: Jack Massey MD Consult Discharge Plan - Plan Referrals: Timbo Brar MD [Partnered Physician] - Elen Britton DO [Primary Care Provider] - (2) UTI (urinary tract infection) Qualifiers: Urinary tract infection type: site unspecified Hematuria presence: with hematuria Qualified Code(s): N39.0 - Urinary tract infection, site not specified; R31.9 - Hematuria, unspecified (4) GERD (gastroesophageal reflux disease) Qualifiers: Esophagitis presence: esophagitis presence not specified Qualified Code(s): K21.9 - Gastro-esophageal reflux disease without esophagitis (5) Hypertension Qualifiers: Hypertension type: essential hypertension Qualified Code(s): I10 - Essential (primary) hypertension (6) Atrial fibrillation Qualifiers: Atrial fibrillation type: paroxysmal Qualified Code(s): I48.0 - Paroxysmal atrial fibrillation
--- NOTE | 2018-12-23 10:15 | AcuteCareSurgery Progress Note ---
Date of Encounter: 12/23/18 Time of Encounter: 10:12 - Assessment and Plan (1) Abdominal pain Current Visit: Yes Status: Acute s/p Exploration with reduction of small bowel from retroperitoneal space, POD#1. Patient feels better. Verified low NGT output. Will remove the NGT and start ice chips. Await return of bowel function. Qualifiers: Abdominal location: left upper quadrant Qualified Code(s): R10.12 - Left upper quadrant pain (2) Small bowel obstruction Current Visit: Yes Status: Acute See above Subjective Patient reports: other (Patient denies any nausea or vomiting. NGT in place. Denies flatus or BM. No significant pain.) Objective Vital Signs - Last 8 Hours Temp Pulse Resp BP Pulse Ox 12/23/18 07:52 98.0 F 86 14 96/63 95 12/23/18 05:01 117/76 12/23/18 03:43 98.3 F 83 15 106/67 96 Intake and Output 12/22/18 12/23/18 12/23/18 23:59 07:59 15:59 Intake Total 999 0 / 0 0 / 0 Output Total 300 / 2900 600 / 700 100 / 700 Balance 700 / -890 -600 / -700 -100 / -700 Intake: IV Fluids 999 0.9 % Sodium Chloride 1,000 ML 999 / 1999 @ 125 mls/hr IVC .Q8H [facility] Rx#: [id number] Oral 0 / 0 0 / 0 0 / 0 Blood Product 0 / 0 Plasma Unit [id number] 0 / 0 Output: Urine 75 / 275 Gastric Tube Lavage Amount 0 / 0 0 / 0 Right Nare 0 / 0 0 / 0 Estimated Blood Loss 25 / 25 Urine Amount (Catheter) 150 / 150 Catheter 400 / 400 Gastric Drainage 0 200 / 300 100 / 300 Other: Weight 77.5 kg Blood Glucose* 111 Patient Weight 12/23/18 23:59 Weight 77.5 kg - General physical appearance well nourished, no distress - Abdomen Abdomen: Present: bowel sounds present, soft, tender (Mild incisional pain. Dressing intact with mild staining.) - Labs 12/24/18 05:05 12/24/18 05:05 Diabetes panel 12/23/18 Range/Units 05:31 Sodium 143 (136-145) mEq/L Potassium 3.6 (3.5-5.1) mEq/L Chloride 111 H (98-107) mEq/L Carbon Dioxide 23 (23-29) mEq/L BUN 13 (8-23) mg/dL Creatinine 0.62 (0.60-1.20) mg/dL Glucose 113 H (70-105) mg/dL Calcium 8.1 L (8.6-10.3) mg/dL Calcium panel 12/23/18 Range/Units 05:31 Calcium 8.1 L (8.6-10.3) mg/dL Pituitary panel 12/23/18 Range/Units 05:31 Sodium 143 (136-145) mEq/L Potassium 3.6 (3.5-5.1) mEq/L Chloride 111 H (98-107) mEq/L Carbon Dioxide 23 (23-29) mEq/L BUN 13 (8-23) mg/dL Creatinine 0.62 (0.60-1.20) mg/dL Glucose 113 H (70-105) mg/dL Calcium 8.1 L (8.6-10.3) mg/dL Adrenal panel 12/23/18 Range/Units 05:31 Sodium 143 (136-145) mEq/L Potassium 3.6 (3.5-5.1) mEq/L Chloride 111 H (98-107) mEq/L Carbon Dioxide 23 (23-29) mEq/L BUN 13 (8-23) mg/dL Creatinine 0.62 (0.60-1.20) mg/dL Glucose 113 H (70-105) mg/dL Calcium 8.1 L (8.6-10.3) mg/dL Consult Discharge Plan - Plan Referrals: Timbo Brar MD [Partnered Physician] - Elen Britton DO [Primary Care Provider] -
[2018-12-23] MEDS: cefTRIAXone 1,000 MG in Water for inj. (sterile) 10 ML IVP SCH (10:38)
[2018-12-23 10:48] LABS: INR 1.9; Prothrombin Time 21.3 Seconds (9.4-12.1)
[2018-12-23] MEDS ORDERED: Potassium Chloride 20 MEQ, Lidocaine 1% 2 ML in D5% in Water 250 ML IVPB ONE (11:24)
[2018-12-23 17:45] LABS: BUN/Creatinine Ratio 20 (6-26); Blood Urea Nitrogen 18 mg/dL (8-23); Carbon Dioxide 25 mEq/L (23-29); Chloride 106 mEq/L (98-107); Glucose 124 mg/dL (70-105); Osmolality,Calculated 297 (280-300); Potassium 4.1 mEq/L (3.5-5.1); Sodium 142 mEq/L (136-145); eGFR For African Americans > 60 (> 60); eGFR For Non-African Americans > 60 (> 60)
[2018-12-24] MEDS: 0.9 % Sodium Chloride 1,000 ML IVC SCH ×4 (01:13→20:32)
[2018-12-24] MEDS: *HR* HYDROmorphone (PF) 1 MG/ML SYRINGE IVP PRN ×6 (01:38→20:26)
[2018-12-24 05:24] LABS: Basophils % 0.2 %; Eosinophils # 0.5 K/mcL (0.0-0.6); Eosinophils % 4.7 %; Hematocrit 23.7 % (35.3-44.9); Immature Granulocytes % 0.4 % (0-4); Lymphocytes # 1.4 K/mcL (0.6-4.6); Lymphocytes % 13.4 %; Mean Corpuscular HGB Conc 30.8 g/dL (31.6-35.5); Mean Corpuscular Hemoglobin 31.3 pg (28.0-33.3); Mean Corpuscular Volume 101.7 fL (83.0-100.0); Mean Platelet Volume 9.8 fL (9.4-12.4); Monocytes # 0.9 K/mcL (0.0-1.3); Monocytes % 8.1 %; Neutrophils # 7.8 K/mcL (1.6-8.9); Platelet Count 212 K/mcL (140-400); Red Blood Count 2.33 M/mcL (3.82-4.97); Red Cell Distribution Width 16.8 % (11.5-14.5); Segmented Neutrophils % 73.2 %; White Blood Count 10.6 K/mcL (4.3-11.1)
[2018-12-24 05:27] LABS: Hemoglobin 7.3 g/dL (11.5-15.4)
[2018-12-24] MEDS: Pantoprazole 40 MG VIAL IVP SCH (05:30)
[2018-12-24 05:44] LABS: Alanine Aminotransferase 4 Units/L (7-52); Albumin 2.8 g/dL (3.5-5.7); Albumin/Globulin Ratio 1.1 (1.1-2.2); Alkaline Phosphatase 65 Units/L (34-104); Aspartate Amino Transferase 12 Units/L (13-39); BUN/Creatinine Ratio 29 (6-26); Bilirubin,Total 0.4 mg/dL (0.3-1.0); Blood Urea Nitrogen 20 mg/dL (8-23); Calcium 8.6 mg/dL (8.6-10.3); Carbon Dioxide 25 mEq/L (23-29); Chloride 109 mEq/L (98-107); Globulin 2.6 g/dL (2.4-3.5); Glucose 98 mg/dL (70-105); Osmolality,Calculated 295 (280-300); Potassium 3.8 mEq/L (3.5-5.1); Sodium 141 mEq/L (136-145); Total Protein 5.4 g/dL (6.4-8.9); eGFR For African Americans > 60 (> 60); eGFR For Non-African Americans > 60 (> 60)
--- NOTE | 2018-12-24 08:58 | AcuteCareSurgery Progress Note ---
Date of Encounter: 12/25/18 Time of Encounter: 08:58 - Assessment and Plan (1) Abdominal pain Current Visit: Yes Status: Acute s/p Exploration with reduction of small bowel from retroperitoneal space, POD#2. Patient noticing flatus. Will start clear liquid diet. Start dressing changes today as well. Noted hemoglobin of 7.5; patient to be transfused 1 unit of packed red blood cells today. Qualifiers: Abdominal location: left upper quadrant Qualified Code(s): R10.12 - Left upper quadrant pain (2) Small bowel obstruction Current Visit: Yes Status: Acute See above Subjective Patient reports: other (Patient denies any nausea or vomiting. She states that she has has some small flatus. No bowel movement. Mild abdominal pain at the level of the incision.) Objective Vital Signs - Last 8 Hours Temp Pulse Resp BP Pulse Ox 12/24/18 06:50 98.1 F 77 16 136/68 96 12/24/18 03:37 97.8 F 80 16 114/69 96 Intake and Output 12/23/18 12/24/18 12/24/18 23:59 07:59 15:59 Intake Total 120 / 1572 2119 / 2120 Output Total 250 / 950 0 / 0 Balance -130 / 622 2119 / 0 Intake: IV Fluids 1999 0.9 % Sodium Chloride 1,000 ML 1999 @ 100 mls/hr IVC .Q10H [facility] Rx#: [id number] Oral 120 / 300 120 / 120 Output: Urine 0 / 0 Catheter 250 / 650 Other: Weight 79.4 kg Blood Glucose* 119 92 Patient Weight 12/24/18 23:59 Weight 79.4 kg - Labs 12/25/18 02:28 12/25/18 02:28 Diabetes panel 12/23/18 12/24/18 Range/Units 17:13 05:05 Sodium 142 141 (136-145) mEq/L Potassium 4.1 3.8 (3.5-5.1) mEq/L Chloride 106 109 H (98-107) mEq/L Carbon Dioxide 25 25 (23-29) mEq/L BUN 18 20 (8-23) mg/dL Creatinine 0.91 0.68 (0.60-1.20) mg/dL Glucose 124 H 98 (70-105) mg/dL Calcium 9.0 8.6 (8.6-10.3) mg/dL AST 12 L (13-39) Units/L ALT 4 L (7-52) Units/L Alkaline Phosphatase 65 (34-104) Units/L Albumin 2.8 L (3.5-5.7) g/dL Calcium panel 12/23/18 12/24/18 Range/Units 17:13 05:05 Calcium 9.0 8.6 (8.6-10.3) mg/dL Albumin 2.8 L (3.5-5.7) g/dL Pituitary panel 12/23/18 12/24/18 Range/Units 17:13 05:05 Sodium 142 141 (136-145) mEq/L Potassium 4.1 3.8 (3.5-5.1) mEq/L Chloride 106 109 H (98-107) mEq/L Carbon Dioxide 25 25 (23-29) mEq/L BUN 18 20 (8-23) mg/dL Creatinine 0.91 0.68 (0.60-1.20) mg/dL Glucose 124 H 98 (70-105) mg/dL Calcium 9.0 8.6 (8.6-10.3) mg/dL Adrenal panel 12/23/18 12/24/18 Range/Units 17:13 05:05 Sodium 142 141 (136-145) mEq/L Potassium 4.1 3.8 (3.5-5.1) mEq/L Chloride 106 109 H (98-107) mEq/L Carbon Dioxide 25 25 (23-29) mEq/L BUN 18 20 (8-23) mg/dL Creatinine 0.91 0.68 (0.60-1.20) mg/dL Glucose 124 H 98 (70-105) mg/dL Calcium 9.0 8.6 (8.6-10.3) mg/dL Total Bilirubin 0.4 (0.3-1.0) mg/dL AST 12 L (13-39) Units/L ALT 4 L (7-52) Units/L Alkaline Phosphatase 65 (34-104) Units/L Albumin 2.8 L (3.5-5.7) g/dL - VTE Documentation of Mechanical Device: Intermittent pneumatic compression device Consult Discharge Plan - Plan Referrals: Timbo Brar MD [Partnered Physician] - Elen rBitton DO [Primary Care Provider] -
[2018-12-24] MEDS: cefTRIAXone 1,000 MG in Water for inj. (sterile) 10 ML IVP SCH (09:56)
[2018-12-24] MEDS ORDERED: 0.9 % Sodium Chloride 250 ML ONE (12:04)
--- NOTE | 2018-12-24 12:26 | Internal Med Progress Note ---
Hospitalist Progress Note - Encounter Date of Encounter: 12/24/18 Time of Encounter: 12:24 - Subjective Interval History: Patient was seen and examined at bedside. No acute events overnight. Patient is POD #2 after a suppository laparotomy and ureteral stent placement. Patient endorses some abdominal pain however has been controlled. Patient denies any chest pain, shortness of breath, nausea, vomiting, fevers, chills. Patient does not endorse any erythema or drainage around the incision site. She has not yet been able to produce a bowel movement, but she is passing some gas. Currently tolerating diet of sips of clears well. Looking forward to diet advancement and to going home. - Exam Vitals: Temp Pulse Resp BP Pulse Ox 98.6 F 79 17 130/74 98 12/24/18 12:08 12/24/18 12:08 12/24/18 12:12/24/18 12:12/24/18 11:31 Exam: GEN: Well-appearing, NAD, conversant. HEAD: Normocephalic, atraumatic. ENT: Moist mucous membranes, draining dark green fluid from the NG tube. NECK: Supple. mild anterior cervical tenderness, no thyromegaly, No tracheal deviation. HEART: Regular rate and regular rhythm, normal S1/S2, no m/r/g. LUNGS: CTAB, good air exchange bilaterally. No wheezing, rubs, or rhonchi. ABDO: Soft, tender epigastric area, nondistended with active bowel sounds. Firm, but no rebound, guarding, rigidity. Intact abdominal surgical site with bandage overlying, hemostatic, no bleeding or drainage. : No suprapubic tenderness or CVA tenderness. EXT: Without cyanosis, clubbing or edema. Full peripheral pulses. SKIN: Warm and dry without any rash. NEURO: Grossly nonfocal. Alert and oriented, moving all 4 extremities. CN not formally tested but appear grossly intact. PSYCH: Normal affect, no depressed or anxious mood. - Assessment and Plan (1) Small bowel obstruction Current Visit: Yes Status: Acute Assessment and Plan: Patient presented to the ED with abdominal pain and recent history of left inguinal hernia repair on October 2017. On CT was found to have low-grade small bowel obstruction. Currently endorses nausea and intermittent emesis, but she remains afebrile. On 12/22 had exploratory laparotomy to reduce internal hernia and debridement of hematoma cavity. - Surgical recommendations: - Patient is POD #2 - Advance diet to sips of clears, await return of bowel function - Continue IV fluids of normal saline at 100 mL/hr - Removed NG tube - Continue protonix at 40mg IV daily - Hemoglobin at 7.3 today, to transfuse 1 unit PRBCs - Recheck CBC (2) UTI (urinary tract infection) Current Visit: Yes Status: Acute Assessment and Plan: Patient was noted to have a UTI with positive nitrites, leukocyte esterase, bacteria on UA. Currently asymptomatic, however we will treat in the setting of nephrolithiasis. - Continue 5 day course ceftriaxone 1g IV daily starting 12/21, will stop on 12/25 - Urine cultures positive for Escherichia coli, hx of E. coli/Klebsiella UTI (3) Kidney stone Current Visit: Yes Status: Acute Assessment and Plan: Patient presented to the ED with abdominal pain and back pain. On CT she was found to have a 3 mm ureteral stone with hydronephrosis. On 12/22, patient underwent cystoscopy with left ureteral stent placement. Good UOP overnight. POD #2. - Urology recs to remove catheter, follow up outpatient for further management - Toradol 30 mg IM every 6 when necessary for pain - Fentanyl 50 MCG IV every 3 when necessary for pain - Acetaminophen 1 g by mouth every 6 when necessary for pain (4) GERD (gastroesophageal reflux disease) Current Visit: Yes Status: Chronic Assessment and Plan: - Continue protonix at 40mg IV daily (5) Hypertension Current Visit: No Status: Chronic Assessment and Plan: We will continue home antihypertensive medications (6) Atrial fibrillation Current Visit: No Status: Chronic Assessment and Plan: Asymptomatic with normal HR. Not currently on any rate-controlling meds. Currently on warfarin for atrial fibrillation. - Hold warfarin for now, pending surgery recs - Trend PT/INR daily (7) DVT prophylaxis Current Visit: Yes Status: Acute Assessment and Plan: Continue SCDs - Time Spent with Patient Total time spent is greater than 50% in coordination of care (as documented) at patient's floor/unit and/or counseling patient: less than 15 minutes Plan of Care Discussed with: patient Internal Medicine: Result - Labs CBC & Chem 7: 12/24/18 05:05 12/24/18 05:05 Labs: Short CBC 12/24/18 Range/Units 05:05 WBC 10.6 (4.3-11.1) K/mcL Hgb 7.3 L D (11.5-15.4) g/dL Hct 23.7 L (35.3-44.9) % Plt Count 212 (140-400) K/mcL Neutrophils # 7.8 (1.6-8.9) K/mcL BMP 12/23/18 12/24/18 17:13 05:05 Sodium 142 141 Potassium 4.1 3.8 Chloride 106 109 H Carbon Dioxide 25 25 BUN 18 20 Creatinine 0.91 0.68 Glucose 124 H 98 Calcium 9.0 8.6 Liver Function 12/24/18 Range/Units 05:05 Total Bilirubin 0.4 (0.3-1.0) mg/dL AST 12 L (13-39) Units/L ALT 4 L (7-52) Units/L Alkaline Phosphatase 65 (34-104) Units/L Albumin 2.8 L (3.5-5.7) g/dL - ABG Interpretation ABG results: PT/INR, D-dimer PT 21.3 Seconds (9.4-12.1) H 12/23/18 10:25 - VTE Documentation of Mechanical Device: Intermittent pneumatic compression device Consult Discharge Plan - Plan Referrals: Timbo Brar MD [Partnered Physician] - Elen Britton DO [Primary Care Provider] - (2) UTI (urinary tract infection) Qualifiers: Urinary tract infection type: site unspecified Hematuria presence: with hematuria Qualified Code(s): N39.0 - Urinary tract infection, site not specified; R31.9 - Hematuria, unspecified (4) GERD (gastroesophageal reflux disease) Qualifiers: Esophagitis presence: esophagitis presence not specified Qualified Code(s): K21.9 - Gastro-esophageal reflux disease without esophagitis (5) Hypertension Qualifiers: Hypertension type: essential hypertension Qualified Code(s): I10 - Essential (primary) hypertension (6) Atrial fibrillation Qualifiers: Atrial fibrillation type: paroxysmal Qualified Code(s): I48.0 - Paroxysmal atrial fibrillation
[2018-12-24] MEDS ORDERED: Potassium Chloride 20 MEQ, Lidocaine 1% 2 ML in D5% in Water 250 ML IVPB ONE (12:29)
[2018-12-24 17:18] LABS: Hematocrit 25.4 % (35.3-44.9); Hemoglobin 8.1 g/dL (11.5-15.4)
[2018-12-25 03:15] LABS: Basophils % 0.1 %; Eosinophils # 0.4 K/mcL (0.0-0.6); Hematocrit 24.2 % (35.3-44.9); Hemoglobin 7.5 g/dL (11.5-15.4); Immature Granulocytes % 0.5 % (0-4); Lymphocytes % 10.1 %; Mean Corpuscular Hemoglobin 30.9 pg (28.0-33.3); Mean Corpuscular Volume 99.6 fL (83.0-100.0); Mean Platelet Volume 9.7 fL (9.4-12.4); Monocytes # 0.8 K/mcL (0.0-1.3); Monocytes % 7.9 %; Neutrophils # 7.5 K/mcL (1.6-8.9); Platelet Count 179 K/mcL (140-400); Red Blood Count 2.43 M/mcL (3.82-4.97); Red Cell Distribution Width 17.2 % (11.5-14.5); Segmented Neutrophils % 77.4 %; White Blood Count 9.7 K/mcL (4.3-11.1)
[2018-12-25 03:25] LABS: INR 2.3; Prothrombin Time 25.6 Seconds (9.4-12.1)
[2018-12-25 03:39] LABS: Alanine Aminotransferase 4 Units/L (7-52); Albumin 2.5 g/dL (3.5-5.7); Alkaline Phosphatase 56 Units/L (34-104); Aspartate Amino Transferase 10 Units/L (13-39); BUN/Creatinine Ratio 35 (6-26); Bilirubin,Total 0.5 mg/dL (0.3-1.0); Blood Urea Nitrogen 14 mg/dL (8-23); Calcium 7.8 mg/dL (8.6-10.3); Carbon Dioxide 21 mEq/L (23-29); Chloride 113 mEq/L (98-107); Globulin 2.6 g/dL (2.4-3.5); Glucose 95 mg/dL (70-105); Osmolality,Calculated 294 (280-300); Sodium 142 mEq/L (136-145); Total Protein 5.1 g/dL (6.4-8.9); eGFR For African Americans > 60 (> 60); eGFR For Non-African Americans > 60 (> 60)
[2018-12-25] MEDS: *HR* HYDROmorphone (PF) 1 MG/ML SYRINGE IVP PRN ×5 (04:09→23:58)
[2018-12-25] MEDS: Pantoprazole 40 MG VIAL IVP SCH (05:45)
[2018-12-25] MEDS: 0.9 % Sodium Chloride 1,000 ML IVC SCH (06:47)
[2018-12-25] MEDS: cefTRIAXone 1,000 MG in Water for inj. (sterile) 10 ML IVP SCH (08:16)
--- NOTE | 2018-12-25 09:27 | AcuteCareSurgery Progress Note ---
Date of Encounter: 12/25/18 Time of Encounter: 09:25 - Assessment and Plan (1) Abdominal pain Current Visit: Yes Status: Acute s/p Exploration with reduction of small bowel from retroperitoneal space, POD#3. Patient states she a lot of flatus yesterday. None today. Due to her distension today I would like to hold on any further advancement of her diet. Continue IVF and clears for now. Qualifiers: Abdominal location: left upper quadrant Qualified Code(s): R10.12 - Left upper quadrant pain (2) Small bowel obstruction Current Visit: Yes Status: Acute See above (3) Anemia Current Visit: Yes Status: Acute Patient's current Hgb level is 7.5. She is positive 3.1L over the past 24 hours and 600ml positive from Wednesday-Wednesday. The 3.1L positive is after receiving 1U of PRBC (approximately 335ml volume). This Hgb represents a dilutional effect and the patient may benefit from diuresis (also of note the patient's weight increased 3.6kg in 24 hours). Qualifiers: Anemia type: other cause Other causes of anemia: other cause, not classified Qualified Code(s): D64.89 - Other specified anemias Subjective Patient reports: other (Patient states that the broth caused some upper abdominal pain. Otherwise tolerating clears. ) Objective Vital Signs - Last 8 Hours Temp Pulse Resp BP Pulse Ox 12/25/18 07:24 98.4 F 75 16 125/75 96 12/25/18 03:49 98.4 F 87 15 132/79 96 Intake and Output 12/24/18 12/25/18 12/25/18 23:59 07:59 15:59 Intake Total 1180 / 3660 1000 / 1000 Output Total 500 / 500 Balance 680 / 3160 1000 / 1000 Intake: IV Fluids 1000 / 3010 1000 / 1000 0.9 % Sodium Chloride 1,000 ML 1000 / 3000 1000 / 1000 @ 100 mls/hr IVC .Q10H [facility] Rx#: [id number] Oral 180 / 300 Output: Catheter 500 / 500 Other: Meal Dinner Weight 83 kg Patient Weight 12/25/18 23:59 Weight 83 kg - General physical appearance well nourished, no distress - Abdomen Abdomen: Present: soft, distended (Noted more distension on current exam. Positive bowel sounds.) - Incision Incision: Present: clean and dry, intact (No drainage noted.) - Labs 12/25/18 12:53 12/25/18 02:28 Diabetes panel 12/25/18 Range/Units 02:28 Sodium 142 (136-145) mEq/L Potassium 3.0 L (3.5-5.1) mEq/L Chloride 113 H (98-107) mEq/L Carbon Dioxide 21 L (23-29) mEq/L BUN 14 (8-23) mg/dL Creatinine 0.40 L (0.60-1.20) mg/dL Glucose 95 (70-105) mg/dL Calcium 7.8 L (8.6-10.3) mg/dL AST 10 L (13-39) Units/L ALT 4 L (7-52) Units/L Alkaline Phosphatase 56 (34-104) Units/L Albumin 2.5 L (3.5-5.7) g/dL Calcium panel 12/25/18 Range/Units 02:28 Calcium 7.8 L (8.6-10.3) mg/dL Albumin 2.5 L (3.5-5.7) g/dL Pituitary panel 12/25/18 Range/Units 02:28 Sodium 142 (136-145) mEq/L Potassium 3.0 L (3.5-5.1) mEq/L Chloride 113 H (98-107) mEq/L Carbon Dioxide 21 L (23-29) mEq/L BUN 14 (8-23) mg/dL Creatinine 0.40 L (0.60-1.20) mg/dL Glucose 95 (70-105) mg/dL Calcium 7.8 L (8.6-10.3) mg/dL Adrenal panel 12/25/18 Range/Units 02:28 Sodium 142 (136-145) mEq/L Potassium 3.0 L (3.5-5.1) mEq/L Chloride 113 H (98-107) mEq/L Carbon Dioxide 21 L (23-29) mEq/L BUN 14 (8-23) mg/dL Creatinine 0.40 L (0.60-1.20) mg/dL Glucose 95 (70-105) mg/dL Calcium 7.8 L (8.6-10.3) mg/dL Total Bilirubin 0.5 (0.3-1.0) mg/dL AST 10 L (13-39) Units/L ALT 4 L (7-52) Units/L Alkaline Phosphatase 56 (34-104) Units/L Albumin 2.5 L (3.5-5.7) g/dL - VTE Documentation of Mechanical Device: Intermittent pneumatic compression device Consult Discharge Plan - Plan Referrals: Timbo Brar MD [Partnered Physician] - Elen Britton DO [Primary Care Provider] -
[2018-12-25 10:45] LABS: Magnesium 1.6 mg/dL (1.6-2.6)
[2018-12-25] MEDS ORDERED: *HR* HYDROmorphone 2 MG TABLET PO PRN (11:02)
--- NOTE | 2018-12-25 11:43 | Internal Med Progress Note ---
Hospitalist Progress Note - Encounter Date of Encounter: 12/25/18 Time of Encounter: 11:39 - Subjective Interval History: Patient was seen and examined at bedside. No acute events overnight. Patient is POD #3 status post exploratory laparotomy and ureteral stent placement. Endorses abdominal pain that has been well controlled with pain medications. Patient states that she has been passing gas, however still has not had a bowel movement. Patient says that she tried to have more broth and Jell-O yesterday however her abdomen became more distended. She otherwise denies any chest pain, shortness of breath, nausea, vomiting, fevers, chills. - Exam Vitals: Temp Pulse Resp BP Pulse Ox 97.8 F 76 15 141/86 97 12/25/18 11:19 12/25/18 11:19 12/25/18 11:19 12/25/18 11:12/25/18 11:19 Exam: GEN: Well-appearing, NAD, conversant. HEAD: Normocephalic, atraumatic. ENT: Moist mucous membranes, draining dark green fluid from the NG tube. NECK: Supple. mild anterior cervical tenderness, no thyromegaly, No tracheal deviation. HEART: Regular rate and regular rhythm, normal S1/S2, no m/r/g. LUNGS: CTAB, good air exchange bilaterally. No wheezing, rubs, or rhonchi. ABDO: Soft, tender epigastric area, nondistended with active bowel sounds. Firm, but no rebound, guarding, rigidity. Intact abdominal surgical site with bandage overlying, hemostatic, no bleeding or drainage. : No suprapubic tenderness or CVA tenderness. EXT: Without cyanosis, clubbing or edema. Full peripheral pulses. SKIN: Warm and dry without any rash. NEURO: Grossly nonfocal. Alert and oriented, moving all 4 extremities. CN not formally tested but appear grossly intact. PSYCH: Normal affect, no depressed or anxious mood. - Assessment and Plan (1) Small bowel obstruction Current Visit: Yes Status: Acute Assessment and Plan: Patient presented to the ED with abdominal pain and recent history of left inguinal hernia repair on October 2017. On CT was found to have low-grade small bowel obstruction. Currently endorses nausea and intermittent emesis, but she remains afebrile. On 12/22 had exploratory laparotomy to reduce internal hernia and debridement of hematoma cavity. - Surgical recommendations: - Patient is POD #3 - Advance diet to sips of clears, await return of bowel function - Continue IV fluids of normal saline at 100 mL/hr - Removed NG tube - Continue protonix at 40mg IV daily - Hemoglobin at 8.1 after transfusion, 7.5 this morning - Anemia is likely dilutional given administration of fluids, consider diuresis - Recheck CBC in afternoon - Ambulation and incentive spirometer use encouraged (2) Kidney stone Current Visit: Yes Status: Acute Assessment and Plan: Patient presented to the ED with abdominal pain and back pain. On CT she was found to have a 3 mm ureteral stone with hydronephrosis. On 12/22, patient underwent cystoscopy with left ureteral stent placement. Good UOP overnight. POD #2. - Urology recs to remove catheter, follow up outpatient on 01/12 for further management - Dilaudid 1mg PO [id number] for pain control - Acetaminophen 1 g by mouth every 6 hours when necessary for pain (3) UTI (urinary tract infection) Current Visit: Yes Status: Resolved Assessment and Plan: Patient was noted to have a UTI with positive nitrites, leukocyte esterase, bacteria on UA. Currently asymptomatic, however we will treat in the setting of nephrolithiasis. - Completed 5 day course ceftriaxone 1g IV daily starting 12/21, stopped on 12/25 - Urine cultures positive for Escherichia coli, hx of E. coli/Klebsiella UTI (4) GERD (gastroesophageal reflux disease) Current Visit: Yes Status: Chronic Assessment and Plan: - Continue protonix at 40mg IV daily (5) Hypertension Current Visit: No Status: Chronic Assessment and Plan: - Continue home antihypertensive medications (6) Atrial fibrillation Current Visit: No Status: Chronic Assessment and Plan: Asymptomatic with normal HR. Not currently on any rate-controlling meds. Currently on warfarin for atrial fibrillation. - Hold warfarin for now, pending surgery recs - Trend PT/INR daily (7) Hypokalemia Current Visit: Yes Status: Acute Assessment and Plan: Patient has a low potassium likely due to fluid administration and in context of recent surgery. Plan: - Cont to monitor electrolytes with BMP - Repleted with 3x 40 mEq of K PO today (8) DVT prophylaxis Current Visit: Yes Status: Acute Assessment and Plan: - Continue SCDs - Time Spent with Patient Total time spent is greater than 50% in coordination of care (as documented) at patient's floor/unit and/or counseling patient: less than 15 minutes Plan of Care Discussed with: patient Internal Medicine: Result - Labs CBC & Chem 7: 12/25/18 02:28 12/25/18 02:28 Labs: Short CBC 12/24/18 12/25/18 Range/Units 16:48 02:28 WBC 9.7 (4.3-11.1) K/mcL Hgb 8.1 L 7.5 L (11.5-15.4) g/dL Hct 25.4 L 24.2 L (35.3-44.9) % Plt Count 179 (140-400) K/mcL Neutrophils # 7.5 (1.6-8.9) K/mcL BMP 12/25/18 02:28 Sodium 142 Potassium 3.0 L Chloride 113 H Carbon Dioxide 21 L BUN 14 Creatinine 0.40 L Glucose 95 Calcium 7.8 L Liver Function 12/25/18 Range/Units 02:28 Total Bilirubin 0.5 (0.3-1.0) mg/dL AST 10 L (13-39) Units/L ALT 4 L (7-52) Units/L Alkaline Phosphatase 56 (34-104) Units/L Albumin 2.5 L (3.5-5.7) g/dL - ABG Interpretation ABG results: PT/INR, D-dimer PT 25.6 Seconds (9.4-12.1) H 12/25/18 02:28 - VTE Documentation of Mechanical Device: Intermittent pneumatic compression device Consult Discharge Plan - Plan Referrals: Timbo Brar MD [Partnered Physician] - Elen Britton DO [Primary Care Provider] - ___ (3) UTI (urinary tract infection) Qualifiers: Urinary tract infection type: site unspecified Hematuria presence: with hematuria Qualified Code(s): N39.0 - Urinary tract infection, site not specified; R31.9 - Hematuria, unspecified (4) GERD (gastroesophageal reflux disease) Qualifiers: Esophagitis presence: esophagitis presence not specified Qualified Code(s): K21.9 - Gastro-esophageal reflux disease without esophagitis (5) Hypertension Qualifiers: Hypertension type: essential hypertension Qualified Code(s): I10 - Essential (primary) hypertension (6) Atrial fibrillation Qualifiers: Atrial fibrillation type: paroxysmal Qualified Code(s): I48.0 - Paroxysmal atrial fibrillation
[2018-12-25 13:14] LABS: Hematocrit 26.3 % (35.3-44.9); Hemoglobin 8.4 g/dL (11.5-15.4); Mean Corpuscular HGB Conc 31.9 g/dL (31.6-35.5); Mean Corpuscular Hemoglobin 31.6 pg (28.0-33.3); Mean Corpuscular Volume 98.9 fL (83.0-100.0); Mean Platelet Volume 9.6 fL (9.4-12.4); Platelet Count 194 K/mcL (140-400); Red Blood Count 2.66 M/mcL (3.82-4.97); Red Cell Distribution Width 16.9 % (11.5-14.5); White Blood Count 9.2 K/mcL (4.3-11.1)
[2018-12-25] MEDS ORDERED: *HR* Warfarin 5 MG TABLET PO ONE (18:00)
--- NOTE | 2018-12-25 19:56 | Event Note ---
Date of Encounter: 12/25/18 Time of Encounter: 19:51 Notified by nurse of patient having increase in abdominal pain and abdomen appearing to be getting more firm and bloated. Assessed patient at bedside. Patient states over the past few hours her abdominal pain has increased and also seems to be getting more firm along with nausea, abdomen is firm and tender above the incision site. Patient reports still passing gas and attempting by mouth intake today. Called and discussed with on-call acute care surgery Dr. Palumbo who advised to hold any by mouth intake for tonight, continue fluids, and if starts vomiting to place NG tube to low intermittent suction. Will update patient and nurse. Nurse to advise of any changes.
[2018-12-25] MEDS ORDERED: *HR* HYDROmorphone (PF) 1 MG/ML SYRINGE IVP PRN (19:57)
[2018-12-25] MEDS ORDERED: 0.9 % Sodium Chloride 1,000 ML IVC SCH (20:00)
[2018-12-25] MEDS: Warfarin perPT PO SCH (20:06)
[2018-12-25] MEDS: Ondansetron 4 MG/2 ML VIAL IVP PRN (20:15)
[2018-12-25 20:48] LABS: Basophils % 0.1 %; Eosinophils # 0.3 K/mcL (0.0-0.6); Eosinophils % 2.8 %; Hematocrit 29.4 % (35.3-44.9); Hemoglobin 9.4 g/dL (11.5-15.4); Immature Granulocytes % 0.4 % (0-4); Lymphocytes # 0.9 K/mcL (0.6-4.6); Lymphocytes % 9.4 %; Mean Corpuscular Hemoglobin 30.9 pg (28.0-33.3); Mean Corpuscular Volume 96.7 fL (83.0-100.0); Mean Platelet Volume 9.7 fL (9.4-12.4); Monocytes # 0.8 K/mcL (0.0-1.3); Monocytes % 8.3 %; Neutrophils # 7.5 K/mcL (1.6-8.9); Platelet Count 227 K/mcL (140-400); Red Blood Count 3.04 M/mcL (3.82-4.97); Red Cell Distribution Width 16.3 % (11.5-14.5); White Blood Count 9.5 K/mcL (4.3-11.1)
[2018-12-26 05:26] LABS: Hematocrit 27.6 % (35.3-44.9); Hemoglobin 8.7 g/dL (11.5-15.4); Mean Corpuscular HGB Conc 31.5 g/dL (31.6-35.5); Mean Corpuscular Hemoglobin 30.9 pg (28.0-33.3); Mean Corpuscular Volume 97.9 fL (83.0-100.0); Mean Platelet Volume 9.9 fL (9.4-12.4); Platelet Count 216 K/mcL (140-400); Red Blood Count 2.82 M/mcL (3.82-4.97); Red Cell Distribution Width 16.1 % (11.5-14.5); White Blood Count 6.9 K/mcL (4.3-11.1)
[2018-12-26] MEDS: *HR* HYDROmorphone (PF) 1 MG/ML SYRINGE IVP PRN (05:32)
[2018-12-26] MEDS: Pantoprazole 40 MG VIAL IVP SCH (05:32)
[2018-12-26 05:36] LABS: INR 2.2; Prothrombin Time 24.5 Seconds (9.4-12.1)
[2018-12-26 05:39] LABS: Alanine Aminotransferase 4 Units/L (7-52); Albumin 2.6 g/dL (3.5-5.7); Alkaline Phosphatase 67 Units/L (34-104); Aspartate Amino Transferase 10 Units/L (13-39); BUN/Creatinine Ratio 28 (6-26); Bilirubin,Total 0.5 mg/dL (0.3-1.0); Blood Urea Nitrogen 11 mg/dL (8-23); Calcium 8.7 mg/dL (8.6-10.3); Carbon Dioxide 25 mEq/L (23-29); Chloride 111 mEq/L (98-107); Globulin 2.5 g/dL (2.4-3.5); Glucose 99 mg/dL (70-105); Osmolality,Calculated 289 (280-300); Potassium 3.6 mEq/L (3.5-5.1); Sodium 140 mEq/L (136-145); Total Protein 5.1 g/dL (6.4-8.9); eGFR For African Americans > 60 (> 60); eGFR For Non-African Americans > 60 (> 60)
--- NOTE | 2018-12-26 08:31 | Internal Med Progress Note ---
Hospitalist Progress Note - Encounter Date of Encounter: 12/26/18 Time of Encounter: 08:31 - Subjective Interval History: Patient was seen and examined at bedside. No acute events overnight. POD #4. Patient did have some more distention yesterday with fluid intake. She still passing gas, however she has not yet had a bowel movement. However today her distention and abdominal pain have improved. Patient denies any nausea, vomiting, fevers, chills. Pain is well-controlled on oral medication. Denies any chest pain or shortness of breath. - Exam Vitals: Temp Pulse Resp BP Pulse Ox 98.2 F 78 16 115/74 97 12/26/18 08:15 12/26/18 08:15 12/26/18 08:15 12/26/18 08:15 12/26/18 08:15 Exam: GEN: Well-appearing, NAD, conversant. HEAD: Normocephalic, atraumatic. ENT: Moist mucous membranes, draining dark green fluid from the NG tube. NECK: Supple. mild anterior cervical tenderness, no thyromegaly, No tracheal deviation. HEART: Regular rate and regular rhythm, normal S1/S2, no m/r/g. LUNGS: CTAB, good air exchange bilaterally. No wheezing, rubs, or rhonchi. ABDO: Soft, tender epigastric area, nondistended with active bowel sounds. Firm, but no rebound, guarding, rigidity. Intact abdominal surgical site with bandage overlying, hemostatic, no bleeding or drainage. : No suprapubic tenderness or CVA tenderness. EXT: Without cyanosis, clubbing or edema. Full peripheral pulses. SKIN: Warm and dry without any rash. NEURO: Grossly nonfocal. Alert and oriented, moving all 4 extremities. CN not formally tested but appear grossly intact. PSYCH: Normal affect, no depressed or anxious mood. - Assessment and Plan (1) Small bowel obstruction Current Visit: Yes Status: Acute Assessment and Plan: Patient presented to the ED with abdominal pain and recent history of left inguinal hernia repair on October 2017. On CT was found to have low-grade small bowel obstruction. Currently endorses nausea and intermittent emesis, but she remains afebrile. On 12/22 had exploratory laparotomy to reduce internal hernia and debridement of hematoma cavity. - Surgical recommendations: - Patient is POD #4 - Advance diet to clear liquid diet, await return of bowel function - Removed NG tube - Continue protonix at 40mg IV daily - Hemoglobin stable at 8.7 - Anemia is likely dilutional given administration of fluids - Ambulation and incentive spirometer use encouraged (2) Kidney stone Current Visit: Yes Status: Acute Assessment and Plan: Patient presented to the ED with abdominal pain and back pain. On CT she was found to have a 3 mm ureteral stone with hydronephrosis. On 12/22, patient underwent cystoscopy with left ureteral stent placement. Good UOP overnight. POD #4. - Urology recs to remove catheter, follow up outpatient on 01/12 for further management - Dilaudid 4mg PO [id number] for pain control - Acetaminophen 1 g by mouth every 6 hours when necessary for pain (3) UTI (urinary tract infection) Current Visit: Yes Status: Resolved Assessment and Plan: Patient was noted to have a UTI with positive nitrites, leukocyte esterase, bacteria on UA. Currently asymptomatic, however we will treat in the setting of nephrolithiasis. - Completed 5 day course ceftriaxone 1g IV daily starting 12/21, stopped on 12/25 - Urine cultures positive for Escherichia coli, hx of E. coli/Klebsiella UTI (4) GERD (gastroesophageal reflux disease) Current Visit: Yes Status: Chronic Assessment and Plan: - Continue protonix at 40mg IV daily (5) Hypertension Current Visit: No Status: Chronic Assessment and Plan: - Continue home antihypertensive medications (6) Atrial fibrillation Current Visit: No Status: Chronic Assessment and Plan: Asymptomatic with normal HR. Not currently on any rate-controlling meds. Currently on warfarin for atrial fibrillation. - Restarted warfarin 12/25 - Trend PT/INR daily (7) Hypokalemia Current Visit: Yes Status: Acute Assessment and Plan: Patient has a low potassium likely due to fluid administration and in context of recent surgery. Plan: - Cont to monitor electrolytes with BMP - Repleted with 1x 40 mEq of K PO today (8) DVT prophylaxis Current Visit: Yes Status: Acute Assessment and Plan: - Continue SCDs - Time Spent with Patient Total time spent is greater than 50% in coordination of care (as documented) at patient's floor/unit and/or counseling patient: less than 15 minutes Plan of Care Discussed with: patient Internal Medicine: Result - Labs CBC & Chem 7: 12/26/18 04:46 12/26/18 04:46 Labs: Short CBC 12/25/18 12/25/18 12/26/18 Range/Units 12:53 20:25 04:46 WBC 9.2 9.5 6.9 (4.3-11.1) K/mcL Hgb 8.4 L 9.4 L 8.7 L (11.5-15.4) g/dL Hct 26.3 L 29.4 L 27.6 L (35.3-44.9) % Plt Count 194 227 216 (140-400) K/mcL Neutrophils # 7.5 (1.6-8.9) K/mcL BMP 12/25/18 12/26/18 02:28 04:46 Sodium 142 140 Potassium 3.0 L 3.6 Chloride 113 H 111 H Carbon Dioxide 21 L 25 BUN 14 11 Creatinine 0.40 L 0.40 L Glucose 95 99 Calcium 7.8 L 8.7 Liver Function 12/25/18 12/26/18 Range/Units 02:28 04:46 Total Bilirubin 0.5 0.5 (0.3-1.0) mg/dL AST 10 L 10 L (13-39) Units/L ALT 4 L 4 L (7-52) Units/L Alkaline Phosphatase 56 67 (34-104) Units/L Albumin 2.5 L 2.6 L (3.5-5.7) g/dL - ABG Interpretation ABG results: PT/INR, D-dimer PT 24.5 Seconds (9.4-12.1) H 12/26/18 04:46 - VTE Documentation of Mechanical Device: Intermittent pneumatic compression device Consult Discharge Plan - Plan Referrals: Timbo Brar MD [Partnered Physician] - Elen Britton DO [Primary Care Provider] - (3) UTI (urinary tract infection) Qualifiers: Urinary tract infection type: site unspecified Hematuria presence: with hematuria Qualified Code(s): N39.0 - Urinary tract infection, site not specified; R31.9 - Hematuria, unspecified (4) GERD (gastroesophageal reflux disease) Qualifiers: Esophagitis presence: esophagitis presence not specified Qualified Code(s): K21.9 - Gastro-esophageal reflux disease without esophagitis (5) Hypertension Qualifiers: Hypertension type: essential hypertension Qualified Code(s): I10 - Essential (primary) hypertension (6) Atrial fibrillation Qualifiers: Atrial fibrillation type: paroxysmal Qualified Code(s): I48.0 - Paroxysmal atrial fibrillation
--- NOTE | 2018-12-26 08:41 | AcuteCareSurgery Progress Note ---
Date of Encounter: 12/26/18 Time of Encounter: 07:35 - Assessment and Plan (1) Small bowel obstruction Current Visit: Yes Status: Acute Small bowel obstruction is now resolved. We will advance her diet to clear liquids. She did have some nausea yesterday but we believe that this was from pain medicine administration. Continue close observation. Continue IV hydration and support. Subjective Narrative: The patient is postoperative day 4 from exploratory laparotomy and reduction of internal hernia. The patient had herniated a limb of small bowel into a hematoma cavity on the left flank. This hematoma cavity was unroofed relieving the obstruction. She has tremendous sensitivity to medicines. She developed nausea yesterday after treatment with pain medicine. The nausea has now resolved. She is passing flatus. We will place her back on clear liquid diet. Objective Vital Signs - Last 8 Hours Temp Pulse Resp BP Pulse Ox 12/26/18 08:15 98.2 F 78 16 115/74 97 12/26/18 03:34 98.3 F 53 16 136/75 95 Intake and Output 12/25/18 12/26/18 12/26/18 23:59 07:59 15:59 Output Total 200 / 725 250 / 250 Balance -200 / 685 -250 / -250 Output: Catheter 200 / 725 250 / 250 Other: Blood Glucose* 114 97 - General physical appearance well developed, well nourished, moderate distress, moderate pain - Respiratory normal expansion, normal respiratory effort, clear to percussion, clear to auscultation - Cardiovascular Cardiovascular exam: Present: RRR, no murmurs/rubs/gallops - Abdomen Abdomen: Present: bowel sounds present - Incision Incision: Present: clean and dry - Neurologic CN 2-12 grossly intact, normal coordination, normal sensation - Psychiatric oriented to time, oriented to person, oriented to place, speech is normal, memory intact - Labs 12/26/18 04:46 12/26/18 04:46 Diabetes panel 12/25/18 12/26/18 Range/Units 02:28 04:46 Sodium 142 140 (136-145) mEq/L Potassium 3.0 L 3.6 (3.5-5.1) mEq/L Chloride 113 H 111 H (98-107) mEq/L Carbon Dioxide 21 L 25 (23-29) mEq/L BUN 14 11 (8-23) mg/dL Creatinine 0.40 L 0.40 L (0.60-1.20) mg/dL Glucose 95 99 (70-105) mg/dL Calcium 7.8 L 8.7 (8.6-10.3) mg/dL AST 10 L 10 L (13-39) Units/L ALT 4 L 4 L (7-52) Units/L Alkaline Phosphatase 56 67 (34-104) Units/L Albumin 2.5 L 2.6 L (3.5-5.7) g/dL Calcium panel 12/25/18 12/26/18 Range/Units 02:28 04:46 Calcium 7.8 L 8.7 (8.6-10.3) mg/dL Albumin 2.5 L 2.6 L (3.5-5.7) g/dL Pituitary panel 12/25/18 12/26/18 Range/Units 02:28 04:46 Sodium 142 140 (136-145) mEq/L Potassium 3.0 L 3.6 (3.5-5.1) mEq/L Chloride 113 H 111 H (98-107) mEq/L Carbon Dioxide 21 L 25 (23-29) mEq/L BUN 14 11 (8-23) mg/dL Creatinine 0.40 L 0.40 L (0.60-1.20) mg/dL Glucose 95 99 (70-105) mg/dL Calcium 7.8 L 8.7 (8.6-10.3) mg/dL Adrenal panel 12/25/18 12/26/18 Range/Units 02:28 04:46 Sodium 142 140 (136-145) mEq/L Potassium 3.0 L 3.6 (3.5-5.1) mEq/L Chloride 113 H 111 H (98-107) mEq/L Carbon Dioxide 21 L 25 (23-29) mEq/L BUN 14 11 (8-23) mg/dL Creatinine 0.40 L 0.40 L (0.60-1.20) mg/dL Glucose 95 99 (70-105) mg/dL Calcium 7.8 L 8.7 (8.6-10.3) mg/dL Total Bilirubin 0.5 0.5 (0.3-1.0) mg/dL AST 10 L 10 L (13-39) Units/L ALT 4 L 4 L (7-52) Units/L Alkaline Phosphatase 56 67 (34-104) Units/L Albumin 2.5 L 2.6 L (3.5-5.7) g/dL - VTE Documentation of Mechanical Device: Intermittent pneumatic compression device Consult Discharge Plan - Plan Referrals: Timbo Brar MD [Partnered Physician] - Elen Britton DO [Primary Care Provider] -
[2018-12-26] MEDS: *HR* HYDROmorphone 4 MG TABLET PO PRN ×3 (13:21→23:56)
[2018-12-26] MEDS: Warfarin perPT PO SCH (17:38)
[2018-12-26] MEDS ORDERED: *HR* Warfarin 5 MG TABLET PO ONE (18:00)
[2018-12-27 05:12] LABS: Hematocrit 29.5 % (35.3-44.9); Hemoglobin 9.2 g/dL (11.5-15.4); Mean Corpuscular HGB Conc 31.2 g/dL (31.6-35.5); Mean Corpuscular Hemoglobin 31.1 pg (28.0-33.3); Mean Corpuscular Volume 99.7 fL (83.0-100.0); Mean Platelet Volume 9.7 fL (9.4-12.4); Platelet Count 248 K/mcL (140-400); Red Blood Count 2.96 M/mcL (3.82-4.97); Red Cell Distribution Width 16.1 % (11.5-14.5)
[2018-12-27 05:30] LABS: BUN/Creatinine Ratio 19 (6-26); Blood Urea Nitrogen 9 mg/dL (8-23); Calcium 9.3 mg/dL (8.6-10.3); Carbon Dioxide 28 mEq/L (23-29); Chloride 105 mEq/L (98-107); Glucose 94 mg/dL (70-105); Osmolality,Calculated 286 (280-300); Potassium 4.3 mEq/L (3.5-5.1); Sodium 139 mEq/L (136-145); eGFR For African Americans > 60 (> 60); eGFR For Non-African Americans > 60 (> 60)
[2018-12-27 05:32] LABS: INR 2.7; Prothrombin Time 30.3 Seconds (9.4-12.1)
[2018-12-27] MEDS: Bisacodyl 10 MG RECTAL SUPPOSITORY RC SCH (08:39)
[2018-12-27] MEDS: *HR* HYDROmorphone 4 MG TABLET PO PRN ×3 (08:45→23:54)
--- NOTE | 2018-12-27 10:18 | AcuteCareSurgery Progress Note ---
<Leticia Davalos - Last Filed: 12/27/18 10:16> Date of Encounter: 12/27/18 Time of Encounter: 07:45 - Assessment and Plan (1) Small bowel obstruction Current Visit: Yes Status: Acute Date of procedure: 12/22/18 Pre-op diagnosis: Small bowel obstruction Post-op diagnosis: other (Internal hernia) Procedure: #1 exploratory laparotomy with reduction of internal hernia. #2 unroofing and debridement of hematoma cavity Anesthesia: STUARTA Surgeon: Bradley Humphrey POD #5 as above. No specimens were sent for pathology. She is recovering as expected. Her episode of nausea has resolved although she has not had full return of bowel function. She states her discomfort is controlled and she is noted to have multiple sensitivities to medications. Stool softener and per rectum motility agent have been added. We will also add Reglan 20 mg IV every 8 hours for 36 hours. Her incision remains clean, dry, and intact. There is no evidence for concern of infection at this time. Plan: Continue supportive care and discomfort management while awaiting full return of bowel function Continue G.I. and DVT prophylaxis per primary team On Warfarin Incentive spirometry 10 times every hour while awake Out of bed to chair TID, do not offer meal trays while in the bed CLD until bowel function returns (protein supplement ok Activity as tolerated, recommend PT/OT consult for possible placement versus home health as patient recently listened prolonged stay in rehab Apply ice 20 minutes on 20 minutes off as needed further recommendations as above (2) Chronic anticoagulation Current Visit: Yes Status: Acute Pt with need for chronic anticoagulation given afib history. She has a history of significant bleeding after her inguinal hernia repair in 10/2018. She reports frequent episodes of dizziness and feeling unsteady to this ARPN in the past. Strongly recommend consult to cardiology for possible consideration of Watchman. Pt would like to be considered for possible Watchman. Will defer referral to primary team. Subjective Patient reports: no new complaints, feels better, still having pain, pain is less, voiding w/o difficulty, no flatus, no bowel movement, afebrile Narrative: Nausea improved. No new complaints. Is interested in discussing a Watchman given her bleeding history and need for anticoagulation Objective Vital Signs - Last 8 Hours Temp Pulse Resp BP Pulse Ox 12/27/18 06:38 98.1 F 74 14 124/81 93 12/27/18 03:53 98.3 F 80 17 122/75 90 Intake and Output 12/26/18 12/27/18 12/27/18 23:59 07:59 15:59 Intake Total 320 / 1320 0 / 0 0 / 0 Balance 320 / 1070 0 / 0 0 / 0 Intake: Oral 320 / 320 0 / 0 0 / 0 Other: Meal Dinner clears Percent of Meal Consumed 0% # Urine Diapers 1 Weight 85.8 kg Patient Weight 12/27/18 23:59 Weight 85.8 kg - General physical appearance well nourished, no distress - Eyes normal ocular movement - ENT atraumatic, normocephalic - Neck Neck exam: trachea midline - Respiratory normal expansion, normal respiratory effort - Cardiovascular Cardiovascular exam: Present: RRR, murmurs, distant heart sounds - Abdomen Abdomen: Present: bowel sounds present, soft, distended (but soft), tender (expected postoperative) - Incision Incision: Present: clean and dry, intact - Integumentary no rash - Neurologic normal sensation - Musculoskeletal normal posture, other (generalized deconditioning noted) - Psychiatric oriented to time, oriented to person, oriented to place, speech is normal - Labs 12/27/18 04:18 12/27/18 04:18 Diabetes panel 12/27/18 Range/Units 04:18 Sodium 139 (136-145) mEq/L Potassium 4.3 (3.5-5.1) mEq/L Chloride 105 (98-107) mEq/L Carbon Dioxide 28 (23-29) mEq/L BUN 9 (8-23) mg/dL Creatinine 0.47 L (0.60-1.20) mg/dL Glucose 94 (70-105) mg/dL Calcium 9.3 (8.6-10.3) mg/dL Calcium panel 12/27/18 Range/Units 04:18 Calcium 9.3 (8.6-10.3) mg/dL Pituitary panel 12/27/18 Range/Units 04:18 Sodium 139 (136-145) mEq/L Potassium 4.3 (3.5-5.1) mEq/L Chloride 105 (98-107) mEq/L Carbon Dioxide 28 (23-29) mEq/L BUN 9 (8-23) mg/dL Creatinine 0.47 L (0.60-1.20) mg/dL Glucose 94 (70-105) mg/dL Calcium 9.3 (8.6-10.3) mg/dL Adrenal panel 12/27/18 Range/Units 04:18 Sodium 139 (136-145) mEq/L Potassium 4.3 (3.5-5.1) mEq/L Chloride 105 (98-107) mEq/L Carbon Dioxide 28 (23-29) mEq/L BUN 9 (8-23) mg/dL Creatinine 0.47 L (0.60-1.20) mg/dL Glucose 94 (70-105) mg/dL Calcium 9.3 (8.6-10.3) mg/dL - VTE Documentation of Mechanical Device: Intermittent pneumatic compression device Consult Discharge Plan - Plan Referrals: Timbo Brar MD [Partnered Physician] - Elen Britton DO [Primary Care Provider] - <Bradley Humphrey - Last Filed: 12/27/18 11:28> Date of Encounter: 12/27/18 - Assessment and Plan (1) Small bowel obstruction Current Visit: Yes Status: Acute Objective Vital Signs - Last 8 Hours Temp Pulse Resp BP Pulse Ox 12/27/18 10:47 98.3 F 86 14 114/70 92 12/27/18 06:38 98.1 F 74 14 124/81 93 12/27/18 03:53 98.3 F 80 17 122/75 90 Intake and Output 12/26/18 12/27/18 12/27/18 23:59 07:59 15:59 Intake Total 320 / 1320 0 / 0 0 / 0 Balance 320 / 1070 0 / 0 0 / 0 Intake: Oral 320 / 320 0 / 0 0 / 0 Other: Meal Dinner clears Percent of Meal Consumed 0% # Urine Diapers 1 Weight 85.8 kg Patient Weight 12/27/18 23:59 Weight 85.8 kg - Labs 12/27/18 04:18 12/27/18 04:18 Diabetes panel 12/27/18 Range/Units 04:18 Sodium 139 (136-145) mEq/L Potassium 4.3 (3.5-5.1) mEq/L Chloride 105 (98-107) mEq/L Carbon Dioxide 28 (23-29) mEq/L BUN 9 (8-23) mg/dL Creatinine 0.47 L (0.60-1.20) mg/dL Glucose 94 (70-105) mg/dL Calcium 9.3 (8.6-10.3) mg/dL Calcium panel 12/27/18 Range/Units 04:18 Calcium 9.3 (8.6-10.3) mg/dL Pituitary panel 12/27/18 Range/Units 04:18 Sodium 139 (136-145) mEq/L Potassium 4.3 (3.5-5.1) mEq/L Chloride 105 (98-107) mEq/L Carbon Dioxide 28 (23-29) mEq/L BUN 9 (8-23) mg/dL Creatinine 0.47 L (0.60-1.20) mg/dL Glucose 94 (70-105) mg/dL Calcium 9.3 (8.6-10.3) mg/dL Adrenal panel 12/27/18 Range/Units 04:18 Sodium 139 (136-145) mEq/L Potassium 4.3 (3.5-5.1) mEq/L Chloride 105 (98-107) mEq/L Carbon Dioxide 28 (23-29) mEq/L BUN 9 (8-23) mg/dL Creatinine 0.47 L (0.60-1.20) mg/dL Glucose 94 (70-105) mg/dL Calcium 9.3 (8.6-10.3) mg/dL - Attending Attestation I have personally performed a face to face evaluation on this patient. I have reviewed and agree with the care plan. History and Exam by me shows: The patient is seen and evaluated on morning rounds with the acute care surgery team. She is tolerating full liquids. Her abdomen is somewhat distended, however, she has normal bowel sounds. We will add Reglan today and encourage ambulation. I imagine that this is postoperative ileus resolved Bradley Humphrey MD FACS
--- NOTE | 2018-12-27 13:28 | Internal Med Progress Note ---
Hospitalist Progress Note - Encounter Date of Encounter: 12/27/18 Time of Encounter: 08:15 - Subjective Interval History: Ms. Hudson is a 73-year-old female with a history of AFib, GERD, HTN who is POD 5 for a hernia repair. She continues to pass flatus but has not had a bowel movement. Last night she had clear liquids and tolerated it well. She also r eports that her abdominal distention and pain is somewhat improved. Review of Systems General- admits to fatigue but denies fever, chills HENT- denies cough, congestion Neuro- positive for orthostatic pre-syncope, negative for headache, vision changes Eyes- negative for vision changes, headache Cardio- denies chest pain, palpitations Lungs- admits to dyspnea unchanged from yesterday GI- positive for nausea, belching - positive for urge incontinence, negative for dysuria, hematuria MSK- positive for back pain - Exam Vitals: Temp Pulse Resp BP Pulse Ox 98.3 F 86 14 114/70 92 12/27/18 10:47 12/27/18 10:47 12/27/18 10:47 12/27/18 10:47 12/27/18 10:47 Exam: GEN: Well-appearing, NAD, conversant. HEAD: Normocephalic, atraumatic. ENT: Moist mucous membranes, hooked up to 2L NC. No jaundice NECK: Supple. No thyromegaly, No tracheal deviation. HEART: Regular rate and regular rhythm, normal S1/S2, no m/r/g. LUNGS: CTAB, good air exchange bilaterally. No wheezing, rubs, or rhonchi. ABDO: Vertical abdominal incision with multiple caterina in subumbilical region. Clean site otherwise. Increased bowel movements. Abdominal tenderness more so in the left quadrants, improved over yesterday. No rebound or guarding : No suprapubic tenderness or CVA tenderness. EXT: Without cyanosis, clubbing or edema. Full peripheral pulses. SKIN: Warm and dry without any rash. NEURO: Grossly nonfocal. Alert and oriented, moving all 4 extremities. CN not formally tested but appear grossly intact. PSYCH: Normal affect, no depressed or anxious mood. DVT Prophylaxis: SCDs, encouraging to ambulate - Summary of Assessment and Plan Summary of Assessment and Plan: Disposition Ms. Kellough is a 73-year-old female with a history of AFib on warfarin, HLD, HTN, and multiple abdominal surgeries being followed for recovery of an internal hernia repair on 12/23 along with a ureteral stent placement on the same day. Assessments Small Bowel obstruction -Patient continues to slowly improve; ellis and NG tube have both been removed; now tolerating clear liquid diet well. Still pending a bowel movement, however she is receiving dulcolax, Colace, and miralax. With some assistance we encouraged her to get up and walk down the [place] today, which she did with minimal issue. -Advance her diet per surgery's management. Continue to encourage ambulation Nephrolithiasis -ureteral stent was placed on 12/23 -having no urinary complaints besides chronic urge incontinence; tylenol and dilaudid are ordered prn for pain -plan to follow up with nephrology outpatient UTI- resolved -patient finished course of antibiotics on 12/25 and has a normal WBC without urinary symptoms Atrial Fibrillation -current INR is 2.7; continue warfarin dosage -rate-controlled with propafenone GERD -No acute changes; on omeprazole 20mg BID Hyperlipidemia -Restart patient's home atorvastatin as well as aspirin DVT Prophylaxis -SCDs with encouraged ambulation - Time Spent with Patient Total time spent is greater than 50% in coordination of care (as documented) at patient's floor/unit and/or counseling patient: Plan of Care Discussed with: patient Internal Medicine: Result - Labs CBC & Chem 7: 12/27/18 04:18 12/27/18 04:18 Labs: Short CBC 12/27/18 Range/Units 04:18 WBC 6.0 (4.3-11.1) K/mcL Hgb 9.2 L (11.5-15.4) g/dL Hct 29.5 L (35.3-44.9) % Plt Count 248 (140-400) K/mcL BMP 12/27/18 04:18 Sodium 139 Potassium 4.3 Chloride 105 Carbon Dioxide 28 BUN 9 Creatinine 0.47 L Glucose 94 Calcium 9.3 - ABG Interpretation ABG results: PT/INR, D-dimer PT 30.3 Seconds (9.4-12.1) H 12/27/18 04:18 - VTE Documentation of Mechanical Device: Intermittent pneumatic compression device Consult Discharge Plan - Plan Referrals: Timbo Brra MD [Partnered Physician] - Elen Britton DO [Primary Care Provider] -
[2018-12-27] MEDS ORDERED: Aspirin 81 MG TAB.CHEW PO ONE (13:56)
[2018-12-27] MEDS ORDERED: Metoclopramide 10 MG/2 ML VIAL IVP SCH (16:00)
[2018-12-27] MEDS: Metoclopramide 20 MG in 0.9 % Sodium Chloride 50 ML IVPB SCH ×2 (16:44→23:53)
[2018-12-27] MEDS: Warfarin perPT PO SCH (16:53)
[2018-12-27] MEDS ORDERED: *HR* Warfarin 2.5 MG TABLET PO ONE (18:00)
[2018-12-28 05:13] LABS: Basophils % 0.2 %; Eosinophils # 0.2 K/mcL (0.0-0.6); Eosinophils % 2.9 %; Hematocrit 30.2 % (35.3-44.9); Hemoglobin 9.6 g/dL (11.5-15.4); Immature Granulocytes % 0.3 % (0-4); Lymphocytes # 0.8 K/mcL (0.6-4.6); Lymphocytes % 13.7 %; Mean Corpuscular HGB Conc 31.8 g/dL (31.6-35.5); Mean Corpuscular Hemoglobin 31.1 pg (28.0-33.3); Mean Corpuscular Volume 97.7 fL (83.0-100.0); Monocytes # 0.7 K/mcL (0.0-1.3); Monocytes % 11.2 %; Neutrophils # 4.1 K/mcL (1.6-8.9); Platelet Count 271 K/mcL (140-400); Red Blood Count 3.09 M/mcL (3.82-4.97); Red Cell Distribution Width 16.2 % (11.5-14.5); Segmented Neutrophils % 71.7 %; White Blood Count 5.8 K/mcL (4.3-11.1)
[2018-12-28 05:27] LABS: BUN/Creatinine Ratio 30 (6-26); Blood Urea Nitrogen 12 mg/dL (8-23); Calcium 9.3 mg/dL (8.6-10.3); Carbon Dioxide 24 mEq/L (23-29); Chloride 103 mEq/L (98-107); Glucose 87 mg/dL (70-105); Magnesium 1.7 mg/dL (1.6-2.6); Osmolality,Calculated 277 (280-300); Phosphorous 2.4 mg/dL (2.7-4.5); Potassium 3.8 mEq/L (3.5-5.1); Sodium 134 mEq/L (136-145); eGFR For African Americans > 60 (> 60); eGFR For Non-African Americans > 60 (> 60)
[2018-12-28] MEDS: Aspirin 81 MG TAB.CHEW PO SCH (08:01)
[2018-12-28] MEDS: Bisacodyl 10 MG RECTAL SUPPOSITORY RC SCH (08:05)
[2018-12-28] MEDS: Metoclopramide 20 MG in 0.9 % Sodium Chloride 50 ML IVPB SCH ×2 (08:17→16:16)
--- NOTE | 2018-12-28 09:26 | AcuteCareSurgery Progress Note ---
Date of Encounter: 12/28/18 Time of Encounter: 09:24 - Assessment and Plan (1) Abdominal pain Current Visit: Yes Status: Acute s/p Exploration with reduction of small bowel from retroperitoneal space, POD#6. Will advance diet to soft foods. Will order for physical therapy and occupational therapy consultation. Out of bed and ambulation. Qualifiers: Abdominal location: left upper quadrant Qualified Code(s): R10.12 - Left upper quadrant pain (2) Small bowel obstruction Current Visit: Yes Status: Acute See above Subjective Patient reports: other (Patient states that she is had flatus and a bowel movement. Admits to some nausea but no vomiting. Prominence have been loose/diarrhea like.) Objective Vital Signs - Last 8 Hours Temp Pulse Resp BP Pulse Ox 12/28/18 06:59 98.4 F 102 18 129/78 93 12/28/18 02:58 98.2 F 79 15 128/69 92 Intake and Output 12/27/18 12/28/18 12/28/18 23:59 07:59 15:59 Intake Total 54 / 54 54 / 228 174 / 228 Output Total 0 / 0 0 / 0 Balance 54 / 54 54 / 228 174 / 228 Intake: IV Fluids 54 / 54 54 / 108 54 / 108 Reglan 20 MG In 0.9 % Sodium 54 / 54 54 / 108 54 / 108 Chloride 50 ML @ 108 mls/hr IVPB Q8HR [facility] Rx#:[id number] Oral 0 / 0 0 / 120 120 / 120 Output: Urine 0 / 0 0 / 0 Other: # Voids 1 # Bowel Movements 1 Weight 86.2 kg Patient Weight 12/28/18 23:59 Weight 86.2 kg - General physical appearance no distress - Abdomen Abdomen: Present: bowel sounds present, soft, tender (Admits to some tenderness to palpation along the incision. Incision healing well with minimal) - Labs 12/28/18 04:20 12/28/18 04:20 Diabetes panel 12/28/18 Range/Units 04:20 Sodium 134 L (136-145) mEq/L Potassium 3.8 (3.5-5.1) mEq/L Chloride 103 (98-107) mEq/L Carbon Dioxide 24 (23-29) mEq/L BUN 12 (8-23) mg/dL Creatinine 0.40 L (0.60-1.20) mg/dL Glucose 87 (70-105) mg/dL Calcium 9.3 (8.6-10.3) mg/dL Calcium panel 12/28/18 Range/Units 04:20 Calcium 9.3 (8.6-10.3) mg/dL Phosphorus 2.4 L (2.7-4.5) mg/dL Pituitary panel 12/28/18 Range/Units 04:20 Sodium 134 L (136-145) mEq/L Potassium 3.8 (3.5-5.1) mEq/L Chloride 103 (98-107) mEq/L Carbon Dioxide 24 (23-29) mEq/L BUN 12 (8-23) mg/dL Creatinine 0.40 L (0.60-1.20) mg/dL Glucose 87 (70-105) mg/dL Calcium 9.3 (8.6-10.3) mg/dL Adrenal panel 12/28/18 Range/Units 04:20 Sodium 134 L (136-145) mEq/L Potassium 3.8 (3.5-5.1) mEq/L Chloride 103 (98-107) mEq/L Carbon Dioxide 24 (23-29) mEq/L BUN 12 (8-23) mg/dL Creatinine 0.40 L (0.60-1.20) mg/dL Glucose 87 (70-105) mg/dL Calcium 9.3 (8.6-10.3) mg/dL - VTE Documentation of Mechanical Device: Intermittent pneumatic compression device Consult Discharge Plan - Plan Referrals: Timbo Brar MD [Partnered Physician] - Elen Britton DO [Primary Care Provider] -
--- NOTE | 2018-12-28 09:32 | Internal Med Progress Note ---
<NadeemPrem J - Last Filed: 12/28/18 13:09> Hospitalist Progress Note - Encounter Date of Encounter: 12/28/18 Time of Encounter: 09:00 - Subjective Interval History: Ms. Hudson is a 73-year-old female with a history of Afib, GERD, HLD who is being followed for an SBO s/p hernia repair. Yesterday we were able to get her up and walking down the [place], which she did with some assistance. Overnight she had her first bowel movement, which she describes as very watery. She has tolerated clear liquids well; this morning she was given eggs but was only able to eat a little bit. She continues to urinate well with no dysuria or hematuria. She admits to fatigue and exertional pre-syncope but denies chest pain, dyspnea, nausea, vomiting. - Exam Vitals: Temp Pulse Resp BP Pulse Ox 98.4 F 102 18 129/78 93 12/28/18 06:59 12/28/18 06:59 12/28/18 06:59 12/28/18 06:59 12/28/18 06:59 Exam: GEN: Subdued but otherwise appears well, NAD, conversant. HEAD: Normocephalic, atraumatic. ENT: Moist mucous membranes, on room air today. No jaundice NECK: Supple. No thyromegaly, No tracheal deviation. HEART: Irregular rhythm. S1 and S2 present with no rubs or gallops LUNGS: CTAB, good air exchange bilaterally. No wheezing, rubs, or rhonchi. ABDO: Vertical abdominal incision with multiple caterina in subumbilical region. Clean site otherwise. Increased bowel tenderness. Abdominal tenderness more so in the left quadrants, with distention mildly worse compared to yesterday : No suprapubic tenderness or CVA tenderness. EXT: Without cyanosis, clubbing or edema. Full peripheral pulses. SKIN: Warm and dry without any rash. NEURO: Grossly nonfocal. Alert and oriented, moving all 4 extremities. CN not formally tested but appear grossly intact. PSYCH: Normal affect, no depressed or anxious mood. DVT Prophylaxis: SCDs, encouraging to ambulate - Summary of Assessment and Plan Summary of Assessment and Plan: Disposition Ms. Hudson is a 73-year-old female with a history of AFib on warfarin, HLD, HTN, and multiple abdominal surgeries being followed for recovery of an internal hernia repair on 12/23 along with a ureteral stent placement on the same day. Assessments Small Bowel obstruction -Patient continues to slowly improve; ellis and NG tube have both been removed; now tolerating clear liquid diet well. First bowel movement was this morning. -Advance her diet per surgery's management. Continue to encourage ambulation -Magnesium was borderline low; start multi-vitamin given patient's overall low intake since hospitalization Nephrolithiasis -ureteral stent was placed on 12/23 -having no urinary complaints besides chronic urge incontinence; tylenol and dilaudid are ordered prn for pain -plan to follow up with nephrology outpatient UTI- resolved -patient finished course of antibiotics on 12/25 and has a normal WBC without urinary symptoms Atrial Fibrillation -current INR is 2.7; continue warfarin dosage -rate-controlled with propafenone -consider EKG at discharge to evaluate QT interval given use of metoclopramide and Zofran GERD -No acute changes; on omeprazole 20mg BID Hyperlipidemia -Restart patient's home atorvastatin as well as aspirin DVT Prophylaxis -SCDs with encouraged ambulation - Time Spent with Patient Total time spent is greater than 50% in coordination of care (as documented) at patient's floor/unit and/or counseling patient: Internal Medicine: Result - Labs CBC & Chem 7: 12/28/18 04:20 12/28/18 04:20 Labs: Short CBC 12/28/18 Range/Units 04:20 WBC 5.8 (4.3-11.1) K/mcL Hgb 9.6 L (11.5-15.4) g/dL Hct 30.2 L (35.3-44.9) % Plt Count 271 (140-400) K/mcL Neutrophils # 4.1 (1.6-8.9) K/mcL BMP 12/28/18 04:20 Sodium 134 L Potassium 3.8 Chloride 103 Carbon Dioxide 24 BUN 12 Creatinine 0.40 L Glucose 87 Calcium 9.3 - ABG Interpretation ABG results: PT/INR, D-dimer PT 30.3 Seconds (9.4-12.1) H 12/27/18 04:18 - VTE Documentation of Mechanical Device: Intermittent pneumatic compression device Consult Discharge Plan - Plan Referrals: Timbo Brar MD [Partnered Physician] - Elen Britton DO [Primary Care Provider] - <Sharad Fisher - Last Filed: 12/28/18 13:43> Hospitalist Progress Note - Encounter Date of Encounter: 12/28/18 - Exam Vitals: Temp Pulse Resp BP Pulse Ox 98.1 F 84 18 117/77 92 12/28/18 10:40 12/28/18 10:40 12/28/18 10:40 12/28/18 10:40 12/28/18 10:40 - Time Spent with Patient Total time spent is greater than 50% in coordination of care (as documented) at patient's floor/unit and/or counseling patient: Internal Medicine: Result - Labs CBC & Chem 7: 12/28/18 04:20 12/28/18 04:20 Labs: Short CBC 12/28/18 Range/Units 04:20 WBC 5.8 (4.3-11.1) K/mcL Hgb 9.6 L (11.5-15.4) g/dL Hct 30.2 L (35.3-44.9) % Plt Count 271 (140-400) K/mcL Neutrophils # 4.1 (1.6-8.9) K/mcL BMP 12/28/18 04:20 Sodium 134 L Potassium 3.8 Chloride 103 Carbon Dioxide 24 BUN 12 Creatinine 0.40 L Glucose 87 Calcium 9.3 - ABG Interpretation ABG results: PT/INR, D-dimer PT 45.7 Seconds (9.4-12.1) H* D 12/28/18 11:59 - Attending Attestation I examined this patient and my medical decision-making was reviewed with the medical student. I agree with the documented findings, disposition and treatment plan as described except to the extent set forth below. 73 year old female with history of atrial fibrillation on coumadin, hypertension here for SBO s/p exploration with reduction of small bowel from retroperitoneal space on 12/22 and also nephrolithiasis with stent placement on 12/23. Post-op day #6. She is having soft bowel movements but appetite is poor. She is in no acute distress, appears depressed. Abdomen is soft, dressing clean. VS: reviewed, labs: reviewed. Continue post-op management per Gen Surgery and ADAT. INR elevated today will need to hold coumadin. PT/OT consults, follow-up recommendations.
[2018-12-28] MEDS: *HR* HYDROmorphone 4 MG TABLET PO PRN (11:33)
[2018-12-28] MEDS: Ondansetron 4 MG/2 ML VIAL IVP PRN (11:33)
[2018-12-28 12:40] LABS: Prothrombin Time 45.7 Seconds (9.4-12.1)
[2018-12-28] MEDS ORDERED: 0.9 % Sodium Chloride w KCl 20 MEQ/1,000 ML MLS IVC SCH (15:15)
[2018-12-28] MEDS: Warfarin perPT PO SCH (17:44)
[2018-12-29 04:15] LABS: Hematocrit 26.9 % (35.3-44.9); Hemoglobin 8.7 g/dL (11.5-15.4); Mean Corpuscular HGB Conc 32.3 g/dL (31.6-35.5); Mean Corpuscular Volume 95.7 fL (83.0-100.0); Mean Platelet Volume 9.3 fL (9.4-12.4); Platelet Count 214 K/mcL (140-400); Red Blood Count 2.81 M/mcL (3.82-4.97); Red Cell Distribution Width 16.2 % (11.5-14.5); White Blood Count 4.3 K/mcL (4.3-11.1)
[2018-12-29 04:28] LABS: INR 4.3; Prothrombin Time 49.5 Seconds (9.4-12.1)
[2018-12-29 04:36] LABS: BUN/Creatinine Ratio 33 (6-26); Blood Urea Nitrogen 14 mg/dL (8-23); Calcium 8.8 mg/dL (8.6-10.3); Carbon Dioxide 25 mEq/L (23-29); Chloride 103 mEq/L (98-107); Glucose 84 mg/dL (70-105); Magnesium 1.9 mg/dL (1.6-2.6); Osmolality,Calculated 282 (280-300); Phosphorous 2.4 mg/dL (2.7-4.5); Potassium 3.8 mEq/L (3.5-5.1); Sodium 136 mEq/L (136-145); eGFR For African Americans > 60 (> 60); eGFR For Non-African Americans > 60 (> 60)
--- NOTE | 2018-12-29 07:49 | Internal Med Progress Note ---
<PeteremilievaniaTank Lowry - Last Filed: 12/29/18 12:51> Hospitalist Progress Note - Encounter Date of Encounter: 12/29/18 - Exam Vitals: Temp Pulse Resp BP Pulse Ox 98.1 F 80 15 124/66 93 12/29/18 12:33 12/29/18 12:33 12/29/18 12:33 12/29/18 12:33 12/29/18 12:33 - Time Spent with Patient Total time spent is greater than 50% in coordination of care (as documented) at patient's floor/unit and/or counseling patient: Internal Medicine: Result - Labs CBC & Chem 7: 12/29/18 08:13 12/29/18 04:00 Labs: Short CBC 12/29/18 12/29/18 Range/Units 04:00 08:13 WBC 4.3 (4.3-11.1) K/mcL Hgb 8.7 L 9.3 L (11.5-15.4) g/dL Hct 26.9 L 27.7 L (35.3-44.9) % Plt Count 214 (140-400) K/mcL BMP 12/29/18 04:00 Sodium 136 Potassium 3.8 Chloride 103 Carbon Dioxide 25 BUN 14 Creatinine 0.42 L Glucose 84 Calcium 8.8 - ABG Interpretation ABG results: PT/INR, D-dimer PT 49.5 Seconds (9.4-12.1) H* 12/29/18 04:00 Consult Discharge Plan - Plan Referrals: Timbo Brar MD [Partnered Physician] - Elen Britton DO [Primary Care Provider] - - Attending Attestation I examined this patient and my medical decision-making was reviewed with the Resident Physician. I agree with the documented findings, disposition and treatment plan as described except to the extent set forth below. No acute events. Appetite slightly better than yesterday but still having difficulty tolerating food. Having loose stools which is fairly which is same as patient was having yesterday. No complaints of fevers/chills, n/v. Abdominal pain improved. Will need to increase activity including ambulation, ADAT, PT/OT evaluation. <Coral Arguello - Last Filed: 12/29/18 14:30> Hospitalist Progress Note - Encounter Date of Encounter: 12/29/18 Time of Encounter: 09:00 - Subjective Interval History: Patient was seen and examined at bedside. Overnight patient only required Tylenol for pain. Patient currently denies any abdominal pain, chest pain, or vomiting. Patient states she had a bowel movement last night, which was watery. Patient denies pain with bowel movements and denies hematochezia. She denies hematuria or dysuria. She is still unable to eat her food although is eating some breakfast. - Exam Vitals: Temp Pulse Resp BP Pulse Ox 98.1 F 76 15 132/79 97 12/29/18 06:52 12/29/18 06:52 12/29/18 06:52 12/29/18 06:52 12/29/18 06:52 Exam: Gen: awake, no acute distress. Head: atraumatic, normocephalic. ENT: no oropharyngeal erythema, nares patent nasal cannula in place, mucous membranes moist, . Neck: No thyromegaly appreciated. Neck supple no cervical lymphadenopathy. Resp: CTAB, no wheezing, rhonchi, or rhales. CV: RRR, Normal S1 and S2. No murmur, gallops, or rubs. GI/Abdominal exam: bowel sounds throughout, soft, non-tender, non- distended; no hepatosplenomegaly, surgical dressing c/d/i. Skin: intact; no rashes, lesions, or bruising. Ext: No cyanosis or edema. pulses +2/4 bilaterally UE and LE. Neuro: no focal deficits, cooperative with exam. - Assessment and Plan (1) Small bowel obstruction Current Visit: Yes Status: Acute Assessment and Plan: -Patient continues to slowly improve; ellis and NG tube have both been removed; now advanced to soft foods. continuing to have bowel movements -Continue to encourage ambulation - Will attempt to touch base with PT/OT for therapy. - continue to hold warfarin due to increased PT of 49.5 and INR of 4.3 (2) Kidney stone Current Visit: Yes Status: Acute Assessment and Plan: -ureteral stent was placed on 12/23 -having no urinary complaints. - Pain control: Decrease Dilaudid dosage to 2mg every 6 for severe pain, Tylenol available for mild-moderate pain - plan to follow up with nephrology outpatient (3) UTI (urinary tract infection) Current Visit: Yes Status: Resolved Assessment and Plan: -patient finished course of antibiotics on 12/25 and has a normal WBC without urinary symptoms (4) GERD (gastroesophageal reflux disease) Current Visit: Yes Status: Chronic Assessment and Plan: No acute changes; on omeprazole 20mg BID (5) Hypertension Current Visit: No Status: Chronic Assessment and Plan: Currently controlled continue home antihypertensives upon discharge (6) Atrial fibrillation Current Visit: Yes Status: Acute Assessment and Plan: Currently rhythm controlled on propafenone 150 MG QH DVT Prophylaxis: SCDs, encouraging to ambulate - Time Spent with Patient Total time spent is greater than 50% in coordination of care (as documented) at patient's floor/unit and/or counseling patient: Internal Medicine: Result - Labs CBC & Chem 7: 12/29/18 08:13 12/29/18 04:00 Labs: Short CBC 12/29/18 Range/Units 04:00 WBC 4.3 (4.3-11.1) K/mcL Hgb 8.7 L (11.5-15.4) g/dL Hct 26.9 L (35.3-44.9) % Plt Count 214 (140-400) K/mcL BMP 12/29/18 04:00 Sodium 136 Potassium 3.8 Chloride 103 Carbon Dioxide 25 BUN 14 Creatinine 0.42 L Glucose 84 Calcium 8.8 - ABG Interpretation ABG results: PT/INR, D-dimer PT 49.5 Seconds (9.4-12.1) H* 12/29/18 04:00 - VTE Documentation of Mechanical Device: Intermittent pneumatic compression device <Coral Arguello - Last Filed: 12/29/18 14:30> (3) UTI (urinary tract infection) Qualifiers: Urinary tract infection type: site unspecified Hematuria presence: with hematuria Qualified Code(s): N39.0 - Urinary tract infection, site not specified; R31.9 - Hematuria, unspecified (4) GERD (gastroesophageal reflux disease) Qualifiers: Esophagitis presence: esophagitis presence not specified Qualified Code(s): K21.9 - Gastro-esophageal reflux disease without esophagitis (5) Hypertension Qualifiers: Hypertension type: essential hypertension Qualified Code(s): I10 - Essential (primary) hypertension (6) Atrial fibrillation Qualifiers: Qualified Code(s): I48.91 - Unspecified atrial fibrillation
[2018-12-29] MEDS: Multivit/Ca/Min/Fe/FA 1 TAB TABLET PO SCH (07:54)
[2018-12-29] MEDS: Aspirin 81 MG TAB.CHEW PO SCH (07:55)
[2018-12-29] MEDS: Bisacodyl 10 MG RECTAL SUPPOSITORY RC SCH (07:59)
[2018-12-29 08:30] LABS: Hematocrit 27.7 % (35.3-44.9); Hemoglobin 9.3 g/dL (11.5-15.4)
[2018-12-29] MEDS ORDERED: *HR* HYDROmorphone 2 MG TABLET PO PRN (11:09)
--- NOTE | 2018-12-29 11:33 | AcuteCareSurgery Progress Note ---
Date of Encounter: 12/29/18 Time of Encounter: 08:00 - Assessment and Plan (1) Small bowel obstruction Current Visit: Yes Status: Acute POD #7 Exploration with reduction of small bowel from retroperitoneal space. Hematoma evacuated. Ongoing anticoagulation. Pt condition is good post-op with stable H&H, tolerating soft diet and +BM. Start DC planning and possible ECF. (2) Anemia Current Visit: Yes Status: Acute Qualifiers: Anemia type: other cause Other causes of anemia: other cause, not classified Qualified Code(s): D64.89 - Other specified anemias (3) Atrial fibrillation Current Visit: Yes Status: Acute Qualifiers: Qualified Code(s): I48.91 - Unspecified atrial fibrillation (4) Chronic anticoagulation Current Visit: Yes Status: Acute (5) DVT prophylaxis Current Visit: Yes Status: Acute Subjective Patient reports: no new complaints, feels better, still having pain, pain is less, tolerating a regular diet, flatus, bowel movement, afebrile Objective Vital Signs - Last 8 Hours Temp Pulse Resp BP Pulse Ox 12/29/18 07:45 96 12/29/18 06:52 98.1 F 76 15 132/79 97 12/29/18 03:54 97.8 F 97 16 124/76 94 Intake and Output 12/28/18 12/29/18 12/29/18 23:59 07:59 15:59 Intake Total 54 / 386 1120 / 1120 Output Total 300 / 450 120 / 220 100 / 220 Balance -246 / -64 -120 / 900 1020 / 900 Intake: IV Fluids 54 / 266 1000 / 1000 KCl 20 mEq in 0.9% Sodium 1000 / 1000 Chloride 20 meq In 1,000 ml @ 100 mls/hr IVC .Q10H [facility] Rx#: [id number] Reglan 20 MG In 0.9 % Sodium 54 / 162 Chloride 50 ML @ 108 mls/hr IVPB Q8HR [facility] Rx#:[id number] Oral 120 / 120 Output: Urine 300 / 450 120 / 220 100 / 220 Other: Meal Breakfast Percent of Meal Consumed 30% 30% Stool Size Smear Small Stool Consistency liquid liquid Stool Color Brown # Voids 1 1 1 # Bowel Movements 1 1 - General physical appearance well developed, well nourished, no distress, moderate pain (appropriate for post-op) - Eyes PERRL, normal ocular movement - ENT normal mucosa, no congestion - Neck Neck exam: trachea midline, no venous distension - Respiratory normal respiratory effort, clear to percussion - Cardiovascular Cardiovascular exam: Present: RRR. Absent: JVD - Abdomen Abdomen: Present: bowel sounds present, soft, tender Abdominal Tenderness: diffusely - Incision Incision: Present: clean and dry, intact - Neurologic CN 2-12 grossly intact, normal coordination - Musculoskeletal normal posture - Psychiatric oriented to time, oriented to person, oriented to place - Labs 12/29/18 08:13 12/29/18 04:00 Diabetes panel 12/29/18 Range/Units 04:00 Sodium 136 (136-145) mEq/L Potassium 3.8 (3.5-5.1) mEq/L Chloride 103 (98-107) mEq/L Carbon Dioxide 25 (23-29) mEq/L BUN 14 (8-23) mg/dL Creatinine 0.42 L (0.60-1.20) mg/dL Glucose 84 (70-105) mg/dL Calcium 8.8 (8.6-10.3) mg/dL Calcium panel 12/29/18 Range/Units 04:00 Calcium 8.8 (8.6-10.3) mg/dL Phosphorus 2.4 L (2.7-4.5) mg/dL Pituitary panel 12/29/18 Range/Units 04:00 Sodium 136 (136-145) mEq/L Potassium 3.8 (3.5-5.1) mEq/L Chloride 103 (98-107) mEq/L Carbon Dioxide 25 (23-29) mEq/L BUN 14 (8-23) mg/dL Creatinine 0.42 L (0.60-1.20) mg/dL Glucose 84 (70-105) mg/dL Calcium 8.8 (8.6-10.3) mg/dL Adrenal panel 12/29/18 Range/Units 04:00 Sodium 136 (136-145) mEq/L Potassium 3.8 (3.5-5.1) mEq/L Chloride 103 (98-107) mEq/L Carbon Dioxide 25 (23-29) mEq/L BUN 14 (8-23) mg/dL Creatinine 0.42 L (0.60-1.20) mg/dL Glucose 84 (70-105) mg/dL Calcium 8.8 (8.6-10.3) mg/dL - VTE Documentation of Mechanical Device: Intermittent pneumatic compression device Consult Discharge Plan - Plan Referrals: Timbo Brar MD [Partnered Physician] - Elen Britton DO [Primary Care Provider] -
[2018-12-29] MEDS: Warfarin perPT PO SCH (15:30)
[2018-12-30 05:27] LABS: INR 3.5; Prothrombin Time 39.5 Seconds (9.4-12.1)
[2018-12-30 05:42] LABS: Alanine Aminotransferase 5 Units/L (7-52); Albumin 2.7 g/dL (3.5-5.7); Albumin/Globulin Ratio 1.1 (1.1-2.2); Alkaline Phosphatase 71 Units/L (34-104); Aspartate Amino Transferase 16 Units/L (13-39); BUN/Creatinine Ratio 33 (6-26); Bilirubin,Total 1.7 mg/dL (0.3-1.0); Blood Urea Nitrogen 12 mg/dL (8-23); Calcium 8.7 mg/dL (8.6-10.3); Carbon Dioxide 25 mEq/L (23-29); Chloride 101 mEq/L (98-107); Globulin 2.5 g/dL (2.4-3.5); Glucose 83 mg/dL (70-105); Osmolality,Calculated 277 (280-300); Potassium 3.4 mEq/L (3.5-5.1); Sodium 134 mEq/L (136-145); Total Protein 5.2 g/dL (6.4-8.9); eGFR For African Americans > 60 (> 60); eGFR For Non-African Americans > 60 (> 60)
--- NOTE | 2018-12-30 08:45 | Discharge Summary ---
Date of Encounter: 12/30/18 - Discharge Diagnosis (1) Small bowel obstruction Status: Acute (2) Kidney stone Status: Acute (3) UTI (urinary tract infection) Status: Resolved Qualifiers: Urinary tract infection type: site unspecified Hematuria presence: with hematuria Qualified Code(s): N39.0 - Urinary tract infection, site not specified; R31.9 - Hematuria, unspecified (4) GERD (gastroesophageal reflux disease) Status: Chronic Qualifiers: Esophagitis presence: esophagitis presence not specified Qualified Code(s): K21.9 - Gastro-esophageal reflux disease without esophagitis (5) Hypertension Status: Chronic Qualifiers: Hypertension type: essential hypertension Qualified Code(s): I10 - Essential (primary) hypertension (6) Atrial fibrillation Status: Acute Qualifiers: Qualified Code(s): I48.91 - Unspecified atrial fibrillation Hospital course: Ms. Hudson is a 73 year old female - Time Spent with Patient Total time spent providing and/or coordinating discharge services: - Discharge Medications Prescriptions: No Action Omeprazole [PriLOSEC] 20 mg PO BID Cyanocobalamin (Vitamin B-12) [Vitamin B12] 1,000 mcg PO QMWF Acetaminophen [Tylenol] 1,000 mg PO Q6H PRN PRN Reason: Pain Propafenone [Rhythmol] 150 mg PO Q8H #90 tablet Atorvastatin [Lipitor] 40 mg PO HS #30 tablet Ergocalciferol (VITAMIN D2) [Vitamin D2] 2,000 unit PO HS Aspirin [Lo-Dose Aspirin EC] 81 mg PO HS Ferrous Sulfate 325 mg PO BIDWM tablet Simethicone [Gas-X] 80 mg PO TID PRN PRN Reason: Pain Warfarin [Coumadin] 5 mg PO SUMOWETHSA Warfarin [Coumadin] 2.5 mg PO TUFR Mirtazapine [Remeron] 15 mg PO HS Calcium Carbonate [Tums] 1,000 mg PO Q4HR PRN tab.chew PRN Reason: Heartburn Home Medications: Omeprazole [PriLOSEC] 20 mg PO BID 07/20/17 [History] Cyanocobalamin (Vitamin B-12) [Vitamin B12] 1,000 mcg PO QMWF 08/26/17 [History] Acetaminophen [Tylenol] 1,000 mg PO Q6H PRN 12/14/17 [History] Propafenone [Rhythmol] 150 mg PO Q8H #90 tablet 06/15/18 [Rx] Atorvastatin [Lipitor] 40 mg PO HS #30 tablet 08/22/18 [Rx] Ergocalciferol (VITAMIN D2) [Vitamin D2] 2,000 unit PO HS 11/01/18 [History] Aspirin [Lo-Dose Aspirin EC] 81 mg PO HS 11/03/18 [History] Ferrous Sulfate 325 mg PO BIDWM tablet 11/08/18 [Rx] Calcium Carbonate [Tums] 1,000 mg PO Q4HR PRN tab.chew 11/21/18 [Rx] Simethicone [Gas-X] 80 mg PO TID PRN 12/21/18 [History] Warfarin [Coumadin] 5 mg PO SUMOWETHSA 12/21/18 [History] Warfarin [Coumadin] 2.5 mg PO TUFR 12/22/18 [History] Mirtazapine [Remeron] 15 mg PO HS 12/23/18 [History] Allergies/Adverse Reactions: Allergy/AdvReac Type Severity Reaction Status Date / Time codeine Allergy Difficulty Verified 11/01/18 06:59 Breathing hydrocodone [From Vicodin] Allergy Difficulty Verified 11/01/18 06:59 Breathing morphine Allergy Difficulty Verified 11/01/18 06:59 Breathing oxycodone [From Percocet] Allergy Rash Verified 11/01/18 06:59 tramadol Allergy Difficulty Verified 11/01/18 06:59 Breathing hydromorphone [From Dilaudid] AdvReac Dizziness Verified 12/27/18 14:44 influenza virus vaccine, AdvReac FLU LIKE Verified 11/01/18 06:59 specific SYMPTOMS [Influenza Virus Vacc,Specific] [id number] Reductase AdvReac Loss of Verified 11/20/18 18:27 Inhibitor Appetite Date of admission: 12/21/18 15:52 Primary care physician: Elen Britton DO Consults: 12/21/18 14:43 Consult to Surgery [CONS] Stat Consulting Provider: Surgery [facility] Reason for Consult: SBO Time Notified: 14:43 Call Completed: Yes 12/21/18 14:48 Consult to Urology [CONS] Stat Consulting Provider: Urology Joelle Reason for Consult: Obstructive uropathy and UTI Time Notified: 14:48 Call Completed: Yes 12/21/18 18:59 Consult to Nutrition [CONS] Routine Comment: Consulting Provider: NUTRITION Reason for Dietary Consult: MST Score 12/24/18 08:36 Consult to Invasive Line Access Team [CONS] Routine Reason for Consult: poor vascular access, blood transfusion/IVC fluids/multiple antiobiotics Line Type: EPIV 12/27/18 14:01 Consult to Occupational Therapy [CONS] Routine Comment: Evaluate, develop and implement POC Reason for Consult: d/c recs Does patient have active BEDREST order?: No Is patient medically & hemodynamically stable?: Yes Patient assessed for mobility or mobilized this visit?: Yes Consult to Physical Therapy [CONS] Routine Comment: Evaluate, develop and implement POC Reason for Consult: d/c recs Does patient have active BEDREST order?: No Is patient medically & hemodynamically stable?: Yes Patient assessed for mobility or mobilized this visit?: Yes 12/29/18 11:28 Consult to Physical Therapy [CONS] Routine Comment: Evaluate, develop and implement POC Reason for Consult: post op recomendations/ ECF placement Does patient have active BEDREST order?: No Is patient medically & hemodynamically stable?: Yes Patient assessed for mobility or mobilized this visit?: No 12/29/18 11:30 Consult to Case Management [CONS] Routine Comment: DC planning. Pt needs ECF - Constitutional Vitals: Temp Pulse Resp BP Pulse Ox 98.8 F 100 16 91/61 95 12/30/18 05:29 12/30/18 05:29 12/30/18 05:29 12/30/18 05:29 12/30/18 05:29 - Patient Status Condition: Fair - Discharge Instructions Follow Up With: Timbo Brar MD [Partnered Physician] - Elen Britton DO [Primary Care Provider] - - VTE Documentation of Mechanical Device: Intermittent pneumatic compression device
[2018-12-30] MEDS: Multivit/Ca/Min/Fe/FA 1 TAB TABLET PO SCH (08:56)
[2018-12-30] MEDS: Aspirin 81 MG TAB.CHEW PO SCH (08:56)
[2018-12-30] MEDS: Bisacodyl 10 MG RECTAL SUPPOSITORY RC SCH (08:56)
--- NOTE | 2018-12-30 11:29 | AcuteCareSurgery Progress Note ---
Date of Encounter: 12/30/18 Time of Encounter: 07:40 - Assessment and Plan (1) Small bowel obstruction Current Visit: Yes Status: Acute Small bowel obstruction is now resolved. We will advance her diet to clear liquids. She did have some nausea yesterday but we believe that this was from pain medicine administration. Continue close observation. Continue IV hydration and support. The patient is seen and evaluated on 12/30/2018. She is having bowel movements and tolerating diet. She has significant deconditioning. She would benefit from rehabilitation. Ready for discharge. Follow-up acute care surgery clinic. Subjective Narrative: The patient is seen and evaluated on morning rounds with the acute care surgery team. She is significantly deconditioned. She is now having loose bowel movements and tolerating soft diet. She does have crampy abdominal pain. This should resolve short-term. The patient is ready for discharge with follow-up in the acute care surgery clinic Objective Vital Signs - Last 8 Hours Temp Pulse Resp BP Pulse Ox 12/30/18 10:59 98.5 F 77 18 112/76 93 12/30/18 05:29 98.8 F 100 16 91/61 95 12/30/18 04:32 98.2 F 86 20 125/82 93 Intake and Output 12/29/18 12/30/18 12/30/18 23:59 07:59 15:59 Intake Total 0 / 0 Balance 0 / 0 Intake: Oral 0 / 0 Other: Stool Size Small Moderate Small Stool Consistency liquid liquid liquid Stool Color Brown Brown Brown # Voids 1 1 1 # Bowel Movements 1 1 Weight 86.5 kg Patient Weight 12/30/18 23:59 Weight 86.5 kg - General physical appearance well developed, well nourished, chronically ill - Respiratory normal expansion, clear to auscultation - Cardiovascular Cardiovascular exam: Present: RRR, no murmurs/rubs/gallops - Abdomen Abdomen: Present: bowel sounds present, soft, non tender - Incision Incision: Present: clean and dry - Neurologic CN 2-12 grossly intact, normal coordination, normal sensation - Psychiatric oriented to time, oriented to person, oriented to place, speech is normal, memory intact - Labs 12/29/18 08:13 12/30/18 04:43 Diabetes panel 12/30/18 Range/Units 04:43 Sodium 134 L (136-145) mEq/L Potassium 3.4 L (3.5-5.1) mEq/L Chloride 101 (98-107) mEq/L Carbon Dioxide 25 (23-29) mEq/L BUN 12 (8-23) mg/dL Creatinine 0.36 L (0.60-1.20) mg/dL Glucose 83 (70-105) mg/dL Calcium 8.7 (8.6-10.3) mg/dL AST 16 (13-39) Units/L ALT 5 L (7-52) Units/L Alkaline Phosphatase 71 (34-104) Units/L Albumin 2.7 L (3.5-5.7) g/dL Calcium panel 12/30/18 Range/Units 04:43 Calcium 8.7 (8.6-10.3) mg/dL Albumin 2.7 L (3.5-5.7) g/dL Pituitary panel 12/30/18 Range/Units 04:43 Sodium 134 L (136-145) mEq/L Potassium 3.4 L (3.5-5.1) mEq/L Chloride 101 (98-107) mEq/L Carbon Dioxide 25 (23-29) mEq/L BUN 12 (8-23) mg/dL Creatinine 0.36 L (0.60-1.20) mg/dL Glucose 83 (70-105) mg/dL Calcium 8.7 (8.6-10.3) mg/dL Adrenal panel 12/30/18 Range/Units 04:43 Sodium 134 L (136-145) mEq/L Potassium 3.4 L (3.5-5.1) mEq/L Chloride 101 (98-107) mEq/L Carbon Dioxide 25 (23-29) mEq/L BUN 12 (8-23) mg/dL Creatinine 0.36 L (0.60-1.20) mg/dL Glucose 83 (70-105) mg/dL Calcium 8.7 (8.6-10.3) mg/dL Total Bilirubin 1.7 H (0.3-1.0) mg/dL AST 16 (13-39) Units/L ALT 5 L (7-52) Units/L Alkaline Phosphatase 71 (34-104) Units/L Albumin 2.7 L (3.5-5.7) g/dL - VTE Documentation of Mechanical Device: Intermittent pneumatic compression device Consult Discharge Plan - Plan Referrals: Timbo Brar MD [Partnered Physician] - Elen Britton DO [Primary Care Provider] -
[2018-12-30] MEDS ORDERED: Simethicone 80 MG TAB.CHEW PO PRN (12:30)
--- NOTE | 2018-12-30 15:14 | Internal Med Progress Note ---
<Coral Arguello - Last Filed: 12/30/18 19:18> Hospitalist Progress Note - Encounter Date of Encounter: 12/30/18 Time of Encounter: 09:00 - Subjective Interval History: Seen and examined at bedside. Patient states no acute events overnight, although she states she does have a dominant pain 12/24. She states it is slightly relieved with Tylenol. Patient states the pain is cramping and consistancy is similar to on admission. Patient admits to multiple additional episodes of loose stool. Patient states her pain is causing decreased appetite. Patient denies vomiting, hematuria, hematochezia, hematemesis. Admits to mild nausea, and bloating. - Exam Vitals: Temp Pulse Resp BP Pulse Ox 98.4 F 75 18 132/74 92 12/30/18 14:26 12/30/18 14:26 12/30/18 14:26 12/30/18 14:26 12/30/18 14:26 Exam: Gen: awake, no acute distress. Head: atraumatic, normocephalic. Neck: No thyromegaly appreciated. Neck supple no cervical lymphadenopathy. Resp: CTAB, no wheezing, rhonchi, or rhales. CV: RRR, Normal S1 and S2. No murmur, gallops, or rubs. GI/Abdominal exam: bowel sounds throughout, nondistended, soft, tender to palpation throughout, no hepatosplenomegaly, surgical dressing c/d/i. Skin: intact; no rashes, lesions, or bruising. Ext: No cyanosis +1 edema LE b/l. pulses +2/4 bilaterally UE and LE. Neuro: no focal deficits, cooperative with exam. - Assessment and Plan (1) Small bowel obstruction Current Visit: Yes Status: Acute Assessment and Plan: Postop day 8: - She is having multiple episodes of loose stool bowel movements, tolerating diet although not eating very much. Patient does complain of mild nausea and today has had one episode of yellow emesis. - Patient continues to feel bloated with decreased appetite, has eaten small portions of her meals today. On reevaluation patient had an abdomen that was distended but remained soft with bowel sounds active in all 4 quadrants. Patient was seen belching and admitted to releasing flatus. Regardless of this patient stating continued bloating and gas orders were placed for: - KUB, CBC, Lactic acid, C-diff (2) Kidney stone Current Visit: Yes Status: Acute Assessment and Plan: -ureteral stent was placed on 12/23 -having no urinary complaints. - Pain control: Decreased Dilaudid, Tylenol available for pain - plan to follow up with nephrology outpatient (3) UTI (urinary tract infection) Current Visit: Yes Status: Resolved Assessment and Plan: Resolved. (4) GERD (gastroesophageal reflux disease) Current Visit: Yes Status: Chronic Assessment and Plan: Continue with oral PPI (5) Hypertension Current Visit: Yes Status: Chronic Assessment and Plan: Continue home antihypertensives (6) Atrial fibrillation Current Visit: Yes Status: Acute Assessment and Plan: Continue home A. fib therapy, will continue to hold warfarin until goal INRPT reached. Upon discharge will decrease warfarin dosage to 2.5 mg per day. DVT Prophylaxis: SCDs, encouraging to ambulate - Time Spent with Patient Total time spent is greater than 50% in coordination of care (as documented) at patient's floor/unit and/or counseling patient: Internal Medicine: Result - Labs CBC & Chem 7: 12/30/18 16:42 12/30/18 04:43 Labs: BMP 12/30/18 04:43 Sodium 134 L Potassium 3.4 L Chloride 101 Carbon Dioxide 25 BUN 12 Creatinine 0.36 L Glucose 83 Calcium 8.7 Liver Function 12/30/18 Range/Units 04:43 Total Bilirubin 1.7 H (0.3-1.0) mg/dL AST 16 (13-39) Units/L ALT 5 L (7-52) Units/L Alkaline Phosphatase 71 (34-104) Units/L Albumin 2.7 L (3.5-5.7) g/dL - ABG Interpretation ABG results: PT/INR, D-dimer PT 39.5 Seconds (9.4-12.1) H 12/30/18 04:43 - VTE Documentation of Mechanical Device: Intermittent pneumatic compression device Consult Discharge Plan - Plan Referrals: Anticoagulation Management Service Patient [Other] - 01/02/19 10:45 am Timbo Brar MD [Partnered Physician] - Elen Britton DO [Primary Care Provider] - <Sharad Fisher - Last Filed: 12/30/18 21:11> Hospitalist Progress Note - Encounter Date of Encounter: 12/30/18 - Exam Vitals: Temp Pulse Resp BP Pulse Ox 98.9 F 86 16 114/74 94 12/30/18 19:17 12/30/18 19:17 12/30/18 19:17 12/30/18 19:17 12/30/18 19:17 - Time Spent with Patient Total time spent is greater than 50% in coordination of care (as documented) at patient's floor/unit and/or counseling patient: Internal Medicine: Result - Labs CBC & Chem 7: 12/30/18 16:42 12/30/18 04:43 Labs: Short CBC 12/30/18 Range/Units 16:42 WBC 6.2 (4.3-11.1) K/mcL Hgb 11.5 D (11.5-15.4) g/dL Hct 34.8 L (35.3-44.9) % Plt Count 323 D (140-400) K/mcL Neutrophils # 4.6 (1.6-8.9) K/mcL BMP 12/30/18 04:43 Sodium 134 L Potassium 3.4 L Chloride 101 Carbon Dioxide 25 BUN 12 Creatinine 0.36 L Glucose 83 Calcium 8.7 Liver Function 12/30/18 Range/Units 04:43 Total Bilirubin 1.7 H (0.3-1.0) mg/dL AST 16 (13-39) Units/L ALT 5 L (7-52) Units/L Alkaline Phosphatase 71 (34-104) Units/L Albumin 2.7 L (3.5-5.7) g/dL - ABG Interpretation ABG results: PT/INR, D-dimer PT 39.5 Seconds (9.4-12.1) H 12/30/18 04:43 - Impressions Impressions KUB X-Ray 12/30/18 16:26 IMPRESSION: Partial small bowel obstruction versus ileus. Recommend radiographic follow-up. D/ / 12/30/2018 17:45:06 Tristen Tracy MD / earnold Interpreting Provider: Tristen Tracy MD - Attending Attestation I examined this patient and my medical decision-making was reviewed with the resident physician and medical student. I agree with the documented findings, disposition and treatment plan as described except to the extent set forth below. Today patient states abdominal pain is slightly worsening. Nursing reports she had an episode of yellow emesis when getting up. Abdomen was soft with mild TTP, normal bowel sounds. Discussed with General Surgery, findings are typical post-operative findings. Patient is not very active post-op and we continue to encourage increasing activity as tolerated. Continue to advance diet. ____ <Coral Arguello - Last Filed: 12/30/18 19:18> (3) UTI (urinary tract infection) Qualifiers: Urinary tract infection type: site unspecified Hematuria presence: with hematuria Qualified Code(s): N39.0 - Urinary tract infection, site not specified; R31.9 - Hematuria, unspecified (4) GERD (gastroesophageal reflux disease) Qualifiers: Esophagitis presence: esophagitis presence not specified Qualified Code(s): K21.9 - Gastro-esophageal reflux disease without esophagitis (5) Hypertension Qualifiers: Hypertension type: essential hypertension Qualified Code(s): I10 - Essential (primary) hypertension (6) Atrial fibrillation Qualifiers: Qualified Code(s): I48.91 - Unspecified atrial fibrillation
[2018-12-30] MEDS: Ondansetron ODT 4 MG TAB.RAPDIS SL PRN ×2 (15:41→20:32)
[2018-12-30 16:59] LABS: Basophils % 0.2 %; Eosinophils # 0.1 K/mcL (0.0-0.6); Eosinophils % 1.6 %; Hematocrit 34.8 % (35.3-44.9); Immature Granulocytes % 0.5 % (0-4); Lymphocytes # 0.9 K/mcL (0.6-4.6); Lymphocytes % 14.1 %; Mean Corpuscular Hemoglobin 31.2 pg (28.0-33.3); Mean Corpuscular Volume 94.3 fL (83.0-100.0); Mean Platelet Volume 9.3 fL (9.4-12.4); Monocytes # 0.6 K/mcL (0.0-1.3); Monocytes % 9.7 %; Neutrophils # 4.6 K/mcL (1.6-8.9); Nucleated Red Blood Cells 0.3 /100 WBC (0); Platelet Count 323 K/mcL (140-400); Red Blood Count 3.69 M/mcL (3.82-4.97); Red Cell Distribution Width 17.3 % (11.5-14.5); Segmented Neutrophils % 73.9 %; White Blood Count 6.2 K/mcL (4.3-11.1)
[2018-12-30 17:03] LABS: Hemoglobin 11.5 g/dL (11.5-15.4)
--- NOTE | 2018-12-30 19:00 | Acute Care Surgery Event Note ---
Date of Encounter: 12/30/18 Time of Encounter: 18:50 The patient is seen and evaluated after I was contacted by the hospitalist to reevaluate the patient's evening. She has had some crampy abdominal pain off and on throughout the day. She is had multiple episodes of diarrhea. Evidently the C. difficile is negative on conversation with the hospitalist. The patient has no nausea or vomiting. KUB demonstrates some persistent dilation of the small bowel. This was likely be dilated small bowel prior to the bowel obstruction surgery. The dilation will persist for some time after decompression. Clinically she does not have bowel obstruction or ileus. I would proceed with dietary advancement and extended care facility or reha bilitation placement. Spent some time talking with the patient and she is comfortable with this.
[2018-12-30] MEDS: Warfarin perPT PO SCH (19:06)
--- NOTE | 2018-12-31 08:05 | Internal Med Progress Note ---
<Caitlin Rocha N - Last Filed: 12/31/18 11:39> Hospitalist Progress Note - Encounter Date of Encounter: 12/31/18 Time of Encounter: 08:05 - Subjective Interval History: Ms. Hudson was seen and evaluated at the bedside this morning. Yesterday afternoon, patient had worsening abdominal distention and loose stools yesterday afternoon; KUB was obtained, as was stool C. difficile toxin. C. difficile toxin was negative. KUB was reviewed by surgery, who voiced that the observed bowel dilation is not unexpected postoperatively after a bowel obstruction. They recommended continued advancement of diet and discharged to extended care facility or home with home health. On evaluation this morning, patient reports that she is very tired, as she was unable to sleep last night due to having multiple loose bowel movements. She de scribes her bowel movements as liquid in appearance and malodorous. She does note some improvement in her abdominal distention, and states that though she did experience some pain while eating, it was improved from yesterday. She also reports that she was able to participate with physical therapy this morning, and was able to ambulate within her room. She denies any new complaints or concerns at this time. - Exam Vitals: Temp Pulse Resp BP Pulse Ox 99.0 F 82 17 116/73 92 12/31/18 06:46 12/31/18 06:46 12/31/18 06:46 12/31/18 06:46 12/31/18 06:46 Exam: GENERAL: Elderly adult female lying in bed in no acute distress. HEENT: Atraumatic and normocephalic. CARDIOVASCULAR: Regular rate and rhythm. S1 and S2 present. RESPIRATORY: Clear to auscultation bilaterally. Chest rises and falls symmetrically without accessory muscle use. GASTROINTESTINAL: Bowel sounds present 4 quadrants. Abdomen is soft and mildly distended, with diffuse tenderness present with palpation. EXTREMITIES: Mild bilateral lower extremity edema. SCDs in place.. SKIN: Warm, dry, and intact. NEUROLOGIC: Alert and oriented x3. Patient is cooperative with exam and answers questions appropriately. No apparent focal deficits. - Assessment and Plan (1) Small bowel obstruction Current Visit: Yes Status: Acute Assessment and Plan: POD #9 after exploration with reduction of small bowel from retroperitoneal space and evacuation of hematoma. Patient continues to complain of abdominal pain and distention, as well as intermittent nausea. She states that she is unable to eat much as she gets full very quickly. Patient has been hesitant to get out of bed and ambulate in the halls secondary to pain and abdominal discomfort. She is unable to take most opioid pain medications due to adverse effects, and has been using only Tylenol for pain management. I did have an extensive discussion with the patient and her family yesterday afternoon on the importance of getting up out of bed to the bedside recliner as much as possible, as well as the need for ambulation outside of the room multiple times per day. Plan: - Continue soft diet. Continue to encourage increased PO intake throughout the day. - Increase ambulation and time out of bed. - Anticipate discharge home with home health over the next day or so. (2) Diarrhea Current Visit: Yes Status: Acute Assessment and Plan: Patient had approximately 5 liquid bowel movements yesterday; she reports no additional 5 bowel movements overnight which were liquid and malodorous. C. difficile stool toxin was obtained yesterday, with PCR negative. - 0.9% NS @100mL/hour x1 bag for hydration. - Stop stool softeners and laxatives. - Obtain GI infectious panel. (3) Hypokalemia Current Visit: Yes Status: Acute Assessment and Plan: Likely secondary to GI losses. Laboratory studies this morning were significant for decreased serum potassium of 2.8, down from 3.4 yesterday. Patient did receive 40 mEq of oral potassium supplementation with her morning medications. - Additional 40 mEq potassium ordered in IV fluids. - 40 mEq dose ordered to be given with PM medications. (4) Atrial fibrillation Current Visit: Yes Status: Acute Assessment and Plan: History of atrial fibrillation. - Continue home medication of Rythmol 150mg Q8H. - Resume anticoagulation with warfarin. INR this morning was within therapeutic range at 2.1. (5) DVT prophylaxis Current Visit: Yes Status: Acute Assessment and Plan: - Warfarin PO. - Time Spent with Patient Total time spent is greater than 50% in coordination of care (as documented) at patient's floor/unit and/or counseling patient: Internal Medicine: Result - Labs CBC & Chem 7: 12/31/18 08:51 12/31/18 09:58 Labs: Short CBC 12/30/18 Range/Units 16:42 WBC 6.2 (4.3-11.1) K/mcL Hgb 11.5 D (11.5-15.4) g/dL Hct 34.8 L (35.3-44.9) % Plt Count 323 D (140-400) K/mcL Neutrophils # 4.6 (1.6-8.9) K/mcL - ABG Interpretation ABG results: PT/INR, D-dimer PT 39.5 Seconds (9.4-12.1) H 12/30/18 04:43 - Impressions Impressions KUB X-Ray 12/30/18 16:26 IMPRESSION: Partial small bowel obstruction versus ileus. Recommend radiographic follow-up. D/ / 12/30/2018 17:45:06 Tristen Tracy MD / [email or web address] Interpreting Provider: Tristen Tracy MD - VTE Documentation of Mechanical Device: Intermittent pneumatic compression device Consult Discharge Plan - Plan Referrals: Anticoagulation Management Service Patient [Other] - 01/02/19 10:45 am Timbo Brar MD [Partnered Physician] - Elen Britton DO [Primary Care Provider] - <Sharad Fisher - Last Filed: 12/31/18 15:25> Hospitalist Progress Note - Encounter Date of Encounter: 12/31/18 - Exam Vitals: Temp Pulse Resp BP Pulse Ox 98.6 F 63 17 131/73 85 12/31/18 14:40 12/31/18 14:40 12/31/18 14:40 12/31/18 14:40 12/31/18 14:40 - Time Spent with Patient Total time spent is greater than 50% in coordination of care (as documented) at patient's floor/unit and/or counseling patient: Internal Medicine: Result - Labs CBC & Chem 7: 12/31/18 08:51 12/31/18 09:58 Labs: Short CBC 12/30/18 12/31/18 Range/Units 16:42 08:51 WBC 6.2 6.8 (4.3-11.1) K/mcL Hgb 11.5 D 10.0 L D (11.5-15.4) g/dL Hct 34.8 L 31.0 L (35.3-44.9) % Plt Count 323 D 279 (140-400) K/mcL Neutrophils # 4.6 4.9 (1.6-8.9) K/mcL BMP 12/31/18 09:58 Sodium 135 L Potassium 2.8 L Chloride 102 Carbon Dioxide 27 BUN 15 Creatinine 0.48 L Glucose 97 Calcium 8.7 - ABG Interpretation ABG results: PT/INR, D-dimer PT 24.1 Seconds (9.4-12.1) H 12/31/18 08:51 - Impressions Impressions KUB X-Ray 12/30/18 16:26 IMPRESSION: Partial small bowel obstruction versus ileus. Recommend radiographic follow-up. D/ / 12/30/2018 17:45:06 Tristen Tracy MD / reid Interpreting Provider: Tristen Tracy MD - Attending Attestation I examined this patient and my medical decision-making was reviewed with the resident physician. I agree with the documented findings, disposition and treatment plan as described except to the extent set forth below. <Caitlin Rocha N - Last Filed: 12/31/18 11:39> (2) Diarrhea Qualifiers: Diarrhea type: unspecified type Qualified Code(s): R19.7 - Diarrhea, unspecified (4) Atrial fibrillation Qualifiers: Atrial fibrillation type: unspecified Qualified Code(s): I48.91 - Unspecified atrial fibrillation
[2018-12-31] MEDS: Aspirin 81 MG TAB.CHEW PO SCH (08:11)
[2018-12-31] MEDS: Bisacodyl 10 MG RECTAL SUPPOSITORY RC SCH (08:11)
[2018-12-31] MEDS: Multivit/Ca/Min/Fe/FA 1 TAB TABLET PO SCH (08:11)
--- NOTE | 2018-12-31 08:46 | AcuteCareSurgery Progress Note ---
Date of Encounter: 12/31/18 Time of Encounter: 08:00 - Assessment and Plan (1) Small bowel obstruction Current Visit: Yes Status: Acute Small bowel obstruction is now resolved. We will advance her diet to clear liquids. She did have some nausea yesterday but we believe that this was from pain medicine administration. Continue close observation. Continue IV hydration and support. The patient is seen and evaluated on 12/30/2018. She is having bowel movements and tolerating diet. She has significant deconditioning. She would benefit from rehabilitation. Ready for discharge. Follow-up acute care surgery clinic. 12/31/2018. The patient is seen and evaluated on an acute care surgery rounds. The abdomen is soft and nontender. She is having multiple loose stools. There is no nausea or vomiting. No evidence of bowel obstruction. The patient is ready for discharge to rehabilitation or ECF Subjective Narrative: The patient is seen and evaluated on morning rounds with the acute care surgery team. Her abdomen is soft. She is having multiple loose bowel movements. She is tolerating diet. There is no evidence of bowel obstruction or ileus area patient is ready for discharge to extended care facility or rehabilitation. Objective Vital Signs - Last 8 Hours Temp Pulse Resp BP Pulse Ox 12/31/18 06:46 99.0 F 82 17 116/73 92 12/31/18 03:04 97.8 F 82 18 121/73 93 Intake and Output 12/30/18 12/31/18 12/31/18 23:59 07:59 15:59 Intake Total 200 / 560 100 / 100 Output Total 0 / 0 Balance 200 / 560 100 / 100 Intake: Oral 200 / 560 100 / 100 Output: Urine 0 / 0 Other: Stool Size Small Moderate Stool Consistency liquid liquid Stool Color Brown Brown Weight 87.2 kg Patient Weight 12/31/18 23:59 Weight 87.2 kg - General physical appearance well developed, well nourished, chronically ill - Respiratory normal expansion, normal respiratory effort, clear to auscultation - Cardiovascular Cardiovascular exam: Present: RRR, no murmurs/rubs/gallops - Abdomen Abdomen: Present: bowel sounds present, soft, non tender - Incision Incision: Present: clean and dry - Neurologic CN 2-12 grossly intact, normal coordination, normal sensation - Psychiatric oriented to time, oriented to person, oriented to place, speech is normal, memory intact - Labs 12/30/18 16:42 08/16/19 04:43 - Imaging Abdominal x-ray: image reviewed (I personally reviewed the KUB from last night. The dilated small bowel segment is residual from her previous bowel obstruction. This should resolve over time.) - VTE Documentation of Mechanical Device: Intermittent pneumatic compression device Consult Discharge Plan - Plan Referrals: Anticoagulation Management Service Patient [Other] - 01/02/19 10:45 am Timbo Brar MD [Partnered Physician] - Elen Britton DO [Primary Care Provider] -
[2018-12-31 09:20] LABS: Basophils % 0.1 %; Eosinophils # 0.2 K/mcL (0.0-0.6); Eosinophils % 2.2 %; INR 2.1; Immature Granulocytes % 0.6 % (0-4); Lymphocytes % 14.8 %; Mean Corpuscular HGB Conc 32.3 g/dL (31.6-35.5); Mean Corpuscular Hemoglobin 31.3 pg (28.0-33.3); Mean Corpuscular Volume 96.9 fL (83.0-100.0); Mean Platelet Volume 9.4 fL (9.4-12.4); Monocytes # 0.8 K/mcL (0.0-1.3); Neutrophils # 4.9 K/mcL (1.6-8.9); Platelet Count 279 K/mcL (140-400); Prothrombin Time 24.1 Seconds (9.4-12.1); Red Cell Distribution Width 17.3 % (11.5-14.5); Segmented Neutrophils % 71.3 %; White Blood Count 6.8 K/mcL (4.3-11.1)
[2018-12-31 11:13] LABS: BUN/Creatinine Ratio 31 (6-26); Blood Urea Nitrogen 15 mg/dL (8-23); Calcium 8.7 mg/dL (8.6-10.3); Carbon Dioxide 27 mEq/L (23-29); Chloride 102 mEq/L (98-107); Glucose 97 mg/dL (70-105); Magnesium 1.6 mg/dL (1.6-2.6); Osmolality,Calculated 281 (280-300); Potassium 2.8 mEq/L (3.5-5.1); Sodium 135 mEq/L (136-145); eGFR For African Americans > 60 (> 60); eGFR For Non-African Americans > 60 (> 60)
[2018-12-31] MEDS ORDERED: 0.9 % Sodium Chloride w KCl 40 MEQ/1,000 ML MLS IVC SCH (11:30)
[2018-12-31 11:32] LABS: Phosphorous 2.2 mg/dL (2.7-4.5)
[2018-12-31] MEDS: Ondansetron ODT 4 MG TAB.RAPDIS SL PRN (13:24)
[2018-12-31] MEDS ORDERED: *HR* Warfarin 2.5 MG TABLET PO ONE (18:00)
[2018-12-31] MEDS: Warfarin perPT PO SCH (18:33)
[2018-12-31 23:52] LABS: Adenovirus F 40/41 PCR Not detected (Not detect); Astrovirus PCR Not detected (Not detect); C.difficile Toxin A/B Gene PCR Not detected (Not detect); Campylobacter by PCR Not detected (Not detect); Cryptosporidium by PCR Not detected (Not detect); Cyclospora cayetanensis PCR Not detected (Not detect); E. coli O157 by PCR Not detected (Not detect); Entamoeba histolytica PCR Not detected (Not detect); Enteroaggregative E.coli(EAEC) Not detected (Not detect); Enteropathogenic E.coli(EPEC) Not detected (Not detect); Enterotoxigenic E.coli (ETEC) Not detected (Not detect); Giardia lamblia PCR Not detected (Not detect); Norovirus GI/GII PCR Not detected (Not detect); Plesiomonas shigelloides PCR Not detected (Not detect); Rotavirus A PCR Not detected (Not detect); Salmonella PCR Not detected (Not detect); Sapovirus PCR Not detected (Not detect); Shig/EnteroinvasiveE coli EIEC Not detected (Not detect); Shigalike tox-prod E coli STEC Not detected (Not detect); Vibrio PCR Not detected (Not detect); Vibrio cholerae PCR Not detected (Not detect); Yersinia enterocolitica PCR Not detected (Not detect)
[2019-01-01 07:33] LABS: Basophils % 0.5 %; Eosinophils # 0.3 K/mcL (0.0-0.6); Eosinophils % 4.8 %; Hemoglobin 9.1 g/dL (11.5-15.4); Immature Granulocytes % 1.9 % (0-4); Lymphocytes # 1.4 K/mcL (0.6-4.6); Lymphocytes % 23.5 %; Mean Corpuscular HGB Conc 32.5 g/dL (31.6-35.5); Mean Corpuscular Hemoglobin 31.8 pg (28.0-33.3); Mean Corpuscular Volume 97.9 fL (83.0-100.0); Mean Platelet Volume 9.6 fL (9.4-12.4); Monocytes # 0.6 K/mcL (0.0-1.3); Monocytes % 10.4 %; Neutrophils # 3.4 K/mcL (1.6-8.9); Platelet Count 268 K/mcL (140-400); Red Blood Count 2.86 M/mcL (3.82-4.97); Red Cell Distribution Width 18.1 % (11.5-14.5); Segmented Neutrophils % 58.9 %; White Blood Count 5.8 K/mcL (4.3-11.1)
[2019-01-01 07:44] LABS: INR 1.9; Prothrombin Time 21.6 Seconds (9.4-12.1)
--- NOTE | 2019-01-01 08:09 | Internal Med Progress Note ---
Hospitalist Progress Note - Encounter Date of Encounter: 01/01/19 Time of Encounter: 08:09 - Exam Vitals: Temp Pulse Resp BP Pulse Ox 98.6 F 74 17 114/65 93 01/01/19 06:59 01/01/19 06:59 01/01/19 06:59 01/01/19 06:59 01/01/19 06:59 - Assessment and Plan (1) Small bowel obstruction Current Visit: Yes Status: Acute (2) Diarrhea Current Visit: Yes Status: Acute (3) Hypokalemia Current Visit: Yes Status: Acute (4) Atrial fibrillation Current Visit: Yes Status: Acute (5) DVT prophylaxis Current Visit: Yes Status: Acute - Time Spent with Patient Total time spent is greater than 50% in coordination of care (as documented) at patient's floor/unit and/or counseling patient: Internal Medicine: Result - Labs CBC & Chem 7: 01/01/19 06:44 12/31/18 09:58 Labs: Short CBC 12/31/18 01/01/19 Range/Units 08:51 06:44 WBC 6.8 5.8 (4.3-11.1) K/mcL Hgb 10.0 L D 9.1 L (11.5-15.4) g/dL Hct 31.0 L 28.0 L (35.3-44.9) % Plt Count 279 268 (140-400) K/mcL Neutrophils # 4.9 3.4 (1.6-8.9) K/mcL BMP 12/31/18 09:58 Sodium 135 L Potassium 2.8 L Chloride 102 Carbon Dioxide 27 BUN 15 Creatinine 0.48 L Glucose 97 Calcium 8.7 - ABG Interpretation ABG results: PT/INR, D-dimer PT 21.6 Seconds (9.4-12.1) H 01/01/19 06:44 - Impressions Impressions KUB X-Ray 12/30/18 16:26 IMPRESSION: Partial small bowel obstruction versus ileus. Recommend radiographic follow-up. D/ / 12/30/2018 17:45:06 Tristen Tracy MD / reid Interpreting Provider: Tristen Tracy MD Tibia/Fibula X-Ray 12/31/18 17:42 IMPRESSION: No fracture or malalignment. D/ / Jalen Oakes MD / Jalen Oakes MD Interpreting Provider: Jalen Oakes MD - VTE Documentation of Mechanical Device: Intermittent pneumatic compression device Consult Discharge Plan - Plan Referrals: Anticoagulation Management Service Patient [Other] - 01/02/19 10:45 am Timbo Brar MD [Partnered Physician] - Elen Britton DO [Primary Care Provider] - ____ (2) Diarrhea Qualifiers: Diarrhea type: unspecified type Qualified Code(s): R19.7 - Diarrhea, unspecified (4) Atrial fibrillation Qualifiers: Atrial fibrillation type: unspecified Qualified Code(s): I48.91 - Unspecified atrial fibrillation
--- NOTE | 2019-01-01 08:25 | Acute Care Surgery Event Note ---
Date of Encounter: 01/01/19 Time of Encounter: 08:00 The patient is seen and evaluated on morning rounds with the acute care surgery team. Her INR is 2.1. Laboratory values are normalized. She is having more formed bowel movements. She is ready for ECF for rehabilitation for deconditioning. Incision is clean and dry. No further surgical therapy is recommended
[2019-01-01] MEDS: Multivit/Ca/Min/Fe/FA 1 TAB TABLET PO SCH (08:29)
[2019-01-01] MEDS: Aspirin 81 MG TAB.CHEW PO SCH (08:29)
[2019-01-01 08:34] LABS: BUN/Creatinine Ratio 23 (6-26); Blood Urea Nitrogen 11 mg/dL (8-23); Calcium 8.4 mg/dL (8.6-10.3); Carbon Dioxide 25 mEq/L (23-29); Chloride 107 mEq/L (98-107); Glucose 91 mg/dL (70-105); Magnesium 2.2 mg/dL (1.6-2.6); Osmolality,Calculated 287 (280-300); Phosphorous 2.5 mg/dL (2.7-4.5); Potassium 3.6 mEq/L (3.5-5.1); Sodium 139 mEq/L (136-145); eGFR For African Americans > 60 (> 60); eGFR For Non-African Americans > 60 (> 60)
[2019-01-01] MEDS ORDERED: Potassium Chloride Elixir 20 MEQ/15 ML UDC PO ONE (09:03)
--- NOTE | 2019-01-01 09:50 | Discharge Summary ---
<Sharad Fisher - Last Filed: 01/01/19 14:29> Date of Encounter: 01/01/19 Hospital course: Ms. Hudson is a 73 year old female - Time Spent with Patient Total time spent providing and/or coordinating discharge services: - Discharge Medications Prescriptions: New Docusate [Colace] 100 mg PO BID PRN #30 capsule PRN Reason: Constipation Polyethylene Glycol 3350 [MiraLAX] 17 gm PO DAILY #10 powd.pack Ondansetron ODT [Zofran ODT] 4 mg SL Q6HR PRN #15 tab.rapdis PRN Reason: Nausea And Vomiting Continued Omeprazole [PriLOSEC] 20 mg PO BID Cyanocobalamin (Vitamin B-12) [Vitamin B12] 1,000 mcg PO QMWF Acetaminophen [Tylenol] 1,000 mg PO Q6H PRN PRN Reason: Pain Propafenone [Rhythmol] 150 mg PO Q8H #90 tablet Atorvastatin [Lipitor] 40 mg PO HS #30 tablet Ergocalciferol (VITAMIN D2) [Vitamin D2] 2,000 unit PO HS Aspirin [Lo-Dose Aspirin EC] 81 mg PO HS Ferrous Sulfate 325 mg PO BIDWM tablet Simethicone [Gas-X] 80 mg PO TID PRN PRN Reason: Pain Warfarin [Coumadin] 5 mg PO SUMOWETHSA Warfarin [Coumadin] 2.5 mg PO TUFR Mirtazapine [Remeron] 15 mg PO HS Calcium Carbonate [Tums] 1,000 mg PO Q4HR PRN tab.chew PRN Reason: Heartburn Home Medications: Omeprazole [PriLOSEC] 20 mg PO BID 07/20/17 [History] Cyanocobalamin (Vitamin B-12) [Vitamin B12] 1,000 mcg PO QMWF 08/26/17 [History] Acetaminophen [Tylenol] 1,000 mg PO Q6H PRN 12/14/17 [History] Propafenone [Rhythmol] 150 mg PO Q8H #90 tablet 06/15/18 [Rx] Atorvastatin [Lipitor] 40 mg PO HS #30 tablet 08/22/18 [Rx] Ergocalciferol (VITAMIN D2) [Vitamin D2] 2,000 unit PO HS 11/01/18 [History] Aspirin [Lo-Dose Aspirin EC] 81 mg PO HS 11/03/18 [History] Ferrous Sulfate 325 mg PO BIDWM tablet 11/08/18 [Rx] Calcium Carbonate [Tums] 1,000 mg PO Q4HR PRN tab.chew 11/21/18 [Rx] Simethicone [Gas-X] 80 mg PO TID PRN 12/21/18 [History] Warfarin [Coumadin] 5 mg PO SUMOWETHSA 12/21/18 [History] Warfarin [Coumadin] 2.5 mg PO TUFR 12/22/18 [History] Mirtazapine [Remeron] 15 mg PO HS 12/23/18 [History] Docusate [Colace] 100 mg PO BID PRN #30 capsule 01/01/19 [Rx] Ondansetron ODT [Zofran ODT] 4 mg SL Q6HR PRN #15 tab.rapdis 01/01/19 [Rx] Polyethylene Glycol 3350 [MiraLAX] 17 gm PO DAILY #10 powd.pack 01/01/19 [Rx] Allergies/Adverse Reactions: Allergy/AdvReac Type Severity Reaction Status Date / Time codeine Allergy Difficulty Verified 11/01/18 06:59 Breathing hydrocodone [From Vicodin] Allergy Difficulty Verified 11/01/18 06:59 Breathing morphine Allergy Difficulty Verified 11/01/18 06:59 Breathing oxycodone [From Percocet] Allergy Rash Verified 11/01/18 06:59 tramadol Allergy Difficulty Verified 11/01/18 06:59 Breathing hydromorphone [From Dilaudid] AdvReac Dizziness Verified 12/27/18 14:44 influenza virus vaccine, AdvReac FLU LIKE Verified 11/01/18 06:59 specific SYMPTOMS [Influenza Virus Vacc,Specific] Ebwelwq-Vzj-Uno Reductase AdvReac Loss of Verified 11/20/18 18:27 Inhibitor Appetite Date of admission: 12/21/18 15:52 Primary care physician: Elen Britton DO Consults: 12/21/18 14:43 Consult to Surgery [CONS] Stat Consulting Provider: [facility] Reason for Consult: SBO Time Notified: 14:43 Call Completed: Yes 12/21/18 14:48 Consult to Urology [CONS] Stat Consulting Provider: Urology [place] Reason for Consult: Obstructive uropathy and UTI Time Notified: 14:48 Call Completed: Yes 12/21/18 18:59 Consult to Nutrition [CONS] Routine Comment: Consulting Provider: NUTRITION Reason for Dietary Consult: MST Score 12/24/18 08:36 Consult to Invasive Line Access Team [CONS] Routine Reason for Consult: poor vascular access, blood transfusion/IVC fluids/multiple antiobiotics Line Type: EPIV 12/27/18 14:01 Consult to Occupational Therapy [CONS] Routine Comment: Evaluate, develop and implement POC Reason for Consult: d/c recs Does patient have active BEDREST order?: No Is patient medically & hemodynamically stable?: Yes Patient assessed for mobility or mobilized this visit?: Yes Consult to Physical Therapy [CONS] Routine Comment: Evaluate, develop and implement POC Reason for Consult: d/c recs Does patient have active BEDREST order?: No Is patient medically & hemodynamically stable?: Yes Patient assessed for mobility or mobilized this visit?: Yes 12/29/18 11:28 Consult to Physical Therapy [CONS] Routine Comment: Evaluate, develop and implement POC Reason for Consult: post op recomendations/ ECF placement Does patient have active BEDREST order?: No Is patient medically & hemodynamically stable?: Yes Patient assessed for mobility or mobilized this visit?: No 12/29/18 11:30 Consult to Case Management [CONS] Routine Comment: DC planning. Pt needs ECF - Constitutional Vitals: Temp Pulse Resp BP Pulse Ox 98.6 F 80 16 105/88 93 01/01/19 10:43 01/01/19 10:43 01/01/19 10:43 01/01/19 10:43 01/01/19 10:43 - Patient Status Disposition: Home Health Service Condition: Good - Ambulatory Orders Ambulatory Orders: Basic Metabolic Panel [CHEM] Time Frame: 3 Days, Location: Determined By Patient Prothrombin Time INR [COAG] Time Frame: 3 Days, Location: Determined By Patient - Discharge Instructions Instructions: Acute Abdominal Pain (GEN), Gas and Bloating (GEN) Follow Up With: Anticoagulation Management Service Patient [Other] - 01/02/19 10:45 am Elen Britton DO [Primary Care Provider] - (Followup in 3-5 days for reevaluation) Timbo Brar MD [Partnered Physician] - (Per urology note, followup with Dr. Brar 01/12/2019 at 9:45am.) Additional Instructions: Follow-up with your PCP in 3-5 days for reevaluation. Follow-up outpatient with urology as scheduled. Have repeat metabolic and PT\INR labs drawn in 3 days. Continue taking your regular home medications. Take Colace 100 mg twice daily as needed for uncomfortable bowel movements. Use MiraLAX once daily as needed for constipation. Continue to eat soft foods, and it tried to increase your oral intake as much as possible. Make sure to ambulate multiple times per day. Return to the emergency department if you develop any fevers, chills, worsening abdominal pain, drainage around her surgical wound, or any new concerns arise. - Attending Attestation I examined this patient and my medical decision-making was reviewed with the resident physician. I agree with the documented findings, disposition and treatment plan as described except to the extent set forth below. Discharge time 40 min. <Caitlin Rocha N - Last Filed: 01/01/19 15:27> - NOTES TO OUTPATIENT PROVIDER Notes to Outpatient Provider: Patient was admitted with small bowel obstruction, which required operative management. During hospitalization, INR was supr atherapeutic, prompting hold on daily warfarin until therapeutic range was obtained. Patient was discharged on previous doses of warfarin, with appointment at the Coumadin clinic on 01/02/2019 and ambulatory order for repeat PT/INR to be drawn in 3 days. Patient was provided with prescriptions for Colace and MiraLAX to be used PRN for regulation of bowel movements. Outpatient urology follow-up appointment scheduled for 01/12/[address] Brar. Date of Encounter: 01/01/19 Time of Encounter: 09:50 - Discharge Diagnosis (1) Small bowel obstruction Priority: Primary Status: Acute (2) Diarrhea Priority: Secondary Status: Acute Qualifiers: Diarrhea type: unspecified type Qualified Code(s): R19.7 - Diarrhea, unspecified (3) Hypokalemia Priority: Secondary Status: Acute (4) Atrial fibrillation Priority: Secondary Status: Acute Qualifiers: Atrial fibrillation type: unspecified Qualified Code(s): I48.91 - Unspecified atrial fibrillation (5) Postoperative abdominal pain Priority: Secondary Status: Acute (6) Intra-abdominal hematoma Priority: Secondary Status: Acute Qualifiers: Encounter type: initial encounter Qualified Code(s): S36.92XA - Contusion of unspecified intra-abdominal organ, initial encounter (7) Acute blood loss anemia Priority: Secondary Status: Acute Hospital course: Ms. Hudson is a 73 year old female with a history of atrial fibrillation, GERD, hypertension, hyperlipidemia, and left inguinal hernia repair on 11/01/2018 with postoperative complication of hematoma formation requiring additional surgery and blood transfusion. She presented to the emergency department with epigastric abdominal pain, and was subsequently found to have a low-grade small bowel obstruction on CT imaging. Other notable findings included a 3 mm old distal right ureteral stone with moderate obstructive uropathy and left nephrolithiasis. Small bowel follow-through study was performed on 12/22/2018, which demonstrated functional obstruction in the small bowel. Surgical interventions were performed on 12/22/2018 by both general surgery (exploratory laparotomy with reduction of internal hernia and unroofing and debridement of hematoma cavity) and urology (cystoscopy and right ureteral stent placement). Postoperatively, patient did have some difficulty resuming her diet secondary to nausea and abdominal pain. Patient was initially hesitant to ambulate secondary to pain and discomfort, though this did improve throughout her hospital stay. Patient was evaluated by PT/OT, with recommendation for home therapy to improve strength and mobility. Patient did report worsening abdominal pain and distention on 01/01/2019, as well as multiple episodes of diarrhea. KUB was obtained and reviewed by surgery team, who voiced that patient did not appear to be obstructed. GI infectious panel was obtained and noted to be negative for any infectious causes of diarrhea. Patient's stool softeners and MiraLAX were discontinued, with subsequent improvement in stool quality and decreasing diarrhea. On POD #11, patient reported further improvement in abdominal pain and discomfort, as well as decreased diarrhea and improved flatus. Patient was discharged home with home health for ongoing therapy needs. Repeat PT/INR and metabolic panel ordered to be drawn in 3 days. Patient is to follow-up with PCP in 3-5 days for reevaluation. Outpatient urology follow-up scheduled on 01/12/2019. Discharge discussed with: patient, family, nurse - Time Spent with Patient Total time spent providing and/or coordinating discharge services: Date of admission: 12/21/18 15:52 Primary care physician: Elen Britton DO Consults: 12/21/18 14:43 Consult to Surgery [CONS] Stat Consulting Provider: Surgery [place] [facility] Reason for Consult: SBO Time Notified: 14:43 Call Completed: Yes 12/21/18 14:48 Consult to Urology [CONS] Stat Consulting Provider: [facility] Reason for Consult: Obstructive uropathy and UTI Time Notified: 14:48 Call Completed: Yes 12/21/18 18:59 Consult to Nutrition [CONS] Routine Comment: Consulting Provider: NUTRITION Reason for Dietary Consult: MST Score 12/24/18 08:36 Consult to Invasive Line Access Team [CONS] Routine Reason for Consult: poor vascular access, blood transfusion/IVC fluids/multiple antiobiotics Line Type: EPIV 12/27/18 14:01 Consult to Occupational Therapy [CONS] Routine Comment: Evaluate, develop and implement POC Reason for Consult: d/c recs Does patient have active BEDREST order?: No Is patient medically & hemodynamically stable?: Yes Patient assessed for mobility or mobilized this visit?: Yes Consult to Physical Therapy [CONS] Routine Comment: Evaluate, develop and implement POC Reason for Consult: d/c recs Does patient have active BEDREST order?: No Is patient medically & hemodynamically stable?: Yes Patient assessed for mobility or mobilized this visit?: Yes 12/29/18 11:28 Consult to Physical Therapy [CONS] Routine Comment: Evaluate, develop and implement POC Reason for Consult: post op recomendations/ ECF placement Does patient have active BEDREST order?: No Is patient medically & hemodynamically stable?: Yes Patient assessed for mobility or mobilized this visit?: No 12/29/18 11:30 Consult to Case Management [CONS] Routine Comment: DC planning. Pt needs ECF Discharging clinician: Caitlin Rocha Anticipated date of discharge: 01/01/19 - Constitutional Vitals: Temp Pulse Resp BP Pulse Ox 98.6 F 74 17 114/65 93 01/01/19 06:59 01/01/19 06:59 01/01/19 06:59 01/01/19 06:59 01/01/19 06:59 Exam: GENERAL: Elderly adult female sitting up in the bedside recliner in no acute distress. HEENT: Atraumatic and normocephalic. CARDIOVASCULAR: Regular rate and rhythm. S1 and S2 present. RESPIRATORY: Clear to auscultation bilaterally. Chest rises and falls symmetrically without accessory muscle use. GASTROINTESTINAL: Bowel sounds present 4 quadrants. Abdomen is soft and mildly distended, with diffuse tenderness present with palpation. EXTREMITIES: Mild bilateral lower extremity edema. SKIN: Warm, and dry, and intact. NEUROLOGIC: Alert and oriented x3. Patient is cooperative with exam and answers questions appropriately. No apparent focal deficits. PSYCHIATIC: Appropriate mood and affect. - Patient Status Functional capacity at discharge: independent ambulation Overall status at discharge: patient is progressing back to baseline - Diet and Activity Activity: as per physical therapy, increase activity as tolerated, resume usual activities as tolerated Diet: other (Cardiac diet) - VTE Documentation of Mechanical Device: Intermittent pneumatic compression device
[2019-01-01 10:51] VITALS: BP 105/88
--- NOTE | 2019-01-01 11:33 | Physician Discharge Referral ---
Home Health/Hosp Referral Info Transfer to: Home Health Attending Provider: Dr. Tank Fisher Provider in Charge Post Discharge: PCP - Diagnosis (1) Small bowel obstruction Priority: Primary Status: Acute (2) Diarrhea Priority: Secondary Status: Acute (3) Hypokalemia Priority: Secondary Status: Acute (4) Atrial fibrillation Priority: Secondary Status: Acute (5) Postoperative abdominal pain Priority: Secondary Status: Acute (6) Intra-abdominal hematoma Priority: Secondary Status: Acute (7) Acute blood loss anemia Priority: Secondary Status: Acute - Respiratory Orders Smoking Cessation: Smoking cessation has been advised. For more information, call the [place] Tobacco Quit Line at 1-810-OTLU-NOW. - Diet/Nutrition Diet/Nutrition Orders: Regular, Mechanical Soft, Cardiac - Activity Activity Orders: Up ad hayden, Ambulate, Chair - Services Needed Following services are medically necessary services: Nursing, Home Health Aide, Physical Therapy, Occupational Therapy, Med Social Work - Transfer Medications Prescriptions: Docusate [Colace] 100 mg PO BID PRN #30 capsule PRN Reason: Constipation Polyethylene Glycol 3350 [MiraLAX] 17 gm PO DAILY #10 powd.pack Ondansetron ODT [Zofran ODT] 4 mg SL Q6HR PRN #15 tab.rapdis PRN Reason: Nausea And Vomiting Home Medications: Omeprazole [PriLOSEC] 20 mg PO BID 07/20/17 [History] Cyanocobalamin (Vitamin B-12) [Vitamin B12] 1,000 mcg PO QMWF 08/26/17 [History] Acetaminophen [Tylenol] 1,000 mg PO Q6H PRN 12/14/17 [History] Propafenone [Rhythmol] 150 mg PO Q8H #90 tablet 06/15/18 [Rx] Atorvastatin [Lipitor] 40 mg PO HS #30 tablet 08/22/18 [Rx] Ergocalciferol (VITAMIN D2) [Vitamin D2] 2,000 unit PO HS 11/01/18 [History] Aspirin [Lo-Dose Aspirin EC] 81 mg PO HS 11/03/18 [History] Ferrous Sulfate 325 mg PO BIDWM tablet 11/08/18 [Rx] Calcium Carbonate [Tums] 1,000 mg PO Q4HR PRN tab.chew 11/21/18 [Rx] Simethicone [Gas-X] 80 mg PO TID PRN 12/21/18 [History] Warfarin [Coumadin] 5 mg PO SUMOWETHSA 12/21/18 [History] Warfarin [Coumadin] 2.5 mg PO TUFR 12/22/18 [History] Mirtazapine [Remeron] 15 mg PO HS 12/23/18 [History] Docusate [Colace] 100 mg PO BID PRN #30 capsule 01/01/19 [Rx] Ondansetron ODT [Zofran ODT] 4 mg SL Q6HR PRN #15 tab.rapdis 01/01/19 [Rx] Polyethylene Glycol 3350 [MiraLAX] 17 gm PO DAILY #10 powd.pack 01/01/19 [Rx] Allergies/Adverse Reactions: Allergy/AdvReac Type Severity Reaction Status Date / Time codeine Allergy Difficulty Verified 11/01/18 06:59 Breathing hydrocodone [From Vicodin] Allergy Difficulty Verified 11/01/18 06:59 Breathing morphine Allergy Difficulty Verified 11/01/18 06:59 Breathing oxycodone [From Percocet] Allergy Rash Verified 11/01/18 06:59 tramadol Allergy Difficulty Verified 11/01/18 06:59 Breathing hydromorphone [From Dilaudid] AdvReac Dizziness Verified 12/27/18 14:44 influenza virus vaccine, AdvReac FLU LIKE Verified 11/01/18 06:59 specific SYMPTOMS [Influenza Virus Vacc,Specific] Xeqxzzj-Vak-Rmi Reductase AdvReac Loss of Verified 11/20/18 18:27 Inhibitor Appetite Certification: Further, I certify that my clinical findings support that this patient is homebound (i.e. absences from home require considerable and taxing effort and are for medical reasons or orthodox services or infrequently or short duration when for other reasons) because: Homebound Reason: Patient requires assistance of a person or device to safely leave home, Post-surgery restriction and or conditions limit ability to leave home Attestation: My signature below is to certify that this patient is under my care and that I, or nurse practitioner, or a physician's autopsy assistant working with me, has a [id number] encounter with this patient.
[2019-01-01] MEDS ORDERED: *HR* Warfarin 2.5 MG TABLET PO ONE (18:00)
== END 2019-01-01 14:45 | disposition home health service (06) | DRG 326 ==
LOC: 3ANU 12:13 → EMEROOARM 12:13 → SUATTDRO 15:52 → 3ANU 16:00
PROVIDERS: ADMIT Internal Medicine; ATTEND Student in an Organized Health Care Education/Training Program

== ENCOUNTER 2019-03-28 05:50 | Inpatient (IN) ==
[2019-03-28] MEDS ORDERED: 0.9 % Sodium Chloride 1,000 ML IVC SCH (06:15)
[2019-03-28 06:45] LABS: Basophils % 0.8 %; Eosinophils # 0.1 K/mcL (0.0-0.6); Eosinophils % 1.6 %; Immature Granulocytes % 0.2 % (0-4); Lymphocytes # 1.3 K/mcL (0.6-4.6); Lymphocytes % 27.2 %; Mean Corpuscular HGB Conc 34.2 g/dL (31.6-35.5); Mean Corpuscular Hemoglobin 32.4 pg (28.0-33.3); Mean Corpuscular Volume 94.8 fL (83.0-100.0); Mean Platelet Volume 10.2 fL (9.4-12.4); Monocytes # 0.5 K/mcL (0.0-1.3); Monocytes % 10.9 %; Neutrophils # 2.9 K/mcL (1.6-8.9); Platelet Count 164 K/mcL (140-400); Red Blood Count 4.01 M/mcL (3.82-4.97); Segmented Neutrophils % 59.3 %; White Blood Count 4.9 K/mcL (4.3-11.1)
[2019-03-28 06:50] LABS: Prothrombin Time 22.9 Seconds (9.4-12.1)
[2019-03-28] MEDS ORDERED: 0.9 % Sodium Chloride Mini Bag 100 ML ONE (06:59)
[2019-03-28 07:05] LABS: BUN/Creatinine Ratio 45 (6-26); Blood Urea Nitrogen 30 mg/dL (8-23); Calcium 9.6 mg/dL (8.6-10.3); Carbon Dioxide 25 mEq/L (23-29); Chloride 108 mEq/L (98-107); Glucose 107 mg/dL (70-105); Osmolality,Calculated 297 (280-300); Potassium 3.9 mEq/L (3.5-5.1); Sodium 140 mEq/L (136-145); eGFR For African Americans > 60 (> 60); eGFR For Non-African Americans > 60 (> 60)
[2019-03-28] MEDS ORDERED: *HR* Midazolam HCl 2 MG/2 ML VIAL ONE (07:10)
[2019-03-28] MEDS ORDERED: *HR* FentaNYL (PF) 100 MCG/2 ML VIAL ONE (07:11)
[2019-03-28] MEDS ORDERED: *HR* Heparin 10,000 UNIT/10 ML VIAL ONE (07:14)
[2019-03-28] MEDS ORDERED: ISOVUE-370 200 ML INFUS..BTL ONE (07:15)
[2019-03-28] MEDS ORDERED: 0.9 % Sodium Chloride 1,000 ML ONE ×2 (07:15→10:06)
[2019-03-28] MEDS ORDERED: Heparin 1,000 UNITS/500 mL 1,000 ML ONE (07:15)
[2019-03-28] MEDS ORDERED: Heparin 1,000 UNITS/500 mL 500 ML ONE (07:26)
[2019-03-28] MEDS ORDERED: Protamine Sulfate 50 MG/5 ML VIAL IVP ONE ×2 (10:28→10:29)
[2019-03-28] MEDS ORDERED: Ondansetron 4 MG/2 ML VIAL IVP ONE (12:18)
[2019-03-28] MEDS ORDERED: *HR* Phenylephrine 10 MG/ML VIAL IVC ONE (12:18)
[2019-03-28] MEDS ORDERED: *HR* Succinylcholine 200 MG/10 ML VIAL IVP ONE (12:18)
[2019-03-28] MEDS ORDERED: *HR* Etomidate 20 MG/10 ML AMPUL IVP ONE (12:18)
[2019-03-28] MEDS ORDERED: EPHEDrine 50 MG/ML VIAL IVP ONE (12:18)
[2019-03-28] MEDS ORDERED: Aspirin Enteric Coated 81 MG Tablet PO SCH (21:00)
[2019-03-29 03:06] LABS: Basophils % 0.3 %; Hematocrit 33.5 % (35.3-44.9); Immature Granulocytes % 0.5 % (0-4); Lymphocytes # 0.8 K/mcL (0.6-4.6); Lymphocytes % 12.4 %; Mean Corpuscular HGB Conc 32.2 g/dL (31.6-35.5); Mean Corpuscular Hemoglobin 31.6 pg (28.0-33.3); Mean Platelet Volume 10.3 fL (9.4-12.4); Monocytes # 0.4 K/mcL (0.0-1.3); Monocytes % 6.6 %; Neutrophils # 5.1 K/mcL (1.6-8.9); Platelet Count 139 K/mcL (140-400); Red Blood Count 3.42 M/mcL (3.82-4.97); Red Cell Distribution Width 13.8 % (11.5-14.5); Segmented Neutrophils % 80.2 %; White Blood Count 6.4 K/mcL (4.3-11.1)
[2019-03-29 03:07] LABS: Hemoglobin 10.8 g/dL (11.5-15.4)
[2019-03-29 03:10] LABS: INR 1.8; Prothrombin Time 20.7 Seconds (9.4-12.1)
[2019-03-29 03:24] LABS: BUN/Creatinine Ratio 28 (6-26); Blood Urea Nitrogen 20 mg/dL (8-23); Calcium 8.6 mg/dL (8.6-10.3); Carbon Dioxide 23 mEq/L (23-29); Chloride 112 mEq/L (98-107); Glucose 111 mg/dL (70-105); Osmolality,Calculated 291 (280-300); Potassium 3.8 mEq/L (3.5-5.1); Sodium 139 mEq/L (136-145); eGFR For African Americans > 60 (> 60); eGFR For Non-African Americans > 60 (> 60)
[2019-03-29 07:22] VITALS: BP 109/66
[2019-03-29] MEDS ORDERED: *HR* Warfarin 5 MG TABLET PO SCH (09:00)
[2019-03-29] MEDS ORDERED: Cyanocobalamin (B-12) 1,000 MCG TABLET PO SCH (09:00)
[2019-03-29] MEDS ORDERED: Cholecalciferol (D-3) 1,000 UNIT (25MCG) TABLET PO SCH (09:00)
[2019-03-29 09:22] LABS: Hemoglobin 11.1 g/dL (11.5-15.4)
== END 2019-03-29 12:20 | disposition home or self-care (01) | DRG 274 ==
LOC: 2NNU 05:50 → ICNU 07:07 → 2NNU 09:54
PROVIDERS: ADMIT Internal Medicine Cardiovascular Disease; ATTEND Internal Medicine Cardiovascular Disease

== ENCOUNTER 2021-12-08 11:03 | Inpatient (IN) ==
[2021-12-08] MEDS ORDERED: Lidocaine -MPF 2% 5 ML VIAL ONE (11:35)
[2021-12-08] MEDS ORDERED: Lidocaine HCL 4 ML Topical Solution (Laryng-O-Jet Kit Sterile Pak) TP ONE (11:35)
[2021-12-08] MEDS ORDERED: Ondansetron 4 MG/2 ML VIAL ONE (11:35)
[2021-12-08] MEDS ORDERED: *HR* Propofol 200 MG/20 ML VIAL IVP ONE (11:35)
[2021-12-08] MEDS ORDERED: CeFAZolin Syr 2,000MG/20 ML 2,000 MG/20 ML SYRINGE IVPB ONE (11:35)
[2021-12-08] MEDS ORDERED: *HR* FentaNYL (PF) 100 MCG/2 ML VIAL ONE ×3 (11:35→16:00)
[2021-12-08] MEDS ORDERED: Acetaminophen IV 1,000 MG/100 ML BAG IVPB ONE (11:48)
[2021-12-08] MEDS: Ringers Solution, Lactated 1,000 ML IVC SCH (12:05)
[2021-12-08] MEDS ORDERED: EPHEDrine 50 MG/ML VIAL ONE (12:28)
[2021-12-08] MEDS ORDERED: *HR* Rocuronium Bromide 50 MG/5 ML VIAL ONE (13:22)
[2021-12-08] MEDS ORDERED: *HR* Labetalol 20 MG/4 ML SYRINGE IVP ONE ×2 (13:29→13:30)
[2021-12-08] MEDS ORDERED: Sugammadex Sodium 200 MG/2 ML VIAL IV ONE (15:17)
[2021-12-08] MEDS ORDERED: *HR* Metoprolol 5 MG/5 ML VIAL IVP PRN (15:46)
[2021-12-08] MEDS ORDERED: Ibuprofen 600 MG TABLET PO PRN (15:46)
[2021-12-08] MEDS ORDERED: Naloxone 0.4 MG/ML INJ IVP PRN (15:46)
[2021-12-08] MEDS ORDERED: Ondansetron 4 MG/2 ML VIAL IVP PRN (15:46)
[2021-12-08] MEDS: *HR* FentaNYL (PF) 100 MCG/2 ML VIAL IVP PRN ×4 (16:01→16:22)
[2021-12-08] MEDS ORDERED: *HR* Promethazine 25 MG/ML VIAL IVPB ONE (16:30)
[2021-12-08] MEDS: *HR* HYDROmorphone PF 0.5 MG/0.5 ML SYRINGE IVP PRN ×4 (16:34→17:11)
[2021-12-08] MEDS ORDERED: Promethazine 6.25 MG in Water for inj. (sterile) 20 ML IVPB ONE (16:40)
[2021-12-08] MEDS: *HR* Heparin 5,000 UNIT/ML VIAL SQ SCH (18:04)
[2021-12-08] MEDS: 0.9 % Sodium Chloride 1,000 ML IVC SCH (18:15)
[2021-12-08] MEDS: Acetaminophen IV 1,000 MG/100 ML BAG IVPB SCH (18:54)
[2021-12-08 19:11] LABS: Basophils % 0.2 %; Hematocrit 36.7 % (35.3-44.9); Immature Granulocytes % 0.4 % (0-4); Lymphocytes # 0.5 K/mcL (0.6-4.6); Lymphocytes % 4.7 %; Mean Corpuscular HGB Conc 32.7 g/dL (31.6-35.5); Mean Corpuscular Hemoglobin 31.5 pg (28.0-33.3); Mean Corpuscular Volume 96.3 fL (83.0-100.0); Mean Platelet Volume 11.4 fL (9.4-12.4); Monocytes # 0.3 K/mcL (0.0-1.3); Neutrophils # 9.6 K/mcL (1.6-8.9); Platelet Count 159 K/mcL (140-400); Red Blood Count 3.81 M/mcL (3.82-4.97); Red Cell Distribution Width 12.6 % (11.5-14.5); Segmented Neutrophils % 91.7 %; White Blood Count 10.5 K/mcL (4.3-11.1)
[2021-12-08] MEDS: ceFAZolin 1,000 MG in 0.9 % Sodium Chloride 10 ML IVP SCH ×2 (21:52→21:59)
[2021-12-09] MEDS: *HR* Heparin 5,000 UNIT/ML VIAL SQ SCH ×4 (00:36→23:22)
[2021-12-09] MEDS: Acetaminophen IV 1,000 MG/100 ML BAG IVPB SCH ×5 (00:37→23:24)
[2021-12-09 03:05] LABS: Blood Urea Nitrogen 15 mg/dL (8-23); Calcium 8.9 mg/dL (8.6-10.3); Carbon Dioxide 24 mEq/L (23-29); Chloride 107 mEq/L (98-107); Glucose 157 mg/dL (70-105); Osmolality,Calculated 288 (280-300); Potassium 4.5 mEq/L (3.5-5.1); Sodium 137 mEq/L (136-145)
[2021-12-09 04:22] LABS: BUN/Creatinine Ratio 19 (6-26); eGFR For African Americans > 60 (> 60); eGFR For Non-African Americans > 60 (> 60)
[2021-12-09] MEDS: 0.9 % Sodium Chloride 1,000 ML IVC SCH (08:11)
[2021-12-09] MEDS: Pantoprazole 40 MG VIAL IVP SCH (08:11)
[2021-12-09] MEDS: ceFAZolin 1,000 MG in 0.9 % Sodium Chloride 10 ML IVP SCH ×3 (08:19→23:21)
[2021-12-09] MEDS: Ibuprofen 600 MG TABLET PO SCH ×3 (11:39→23:23)
[2021-12-09] MEDS: methocarbamoL 500 MG TABLET PO SCH ×3 (12:58→23:24)
[2021-12-09] MEDS: Gabapentin 100 MG CAPSULE PO SCH ×3 (12:58→21:14)
[2021-12-09] MEDS: Ringers Solution, Lactated 1,000 ML IVC SCH (18:19)
[2021-12-10] MEDS: Ibuprofen 600 MG TABLET PO SCH ×3 (05:36→17:01)
[2021-12-10] MEDS: Acetaminophen IV 1,000 MG/100 ML BAG IVPB SCH ×3 (05:55→18:28)
[2021-12-10] MEDS ORDERED: Cyanocobalamin (B-12) 1,000 MCG TABLET PO SCH (09:00)
[2021-12-10] MEDS: methocarbamoL 500 MG TABLET PO SCH ×2 (09:17→17:00)
[2021-12-10] MEDS: Aspirin Enteric Coated 325 MG Tablet PO SCH (09:18)
[2021-12-10] MEDS: ceFAZolin 1,000 MG in 0.9 % Sodium Chloride 10 ML IVP SCH ×2 (09:18→17:01)
[2021-12-10] MEDS: Gabapentin 100 MG CAPSULE PO SCH ×3 (09:18→21:26)
[2021-12-10] MEDS: *HR* Heparin 5,000 UNIT/ML VIAL SQ SCH ×2 (09:18→17:01)
[2021-12-10] MEDS: Pantoprazole 40 MG VIAL IVP SCH (09:36)
[2021-12-11] MEDS: Ibuprofen 600 MG TABLET PO SCH ×3 (00:08→14:19)
[2021-12-11] MEDS: methocarbamoL 500 MG TABLET PO SCH ×2 (00:09→09:29)
[2021-12-11] MEDS: *HR* Heparin 5,000 UNIT/ML VIAL SQ SCH ×2 (00:09→09:29)
[2021-12-11] MEDS: ceFAZolin 1,000 MG in 0.9 % Sodium Chloride 10 ML IVP SCH ×2 (00:09→09:29)
[2021-12-11] MEDS: Acetaminophen IV 1,000 MG/100 ML BAG IVPB SCH ×3 (00:09→14:19)
[2021-12-11] MEDS: Ringers Solution, Lactated 1,000 ML IVC SCH ×2 (05:31→14:19)
[2021-12-11] MEDS ORDERED: polyethylene glycoL 3350 17 GM POWD.PACK PO SCH (09:00)
[2021-12-11] MEDS: Gabapentin 100 MG CAPSULE PO SCH ×2 (09:28→14:23)
[2021-12-11] MEDS: Aspirin Enteric Coated 325 MG Tablet PO SCH (09:28)
[2021-12-11] MEDS: Pantoprazole 40 MG VIAL IVP SCH (09:29)
[2021-12-11 15:45] VITALS: BP 128/85; PULSE 74; TEMP 98; O2SAT 94
== END 2021-12-11 16:19 | disposition home health service (06) | DRG 355 ==
LOC: SAMDAY 11:03 → 3ANU 18:00
PROVIDERS: ADMIT Surgery; ATTEND Surgery